=== PATIENT | female | born 1970 | race Two or more races ===

== ENCOUNTER 2019-07-12 16:10 | Emergency (ER) | payer MEDICAID ==
[~2019-07-12] VITALS: Ht 157.5 cm; Wt 58.5 kg
[~2019-07-12 16:10] MED LIST: ACET500T43 PO; ALOG25TA OR; AMOX250C3 PO; ATOR20TA50 PO; CAR3125T PO; CARV3.1240 PO; CLAR1TAB21 PO; FERR-20 PO; FUR20T PO; FURO20TA3 PO; GLIP5TAB12 PO; INSLANTI SC; METO-517 PO; METO5TAB67 PO; NUTR-1405 PO; PANT40T PO; SACU1TAB PO; SODI5PAK PO; SPIR25TA8 PO; SPIR25TA88 PO
[2019-07-12 17:17] LABS: Basophils # (auto) 0.1 10 ^3/uL (0-0.2); Basophils % (auto) 1.1 % (0.0-2.0); Eosinophils # (auto) 0.1 10 ^3/uL (0-0.8); Eosinophils % (auto) 1.8 % (0.0-7.0); Hematocrit 31.2 % (36.0-46.0); Hemoglobin 10.6 g/dL (12.2-16.2); Lymphocytes # (auto) 1.2 10 ^3/uL (0.4-5.4); Lymphocytes % (auto) 17.2 % (10.0-50.0); Mean Corpuscular Volume 88.4 fL (80.0-100.0); Monocytes # (auto) 0.3 10 ^3/uL (0-1.3); Monocytes % (auto) 4.8 % (0.0-12.0); Neutrophils # (auto) 5.4 10 ^3/uL (1.6-8.6); Neutrophils % (auto) 75.1 % (37.0-80.0); Platelet Count (auto) 182 10^3/uL (140-450); Red Blood Cells 3.53 10^6/uL (4.0-5.20); Red Cell Distribution Width 12.9 % (11.8-14.3); White Blood Cell 7.1 10^3/uL (4.4-10.8)
[2019-07-12 17:33] LABS: Alanine Aminotransferase 25 U/L (13-56); Albumin 2.3 g/dL (3.4-5.0); Anion Gap 4 (5-15); Blood Urea Nitrogen 30 mg/dL (7-18); Calcium 8.5 mg/dL (8.5-10.1); Carbon Dioxide 29 mmol/L (21-32); Chloride 99 mmol/L (98-107); Potassium 4.8 mmol/L (3.5-5.1); Sodium 132 mmol/L (136-145)
[2019-07-12 17:38] LABS: Alkaline Phosphatase 178 U/L (45-117); Aspartate Aminotransferase 18 U/L (15-37); BUN/Creatinine Ratio 23.8; Bilirubin, Total 0.3 mg/dL (0.2-1.0); GFR African American 58 mL/min; GFR Non-African American 48 mL/min; Total Protein 6.5 g/dL (6.4-8.2)
[2019-07-12 17:49] LABS: Glucose 458 mg/dL (74-106)
[2019-07-12 18:26] LABS: Urine Bacteria NONE SEEN /hpf (None Seen); Urine Blood 1+ /uL (Negative); Urine Hyaline Cast FEW /lpf (0 - 2); Urine Specific Gravity 1.017 (1.001-1.035); Urine WBC 3 /hpf (0 - 5)
[2019-07-12] MEDS ORDERED: SODIUM CHLORIDE 0.9% 2,000 ML IV ONE (21:15)
[2019-07-12] MEDS ORDERED: InsuLIN REG 1unit/0.01ml Soln (100units/ml) IV ONE ×2 (21:15→23:30)
[2019-07-12] MEDS ORDERED: ONDANSETRON HCL 4 MG/2 ML VIAL IV ONE (21:30)
[2019-07-12] MEDS ORDERED: InsuLIN REG 1unit/0.01ml Soln (100units/ml) SC ONE (22:45)
[2019-07-12] MEDS ORDERED: ONDANSETRON ODT 4 MG TAB PO ONE (22:45)
[2019-07-13 00:18] VITALS: BP 177/83
[2019-07-13] MEDS ORDERED: MECLIZINE HCL 25 MG TAB PO ONE (01:45)
[2019-07-13] MEDS ORDERED: ONDANSETRON ODT 4 MG TAB PO ONE (01:45)
== END 2019-07-13 02:59 | disposition home or self-care (01) ==
LOC: ER 16:10
DX: E11.65 Type 2 diabetes mellitus with hyperglycemia (principal); R11.2 Nausea with vomiting, unspecified; R42 Dizziness and giddiness; I11.0 Hypertensive heart disease with heart failure; I50.9 Heart failure, unspecified; J45.909 Unspecified asthma, uncomplicated; Z90.710 Acquired absence of both cervix and uterus
CPT/HCPCS: 36415; 80053; 81001; 82962; 84484; 85025; 93005; 96360; 96361; 99284; J1815; J7030; J8597; Q0162

== ENCOUNTER 2019-09-06 11:22 | Inpatient (IN) | payer MEDICAID ==
[~2019-09-06] VITALS: Ht 157.5 cm; Wt 63.5 kg
[2019-09-06] MEDS ORDERED: SODIUM CHLORIDE 0.9% 1,000 ML IV ONE (12:03)
[2019-09-06 12:59] LABS: Basophils # (auto) 0.1 10 ^3/uL (0-0.2); Basophils % (auto) 1.1 % (0.0-2.0); Eosinophils # (auto) 0.2 10 ^3/uL (0-0.8); Eosinophils % (auto) 3.1 % (0.0-7.0); Hematocrit 26.9 % (36.0-46.0); Lymphocytes # (auto) 1.5 10 ^3/uL (0.4-5.4); Lymphocytes % (auto) 23.8 % (10.0-50.0); Mean Corpuscular Hemoglobin 29.9 pg (28.0-32.0); Mean Corpuscular Hgb Conc. 33.2 g/dL (32.0-36.0); Mean Corpuscular Volume 89.9 fL (80.0-100.0); Monocytes # (auto) 0.3 10 ^3/uL (0-1.3); Monocytes % (auto) 5.4 % (0.0-12.0); Neutrophils # (auto) 4.3 10 ^3/uL (1.6-8.6); Neutrophils % (auto) 66.6 % (37.0-80.0); Platelet Count (auto) 176 10^3/uL (140-450); Red Cell Distribution Width 13.3 % (11.8-14.3); White Blood Cell 6.4 10^3/uL (4.4-10.8)
[2019-09-06 13:14] LABS: Albumin 2.6 g/dL (3.4-5.0); Anion Gap 4 (5-15); Blood Urea Nitrogen 49 mg/dL (7-18); Calcium 8.7 mg/dL (8.5-10.1); Carbon Dioxide 23 mmol/L (21-32); Chloride 112 mmol/L (98-107); Glucose 227 mg/dL (74-106); Potassium 5.4 mmol/L (3.5-5.1); Sodium 139 mmol/L (136-145)
[2019-09-06 13:19] LABS: Alanine Aminotransferase 31 U/L (13-56); Alkaline Phosphatase 137 U/L (45-117); Aspartate Aminotransferase 17 U/L (15-37); Bilirubin, Total 0.2 mg/dL (0.2-1.0); GFR African American 51 mL/min; GFR Non-African American 42 mL/min; Total Protein 6.6 g/dL (6.4-8.2)
[2019-09-06 16:06] LABS: Urine Bacteria MANY /hpf (None Seen); Urine Blood 1+ /uL (Negative); Urine Hyaline Cast MOD /lpf (0 - 2); Urine Mucus FEW (None Seen); Urine WBC 346 /hpf (0 - 5); Urine WBC Clumps PRESENT /hpf (None Seen)
[2019-09-06] MEDS ORDERED: ALBUTEROL SULF 2.5 MG/0.5ML(0.5%) NEB SOLN NEB ONE (16:45)
[2019-09-06] MEDS ORDERED: CALCIUM GLUC 4.65meq/50ml D5AE 50 ML IV ONE (16:45)
[2019-09-06] MEDS ORDERED: InsuLIN REG 1unit/0.01ml Soln (100units/ml) IV ONE (16:45)
[2019-09-06] MEDS ORDERED: SODIUM ZIRCONIUM CYCL 10 GM PAK PO ONE (16:45)
[2019-09-06] MEDS ORDERED: DEXTROSE (50%) 50ML SYRG IV ONE (16:45)
[2019-09-06] MEDS ORDERED: SODIUM BICARBONATE 8.4% INJ 50ML SYRINGE IV ONE (16:45)
[2019-09-06] MEDS ORDERED: ACETAMINOPHEN 325 MG TAB PO PRN (17:15)
[2019-09-06] MEDS ORDERED: ONDANSETRON HCL 4 MG/2 ML VIAL IV ONE (17:15)
[2019-09-06] MEDS ORDERED: HYDROcodone-ACET 5/325MG TAB PO PRN (17:15)
[2019-09-06] MEDS ORDERED: IPRATROPIUM BROM 0.5 MG/2.5ML INH SOL NEB PRN (17:15)
[2019-09-06] MEDS ORDERED: DEXTROSE (50%) 50ML SYRG IV PRN (17:15)
[2019-09-06] MEDS ORDERED: LORazepam 0.5 MG TAB PO PRN (17:15)
[2019-09-06] MEDS ORDERED: DOCUSATE SOD 100 MG CAP PO PRN (17:15)
[2019-09-06] MEDS ORDERED: ALBUTEROL SULF 2.5 MG/0.5ML(0.5%) NEB SOLN NEB PRN (17:15)
[2019-09-06] MEDS ORDERED: MORPHINE SULF INJ 2 MG/ML SYRINGE 1ML IV PRN (17:15)
[2019-09-06] MEDS ORDERED: ONDANSETRON HCL 4 MG/2 ML VIAL IV PRN (17:15)
[2019-09-06] MEDS: SODIUM CHLORIDE 0.9% 1,000 ML IV SCH (17:49)
[2019-09-06] MEDS ORDERED: PROMETHAZINE HCL 25 MG/ML 1ML ONE (17:54)
[2019-09-06] MEDS: ATORVASTATIN 20 MG TAB PO SCH (18:00)
[2019-09-06] MEDS: ACCU-CHEK COMFORT CURVE STRIP VI SCH (19:52)
[2019-09-06] MEDS: InsuLIN REG 1unit/0.01ml Soln (100units/ml) SC SCH (19:52)
[2019-09-06] MEDS ORDERED: LOPE2CAP PO (22:41)
[2019-09-06] MEDS ORDERED: HYDR50TA15 PO (22:41)
[2019-09-06] MEDS ORDERED: TOBR0.3S4 EACHEYE (22:41)
[2019-09-06] MEDS ORDERED: DORZ2SOL18 OP (22:41)
[2019-09-06] MEDS ORDERED: DULO20CA PO (22:41)
[2019-09-06] MEDS: CARVEDILOL 3.125 MG TAB PO SCH (23:07)
--- NOTE | 2019-09-06 23:30 | NUR ---
ms admit from ed pt arrive via wheelchair awake alert oriented x4 and on room air. no distress noted or expressed. pt oriented to this nurse and updated on plan of care. pt reports having n/v, dizziness, and headache "on and off" for four days. pt reports dc from [facility] and receiving script for carvedilol and also having same medication in different dose and taking both doses of the med. pt denies any feelings of nausea at this time. pt denies any pain. pt oriented to room, bed control, use of call light. pt encouraged to call as needed. bed locked, low and 2x Rails up.
[2019-09-07] MEDS: InsuLIN REG 1unit/0.01ml Soln (100units/ml) SC SCH ×5 (00:30→17:53)
[2019-09-07 01:47] VITALS: BP 104/87
[2019-09-07] MEDS: ACCU-CHEK COMFORT CURVE STRIP VI SCH ×5 (04:36→17:52)
[2019-09-07 05:00] VITALS: BP 162/81
[2019-09-07 05:23] LABS: Basophils # (auto) 0.1 10 ^3/uL (0-0.2); Eosinophils # (auto) 0.2 10 ^3/uL (0-0.8); Eosinophils % (auto) 3.1 % (0.0-7.0); Hemoglobin 8.7 g/dL (12.2-16.2); Lymphocytes # (auto) 1.3 10 ^3/uL (0.4-5.4); Lymphocytes % (auto) 19.7 % (10.0-50.0); Mean Corpuscular Hemoglobin 29.7 pg (28.0-32.0); Mean Corpuscular Hgb Conc. 33.5 g/dL (32.0-36.0); Mean Corpuscular Volume 88.7 fL (80.0-100.0); Monocytes # (auto) 0.4 10 ^3/uL (0-1.3); Monocytes % (auto) 6.2 % (0.0-12.0); Neutrophils # (auto) 4.6 10 ^3/uL (1.6-8.6); Platelet Count (auto) 157 10^3/uL (140-450); Red Blood Cells 2.93 10^6/uL (4.0-5.20); Red Cell Distribution Width 13.4 % (11.8-14.3); White Blood Cell 6.6 10^3/uL (4.4-10.8)
[2019-09-07 05:41] LABS: Calcium 8.8 mg/dL (8.5-10.1); Potassium 4.7 mmol/L (3.5-5.1)
[2019-09-07 05:47] LABS: BUN/Creatinine Ratio 35.2
[2019-09-07 09:00] VITALS: BP 177/98
--- NOTE | 2019-09-07 09:01 | NUR ---
Respiratory note: ASSESSED PT FOR PRN TX. HR 79, RR 16, POX 100% ON RA, BREATH SOUNDS ARE CLEAR. NO SOB OR DISTRESS NOTED. PT WAS NOTIFY TO HAVE RT PAGE FOR NEEDED TX.
[2019-09-07] MEDS: CARVEDILOL 3.125 MG TAB PO SCH (09:22)
[2019-09-07] MEDS: SODIUM CHLORIDE 0.9% 1,000 ML IV SCH (09:23)
[2019-09-07] MEDS ORDERED: PANTOPRAZOLE 40 MG TAB PO SCH (10:00)
[2019-09-07] MEDS ORDERED: FUROSEMIDE 20 MG TAB PO SCH (10:00)
[2019-09-07] MEDS ORDERED: SPIRONOLACTONE 25 MG TAB PO SCH (10:00)
[2019-09-07] MEDS ORDERED: cefTRIAXone 1GM/50ML D5W 50 ML IV SCH (10:00)
[2019-09-07] MEDS ORDERED: SACUBITRIL-VALSARTAN 24mg/26mg TAB PO SCH (10:00)
[2019-09-07 13:00] VITALS: BP 163/74
[2019-09-07 16:46] VITALS: BP 155/85
[2019-09-07 17:00] VITALS: BP 153/85
[2019-09-07] MEDS: ATORVASTATIN 20 MG TAB PO SCH (17:52)
--- NOTE | 2019-09-07 18:58 | NUR ---
Discharge instructions given as ordered. Encourage to follow up with PMD (FOLLOW UP WITH DR. QURESHI IN SEP 12 AT 1.20 PM #[phone] EXT : [phone]ESS : [id number], [place], [address] . PLEASE CHECK URINE CULTURE WITH PCP as instructed. All questions and concerns addressed. Patient verbalized understanding. Medication reconciliation form completed and copy given to patient. Home medications held in Pharmacy returned to patient. IV removed with catheter intact, pressure dressing applied. Patient taken to vehicle via wheelchair with all personal belongings, accompanied by staff and family member. No distress noted at time of departure.
== END 2019-09-07 19:00 | disposition home or self-care (01) | DRG 812 ==
LOC: ER 11:22 → OVERFLOW 11:23 → WEST WING 21:55
PROVIDERS: ADMIT Hospitalist; ATTEND Hospitalist
DX: T44.7X1A Poisoning by beta-adrenoreceptor antagonists, accidental (unintentional), initial encounter (principal); E87.5 Hyperkalemia; E44.0 Moderate protein-calorie malnutrition; N39.0 Urinary tract infection, site not specified; E11.65 Type 2 diabetes mellitus with hyperglycemia; E78.5 Hyperlipidemia, unspecified; H54.8 Legal blindness, as defined in USA; I11.0 Hypertensive heart disease with heart failure; I25.10 Atherosclerotic heart disease of native coronary artery without angina pectoris; I50.9 Heart failure, unspecified; J45.909 Unspecified asthma, uncomplicated; Z83.3 Family history of diabetes mellitus; Z90.710 Acquired absence of both cervix and uterus; Y92.89 Other specified places as the place of occurrence of the external cause; Z68.25 Body mass index [BMI] 25.0-25.9, adult; Z88.2 Allergy status to sulfonamides; Z88.8 Allergy status to other drugs, medicaments and biological substances
CPT/HCPCS: 36415; 70450; 71045; 80048; 80053; 80061; 81001; 82962; 83036; 84132; 84484; 85025; 93005; 94640; 99291; G0378; J0610; J0696; J1815; J2405

== ENCOUNTER → 2020-01-23 | Outpatient (CLI) | payer MEDICAID ==
[~2020-01-23] MED LIST changes: -ACET500T43 PO; -AMOX250C3 PO; -CAR3125T PO; -CLAR1TAB21 PO; +CYANOCOBALAMIN (B-12) 1000 MCG/1 ML VIAL IM ONE; +CYANOCOBALAMIN (B-12) 1000 MCG/1 ML VIAL ONE; +DORZ2SOL18 OP; +DULO20CA PO; -FURO20TA3 PO; -GLIP5TAB12 PO; +HYDR50TA15 PO; -INSLANTI SC; +LOPE2CAP PO; -METO-517 PO; -NUTR-1405 PO; -SODI5PAK PO; -SPIR25TA88 PO; +TOBR0.3S4 EACHEYE
--- NOTE | 2020-01-23 13:20 | NUR ---
CLINIC PT ARRIVED TO THE CHF CLINIC FOR INITIAL SCHEDULED CHF EVAL PER MD ORDERS. A/OX4, AMBULATORY WITH WALKER, BREATHING IS EVEN AND UNLABORED
--- NOTE | 2020-01-23 13:49 | NUR ---
LABS DRAWN AND SENT
--- NOTE | 2020-01-23 13:50 | NUR ---
PT TO RADIOLOGY WITH [facility] FOR CXR, PT WALKING WITH WALKER WITH STEADY GAIT.
--- NOTE | 2020-01-23 13:55 | NUR ---
PT RETURN FROM RADIOLOGY AND TOLERATED PROCEDURE WELL.
--- NOTE | 2020-01-23 14:01 | NUR ---
6MWT DONE BY GARRETT SWEET INITIAL 6MWT TEST COMPLETED, PT WALKED 247M IN 6 MIN WITH 4 PAUSES BUT COMPLETED THE TEST USING WALKER AND WEARING A MASK, DUE TO COVID. PT TOLERATED WELL.
--- NOTE | 2020-01-23 14:48 | NUR ---
SOHEILA RN EDUCATED PT ON DISEASE PROCESS AND CURRENT TX PLAN. ALL QUESTIONS ANSWERED, PT VERBALIZED UNDERSTANDING.
[2020-01-23 15:17] VITALS: BP 167/79
--- NOTE | 2020-01-23 15:17 | NUR ---
Discharge Instructions See e-MAR for any mediations given with this visit. Patient education given on disease process. Patient verbalized understanding. Previous labs reviewed. Patient discharged in stable condition with after care instructions and follow up appointment ON [place] ON 02/06/20 @1PM Addendum: 01/23/20 at 1521 by SHORTY MALONEY RN RN VIT B12 IM ADMIN BY SHORTY BRUNSON L DELTOID LOT#[id number] EXP 05/30 6MWT DONE BY GARRETT SWEET
[2020-01-23 15:50] LABS: Basophils # (auto) 0.1 10 ^3/uL (0-0.2); Basophils % (auto) 0.9 % (0.0-2.0); Eosinophils # (auto) 0.1 10 ^3/uL (0-0.8); Eosinophils % (auto) 1.4 % (0.0-7.0); Hematocrit 26.1 % (36.0-46.0); Mean Corpuscular Hemoglobin 31.5 pg (28.0-32.0); Mean Corpuscular Hgb Conc. 34.4 g/dL (32.0-36.0); Mean Corpuscular Volume 91.5 fL (80.0-100.0); Monocytes # (auto) 0.4 10 ^3/uL (0-1.3); Monocytes % (auto) 5.2 % (0.0-12.0); Neutrophils # (auto) 5.8 10 ^3/uL (1.6-8.6); Neutrophils % (auto) 78.5 % (37.0-80.0); Platelet Count (auto) 247 10^3/uL (140-450); Red Blood Cells 2.86 10^6/uL (4.0-5.20); Red Cell Distribution Width 13.6 % (11.8-14.3); White Blood Cell 7.4 10^3/uL (4.4-10.8)
[2020-01-23 16:11] LABS: Albumin 1.9 g/dL (3.4-5.0); Magnesium 1.9 mg/dL (1.6-2.6); Potassium 5.2 mmol/L (3.5-5.1)
[2020-01-23 16:16] LABS: BUN/Creatinine Ratio 33.6; Bilirubin, Total 0.1 mg/dL (0.2-1.0); Total Protein 5.7 g/dL (6.4-8.2)
== END | disposition home or self-care (01) ==
LOC: CHF HDHVI 13:26
PROVIDERS: ATTEND Internal Medicine Cardiovascular Disease
DX: I11.0 Hypertensive heart disease with heart failure (principal); I50.23 Acute on chronic systolic (congestive) heart failure; I25.10 Atherosclerotic heart disease of native coronary artery without angina pectoris; R06.02 Shortness of breath; E78.5 Hyperlipidemia, unspecified; E11.9 Type 2 diabetes mellitus without complications; J45.909 Unspecified asthma, uncomplicated; Z90.710 Acquired absence of both cervix and uterus; Z79.899 Other long term (current) drug therapy
CPT/HCPCS: 36415; 71046; 80053; 82306; 82607; 83036; 83735; 83880; 85025; 94618; 96372; G0463; J3420

== ENCOUNTER → 2020-02-06 | Outpatient (CLI) | payer MEDICAID ==
[2020-02-06 13:26] VITALS: BP 127/60
[2020-02-06 15:24] LABS: Basophils # (auto) 0.1 10 ^3/uL (0-0.2); Eosinophils # (auto) 0.2 10 ^3/uL (0-0.8); Eosinophils % (auto) 3.2 % (0.0-7.0); Hemoglobin 8.9 g/dL (12.2-16.2); Lymphocytes # (auto) 1.2 10 ^3/uL (0.4-5.4); Lymphocytes % (auto) 20.6 % (10.0-50.0); Mean Corpuscular Hemoglobin 31.6 pg (28.0-32.0); Mean Corpuscular Hgb Conc. 34.3 g/dL (32.0-36.0); Monocytes # (auto) 0.4 10 ^3/uL (0-1.3); Monocytes % (auto) 7.5 % (0.0-12.0); Neutrophils # (auto) 3.9 10 ^3/uL (1.6-8.6); Neutrophils % (auto) 67.7 % (37.0-80.0); Platelet Count (auto) 185 10^3/uL (140-450); Red Blood Cells 2.82 10^6/uL (4.0-5.20); Red Cell Distribution Width 13.6 % (11.8-14.3); White Blood Cell 5.7 10^3/uL (4.4-10.8)
[2020-02-06 15:27] LABS: Calcium 8.4 mg/dL (8.5-10.1); Potassium 4.9 mmol/L (3.5-5.1)
[2020-02-06 15:38] VITALS: BP 159/65
[2020-02-06 15:41] LABS: BUN/Creatinine Ratio 30.9; Bilirubin, Total 0.1 mg/dL (0.2-1.0); Total Protein 5.7 g/dL (6.4-8.2)
== END | disposition home or self-care (01) ==
LOC: CHF HDHVI 13:28
PROVIDERS: ATTEND Internal Medicine Cardiovascular Disease
DX: I11.0 Hypertensive heart disease with heart failure (principal); I50.23 Acute on chronic systolic (congestive) heart failure; D64.9 Anemia, unspecified; R53.83 Other fatigue; I25.10 Atherosclerotic heart disease of native coronary artery without angina pectoris; E78.5 Hyperlipidemia, unspecified; E11.9 Type 2 diabetes mellitus without complications; J45.909 Unspecified asthma, uncomplicated; Z90.49 Acquired absence of other specified parts of digestive tract
CPT/HCPCS: 36415; 80053; 83735; 83880; 85025; 96372; G0463; J3420

== ENCOUNTER → 2020-02-13 | Outpatient (CLI) | payer MEDICAID ==
[~2020-02-13] MED LIST changes: +POVIDONE IODINE 10 % TOPICAL OINT 30GM TOP ONE
[2020-02-13 15:15] VITALS: BP 158/79
[2020-02-13 15:53] LABS: Basophils # (auto) 0.1 10 ^3/uL (0-0.2); Eosinophils # (auto) 0.2 10 ^3/uL (0-0.8); Eosinophils % (auto) 3.5 % (0.0-7.0); Hematocrit 23.6 % (36.0-46.0); Hemoglobin 8.2 g/dL (12.2-16.2); Lymphocytes % (auto) 18.9 % (10.0-50.0); Mean Corpuscular Hemoglobin 31.8 pg (28.0-32.0); Mean Corpuscular Hgb Conc. 34.5 g/dL (32.0-36.0); Mean Corpuscular Volume 91.9 fL (80.0-100.0); Monocytes # (auto) 0.4 10 ^3/uL (0-1.3); Monocytes % (auto) 6.7 % (0.0-12.0); Neutrophils # (auto) 3.8 10 ^3/uL (1.6-8.6); Neutrophils % (auto) 69.9 % (37.0-80.0); Platelet Count (auto) 177 10^3/uL (140-450); Red Blood Cells 2.57 10^6/uL (4.0-5.20); Red Cell Distribution Width 13.5 % (11.8-14.3); White Blood Cell 5.5 10^3/uL (4.4-10.8)
[2020-02-13 16:00] LABS: Albumin 1.8 g/dL (3.4-5.0); Calcium 8.1 mg/dL (8.5-10.1); Magnesium 1.9 mg/dL (1.6-2.6); Potassium 4.9 mmol/L (3.5-5.1)
[2020-02-13 16:03] LABS: BUN/Creatinine Ratio 25.9; Bilirubin, Total 0.1 mg/dL (0.2-1.0); Total Protein 5.5 g/dL (6.4-8.2)
== END | disposition home or self-care (01) ==
LOC: CHF HDHVI 14:15
PROVIDERS: ATTEND Internal Medicine Cardiovascular Disease
DX: I50.23 Acute on chronic systolic (congestive) heart failure (principal); D64.9 Anemia, unspecified; I25.10 Atherosclerotic heart disease of native coronary artery without angina pectoris; E78.5 Hyperlipidemia, unspecified; Q24.9 Congenital malformation of heart, unspecified; E11.9 Type 2 diabetes mellitus without complications; J45.909 Unspecified asthma, uncomplicated; Z90.710 Acquired absence of both cervix and uterus; Z79.899 Other long term (current) drug therapy; Z90.49 Acquired absence of other specified parts of digestive tract
CPT/HCPCS: 36415; 80053; 83735; 83880; 85025; 96372; G0463; J3420

== ENCOUNTER → 2020-02-27 | Outpatient (CLI) | payer MEDICAID ==
[~2020-02-27] MED LIST changes: +ALBUMIN 5% 250 ML IV ONE; -CYANOCOBALAMIN (B-12) 1000 MCG/1 ML VIAL IM ONE; -CYANOCOBALAMIN (B-12) 1000 MCG/1 ML VIAL ONE; +FUROSEMIDE 40 MG/4 ML VIAL IV ONE; +FUROSEMIDE 40 MG/4 ML VIAL ONE; +ONDANSETRON HCL 4 MG/2 ML VIAL IV ONE; +ONDANSETRON HCL 4 MG/2 ML VIAL ONE; +POTASSIUM CHL 10 Meq TABLET PO ONE; -POVIDONE IODINE 10 % TOPICAL OINT 30GM TOP ONE
[2020-02-27 13:25] VITALS: BP 196/90
[2020-02-27 15:23] LABS: Basophils # (auto) 0.1 10 ^3/uL (0-0.2); Basophils % (auto) 1.7 % (0.0-2.0); Eosinophils # (auto) 0.2 10 ^3/uL (0-0.8); Eosinophils % (auto) 3.2 % (0.0-7.0); Hematocrit 29.3 % (36.0-46.0); Hemoglobin 10.1 g/dL (12.2-16.2); Lymphocytes % (auto) 17.3 % (10.0-50.0); Mean Corpuscular Hemoglobin 31.3 pg (28.0-32.0); Mean Corpuscular Hgb Conc. 34.3 g/dL (32.0-36.0); Mean Corpuscular Volume 91.2 fL (80.0-100.0); Monocytes # (auto) 0.3 10 ^3/uL (0-1.3); Monocytes % (auto) 5.6 % (0.0-12.0); Neutrophils % (auto) 72.2 % (37.0-80.0); Platelet Count (auto) 206 10^3/uL (140-450); Red Blood Cells 3.21 10^6/uL (4.0-5.20); Red Cell Distribution Width 13.4 % (11.8-14.3); White Blood Cell 5.5 10^3/uL (4.4-10.8)
[2020-02-27 15:33] LABS: Albumin 2.1 g/dL (3.4-5.0); Calcium 8.2 mg/dL (8.5-10.1); Potassium 4.6 mmol/L (3.5-5.1)
[2020-02-27 15:37] LABS: BUN/Creatinine Ratio 32.4; Bilirubin, Total 0.2 mg/dL (0.2-1.0); Total Protein 6.2 g/dL (6.4-8.2)
[2020-02-27 16:08] VITALS: BP 193/87
== END | disposition home or self-care (01) ==
LOC: CHF HDHVI 13:21
PROVIDERS: ATTEND Internal Medicine Cardiovascular Disease
DX: I11.0 Hypertensive heart disease with heart failure (principal); I50.23 Acute on chronic systolic (congestive) heart failure; R53.83 Other fatigue; R11.2 Nausea with vomiting, unspecified; I25.10 Atherosclerotic heart disease of native coronary artery without angina pectoris; E78.5 Hyperlipidemia, unspecified; J45.909 Unspecified asthma, uncomplicated; E11.9 Type 2 diabetes mellitus without complications; Z90.710 Acquired absence of both cervix and uterus; Z79.899 Other long term (current) drug therapy; Z90.49 Acquired absence of other specified parts of digestive tract
CPT/HCPCS: 36415; 80053; 83735; 83880; 85025; 96365; 96375; G0463; J1940; J2405; P9045

== ENCOUNTER → 2020-03-05 | Outpatient (CLI) | payer MEDICAID ==
[~2020-03-05] MED LIST changes: +CARV6.2551 PO; +CEFT1INJ17 IV; +DOXY-332 PO; +LOP2C PO; -ONDANSETRON HCL 4 MG/2 ML VIAL IV ONE; -ONDANSETRON HCL 4 MG/2 ML VIAL ONE; +POM OP; +SACU1TAB4 PO; +VANC1INJ IV
[2020-03-05 14:26] VITALS: BP 194/89
[2020-03-05 15:23] VITALS: BP 149/73
[2020-03-05 15:24] LABS: Basophils # (auto) 0.1 10 ^3/uL (0-0.2); Basophils % (auto) 1.4 % (0.0-2.0); Eosinophils # (auto) 0.2 10 ^3/uL (0-0.8); Eosinophils % (auto) 3.1 % (0.0-7.0); Hematocrit 30.9 % (36.0-46.0); Hemoglobin 10.5 g/dL (12.2-16.2); Lymphocytes # (auto) 1.2 10 ^3/uL (0.4-5.4); Lymphocytes % (auto) 23.7 % (10.0-50.0); Mean Corpuscular Hemoglobin 31.1 pg (28.0-32.0); Mean Corpuscular Hgb Conc. 33.8 g/dL (32.0-36.0); Mean Corpuscular Volume 92.1 fL (80.0-100.0); Monocytes # (auto) 0.3 10 ^3/uL (0-1.3); Monocytes % (auto) 5.5 % (0.0-12.0); Neutrophils # (auto) 3.5 10 ^3/uL (1.6-8.6); Neutrophils % (auto) 66.3 % (37.0-80.0); Red Blood Cells 3.36 10^6/uL (4.0-5.20); Red Cell Distribution Width 13.6 % (11.8-14.3); White Blood Cell 5.2 10^3/uL (4.4-10.8)
[2020-03-05 15:30] LABS: Albumin 2.2 g/dL (3.4-5.0); Calcium 8.5 mg/dL (8.5-10.1); Potassium 4.6 mmol/L (3.5-5.1)
[2020-03-05 15:33] LABS: BUN/Creatinine Ratio 30.5
[2020-03-05 15:34] LABS: Bilirubin, Total 0.2 mg/dL (0.2-1.0); Total Protein 6.3 g/dL (6.4-8.2)
== END | disposition home or self-care (01) ==
LOC: CHF HDHVI 13:28
PROVIDERS: ATTEND Internal Medicine Cardiovascular Disease
DX: I11.0 Hypertensive heart disease with heart failure (principal); I50.23 Acute on chronic systolic (congestive) heart failure; R77.0 Abnormality of albumin; D64.9 Anemia, unspecified; E11.9 Type 2 diabetes mellitus without complications; I25.10 Atherosclerotic heart disease of native coronary artery without angina pectoris; J45.909 Unspecified asthma, uncomplicated; E78.5 Hyperlipidemia, unspecified; R53.83 Other fatigue; Z90.49 Acquired absence of other specified parts of digestive tract; Z90.710 Acquired absence of both cervix and uterus; Z79.899 Other long term (current) drug therapy
CPT/HCPCS: 36415; 80053; 83735; 83880; 85025; 96365; 96375; G0463; J1940; P9045

== ENCOUNTER → 2020-03-26 | Outpatient (CLI) | payer MEDICAID ==
[~2020-03-26] MED LIST changes: -ALBUMIN 5% 250 ML IV ONE; -CARV6.2551 PO; -CEFT1INJ17 IV; +CYANOCOBALAMIN (B-12) 1000 MCG/1 ML VIAL IM ONE; +CYANOCOBALAMIN (B-12) 1000 MCG/1 ML VIAL ONE; -DOXY-332 PO; -FUROSEMIDE 40 MG/4 ML VIAL IV ONE; -FUROSEMIDE 40 MG/4 ML VIAL ONE; -LOP2C PO; +MAGNESIUM SULFATE 1GM/100ML 100 ML IV ONE; +MAGNESIUM SULFATE 1GM/100ML 200 ML IV ONE; -POM OP; -POTASSIUM CHL 10 Meq TABLET PO ONE; -SACU1TAB4 PO; -VANC1INJ IV
[2020-03-26 15:24] LABS: Basophils # (auto) 0.1 10 ^3/uL (0-0.2); Eosinophils # (auto) 0.2 10 ^3/uL (0-0.8); Hematocrit 23.9 % (36.0-46.0); Lymphocytes # (auto) 1.8 10 ^3/uL (0.4-5.4); Monocytes # (auto) 0.4 10 ^3/uL (0-1.3); Red Blood Cells 2.65 10^6/uL (4.0-5.20)
[2020-03-26 15:27] LABS: Eosinophils % (auto) 3.6 % (0.0-7.0); Hemoglobin 8.2 g/dL (12.2-16.2); Lymphocytes % (auto) 28.2 % (10.0-50.0); Mean Corpuscular Hemoglobin 31.1 pg (28.0-32.0); Mean Corpuscular Hgb Conc. 34.5 g/dL (32.0-36.0); Mean Corpuscular Volume 90.1 fL (80.0-100.0); Monocytes % (auto) 6.2 % (0.0-12.0); Neutrophils # (auto) 3.8 10 ^3/uL (1.6-8.6); Platelet Count (auto) 202 10^3/uL (140-450); Red Cell Distribution Width 13.2 % (11.8-14.3); White Blood Cell 6.3 10^3/uL (4.4-10.8)
[2020-03-26 15:31] LABS: Magnesium 1.7 mg/dL (1.6-2.6); Potassium 4.2 mmol/L (3.5-5.1)
[2020-03-26 16:20] VITALS: BP 172/87
== END | disposition home or self-care (01) ==
LOC: CHF HDHVI 13:30
PROVIDERS: ATTEND Internal Medicine Cardiovascular Disease
DX: I11.0 Hypertensive heart disease with heart failure (principal); I50.23 Acute on chronic systolic (congestive) heart failure; E87.6 Hypokalemia; I25.10 Atherosclerotic heart disease of native coronary artery without angina pectoris; E78.5 Hyperlipidemia, unspecified; E11.9 Type 2 diabetes mellitus without complications; Z79.899 Other long term (current) drug therapy; Z90.710 Acquired absence of both cervix and uterus; Z90.49 Acquired absence of other specified parts of digestive tract
CPT/HCPCS: 36415; 83735; 83880; 84132; 85025; 96365; 96366; 96372; J3420; J3475

== ENCOUNTER → 2020-04-09 | Outpatient (CLI) | payer MEDICAID ==
[~2020-04-09] MED LIST changes: -CYANOCOBALAMIN (B-12) 1000 MCG/1 ML VIAL IM ONE; -CYANOCOBALAMIN (B-12) 1000 MCG/1 ML VIAL ONE; -MAGNESIUM SULFATE 1GM/100ML 200 ML IV ONE
[2020-04-09 15:15] VITALS: BP 160/71
[2020-04-09 15:26] LABS: Basophils # (auto) 0.1 10 ^3/uL (0-0.2); Basophils % (auto) 1.1 % (0.0-2.0); Eosinophils # (auto) 0.2 10 ^3/uL (0-0.8); Eosinophils % (auto) 2.8 % (0.0-7.0); Hematocrit 26.9 % (36.0-46.0); Hemoglobin 9.2 g/dL (12.2-16.2); Lymphocytes # (auto) 1.3 10 ^3/uL (0.4-5.4); Lymphocytes % (auto) 22.1 % (10.0-50.0); Mean Corpuscular Hemoglobin 31.3 pg (28.0-32.0); Mean Corpuscular Hgb Conc. 34.3 g/dL (32.0-36.0); Mean Corpuscular Volume 91.3 fL (80.0-100.0); Monocytes # (auto) 0.4 10 ^3/uL (0-1.3); Monocytes % (auto) 6.2 % (0.0-12.0); Neutrophils # (auto) 3.9 10 ^3/uL (1.6-8.6); Neutrophils % (auto) 67.8 % (37.0-80.0); Nucleated Red Blood Cells % 0.1 %; Platelet Count (auto) 166 10^3/uL (140-450); Red Blood Cells 2.95 10^6/uL (4.0-5.20); Red Cell Distribution Width 12.9 % (11.8-14.3); White Blood Cell 5.8 10^3/uL (4.4-10.8)
[2020-04-09 15:32] LABS: Magnesium 1.9 mg/dL (1.6-2.6); Potassium 4.7 mmol/L (3.5-5.1)
== END | disposition home or self-care (01) ==
LOC: CHF HDHVI 13:37
PROVIDERS: ATTEND Internal Medicine Cardiovascular Disease
DX: E83.42 Hypomagnesemia (principal); I11.0 Hypertensive heart disease with heart failure; I50.23 Acute on chronic systolic (congestive) heart failure; R53.83 Other fatigue; I25.10 Atherosclerotic heart disease of native coronary artery without angina pectoris; J45.909 Unspecified asthma, uncomplicated; E11.9 Type 2 diabetes mellitus without complications; E78.5 Hyperlipidemia, unspecified; Z90.49 Acquired absence of other specified parts of digestive tract; Z90.710 Acquired absence of both cervix and uterus; Z79.899 Other long term (current) drug therapy
CPT/HCPCS: 36415; 83735; 83880; 84132; 85025; 96365; G0463; J3475

== ENCOUNTER → 2020-04-30 | Outpatient (CLI) | payer MEDICAID ==
[~2020-04-30] MED LIST changes: +FUROSEMIDE 20 MG/2 ML VIAL IV ONE; +FUROSEMIDE 20 MG/2 ML VIAL ONE; +FUROSEMIDE 40 MG/4 ML VIAL ONE; -MAGNESIUM SULFATE 1GM/100ML 100 ML IV ONE; +POTASSIUM CHL 10 Meq TABLET PO ONE; +POTASSIUM CHL 20 Meq TABLET PO ONE
[2020-04-30 13:50] VITALS: BP 164/71
[2020-04-30 15:45] LABS: Basophils # (auto) 0.1 10 ^3/uL (0-0.2); Basophils % (auto) 1.3 % (0.0-2.0); Eosinophils # (auto) 0.2 10 ^3/uL (0-0.8); Eosinophils % (auto) 3.5 % (0.0-7.0); Hematocrit 28.1 % (36.0-46.0); Hemoglobin 9.6 g/dL (12.2-16.2); Lymphocytes # (auto) 1.7 10 ^3/uL (0.4-5.4); Lymphocytes % (auto) 26.3 % (10.0-50.0); Mean Corpuscular Hemoglobin 31.2 pg (28.0-32.0); Mean Corpuscular Hgb Conc. 34.1 g/dL (32.0-36.0); Mean Corpuscular Volume 91.5 fL (80.0-100.0); Monocytes # (auto) 0.4 10 ^3/uL (0-1.3); Monocytes % (auto) 6.4 % (0.0-12.0); Neutrophils # (auto) 4.1 10 ^3/uL (1.6-8.6); Neutrophils % (auto) 62.5 % (37.0-80.0); Nucleated Red Blood Cells % 0.2 %; Platelet Count (auto) 175 10^3/uL (140-450); Red Blood Cells 3.07 10^6/uL (4.0-5.20); White Blood Cell 6.6 10^3/uL (4.4-10.8)
[2020-04-30 15:59] LABS: Calcium 8.1 mg/dL (8.5-10.1); Magnesium 1.9 mg/dL (1.6-2.6); Potassium 5.2 mmol/L (3.5-5.1)
[2020-04-30 16:01] LABS: BUN/Creatinine Ratio 42.4
== END | disposition home or self-care (01) ==
LOC: CHF HDHVI 13:12
PROVIDERS: ATTEND Internal Medicine Cardiovascular Disease
DX: I11.0 Hypertensive heart disease with heart failure (principal); I50.23 Acute on chronic systolic (congestive) heart failure; E78.5 Hyperlipidemia, unspecified; E11.9 Type 2 diabetes mellitus without complications; J45.909 Unspecified asthma, uncomplicated; I25.10 Atherosclerotic heart disease of native coronary artery without angina pectoris; Z90.710 Acquired absence of both cervix and uterus; Z90.49 Acquired absence of other specified parts of digestive tract; Z79.899 Other long term (current) drug therapy
CPT/HCPCS: 36415; 80048; 83735; 83880; 85025; 96374; G0463; J1940

== ENCOUNTER 2020-05-11 22:59 | Inpatient (IN) | payer MEDICAID ==
[~2020-05-11] VITALS: Ht 157.5 cm; Wt 64.9 kg
[~2020-05-11 22:59] MED LIST changes: -FUROSEMIDE 20 MG/2 ML VIAL IV ONE; -FUROSEMIDE 20 MG/2 ML VIAL ONE; -FUROSEMIDE 40 MG/4 ML VIAL ONE; -POTASSIUM CHL 10 Meq TABLET PO ONE; -POTASSIUM CHL 20 Meq TABLET PO ONE
[2020-05-12] MEDS ORDERED: cloNIDine HCL 0.1 MG TAB PO ONE (00:15)
[2020-05-12 00:43] LABS: Basophils # (auto) 0.1 10 ^3/uL (0-0.2); Basophils % (auto) 1.1 % (0.0-2.0); Eosinophils # (auto) 0.2 10 ^3/uL (0-0.8); Eosinophils % (auto) 3.1 % (0.0-7.0); Hematocrit 28.9 % (36.0-46.0); Hemoglobin 9.8 g/dL (12.2-16.2); Lymphocytes # (auto) 1.2 10 ^3/uL (0.4-5.4); Lymphocytes % (auto) 17.5 % (10.0-50.0); Mean Corpuscular Hemoglobin 30.5 pg (28.0-32.0); Mean Corpuscular Volume 89.7 fL (80.0-100.0); Monocytes # (auto) 0.6 10 ^3/uL (0-1.3); Monocytes % (auto) 8.7 % (0.0-12.0); Neutrophils # (auto) 4.7 10 ^3/uL (1.6-8.6); Neutrophils % (auto) 69.6 % (37.0-80.0); Nucleated Red Blood Cells % 0.1 %; Platelet Count (auto) 245 10^3/uL (140-450); Red Blood Cells 3.22 10^6/uL (4.0-5.20); Red Cell Distribution Width 12.9 % (11.8-14.3); White Blood Cell 6.7 10^3/uL (4.4-10.8)
[2020-05-12] MEDS ORDERED: VANCOMYCIN 1GM/250ML 250 ML IV ONE (01:00)
[2020-05-12 01:01] LABS: Albumin 2.2 g/dL (3.4-5.0); Calcium 8.3 mg/dL (8.5-10.1); Potassium 4.5 mmol/L (3.5-5.1)
[2020-05-12 01:04] LABS: Bilirubin, Total 0.2 mg/dL (0.2-1.0); Total Protein 6.7 g/dL (6.4-8.2)
[2020-05-12] MEDS ORDERED: DEXTROSE (50%) 50ML SYRG IV PRN (05:30)
[2020-05-12] MEDS ORDERED: NITROGLYCERIN 0.4 MG SL TAB SL PRN (05:30)
[2020-05-12] MEDS ORDERED: MORPHINE SULFATE 4 MG/ML SYR/VIAL IV PRN (05:30)
[2020-05-12] MEDS ORDERED: HYDROcodone-ACET 5/325MG TAB PO PRN (05:30)
[2020-05-12] MEDS ORDERED: VANCOMYCIN PER PHARMACY 0 MG IV SCH (05:30)
[2020-05-12] MEDS ORDERED: ALBUMIN 25% 50 ML IV ONE (05:30)
[2020-05-12] MEDS ORDERED: ACETAMINOPHEN 325 MG TAB PO PRN (05:30)
[2020-05-12] MEDS ORDERED: DOCUSATE SOD 100 MG CAP PO PRN (05:30)
[2020-05-12] MEDS ORDERED: ONDANSETRON HCL 4 MG/2 ML VIAL IV PRN (05:30)
[2020-05-12] MEDS ORDERED: TEMAZEPAM 15 MG CAP PO PRN (05:30)
[2020-05-12] MEDS ORDERED: MORPHINE SULF INJ 2 MG/ML SYRINGE 1ML IV PRN (05:30)
[2020-05-12] MEDS ORDERED: hydrALAZINE HCL 20 MG/ML VL IV PRN (05:45)
[2020-05-12] MEDS: SODIUM CHLOR 0.9% PF (SALINE LOCK) 10ML VIAL/SYR IV SCH ×3 (06:30→21:55)
[2020-05-12] MEDS: ACCU-CHEK COMFORT CURVE STRIP VI SCH ×4 (08:37→20:15)
[2020-05-12] MEDS: InsuLIN REG 1unit/0.01ml Soln (100units/ml) SC SCH ×4 (08:50→20:17)
[2020-05-12] MEDS ORDERED: CARVEDILOL 3.125 MG TAB PO SCH (10:00)
[2020-05-12] MEDS ORDERED: ASCORBIC ACID 500 MG TAB PO SCH (10:00)
[2020-05-12] MEDS ORDERED: FAMOTIDINE (10MG/ML) 2ML VL IV SCH (10:00)
[2020-05-12] MEDS ORDERED: ZINC SULFATE 220mg CAP or TAB PO SCH (10:00)
[2020-05-12] MEDS ORDERED: FUROSEMIDE 20 MG/2 ML VIAL IV SCH (10:00)
[2020-05-12] MEDS: MULTIPLE VITAMIN TAB PO SCH (10:04)
[2020-05-12] MEDS: HEPARIN SODIUM (PORCINE) 5000 UNITS/ML 1ML VIAL SC SCH ×2 (10:11→22:01)
[2020-05-12 12:50] LABS: Basophils % (auto) 0.9 % (0.0-2.0); Eosinophils # (auto) 0.1 10 ^3/uL (0-0.8); Mean Corpuscular Volume 90.5 fL (80.0-100.0); Monocytes # (auto) 0.4 10 ^3/uL (0-1.3); Red Cell Distribution Width 12.9 % (11.8-14.3); White Blood Cell 5.5 10^3/uL (4.4-10.8)
[2020-05-12 12:51] LABS: Basophils # (auto) 0.1 10 ^3/uL (0-0.2); Eosinophils % (auto) 2.5 % (0.0-7.0); Hematocrit 22.9 % (36.0-46.0); Hemoglobin 7.8 g/dL (12.2-16.2); Lymphocytes # (auto) 1.1 10 ^3/uL (0.4-5.4); Lymphocytes % (auto) 20.3 % (10.0-50.0); Mean Corpuscular Hemoglobin 30.8 pg (28.0-32.0); Mean Corpuscular Hgb Conc. 34.1 g/dL (32.0-36.0); Monocytes % (auto) 7.8 % (0.0-12.0); Neutrophils # (auto) 3.8 10 ^3/uL (1.6-8.6); Neutrophils % (auto) 68.5 % (37.0-80.0); Platelet Count (auto) 186 10^3/uL (140-450); Red Blood Cells 2.53 10^6/uL (4.0-5.20)
[2020-05-12] MEDS ORDERED: CEFTRIAXONE SODIUM 2 GM in D5W 5% 50 ML IV ONE (13:45)
[2020-05-12 15:01] VITALS: BP 144/66
[2020-05-12 17:00] VITALS: BP 140/73
[2020-05-12] MEDS ORDERED: LOP2C PO (17:58)
[2020-05-12] MEDS: TOBRAMYCIN SULF 0.3% OPTH(EYE) SOLN 5ML EACHEYE SCH ×2 (18:00→22:39)
[2020-05-12] MEDS: SACUBITRIL-VALSARTAN 24mg/26mg TAB PO SCH (18:32)
[2020-05-12] MEDS: LOPERAMIDE HCL 2 MG CAP PO SCH (18:32)
[2020-05-12] MEDS: FUROSEMIDE 20 MG/2 ML VIAL IV SCH (18:33)
[2020-05-12] MEDS: hydrALAZINE HCL 25 MG TAB PO SCH (21:55)
[2020-05-12] MEDS: CARVEDILOL 3.125 MG TAB PO SCH (21:56)
[2020-05-12] MEDS: ATORVASTATIN 20 MG TAB PO SCH (21:57)
[2020-05-12] MEDS: POTASSIUM CHL 10 Meq TABLET PO SCH (21:57)
[2020-05-12 22:00] VITALS: BP 152/79
[2020-05-12] MEDS: DORZOLAMIDE HCL OP SCH (22:39)
[2020-05-12] MEDS: TIMOLOL OP SCH (22:39)
[2020-05-13] VITALS (7 sets, daily range): BP systolic 137–171; BP diastolic 68–91
[2020-05-13] MEDS: ACCU-CHEK COMFORT CURVE STRIP VI SCH ×6 (00:11→20:04)
[2020-05-13] MEDS: InsuLIN REG 1unit/0.01ml Soln (100units/ml) SC SCH ×6 (00:13→20:12)
[2020-05-13] MEDS: VANCOMYCIN 1GM/250ML 250 ML IV SCH (02:12)
[2020-05-13] MEDS: TOBRAMYCIN SULF 0.3% OPTH(EYE) SOLN 5ML EACHEYE SCH ×2 (06:04→12:00)
[2020-05-13] MEDS: SODIUM CHLOR 0.9% PF (SALINE LOCK) 10ML VIAL/SYR IV SCH ×3 (06:05→21:42)
[2020-05-13] MEDS: hydrALAZINE HCL 25 MG TAB PO SCH ×3 (06:05→23:07)
[2020-05-13] MEDS: FUROSEMIDE 20 MG/2 ML VIAL IV SCH ×2 (06:05→17:24)
[2020-05-13 07:07] LABS: Basophils # (auto) 0.1 10 ^3/uL (0-0.2); Eosinophils # (auto) 0.2 10 ^3/uL (0-0.8); Eosinophils % (auto) 2.7 % (0.0-7.0); Hematocrit 25.7 % (36.0-46.0); Hemoglobin 8.8 g/dL (12.2-16.2); Lymphocytes # (auto) 1.5 10 ^3/uL (0.4-5.4); Lymphocytes % (auto) 27.2 % (10.0-50.0); Mean Corpuscular Hgb Conc. 34.1 g/dL (32.0-36.0); Mean Corpuscular Volume 90.8 fL (80.0-100.0); Monocytes # (auto) 0.4 10 ^3/uL (0-1.3); Monocytes % (auto) 7.6 % (0.0-12.0); Neutrophils # (auto) 3.5 10 ^3/uL (1.6-8.6); Neutrophils % (auto) 61.5 % (37.0-80.0); Nucleated Red Blood Cells % 0.1 %; Platelet Count (auto) 202 10^3/uL (140-450); Red Blood Cells 2.83 10^6/uL (4.0-5.20); Red Cell Distribution Width 12.7 % (11.8-14.3); White Blood Cell 5.7 10^3/uL (4.4-10.8)
[2020-05-13 07:25] LABS: Calcium 8.1 mg/dL (8.5-10.1); Potassium 4.4 mmol/L (3.5-5.1)
[2020-05-13 07:27] LABS: BUN/Creatinine Ratio 27.2
[2020-05-13 07:29] LABS: Bilirubin, Total 0.2 mg/dL (0.2-1.0); Total Protein 5.7 g/dL (6.4-8.2)
[2020-05-13] MEDS: CEFTRIAXONE SODIUM 2 GM in D5W 5% 50 ML IV SCH (09:29)
[2020-05-13] MEDS: DORZOLAMIDE HCL OP SCH (09:30)
[2020-05-13] MEDS: TIMOLOL OP SCH (09:30)
[2020-05-13] MEDS: PANTOPRAZOLE 40 MG TAB PO SCH (09:31)
[2020-05-13] MEDS: FAMOTIDINE 20 MG TAB PO SCH (09:31)
[2020-05-13] MEDS: DULoxetine HCL 30 MG CAP PO SCH (09:32)
[2020-05-13] MEDS: POTASSIUM CHL 10 Meq TABLET PO SCH ×2 (09:32→23:07)
[2020-05-13] MEDS: SACUBITRIL-VALSARTAN 24mg/26mg TAB PO SCH ×2 (09:32→23:07)
[2020-05-13] MEDS: LOPERAMIDE HCL 2 MG CAP PO SCH ×2 (09:33→23:07)
[2020-05-13] MEDS: MULTIPLE VITAMIN TAB PO SCH (09:33)
[2020-05-13] MEDS: CARVEDILOL 3.125 MG TAB PO SCH ×2 (09:34→23:06)
[2020-05-13] MEDS: HEPARIN SODIUM (PORCINE) 5000 UNITS/ML 1ML VIAL SC SCH ×2 (09:37→21:44)
[2020-05-13] MEDS ORDERED: FUROSEMIDE 20 MG TAB PO SCH (10:00)
[2020-05-13] MEDS ORDERED: IOHEXOL 350 MG/ML 100ML IJ ONE (12:13)
[2020-05-13] MEDS ORDERED: POM OP ×2 (16:29→16:34)
[2020-05-13] MEDS: PREDNISOLONE 1% LEFTEYE SCH ×2 (17:25→21:42)
[2020-05-13] MEDS: OPTHALMIC LEFTEYE SCH ×2 (17:25→21:42)
[2020-05-13] MEDS: OFLOXACIN 0.3% LEFTEYE SCH ×2 (17:25→21:42)
[2020-05-13] MEDS: ATORVASTATIN 20 MG TAB PO SCH (23:08)
[2020-05-14] MEDS: ACCU-CHEK COMFORT CURVE STRIP VI SCH ×4 (00:24→11:33)
[2020-05-14] MEDS: InsuLIN REG 1unit/0.01ml Soln (100units/ml) SC SCH ×4 (00:25→11:33)
[2020-05-14] MEDS: VANCOMYCIN 1GM/250ML 250 ML IV SCH (01:50)
[2020-05-14 05:00] VITALS: BP 158/69
[2020-05-14] MEDS: SODIUM CHLOR 0.9% PF (SALINE LOCK) 10ML VIAL/SYR IV SCH ×2 (06:00→14:52)
[2020-05-14] MEDS: OFLOXACIN 0.3% LEFTEYE SCH ×2 (06:00→11:32)
[2020-05-14] MEDS: FUROSEMIDE 20 MG/2 ML VIAL IV SCH (06:00)
[2020-05-14] MEDS: OPTHALMIC LEFTEYE SCH ×2 (06:01→11:33)
[2020-05-14] MEDS: hydrALAZINE HCL 25 MG TAB PO SCH ×2 (06:01→14:21)
[2020-05-14] MEDS: PREDNISOLONE 1% LEFTEYE SCH ×2 (06:01→11:33)
[2020-05-14 06:29] LABS: Basophils # (auto) 0.1 10 ^3/uL (0-0.2); Basophils % (auto) 0.9 % (0.0-2.0); Eosinophils # (auto) 0 10 ^3/uL (0-0.8); Eosinophils % (auto) 0.5 % (0.0-7.0); Hematocrit 24.9 % (36.0-46.0); Hemoglobin 8.6 g/dL (12.2-16.2); Lymphocytes # (auto) 0.7 10 ^3/uL (0.4-5.4); Lymphocytes % (auto) 11.8 % (10.0-50.0); Mean Corpuscular Hemoglobin 30.9 pg (28.0-32.0); Mean Corpuscular Hgb Conc. 34.6 g/dL (32.0-36.0); Mean Corpuscular Volume 89.3 fL (80.0-100.0); Monocytes # (auto) 0.4 10 ^3/uL (0-1.3); Neutrophils # (auto) 4.9 10 ^3/uL (1.6-8.6); Neutrophils % (auto) 80.8 % (37.0-80.0); Nucleated Red Blood Cells % 0.1 %; Platelet Count (auto) 216 10^3/uL (140-450); Red Blood Cells 2.79 10^6/uL (4.0-5.20); Red Cell Distribution Width 12.8 % (11.8-14.3); White Blood Cell 6.1 10^3/uL (4.4-10.8)
[2020-05-14 06:42] LABS: BUN/Creatinine Ratio 25.8; Calcium 8.5 mg/dL (8.5-10.1); Potassium 4.7 mmol/L (3.5-5.1)
[2020-05-14 08:00] VITALS: BP 134/64
[2020-05-14] MEDS: CEFTRIAXONE SODIUM 2 GM in D5W 5% 50 ML IV SCH (09:58)
[2020-05-14] MEDS: MULTIPLE VITAMIN TAB PO SCH (09:59)
[2020-05-14] MEDS: SACUBITRIL-VALSARTAN 24mg/26mg TAB PO SCH (09:59)
[2020-05-14] MEDS: DULoxetine HCL 30 MG CAP PO SCH (09:59)
[2020-05-14] MEDS: CARVEDILOL 3.125 MG TAB PO SCH (09:59)
[2020-05-14] MEDS: POTASSIUM CHL 10 Meq TABLET PO SCH (09:59)
[2020-05-14] MEDS: FAMOTIDINE 20 MG TAB PO SCH (10:00)
[2020-05-14] MEDS: PANTOPRAZOLE 40 MG TAB PO SCH (10:00)
[2020-05-14] MEDS: HEPARIN SODIUM (PORCINE) 5000 UNITS/ML 1ML VIAL SC SCH (10:01)
[2020-05-14] MEDS: LOPERAMIDE HCL 2 MG CAP PO SCH (10:18)
[2020-05-14] MEDS ORDERED: DOXY-332 PO (14:02)
[2020-05-14 14:58] VITALS: BP 161/82
== END 2020-05-14 16:00 | disposition home or self-care (01) | DRG 383 ==
LOC: ER 22:59 → TELE 23:00 → TELE-EAST 05-12 13:42
PROVIDERS: ADMIT Nurse Practitioner Family; ATTEND Hospitalist
DX: L03.115 Cellulitis of right lower limb (principal); E87.8 Other disorders of electrolyte and fluid balance, not elsewhere classified; E11.65 Type 2 diabetes mellitus with hyperglycemia; I11.0 Hypertensive heart disease with heart failure; I50.9 Heart failure, unspecified; E88.09 Other disorders of plasma-protein metabolism, not elsewhere classified; L02.415 Cutaneous abscess of right lower limb; G56.03 Carpal tunnel syndrome, bilateral upper limbs; Z20.822 Contact with and (suspected) exposure to COVID-19; E78.5 Hyperlipidemia, unspecified; I25.10 Atherosclerotic heart disease of native coronary artery without angina pectoris; J45.909 Unspecified asthma, uncomplicated; Z82.49 Family history of ischemic heart disease and other diseases of the circulatory system; Z83.3 Family history of diabetes mellitus; Z90.710 Acquired absence of both cervix and uterus; Z88.2 Allergy status to sulfonamides; Z88.8 Allergy status to other drugs, medicaments and biological substances
CPT/HCPCS: 36415; 71275; 80048; 80053; 82962; 83036; 83880; 84484; 85025; 85379; 87040; 87426; 93005; 93306; 93925; 93971; 96365; 96366; 96367; 96375; G0378; J0696; J1815; J2405; J3490; J7060

== ENCOUNTER → 2020-05-22 | Outpatient (CLI) | payer MEDICAID ==
[~2020-05-22] VITALS: Ht 30.5 cm; Wt 63.2 kg
[~2020-05-22] MED LIST changes: +CARV6.2551 PO; +CEFT1INJ17 IV; +DOXY-332 PO; +FUROSEMIDE 100 MG/10ML VIAL IV ONE; +FUROSEMIDE 40 MG/4 ML VIAL ONE; +LOP2C PO; +MAGNESIUM SULFATE 1GM/100ML 100 ML IV ONE; +MAGNESIUM SULFATE 1GM/100ML 200 ML IV ONE; +POM OP; +POTASSIUM CHL 10 Meq TABLET PO ONE; +POTASSIUM CHL 20 Meq TABLET PO ONE; +SACU1TAB4 PO; +VANC1INJ IV
[2020-05-22 11:15] VITALS: BP 171/77
[2020-05-22 11:38] LABS: Basophils # (auto) 0.1 10 ^3/uL (0-0.2); Eosinophils # (auto) 0.2 10 ^3/uL (0-0.8); Eosinophils % (auto) 2.2 % (0.0-7.0); Hematocrit 28.6 % (36.0-46.0); Hemoglobin 9.5 g/dL (12.2-16.2); Lymphocytes # (auto) 1.3 10 ^3/uL (0.4-5.4); Lymphocytes % (auto) 15.5 % (10.0-50.0); Mean Corpuscular Hemoglobin 30.3 pg (28.0-32.0); Mean Corpuscular Hgb Conc. 33.2 g/dL (32.0-36.0); Mean Corpuscular Volume 91.4 fL (80.0-100.0); Monocytes # (auto) 0.5 10 ^3/uL (0-1.3); Monocytes % (auto) 5.7 % (0.0-12.0); Neutrophils # (auto) 6.5 10 ^3/uL (1.6-8.6); Neutrophils % (auto) 75.6 % (37.0-80.0); Nucleated Red Blood Cells % 0.1 %; Platelet Count (auto) 293 10^3/uL (140-450); Red Blood Cells 3.13 10^6/uL (4.0-5.20); Red Cell Distribution Width 13.2 % (11.8-14.3); White Blood Cell 8.6 10^3/uL (4.4-10.8)
[2020-05-22 11:44] LABS: Potassium 4.5 mmol/L (3.5-5.1)
[2020-05-22 11:48] LABS: BUN/Creatinine Ratio 26.1; Magnesium 2.1 mg/dL (1.6-2.6)
[2020-05-22 13:07] VITALS: BP 138/66
== END | disposition home or self-care (01) ==
LOC: CHF HDHVI 10:35
PROVIDERS: ATTEND Internal Medicine Cardiovascular Disease
DX: I11.0 Hypertensive heart disease with heart failure (principal); I50.23 Acute on chronic systolic (congestive) heart failure; I25.10 Atherosclerotic heart disease of native coronary artery without angina pectoris; E78.5 Hyperlipidemia, unspecified; E11.9 Type 2 diabetes mellitus without complications; J45.909 Unspecified asthma, uncomplicated; Z90.49 Acquired absence of other specified parts of digestive tract; Z79.899 Other long term (current) drug therapy; Z90.710 Acquired absence of both cervix and uterus
CPT/HCPCS: 36415; 80048; 83036; 83735; 83880; 85025; 96365; 96366; 96375; G0463; J1940; J3475

== ENCOUNTER 2020-05-25 10:26 | Inpatient (IN) | payer MEDICAID ==
[~2020-05-25] VITALS: Ht 157.5 cm; Wt 63.0 kg
[2020-05-25 06:30] VITALS: BP 170/83
[~2020-05-25 10:26] MED LIST changes: -CARV6.2551 PO; -CEFT1INJ17 IV; -FUROSEMIDE 100 MG/10ML VIAL IV ONE; -FUROSEMIDE 40 MG/4 ML VIAL ONE; -MAGNESIUM SULFATE 1GM/100ML 100 ML IV ONE; -MAGNESIUM SULFATE 1GM/100ML 200 ML IV ONE; -POTASSIUM CHL 10 Meq TABLET PO ONE; -POTASSIUM CHL 20 Meq TABLET PO ONE; -SACU1TAB4 PO; -VANC1INJ IV
[2020-05-25 11:29] LABS: Basophils # (auto) 0.1 10 ^3/uL (0-0.2); Basophils % (auto) 1.1 % (0.0-2.0); Eosinophils # (auto) 0.2 10 ^3/uL (0-0.8); Eosinophils % (auto) 2.1 % (0.0-7.0); Hematocrit 28.8 % (36.0-46.0); Hemoglobin 9.7 g/dL (12.2-16.2); Lymphocytes # (auto) 1.1 10 ^3/uL (0.4-5.4); Lymphocytes % (auto) 15.4 % (10.0-50.0); Mean Corpuscular Hemoglobin 30.4 pg (28.0-32.0); Mean Corpuscular Hgb Conc. 33.6 g/dL (32.0-36.0); Mean Corpuscular Volume 90.7 fL (80.0-100.0); Monocytes # (auto) 0.5 10 ^3/uL (0-1.3); Monocytes % (auto) 7.5 % (0.0-12.0); Neutrophils # (auto) 5.2 10 ^3/uL (1.6-8.6); Neutrophils % (auto) 73.9 % (37.0-80.0); Nucleated Red Blood Cells % 0.1 %; Platelet Count (auto) 264 10^3/uL (140-450); Red Blood Cells 3.17 10^6/uL (4.0-5.20); Red Cell Distribution Width 12.8 % (11.8-14.3); White Blood Cell 7.1 10^3/uL (4.4-10.8)
[2020-05-25] MEDS ORDERED: cefTRIAXone 1GM/50ML D5W 50 ML IV ONE (11:30)
[2020-05-25] MEDS ORDERED: SODIUM CHLORIDE 0.9% 1,000 ML IV ONE (11:30)
[2020-05-25] MEDS ORDERED: SODIUM CHLORIDE 0.9% 500 ML IV ONE (11:30)
[2020-05-25 11:50] LABS: Albumin 2.2 g/dL (3.4-5.0); Calcium 8.5 mg/dL (8.5-10.1); Potassium 4.3 mmol/L (3.5-5.1)
[2020-05-25 11:55] LABS: BUN/Creatinine Ratio 25.2; Bilirubin, Total 0.3 mg/dL (0.2-1.0); Total Protein 6.3 g/dL (6.4-8.2)
[2020-05-25 12:43] LABS: Urine Bacteria NONE SEEN /hpf (None Seen); Urine Blood 1+ /uL (Negative); Urine Hyaline Cast MOD /lpf (0 - 2); Urine Mucus FEW (None Seen); Urine Specific Gravity 1.014 (1.001-1.035); Urine WBC 3 /hpf (0 - 5)
[2020-05-25] MEDS ORDERED: ACETAMINOPHEN 500 MG TAB PO ONE (12:45)
[2020-05-25] MEDS ORDERED: VANCOMYCIN PER PHARMACY 0 MG IV SCH (17:00)
[2020-05-25] MEDS ORDERED: MORPHINE SULF INJ 2 MG/ML SYRINGE 1ML IV PRN (17:00)
[2020-05-25] MEDS ORDERED: NITROGLYCERIN 0.4 MG SL TAB SL PRN (17:00)
[2020-05-25] MEDS ORDERED: ONDANSETRON HCL 4 MG/2 ML VIAL IV PRN (17:00)
[2020-05-25] MEDS ORDERED: CARV6.2551 PO (19:31)
[2020-05-25] MEDS ORDERED: SACU1TAB4 PO (19:31)
[2020-05-25] MEDS ORDERED: VANCOMYCIN 1GM/250ML 250 ML IV ONE (20:00)
[2020-05-25] MEDS: HYDROcodone-ACET 5/325MG TAB PO PRN (20:06)
[2020-05-25] MEDS: LOPERAMIDE HCL 2 MG CAP PO PRN (21:37)
[2020-05-25] MEDS: hydrALAZINE HCL 20 MG/ML VL IV PRN (21:37)
[2020-05-25] MEDS: ACETAMINOPHEN 325 MG TAB PO PRN (21:37)
[2020-05-25 21:54] VITALS: BP 163/80
[2020-05-25 23:13] VITALS: BP 140/58
[2020-05-26] MEDS ORDERED: DEXTROSE (50%) 50ML SYRG IV PRN (00:15)
[2020-05-26] MEDS: CARVEDILOL 3.125 MG TAB PO SCH ×3 (01:15→21:44)
[2020-05-26 05:00] VITALS: BP 146/60
[2020-05-26] MEDS: ACCU-CHEK COMFORT CURVE STRIP VI SCH ×4 (06:07→21:54)
[2020-05-26] MEDS: InsuLIN REG 1unit/0.01ml Soln (100units/ml) SC SCH ×4 (06:08→21:41)
[2020-05-26 09:00] VITALS: BP 164/77
[2020-05-26] MEDS: FERROUS SULFATE 325mg EC TAB PO SCH ×2 (09:21→17:34)
[2020-05-26] MEDS: FUROSEMIDE 20 MG TAB PO SCH (09:22)
[2020-05-26] MEDS: cefTRIAXone 1GM/50ML D5W 50 ML IV SCH (09:22)
[2020-05-26] MEDS: SACUBITRIL-VALSARTAN 24mg/26mg TAB PO SCH ×2 (09:22→21:44)
[2020-05-26] MEDS: PANTOPRAZOLE 40 MG TAB PO SCH (09:23)
[2020-05-26] MEDS: ATORVASTATIN 20 MG TAB PO SCH (09:23)
[2020-05-26] MEDS: DORZOLAMIDE HCL 2% OPTH(EYE) SOL 10ML LEFTEYE SCH ×3 (09:40→21:54)
[2020-05-26] MEDS ORDERED: VANC1INJ IV (11:18)
[2020-05-26] MEDS ORDERED: CEFT1INJ17 IV (11:18)
[2020-05-26] MEDS: VANCOMYCIN 750mg/250ml 250 ML IV SCH ×3 (11:28→23:50)
[2020-05-26 13:00] VITALS: BP 134/71
[2020-05-26 17:00] VITALS: BP 186/83
[2020-05-26] MEDS: hydrALAZINE HCL 20 MG/ML VL IV PRN (17:41)
[2020-05-26 21:42] VITALS: BP 157/82
[2020-05-26] MEDS: ACETAMINOPHEN 325 MG TAB PO PRN (23:54)
[2020-05-27 05:53] VITALS: BP 154/73
[2020-05-27] MEDS: DORZOLAMIDE HCL 2% OPTH(EYE) SOL 10ML LEFTEYE SCH ×2 (06:07→13:55)
[2020-05-27] MEDS: ACCU-CHEK COMFORT CURVE STRIP VI SCH ×3 (06:07→17:13)
[2020-05-27] MEDS: InsuLIN REG 1unit/0.01ml Soln (100units/ml) SC SCH ×3 (06:08→17:00)
[2020-05-27] MEDS: ATORVASTATIN 20 MG TAB PO SCH (08:56)
[2020-05-27] MEDS: FERROUS SULFATE 325mg EC TAB PO SCH ×2 (08:56→18:00)
[2020-05-27] MEDS: PANTOPRAZOLE 40 MG TAB PO SCH (08:56)
[2020-05-27] MEDS: cefTRIAXone 1GM/50ML D5W 50 ML IV SCH (08:56)
[2020-05-27] MEDS: SACUBITRIL-VALSARTAN 24mg/26mg TAB PO SCH (08:57)
[2020-05-27] MEDS: CARVEDILOL 3.125 MG TAB PO SCH (08:57)
[2020-05-27] MEDS: FUROSEMIDE 20 MG TAB PO SCH (08:57)
[2020-05-27 09:00] VITALS: BP 139/77
[2020-05-27] MEDS: LOPERAMIDE HCL 2 MG CAP PO PRN (09:04)
[2020-05-27] MEDS: VANCOMYCIN 750mg/250ml 250 ML IV SCH (12:00)
[2020-05-27 13:00] VITALS: BP 142/70
[2020-05-27] MEDS: HYDROcodone-ACET 5/325MG TAB PO PRN (14:00)
[2020-05-27 16:53] VITALS: BP 112/59
[2020-05-27 17:00] VITALS: BP 112/59
== END 2020-05-27 18:15 | disposition home health service (06) | DRG 383 ==
LOC: ER 10:26 → OVERFLOW 16:54 → WEST WING 18:31
PROVIDERS: ADMIT Internal Medicine; ATTEND Internal Medicine
DX: L03.115 Cellulitis of right lower limb (principal); I11.0 Hypertensive heart disease with heart failure; I50.9 Heart failure, unspecified; E11.9 Type 2 diabetes mellitus without complications; D50.9 Iron deficiency anemia, unspecified; D63.8 Anemia in other chronic diseases classified elsewhere; E78.5 Hyperlipidemia, unspecified; Z20.822 Contact with and (suspected) exposure to COVID-19; L02.415 Cutaneous abscess of right lower limb; J45.909 Unspecified asthma, uncomplicated; K21.9 Gastro-esophageal reflux disease without esophagitis; I25.10 Atherosclerotic heart disease of native coronary artery without angina pectoris; Z68.23 Body mass index [BMI] 23.0-23.9, adult; Z83.3 Family history of diabetes mellitus; Z90.710 Acquired absence of both cervix and uterus; Z88.2 Allergy status to sulfonamides; Z88.5 Allergy status to narcotic agent
CPT/HCPCS: 36415; 71046; 80053; 80202; 81001; 82962; 83735; 85025; 87081; 87426; 93005; 93971; 96365; G0378; J0696; J1815

== ENCOUNTER → 2020-06-05 | Outpatient (CLI) | payer MEDICAID ==
[~2020-06-05] MED LIST changes: -CARV3.1240 PO; +CARV6.2551 PO; +CEFT1INJ17 IV; +CYANOCOBALAMIN (B-12) 1000 MCG/1 ML VIAL IM ONE; +CYANOCOBALAMIN (B-12) 1000 MCG/1 ML VIAL ONE; -DOXY-332 PO; -DULO20CA PO; -HYDR50TA15 PO; -LOP2C PO; -LOPE2CAP PO; -SACU1TAB PO; +SACU1TAB4 PO; -SPIR25TA8 PO; -TOBR0.3S4 EACHEYE; +VANC1INJ IV
[2020-06-05 13:35] VITALS: BP 117/65
[2020-06-05 14:05] VITALS: BP 138/75
[2020-06-05 15:54] LABS: % Iron Saturation 40.3 % (15-50)
== END | disposition home or self-care (01) ==
LOC: CHF HDHVI 13:28
PROVIDERS: ATTEND Internal Medicine Cardiovascular Disease
DX: D64.9 Anemia, unspecified (principal); R53.83 Other fatigue; I11.0 Hypertensive heart disease with heart failure; I50.22 Chronic systolic (congestive) heart failure; E11.9 Type 2 diabetes mellitus without complications; I25.10 Atherosclerotic heart disease of native coronary artery without angina pectoris; K21.9 Gastro-esophageal reflux disease without esophagitis; E78.5 Hyperlipidemia, unspecified; J45.909 Unspecified asthma, uncomplicated; Z90.49 Acquired absence of other specified parts of digestive tract; Z90.710 Acquired absence of both cervix and uterus
CPT/HCPCS: 82728; 83540; 83550; 83880; 96372; G0463; J3420

== ENCOUNTER → 2020-07-11 | Outpatient (CLI) | payer MEDICAID ==
[~2020-07-11] VITALS: Ht 30.5 cm; Wt 0.5 kg
[2020-07-11 14:02] VITALS: BP 176/90
[2020-07-11 15:53] LABS: Basophils # (auto) 0.1 10 ^3/uL (0-0.2); Basophils % (auto) 0.7 % (0.0-2.0); Eosinophils # (auto) 0.2 10 ^3/uL (0-0.8); Eosinophils % (auto) 2.2 % (0.0-7.0); Hematocrit 26.9 % (36.0-46.0); Hemoglobin 9.3 g/dL (12.2-16.2); Lymphocytes # (auto) 1.9 10 ^3/uL (0.4-5.4); Lymphocytes % (auto) 25.2 % (10.0-50.0); Mean Corpuscular Hgb Conc. 34.6 g/dL (32.0-36.0); Mean Corpuscular Volume 89.6 fL (80.0-100.0); Monocytes # (auto) 0.5 10 ^3/uL (0-1.3); Neutrophils % (auto) 65.9 % (37.0-80.0); Platelet Count (auto) 204 10^3/uL (140-450); Red Cell Distribution Width 12.9 % (11.8-14.3); White Blood Cell 7.5 10^3/uL (4.4-10.8)
[2020-07-11 15:59] LABS: Albumin 2.1 g/dL (3.4-5.0); Calcium 8.3 mg/dL (8.5-10.1); Magnesium 1.9 mg/dL (1.6-2.6); Potassium 4.4 mmol/L (3.5-5.1)
[2020-07-11 16:13] LABS: Bilirubin, Total 0.2 mg/dL (0.2-1.0)
== END | disposition home or self-care (01) ==
LOC: CHF HDHVI 13:25
PROVIDERS: ATTEND Internal Medicine Cardiovascular Disease
DX: I11.0 Hypertensive heart disease with heart failure (principal); I50.23 Acute on chronic systolic (congestive) heart failure; R53.83 Other fatigue; R11.0 Nausea; I25.10 Atherosclerotic heart disease of native coronary artery without angina pectoris; J45.909 Unspecified asthma, uncomplicated; E11.9 Type 2 diabetes mellitus without complications; K21.9 Gastro-esophageal reflux disease without esophagitis; E78.5 Hyperlipidemia, unspecified; Z79.899 Other long term (current) drug therapy; Z90.49 Acquired absence of other specified parts of digestive tract; Z90.710 Acquired absence of both cervix and uterus
CPT/HCPCS: 36415; 80053; 83735; 83880; 85025; 96372; G0463; J3420

== ENCOUNTER 2020-07-30 01:38 | Emergency (ER) | payer MEDICAID ==
[~2020-07-30] VITALS: Ht 154.9 cm; Wt 59.0 kg
[~2020-07-30 01:38] MED LIST changes: -CYANOCOBALAMIN (B-12) 1000 MCG/1 ML VIAL IM ONE; -CYANOCOBALAMIN (B-12) 1000 MCG/1 ML VIAL ONE; +ONDANSETRON HCL 4 MG/2 ML VIAL IV ONE; +fentaNYL CITRATE 100 MCG/2 ML VL IV ONE
[2020-07-30 02:06] LABS: Basophils # (auto) 0.1 10 ^3/uL (0-0.2); Basophils % (auto) 0.9 % (0.0-2.0); Eosinophils # (auto) 0 10 ^3/uL (0-0.8); Eosinophils % (auto) 0.1 % (0.0-7.0); Hematocrit 38.1 % (36.0-46.0); Hemoglobin 13.1 g/dL (12.2-16.2); Lymphocytes # (auto) 0.9 10 ^3/uL (0.4-5.4); Lymphocytes % (auto) 6.7 % (10.0-50.0); Mean Corpuscular Hemoglobin 30.3 pg (28.0-32.0); Mean Corpuscular Hgb Conc. 34.4 g/dL (32.0-36.0); Mean Corpuscular Volume 88.2 fL (80.0-100.0); Monocytes # (auto) 0.4 10 ^3/uL (0-1.3); Monocytes % (auto) 2.6 % (0.0-12.0); Neutrophils # (auto) 12.1 10 ^3/uL (1.6-8.6); Neutrophils % (auto) 89.7 % (37.0-80.0); Platelet Count (auto) 276 10^3/uL (140-450); Red Blood Cells 4.31 10^6/uL (4.0-5.20); Red Cell Distribution Width 12.7 % (11.8-14.3); White Blood Cell 13.5 10^3/uL (4.4-10.8)
[2020-07-30 02:12] LABS: INR 0.95 (0.9-1.15); Partial Thromboplastin Time 23.6 sec (23.0-31.2)
[2020-07-30 02:13] LABS: Calcium 9.1 mg/dL (8.5-10.1); Chloride 105 mmol/L (98-107); Potassium 3.4 mmol/L (3.5-5.1); Sodium 138 mmol/L (136-145)
[2020-07-30 02:16] LABS: Albumin 2.7 g/dL (3.4-5.0); Amylase 73 U/L (25-115); Anion Gap 11 (5-15); Blood Urea Nitrogen 26 mg/dL (7-18); Carbon Dioxide 22 mmol/L (21-32); GFR African American 56 mL/min; GFR Non-African American 46 mL/min; Glucose 274 mg/dL (74-106); Lipase 53 U/L (73-393)
[2020-07-30 02:19] LABS: Bilirubin, Direct 0.1 mg/dL (0-0.2)
[2020-07-30 02:28] LABS: Alanine Aminotransferase 27 U/L (13-56); Alkaline Phosphatase 183 U/L (45-117); Aspartate Aminotransferase 15 U/L (15-37); Bilirubin, Total 0.4 mg/dL (0.2-1.0); Total Protein 7.8 g/dL (6.4-8.2)
[2020-07-30] MEDS ORDERED: METOCLOPRAMIDE HCL 5MG/ml INJ 2ml VIAL IV ONE (03:45)
[2020-07-30 05:50] VITALS: BP 170/97
== END 2020-07-30 06:46 | disposition home or self-care (01) ==
LOC: ER 01:39
DX: K29.70 Gastritis, unspecified, without bleeding (principal); I11.0 Hypertensive heart disease with heart failure; I50.9 Heart failure, unspecified; E11.9 Type 2 diabetes mellitus without complications; K21.9 Gastro-esophageal reflux disease without esophagitis; E78.5 Hyperlipidemia, unspecified; I25.10 Atherosclerotic heart disease of native coronary artery without angina pectoris; J45.909 Unspecified asthma, uncomplicated; Z90.710 Acquired absence of both cervix and uterus; Z79.899 Other long term (current) drug therapy; Z79.2 Long term (current) use of antibiotics; Z88.2 Allergy status to sulfonamides
CPT/HCPCS: 36415; 71045; 74176; 80053; 82150; 82248; 83690; 83880; 84484; 85025; 85610; 85730; 96374; 96375; 99285; J2405; J2765; J3010

== ENCOUNTER 2020-07-31 15:07 | Emergency (ER) | payer MEDICAID ==
[~2020-07-31] VITALS: Ht 154.9 cm; Wt 59.0 kg
[~2020-07-31 15:07] MED LIST changes: -ONDANSETRON HCL 4 MG/2 ML VIAL IV ONE; -fentaNYL CITRATE 100 MCG/2 ML VL IV ONE
[2020-07-31 17:38] VITALS: BP 138/81
[2020-07-31] MEDS ORDERED: ONDANSETRON ODT 4 MG TAB PO ONE (18:00)
[2020-07-31] MEDS ORDERED: KETOROLAC TROMETH 60MG/2ML VIAL IM ONE (18:00)
== END 2020-07-31 18:37 | disposition home or self-care (01) ==
LOC: ER 15:07
DX: R51.9 Headache, unspecified (principal); B02.9 Zoster without complications; R11.2 Nausea with vomiting, unspecified; J45.909 Unspecified asthma, uncomplicated; I25.10 Atherosclerotic heart disease of native coronary artery without angina pectoris; I11.0 Hypertensive heart disease with heart failure; I50.9 Heart failure, unspecified; E11.9 Type 2 diabetes mellitus without complications; K21.9 Gastro-esophageal reflux disease without esophagitis; E78.5 Hyperlipidemia, unspecified; Z90.710 Acquired absence of both cervix and uterus
CPT/HCPCS: 70450; 96372; 99284; J1885; Q0162

== ENCOUNTER → 2020-09-02 | Outpatient (CLI) | payer MEDICAID ==
[~2020-09-02] MED LIST changes: +CYANOCOBALAMIN (B-12) 1000 MCG/1 ML VIAL IM ONE; +CYANOCOBALAMIN (B-12) 1000 MCG/1 ML VIAL ONE
[2020-09-02 13:40] VITALS: BP 195/90
[2020-09-02 15:28] LABS: Eosinophils # (auto) 0.1 10 ^3/uL (0-0.8); Monocytes # (auto) 0.4 10 ^3/uL (0-1.3); Red Cell Distribution Width 14.6 % (11.8-14.3)
[2020-09-02 15:31] LABS: Basophils # (auto) 0.1 10 ^3/uL (0-0.2); Hemoglobin 8.3 g/dL (12.2-16.2); Lymphocytes # (auto) 1.5 10 ^3/uL (0.4-5.4); Lymphocytes % (auto) 23.4 % (10.0-50.0); Mean Corpuscular Hemoglobin 31.5 pg (28.0-32.0); Mean Corpuscular Hgb Conc. 34.4 g/dL (32.0-36.0); Mean Corpuscular Volume 91.5 fL (80.0-100.0); Monocytes % (auto) 6.2 % (0.0-12.0); Neutrophils # (auto) 4.4 10 ^3/uL (1.6-8.6); Neutrophils % (auto) 67.4 % (37.0-80.0); Red Blood Cells 2.63 10^6/uL (4.0-5.20); White Blood Cell 6.5 10^3/uL (4.4-10.8)
[2020-09-02 15:34] LABS: BUN/Creatinine Ratio 15.2; Magnesium 1.9 mg/dL (1.6-2.6)
[2020-09-02 15:37] LABS: Bilirubin, Total 0.2 mg/dL (0.2-1.0); Total Protein 5.4 g/dL (6.4-8.2)
== END | disposition home or self-care (01) ==
LOC: CHF HDHVI 13:16
PROVIDERS: ATTEND Internal Medicine Cardiovascular Disease
DX: I11.0 Hypertensive heart disease with heart failure (principal); I50.23 Acute on chronic systolic (congestive) heart failure; R53.83 Other fatigue; I25.10 Atherosclerotic heart disease of native coronary artery without angina pectoris; J45.909 Unspecified asthma, uncomplicated; E11.9 Type 2 diabetes mellitus without complications; K21.9 Gastro-esophageal reflux disease without esophagitis; E78.5 Hyperlipidemia, unspecified; Z79.2 Long term (current) use of antibiotics; Z79.899 Other long term (current) drug therapy; Z90.49 Acquired absence of other specified parts of digestive tract; Z90.710 Acquired absence of both cervix and uterus
CPT/HCPCS: 36415; 80053; 83735; 83880; 85025; 96372; G0463; J3420

== ENCOUNTER → 2020-09-03 | Outpatient (CLI) | payer MEDICAID ==
[~2020-09-03] VITALS: Ht 154.9 cm; Wt 59.0 kg
[~2020-09-03] MED LIST changes: +ADENOSINE 50 MG in GIVE UN-DILUTED 0 ML IV ONE; +ADENOSINE 90 MG/30 ML INJ IV ONE; -CYANOCOBALAMIN (B-12) 1000 MCG/1 ML VIAL IM ONE; -CYANOCOBALAMIN (B-12) 1000 MCG/1 ML VIAL ONE
== END | disposition home or self-care (01) ==
LOC: Rad HDHVI 13:13
PROVIDERS: ATTEND Internal Medicine Cardiovascular Disease
DX: Z01.810 Encounter for preprocedural cardiovascular examination (principal); I11.0 Hypertensive heart disease with heart failure; I50.43 Acute on chronic combined systolic (congestive) and diastolic (congestive) heart failure; R06.02 Shortness of breath; D64.9 Anemia, unspecified; E11.42 Type 2 diabetes mellitus with diabetic polyneuropathy; E78.5 Hyperlipidemia, unspecified; I42.0 Dilated cardiomyopathy
CPT/HCPCS: 78452; 93005; 96374; 96375; A9500; J0153

== ENCOUNTER → 2020-09-04 | Outpatient (CLI) | payer MEDICAID ==
[~2020-09-04] MED LIST changes: -ADENOSINE 50 MG in GIVE UN-DILUTED 0 ML IV ONE; -ADENOSINE 90 MG/30 ML INJ IV ONE
[2020-09-04 10:18] LABS: BUN/Creatinine Ratio 15.7; Calcium 8.2 mg/dL (8.5-10.1); Potassium 3.6 mmol/L (3.5-5.1)
== END | disposition home or self-care (01) ==
LOC: LAB 09:33
PROVIDERS: ATTEND Internal Medicine
DX: E11.42 Type 2 diabetes mellitus with diabetic polyneuropathy (principal)
CPT/HCPCS: 36415; 80048

== ENCOUNTER → 2020-10-30 | Outpatient (CLI) | payer MEDICAID ==
[~2020-10-30] MED LIST changes: +READI-CAT 2 (BARIUM SULF)(VANILLA SMOOTHIE) 450ML ONE; +SODIUM CHLORIDE 0.9% 500 ML IV ONE
[2020-10-30 12:50] VITALS: BP 148/76
[2020-10-30 14:05] LABS: Potassium 5.1 mmol/L (3.5-5.1)
[2020-10-30 17:05] VITALS: BP 147/71
== END | disposition home or self-care (01) ==
LOC: CHF HDHVI 12:47
PROVIDERS: ATTEND Internal Medicine Cardiovascular Disease
DX: E86.0 Dehydration (principal); K57.30 Diverticulosis of large intestine without perforation or abscess without bleeding; I13.0 Hypertensive heart and chronic kidney disease with heart failure and stage 1 through stage 4 chronic kidney disease, or unspecified chronic kidney disease; E11.22 Type 2 diabetes mellitus with diabetic chronic kidney disease; I50.42 Chronic combined systolic (congestive) and diastolic (congestive) heart failure; N18.30 Chronic kidney disease, stage 3 unspecified; I25.10 Atherosclerotic heart disease of native coronary artery without angina pectoris; I42.8 Other cardiomyopathies; I48.91 Unspecified atrial fibrillation; J45.909 Unspecified asthma, uncomplicated; E11.42 Type 2 diabetes mellitus with diabetic polyneuropathy; K21.9 Gastro-esophageal reflux disease without esophagitis; E78.5 Hyperlipidemia, unspecified; Z79.2 Long term (current) use of antibiotics; Z79.899 Other long term (current) drug therapy; Z90.49 Acquired absence of other specified parts of digestive tract; Z90.710 Acquired absence of both cervix and uterus
CPT/HCPCS: 36415; 74176; 82565; 84132; 84520; 96360; 96361; G0463; J7040; 96366

== ENCOUNTER → 2020-10-31 | Outpatient (CLI) | payer MEDICAID ==
[~2020-10-31] MED LIST changes: +MILRINONE 20MG/100ML 0 ML IV ONE; -READI-CAT 2 (BARIUM SULF)(VANILLA SMOOTHIE) 450ML ONE; +TESTOSTERONE CYPIONATE 200 MG/ML 1ML VIAL IM ONE
[2020-10-31 11:25] VITALS: BP 169/77
[2020-10-31 12:31] LABS: Potassium 5.2 mmol/L (3.5-5.1)
[2020-10-31 13:45] VITALS: BP 143/70
== END | disposition home or self-care (01) ==
LOC: CHF HDHVI 11:25
PROVIDERS: ATTEND Internal Medicine Cardiovascular Disease
DX: E86.0 Dehydration (principal); I13.0 Hypertensive heart and chronic kidney disease with heart failure and stage 1 through stage 4 chronic kidney disease, or unspecified chronic kidney disease; E11.22 Type 2 diabetes mellitus with diabetic chronic kidney disease; I50.42 Chronic combined systolic (congestive) and diastolic (congestive) heart failure; N18.30 Chronic kidney disease, stage 3 unspecified; I25.10 Atherosclerotic heart disease of native coronary artery without angina pectoris; I42.8 Other cardiomyopathies; I48.91 Unspecified atrial fibrillation; J45.909 Unspecified asthma, uncomplicated; E11.42 Type 2 diabetes mellitus with diabetic polyneuropathy; K21.9 Gastro-esophageal reflux disease without esophagitis; E78.5 Hyperlipidemia, unspecified; Z79.2 Long term (current) use of antibiotics; Z79.899 Other long term (current) drug therapy; Z90.49 Acquired absence of other specified parts of digestive tract; Z90.710 Acquired absence of both cervix and uterus
CPT/HCPCS: 36415; 82565; 83880; 84132; 84520; 96360; 96361; G0463; J7040; J1071

== ENCOUNTER → 2020-11-04 | Outpatient (CLI) | payer MEDICAID ==
[~2020-11-04] MED LIST changes: -MILRINONE 20MG/100ML 0 ML IV ONE; +ONDANSETRON HCL 4 MG/2 ML VIAL IV ONE; +ONDANSETRON HCL 4 MG/2 ML VIAL ONE; -TESTOSTERONE CYPIONATE 200 MG/ML 1ML VIAL IM ONE
[2020-11-04 13:21] VITALS: BP 189/91
[2020-11-04 14:29] LABS: Potassium 4.9 mmol/L (3.5-5.1)
[2020-11-04 17:07] VITALS: BP 188/92
== END | disposition home or self-care (01) ==
LOC: CHF HDHVI 13:21
PROVIDERS: ATTEND Internal Medicine Cardiovascular Disease
DX: E86.0 Dehydration (principal); R11.0 Nausea; I27.21 Secondary pulmonary arterial hypertension; I13.0 Hypertensive heart and chronic kidney disease with heart failure and stage 1 through stage 4 chronic kidney disease, or unspecified chronic kidney disease; E11.22 Type 2 diabetes mellitus with diabetic chronic kidney disease; I50.42 Chronic combined systolic (congestive) and diastolic (congestive) heart failure; N18.30 Chronic kidney disease, stage 3 unspecified; I25.10 Atherosclerotic heart disease of native coronary artery without angina pectoris; I48.91 Unspecified atrial fibrillation; I42.8 Other cardiomyopathies; E11.42 Type 2 diabetes mellitus with diabetic polyneuropathy; K21.9 Gastro-esophageal reflux disease without esophagitis; E78.5 Hyperlipidemia, unspecified; Z79.2 Long term (current) use of antibiotics; Z79.899 Other long term (current) drug therapy; Z90.49 Acquired absence of other specified parts of digestive tract; Z90.710 Acquired absence of both cervix and uterus
CPT/HCPCS: 36415; 82565; 83735; 83880; 84132; 84520; 96361; 96374; G0463; J2405; J7040

== ENCOUNTER → 2020-11-26 | Outpatient (CLI) | payer MEDICAID ==
[~2020-11-26] MED LIST changes: +CYANOCOBALAMIN (B-12) 1000 MCG/1 ML VIAL IM ONE; +CYANOCOBALAMIN (B-12) 1000 MCG/1 ML VIAL ONE; +FUROSEMIDE 40 MG/4 ML VIAL IV ONE; +FUROSEMIDE 40 MG/4 ML VIAL ONE; -ONDANSETRON HCL 4 MG/2 ML VIAL IV ONE; -ONDANSETRON HCL 4 MG/2 ML VIAL ONE; +POTASSIUM CHL 10 Meq TABLET PO ONE; -SODIUM CHLORIDE 0.9% 500 ML IV ONE
[2020-11-26 14:03] VITALS: BP 135/76
[2020-11-26 15:17] LABS: Basophils # (auto) 0.1 10 ^3/uL (0-0.2); Basophils % (auto) 1.1 % (0.0-2.0); Eosinophils # (auto) 0.1 10 ^3/uL (0-0.8); Eosinophils % (auto) 2.2 % (0.0-7.0); Hematocrit 26.2 % (36.0-46.0); Hemoglobin 8.7 g/dL (12.2-16.2); Lymphocytes # (auto) 1.7 10 ^3/uL (0.4-5.4); Lymphocytes % (auto) 25.1 % (10.0-50.0); Mean Corpuscular Hemoglobin 30.2 pg (28.0-32.0); Mean Corpuscular Hgb Conc. 33.2 g/dL (32.0-36.0); Mean Corpuscular Volume 90.9 fL (80.0-100.0); Monocytes # (auto) 0.4 10 ^3/uL (0-1.3); Monocytes % (auto) 6.5 % (0.0-12.0); Neutrophils # (auto) 4.5 10 ^3/uL (1.6-8.6); Neutrophils % (auto) 65.1 % (37.0-80.0); Red Blood Cells 2.88 10^6/uL (4.0-5.20); Red Cell Distribution Width 12.8 % (11.8-14.3); White Blood Cell 6.9 10^3/uL (4.4-10.8)
[2020-11-26 15:29] LABS: Albumin 2.1 g/dL (3.4-5.0); Calcium 8.3 mg/dL (8.5-10.1); Potassium 4.8 mmol/L (3.5-5.1)
[2020-11-26 15:34] LABS: BUN/Creatinine Ratio 20.9; Bilirubin, Total 0.2 mg/dL (0.2-1.0)
== END | disposition home or self-care (01) ==
LOC: CHF HDHVI 13:12
PROVIDERS: ATTEND Internal Medicine Cardiovascular Disease
DX: E11.22 Type 2 diabetes mellitus with diabetic chronic kidney disease (principal); I13.0 Hypertensive heart and chronic kidney disease with heart failure and stage 1 through stage 4 chronic kidney disease, or unspecified chronic kidney disease; N18.30 Chronic kidney disease, stage 3 unspecified; I50.42 Chronic combined systolic (congestive) and diastolic (congestive) heart failure; R53.83 Other fatigue; R60.9 Edema, unspecified; D63.1 Anemia in chronic kidney disease; I25.10 Atherosclerotic heart disease of native coronary artery without angina pectoris; K21.9 Gastro-esophageal reflux disease without esophagitis; E78.5 Hyperlipidemia, unspecified; E11.42 Type 2 diabetes mellitus with diabetic polyneuropathy; I48.91 Unspecified atrial fibrillation; E86.0 Dehydration; Z90.710 Acquired absence of both cervix and uterus; Z79.2 Long term (current) use of antibiotics; Z79.899 Other long term (current) drug therapy
CPT/HCPCS: 36415; 80053; 83735; 83880; 85025; 96372; 96374; G0463; J1940; J3420

== ENCOUNTER → 2020-12-27 | Outpatient (CLI) | payer MEDICAID ==
[~2020-12-27] MED LIST changes: -CYANOCOBALAMIN (B-12) 1000 MCG/1 ML VIAL IM ONE; -CYANOCOBALAMIN (B-12) 1000 MCG/1 ML VIAL ONE; -FUROSEMIDE 40 MG/4 ML VIAL IV ONE; -FUROSEMIDE 40 MG/4 ML VIAL ONE; -POTASSIUM CHL 10 Meq TABLET PO ONE
== END | disposition home or self-care (01) ==
LOC: Rad HDHVI 12:58
PROVIDERS: ATTEND Internal Medicine Cardiovascular Disease
DX: I11.0 Hypertensive heart disease with heart failure (principal); I50.33 Acute on chronic diastolic (congestive) heart failure
CPT/HCPCS: 93306

== ENCOUNTER → 2020-12-30 | Outpatient (CLI) | payer MEDICAID ==
[2020-12-30 13:34] VITALS: BP 204/100
[2020-12-30 14:15] VITALS: BP 194/95
[2020-12-30 15:14] LABS: Potassium 4.8 mmol/L (3.5-5.1)
== END | disposition home or self-care (01) ==
LOC: CHF HDHVI 13:33
PROVIDERS: ATTEND Internal Medicine Cardiovascular Disease
DX: I27.21 Secondary pulmonary arterial hypertension (principal)
CPT/HCPCS: 36415; 82565; 83880; 84132; 84520; G0463

== ENCOUNTER → 2021-01-07 | Outpatient (CLI) | payer MEDICAID ==
[2021-01-07 14:41] LABS: Cholesterol 276 mg/dL (< 200)
[2021-01-07 14:44] LABS: HDL Cholesterol 69 mg/dL (40-59); Triglycerides 490 mg/dL (< 150)
== END | disposition home or self-care (01) ==
LOC: LAB 13:51
PROVIDERS: ATTEND Internal Medicine
DX: E11.9 Type 2 diabetes mellitus without complications (principal); I10 Essential (primary) hypertension
CPT/HCPCS: 36415; 80061; 82306

== ENCOUNTER → 2021-01-10 | Outpatient (CLI) | payer MEDICAID ==
[~2021-01-10] MED LIST changes: +CYANOCOBALAMIN (B-12) 1000 MCG/1 ML VIAL IM ONE; +CYANOCOBALAMIN (B-12) 1000 MCG/1 ML VIAL ONE
[2021-01-10 13:20] VITALS: BP 181/80
[2021-01-10 15:22] LABS: BUN/Creatinine Ratio 21.1; Calcium 8.2 mg/dL (8.5-10.1); Potassium 4.3 mmol/L (3.5-5.1)
[2021-01-10 15:34] LABS: Basophils # (auto) 0.1 10 ^3/uL (0-0.2); Eosinophils # (auto) 0.1 10 ^3/uL (0-0.8); Hemoglobin 7.7 g/dL (12.2-16.2); Lymphocytes # (auto) 2.5 10 ^3/uL (0.4-5.4); Monocytes # (auto) 0.5 10 ^3/uL (0-1.3); Neutrophils # (auto) 5.9 10 ^3/uL (1.6-8.6); Neutrophils % (auto) 65.1 % (37.0-80.0)
[2021-01-10 15:36] LABS: Basophils % (auto) 0.7 % (0.0-2.0); Eosinophils % (auto) 1.6 % (0.0-7.0); Hematocrit 22.7 % (36.0-46.0); Lymphocytes % (auto) 27.2 % (10.0-50.0); Mean Corpuscular Hemoglobin 30.8 pg (28.0-32.0); Mean Corpuscular Volume 90.7 fL (80.0-100.0); Monocytes % (auto) 5.4 % (0.0-12.0); Nucleated Red Blood Cells % 0.1 %; Red Cell Distribution Width 13.9 % (11.8-14.3)
== END | disposition home or self-care (01) ==
LOC: CHF HDHVI 13:04
PROVIDERS: ATTEND Internal Medicine Cardiovascular Disease
DX: E11.22 Type 2 diabetes mellitus with diabetic chronic kidney disease (principal); I13.0 Hypertensive heart and chronic kidney disease with heart failure and stage 1 through stage 4 chronic kidney disease, or unspecified chronic kidney disease; N18.30 Chronic kidney disease, stage 3 unspecified; I50.42 Chronic combined systolic (congestive) and diastolic (congestive) heart failure; R53.83 Other fatigue; I27.21 Secondary pulmonary arterial hypertension; I25.10 Atherosclerotic heart disease of native coronary artery without angina pectoris; K21.9 Gastro-esophageal reflux disease without esophagitis; E78.5 Hyperlipidemia, unspecified; E11.42 Type 2 diabetes mellitus with diabetic polyneuropathy; J45.909 Unspecified asthma, uncomplicated; D63.1 Anemia in chronic kidney disease; I48.91 Unspecified atrial fibrillation; E86.0 Dehydration; Z90.710 Acquired absence of both cervix and uterus; Z79.2 Long term (current) use of antibiotics; Z79.899 Other long term (current) drug therapy
CPT/HCPCS: 36415; 80048; 83880; 85025; 96372; G0463; J3420

== ENCOUNTER → 2021-01-13 | Outpatient (CLI) | payer MEDICAID ==
[2021-01-13 14:01] LABS: Basophils # (auto) 0.1 10 ^3/uL (0-0.2); Basophils % (auto) 0.9 % (0.0-2.0); Eosinophils # (auto) 0.1 10 ^3/uL (0-0.8); Eosinophils % (auto) 1.6 % (0.0-7.0); Hematocrit 30.3 % (36.0-46.0); Lymphocytes # (auto) 1.7 10 ^3/uL (0.4-5.4); Lymphocytes % (auto) 21.9 % (10.0-50.0); Mean Corpuscular Hemoglobin 30.2 pg (28.0-32.0); Mean Corpuscular Hgb Conc. 32.9 g/dL (32.0-36.0); Mean Corpuscular Volume 91.6 fL (80.0-100.0); Monocytes # (auto) 0.5 10 ^3/uL (0-1.3); Monocytes % (auto) 7.1 % (0.0-12.0); Neutrophils # (auto) 5.3 10 ^3/uL (1.6-8.6); Neutrophils % (auto) 68.5 % (37.0-80.0); Red Blood Cells 3.31 10^6/uL (4.0-5.20); Red Cell Distribution Width 14.1 % (11.8-14.3); White Blood Cell 7.7 10^3/uL (4.4-10.8)
[2021-01-13 14:14] VITALS: BP 184/82
[2021-01-13 14:39] LABS: Calcium 8.3 mg/dL (8.5-10.1); Magnesium 1.7 mg/dL (1.6-2.6); Potassium 3.7 mmol/L (3.5-5.1)
== END | disposition home or self-care (01) ==
LOC: CHF HDHVI 13:25
PROVIDERS: ATTEND Internal Medicine Cardiovascular Disease
DX: E11.22 Type 2 diabetes mellitus with diabetic chronic kidney disease (principal); I13.0 Hypertensive heart and chronic kidney disease with heart failure and stage 1 through stage 4 chronic kidney disease, or unspecified chronic kidney disease; N18.30 Chronic kidney disease, stage 3 unspecified; I50.42 Chronic combined systolic (congestive) and diastolic (congestive) heart failure; R53.83 Other fatigue; I27.21 Secondary pulmonary arterial hypertension; I25.10 Atherosclerotic heart disease of native coronary artery without angina pectoris; K21.9 Gastro-esophageal reflux disease without esophagitis; E78.5 Hyperlipidemia, unspecified; E11.42 Type 2 diabetes mellitus with diabetic polyneuropathy; J45.909 Unspecified asthma, uncomplicated; D63.1 Anemia in chronic kidney disease; I48.91 Unspecified atrial fibrillation; E86.0 Dehydration; Z90.710 Acquired absence of both cervix and uterus; Z79.2 Long term (current) use of antibiotics; Z79.899 Other long term (current) drug therapy
CPT/HCPCS: 36415; 80048; 83735; 83880; 85025; 96372; G0463; J3420

== ENCOUNTER → 2021-01-24 | Outpatient (CLI) | payer MEDICAID ==
[~2021-01-24] MED LIST changes: +BUMETANIDE 2.5mg/10ml (0.25 mg/ml) INJ IV ONE; +BUMETANIDE INJECTION 20 ML ONE; +POTASSIUM CHL 20 Meq TABLET PO ONE
[2021-01-24 13:53] VITALS: BP 138/69
[2021-01-24 15:21] LABS: Basophils # (auto) 0.1 10 ^3/uL (0-0.2); Basophils % (auto) 0.9 % (0.0-2.0); Eosinophils # (auto) 0.1 10 ^3/uL (0-0.8); Eosinophils % (auto) 1.7 % (0.0-7.0); Hematocrit 25.7 % (36.0-46.0); Hemoglobin 8.5 g/dL (12.2-16.2); Lymphocytes # (auto) 1.5 10 ^3/uL (0.4-5.4); Lymphocytes % (auto) 26.1 % (10.0-50.0); Mean Corpuscular Hemoglobin 30.2 pg (28.0-32.0); Mean Corpuscular Hgb Conc. 33.1 g/dL (32.0-36.0); Mean Corpuscular Volume 91.1 fL (80.0-100.0); Monocytes # (auto) 0.4 10 ^3/uL (0-1.3); Monocytes % (auto) 6.3 % (0.0-12.0); Neutrophils # (auto) 3.7 10 ^3/uL (1.6-8.6); Nucleated Red Blood Cells % 0.1 %; Red Blood Cells 2.83 10^6/uL (4.0-5.20); Red Cell Distribution Width 13.6 % (11.8-14.3); White Blood Cell 5.7 10^3/uL (4.4-10.8)
[2021-01-24 15:28] LABS: Albumin 2.2 g/dL (3.4-5.0); Calcium 8.2 mg/dL (8.5-10.1); Magnesium 2.1 mg/dL (1.6-2.6)
[2021-01-24 15:31] LABS: BUN/Creatinine Ratio 19.7
[2021-01-24 15:33] LABS: Bilirubin, Total 0.2 mg/dL (0.2-1.0); Total Protein 5.7 g/dL (6.4-8.2)
== END | disposition home or self-care (01) ==
LOC: CHF HDHVI 13:10
PROVIDERS: ATTEND Internal Medicine Cardiovascular Disease
DX: I13.0 Hypertensive heart and chronic kidney disease with heart failure and stage 1 through stage 4 chronic kidney disease, or unspecified chronic kidney disease (principal); E11.22 Type 2 diabetes mellitus with diabetic chronic kidney disease; N18.30 Chronic kidney disease, stage 3 unspecified; I50.42 Chronic combined systolic (congestive) and diastolic (congestive) heart failure; I25.10 Atherosclerotic heart disease of native coronary artery without angina pectoris; K21.9 Gastro-esophageal reflux disease without esophagitis; E78.5 Hyperlipidemia, unspecified; E11.42 Type 2 diabetes mellitus with diabetic polyneuropathy; J45.909 Unspecified asthma, uncomplicated; I48.91 Unspecified atrial fibrillation; Z79.2 Long term (current) use of antibiotics; Z79.899 Other long term (current) drug therapy; Z90.49 Acquired absence of other specified parts of digestive tract; Z90.710 Acquired absence of both cervix and uterus
CPT/HCPCS: 36415; 80053; 83036; 83735; 83880; 85025; 96372; 96374; G0463; J3420

== ENCOUNTER → 2021-02-19 | Outpatient (CLI) | payer MEDICARE, MEDICAID ==
[~2021-02-19] MED LIST changes: -BUMETANIDE 2.5mg/10ml (0.25 mg/ml) INJ IV ONE; -BUMETANIDE INJECTION 20 ML ONE; -POTASSIUM CHL 20 Meq TABLET PO ONE
[2021-02-19 13:15] VITALS: BP 183/85
[2021-02-19 13:43] VITALS: BP 160/83
[2021-02-19 15:11] LABS: Basophils # (auto) 0.1 10 ^3/uL (0-0.2); Basophils % (auto) 0.6 % (0.0-2.0); Eosinophils # (auto) 0.1 10 ^3/uL (0-0.8); Eosinophils % (auto) 0.7 % (0.0-7.0); Hematocrit 26.9 % (36.0-46.0); Hemoglobin 9.2 g/dL (12.2-16.2); Lymphocytes # (auto) 1.2 10 ^3/uL (0.4-5.4); Lymphocytes % (auto) 13.6 % (10.0-50.0); Mean Corpuscular Hgb Conc. 34.3 g/dL (32.0-36.0); Mean Corpuscular Volume 90.2 fL (80.0-100.0); Monocytes # (auto) 0.5 10 ^3/uL (0-1.3); Monocytes % (auto) 6.2 % (0.0-12.0); Neutrophils # (auto) 6.7 10 ^3/uL (1.6-8.6); Neutrophils % (auto) 78.9 % (37.0-80.0); Red Blood Cells 2.98 10^6/uL (4.0-5.20); Red Cell Distribution Width 12.7 % (11.8-14.3); White Blood Cell 8.6 10^3/uL (4.4-10.8)
[2021-02-19 15:22] LABS: Albumin 2.3 g/dL (3.4-5.0); BUN/Creatinine Ratio 22.1; Calcium 8.9 mg/dL (8.5-10.1); Magnesium 1.8 mg/dL (1.6-2.6); Potassium 4.5 mmol/L (3.5-5.1)
[2021-02-19 15:25] LABS: Bilirubin, Total 0.2 mg/dL (0.2-1.0); Total Protein 6.4 g/dL (6.4-8.2)
== END | disposition home or self-care (01) ==
LOC: CHF HDHVI 13:12
PROVIDERS: ATTEND Internal Medicine Cardiovascular Disease
DX: I13.0 Hypertensive heart and chronic kidney disease with heart failure and stage 1 through stage 4 chronic kidney disease, or unspecified chronic kidney disease (principal); E11.22 Type 2 diabetes mellitus with diabetic chronic kidney disease; I50.42 Chronic combined systolic (congestive) and diastolic (congestive) heart failure; N18.30 Chronic kidney disease, stage 3 unspecified; R53.83 Other fatigue; R11.2 Nausea with vomiting, unspecified; I25.10 Atherosclerotic heart disease of native coronary artery without angina pectoris; I48.91 Unspecified atrial fibrillation; J45.909 Unspecified asthma, uncomplicated; K21.9 Gastro-esophageal reflux disease without esophagitis; E11.42 Type 2 diabetes mellitus with diabetic polyneuropathy; E78.5 Hyperlipidemia, unspecified; Z79.2 Long term (current) use of antibiotics; Z90.49 Acquired absence of other specified parts of digestive tract; Z90.710 Acquired absence of both cervix and uterus
CPT/HCPCS: 36415; 80053; 80162; 82306; 82607; 83735; 83880; 85025; 96372; G0463; J3420

== ENCOUNTER → 2021-03-05 | Outpatient (CLI) | payer MEDICARE, MEDICAID ==
[~2021-03-05] VITALS: Ht 30.5 cm; Wt 0.5 kg
[~2021-03-05] MED LIST changes: +FUROSEMIDE 100 MG/10ML VIAL IV ONE; +FUROSEMIDE 40 MG/4 ML VIAL ONE; +MAGNESIUM OXIDE 400 MG TAB ONE; +MAGNESIUM OXIDE 400 MG TAB PO ONE; +POTASSIUM CHL 10 Meq TABLET PO ONE; +POTASSIUM CHL 20 Meq TABLET PO ONE
[2021-03-05 14:07] VITALS: BP 183/83
[2021-03-05 15:14] LABS: Basophils # (auto) 0.1 10 ^3/uL (0-0.2); Basophils % (auto) 0.8 % (0.0-2.0); Eosinophils # (auto) 0.1 10 ^3/uL (0-0.8); Eosinophils % (auto) 1.3 % (0.0-7.0); Hematocrit 27.8 % (36.0-46.0); Hemoglobin 9.5 g/dL (12.2-16.2); Lymphocytes # (auto) 1.5 10 ^3/uL (0.4-5.4); Lymphocytes % (auto) 17.7 % (10.0-50.0); Mean Corpuscular Hemoglobin 30.6 pg (28.0-32.0); Mean Corpuscular Hgb Conc. 34.1 g/dL (32.0-36.0); Mean Corpuscular Volume 89.8 fL (80.0-100.0); Monocytes # (auto) 0.3 10 ^3/uL (0-1.3); Monocytes % (auto) 4.2 % (0.0-12.0); Neutrophils # (auto) 6.3 10 ^3/uL (1.6-8.6); Red Blood Cells 3.09 10^6/uL (4.0-5.20); Red Cell Distribution Width 12.9 % (11.8-14.3); White Blood Cell 8.2 10^3/uL (4.4-10.8)
[2021-03-05 15:25] LABS: Magnesium 2.1 mg/dL (1.6-2.6); Potassium 5.2 mmol/L (3.5-5.1)
== END | disposition home or self-care (01) ==
LOC: CHF HDHVI 13:05
PROVIDERS: ATTEND Internal Medicine Cardiovascular Disease
DX: I13.0 Hypertensive heart and chronic kidney disease with heart failure and stage 1 through stage 4 chronic kidney disease, or unspecified chronic kidney disease (principal); E11.22 Type 2 diabetes mellitus with diabetic chronic kidney disease; I50.42 Chronic combined systolic (congestive) and diastolic (congestive) heart failure; N18.30 Chronic kidney disease, stage 3 unspecified; E83.42 Hypomagnesemia; R11.0 Nausea; I25.10 Atherosclerotic heart disease of native coronary artery without angina pectoris; I48.91 Unspecified atrial fibrillation; J45.909 Unspecified asthma, uncomplicated; E11.42 Type 2 diabetes mellitus with diabetic polyneuropathy; K21.9 Gastro-esophageal reflux disease without esophagitis; E78.5 Hyperlipidemia, unspecified; Z79.2 Long term (current) use of antibiotics; Z79.899 Other long term (current) drug therapy; Z90.49 Acquired absence of other specified parts of digestive tract; Z90.710 Acquired absence of both cervix and uterus
CPT/HCPCS: 36415; 71046; 82565; 83735; 83880; 84132; 84520; 85025; 96372; 96374; G0463; J1940; J3420

== ENCOUNTER → 2021-04-11 | Outpatient (CLI) | payer MEDICARE, MEDICAID ==
[~2021-04-11] MED LIST changes: -FUROSEMIDE 100 MG/10ML VIAL IV ONE; -FUROSEMIDE 40 MG/4 ML VIAL ONE; -MAGNESIUM OXIDE 400 MG TAB ONE; -MAGNESIUM OXIDE 400 MG TAB PO ONE; -POTASSIUM CHL 10 Meq TABLET PO ONE; -POTASSIUM CHL 20 Meq TABLET PO ONE
[2021-04-11 14:45] VITALS: BP 134/82
[2021-04-11 15:19] LABS: Basophils # (auto) 0.1 10 ^3/uL (0-0.2); Basophils % (auto) 0.6 % (0.0-2.0); Eosinophils # (auto) 0.2 10 ^3/uL (0-0.8); Eosinophils % (auto) 1.8 % (0.0-7.0); Hematocrit 27.2 % (36.0-46.0); Hemoglobin 9.3 g/dL (12.2-16.2); Lymphocytes # (auto) 1.7 10 ^3/uL (0.4-5.4); Lymphocytes % (auto) 16.1 % (10.0-50.0); Mean Corpuscular Hemoglobin 30.6 pg (28.0-32.0); Mean Corpuscular Hgb Conc. 34.1 g/dL (32.0-36.0); Mean Corpuscular Volume 89.6 fL (80.0-100.0); Monocytes # (auto) 0.6 10 ^3/uL (0-1.3); Monocytes % (auto) 5.6 % (0.0-12.0); Neutrophils # (auto) 8.1 10 ^3/uL (1.6-8.6); Neutrophils % (auto) 75.9 % (37.0-80.0); Nucleated Red Blood Cells % 0.1 %; Red Blood Cells 3.03 10^6/uL (4.0-5.20); White Blood Cell 10.6 10^3/uL (4.4-10.8)
[2021-04-11 15:39] LABS: Potassium 5.5 mmol/L (3.5-5.1)
[2021-04-11 15:47] LABS: Calcium 8.9 mg/dL (8.5-10.1); Magnesium 1.9 mg/dL (1.6-2.6)
== END | disposition home or self-care (01) ==
LOC: CHF HDHVI 12:19
PROVIDERS: ATTEND Internal Medicine Cardiovascular Disease
DX: I13.0 Hypertensive heart and chronic kidney disease with heart failure and stage 1 through stage 4 chronic kidney disease, or unspecified chronic kidney disease (principal); E11.22 Type 2 diabetes mellitus with diabetic chronic kidney disease; I50.42 Chronic combined systolic (congestive) and diastolic (congestive) heart failure; N18.30 Chronic kidney disease, stage 3 unspecified; I25.10 Atherosclerotic heart disease of native coronary artery without angina pectoris; K21.9 Gastro-esophageal reflux disease without esophagitis; E11.42 Type 2 diabetes mellitus with diabetic polyneuropathy; I48.91 Unspecified atrial fibrillation; J45.909 Unspecified asthma, uncomplicated; E78.5 Hyperlipidemia, unspecified; E83.42 Hypomagnesemia; Z79.2 Long term (current) use of antibiotics; Z79.899 Other long term (current) drug therapy
CPT/HCPCS: 36415; 80048; 83735; 83880; 85025; 96372; G0463; J3420

== ENCOUNTER → 2021-04-17 | Outpatient (CLI) | payer MEDICARE, MEDICAID ==
[~2021-04-17] MED LIST changes: -CYANOCOBALAMIN (B-12) 1000 MCG/1 ML VIAL IM ONE; -CYANOCOBALAMIN (B-12) 1000 MCG/1 ML VIAL ONE
[2021-04-17 14:00] VITALS: BP 146/71
== END | disposition home or self-care (01) ==
LOC: CHF HDHVI 13:40
PROVIDERS: ATTEND Internal Medicine Cardiovascular Disease
DX: E87.6 Hypokalemia (principal)
CPT/HCPCS: 36415; 84132; G0463

== ENCOUNTER → 2021-05-01 | Outpatient (CLI) | payer MEDICARE, MEDICAID ==
[~2021-05-01] VITALS: Ht 30.5 cm; Wt 58.2 kg
[~2021-05-01] MED LIST changes: +CYANOCOBALAMIN (B-12) 1000 MCG/1 ML VIAL IM ONE; +CYANOCOBALAMIN (B-12) 1000 MCG/1 ML VIAL ONE
[2021-05-01 14:24] VITALS: BP 177/80
[2021-05-01 16:36] LABS: Basophils # (auto) 0.1 10 ^3/uL (0-0.2); Eosinophils # (auto) 0.3 10 ^3/uL (0-0.8); Hemoglobin 8.3 g/dL (12.2-16.2); Lymphocytes # (auto) 1.3 10 ^3/uL (0.4-5.4); Monocytes # (auto) 0.4 10 ^3/uL (0-1.3); Monocytes % (auto) 6.1 % (0.0-12.0)
[2021-05-01 16:39] LABS: Eosinophils % (auto) 5.1 % (0.0-7.0); Hematocrit 23.8 % (36.0-46.0); Lymphocytes % (auto) 19.6 % (10.0-50.0); Mean Corpuscular Hemoglobin 31.3 pg (28.0-32.0); Mean Corpuscular Volume 89.6 fL (80.0-100.0); Neutrophils # (auto) 4.5 10 ^3/uL (1.6-8.6); Neutrophils % (auto) 68.2 % (37.0-80.0); Red Blood Cells 2.66 10^6/uL (4.0-5.20); Red Cell Distribution Width 13.4 % (11.8-14.3); White Blood Cell 6.6 10^3/uL (4.4-10.8)
[2021-05-01 16:51] LABS: BUN/Creatinine Ratio 30.4; Calcium 8.5 mg/dL (8.5-10.1); Magnesium 2.2 mg/dL (1.6-2.6)
== END | disposition home or self-care (01) ==
LOC: CHF HDHVI 13:50
PROVIDERS: ATTEND Internal Medicine Cardiovascular Disease
DX: I13.0 Hypertensive heart and chronic kidney disease with heart failure and stage 1 through stage 4 chronic kidney disease, or unspecified chronic kidney disease (principal); E11.22 Type 2 diabetes mellitus with diabetic chronic kidney disease; N18.30 Chronic kidney disease, stage 3 unspecified; I50.42 Chronic combined systolic (congestive) and diastolic (congestive) heart failure; I25.10 Atherosclerotic heart disease of native coronary artery without angina pectoris; K21.9 Gastro-esophageal reflux disease without esophagitis; E11.42 Type 2 diabetes mellitus with diabetic polyneuropathy; I48.91 Unspecified atrial fibrillation; J45.909 Unspecified asthma, uncomplicated; E78.5 Hyperlipidemia, unspecified; E87.6 Hypokalemia; E83.42 Hypomagnesemia; Z79.2 Long term (current) use of antibiotics; Z79.899 Other long term (current) drug therapy
CPT/HCPCS: 36415; 80048; 83735; 83880; 85025; 96372; G0463; J3420

== ENCOUNTER → 2021-05-29 | Outpatient (CLI) | payer MEDICARE, MEDICAID ==
[~2021-05-29] MED LIST changes: -ALOG25TA OR; +ALOG25TA PO; +AMOX1CAP87 PO; +ASCO100076 PO; +ASPITAB37 PO; +BRIM0.2S17 LEFTEYE; +CHOL20007 PO; -CYANOCOBALAMIN (B-12) 1000 MCG/1 ML VIAL IM ONE; -CYANOCOBALAMIN (B-12) 1000 MCG/1 ML VIAL ONE; +DIGO0.12 PO; +DORZ2SOL18 EACHEYE; -DORZ2SOL18 OP; +LATA0.0019 LEFTEYE; +LOPE2CAP PO; +PRED1SUS4 LEFTEYE; +PRED1SUS4 RIGHTEYE; +SACU1TAB7 PO; +TORS20TA20 PO; +VITA80009 PO
[2021-05-29 13:35] VITALS: BP 153/60
== END | disposition home or self-care (01) ==
LOC: CHF HDHVI 13:18
PROVIDERS: ATTEND Internal Medicine Cardiovascular Disease
DX: I27.21 Secondary pulmonary arterial hypertension (principal)
CPT/HCPCS: G0463

== ENCOUNTER 2021-06-13 07:44 | Day surgery (SDC) | payer MEDICARE, MEDICAID ==
[~2021-06-13] VITALS: Ht 154.9 cm; Wt 56.2 kg
[2021-06-13] VITALS (11 sets, daily range): BP systolic 143–179; BP diastolic 71–89
[~2021-06-13 07:44] MED LIST changes: -CEFT1INJ17 IV; -FUR20T PO; -METO5TAB67 PO; -POM OP; -SACU1TAB4 PO; -VANC1INJ IV
== END 2021-06-13 13:00 | disposition home or self-care (01) ==
LOC: CATH 07:44
PROVIDERS: ATTEND Internal Medicine Cardiovascular Disease
DX: D64.9 Anemia, unspecified (principal); I50.9 Heart failure, unspecified; Z87.891 Personal history of nicotine dependence; Z83.3 Family history of diabetes mellitus; Z20.822 Contact with and (suspected) exposure to COVID-19
CPT/HCPCS: 36430; 86850; 86900; 86901; 86920; J7030; P9016; U0003

== ENCOUNTER → 2021-06-16 | Outpatient (CLI) | payer MEDICARE, MEDICAID ==
[2021-06-16 14:15] VITALS: BP 147/76
[2021-06-16 14:59] LABS: Basophils # (auto) 0.1 10 ^3/uL (0-0.2); Basophils % (auto) 1.3 % (0.0-2.0); Eosinophils # (auto) 0.1 10 ^3/uL (0-0.8); Eosinophils % (auto) 1.9 % (0.0-7.0); Hematocrit 30.3 % (36.0-46.0); Hemoglobin 10.2 g/dL (12.2-16.2); Lymphocytes # (auto) 1.2 10 ^3/uL (0.4-5.4); Lymphocytes % (auto) 15.6 % (10.0-50.0); Mean Corpuscular Hemoglobin 30.9 pg (28.0-32.0); Mean Corpuscular Hgb Conc. 33.7 g/dL (32.0-36.0); Mean Corpuscular Volume 91.5 fL (80.0-100.0); Monocytes # (auto) 0.4 10 ^3/uL (0-1.3); Monocytes % (auto) 5.6 % (0.0-12.0); Neutrophils # (auto) 5.8 10 ^3/uL (1.6-8.6); Neutrophils % (auto) 75.6 % (37.0-80.0); Red Blood Cells 3.32 10^6/uL (4.0-5.20); White Blood Cell 7.6 10^3/uL (4.4-10.8)
[2021-06-16 15:02] LABS: Potassium 4.6 mmol/L (3.5-5.1)
== END | disposition home or self-care (01) ==
LOC: CHF HDHVI 13:46
PROVIDERS: ATTEND Internal Medicine Cardiovascular Disease
DX: I50.23 Acute on chronic systolic (congestive) heart failure (principal)
CPT/HCPCS: 36415; 80162; 82565; 84132; 84520; 85025; G0463

== ENCOUNTER → 2021-06-23 | Outpatient (CLI) | payer MEDICARE, MEDICAID ==
[~2021-06-23] MED LIST changes: +CYANOCOBALAMIN (B-12) 1000 MCG/1 ML VIAL IM ONE; +CYANOCOBALAMIN (B-12) 1000 MCG/1 ML VIAL ONE
[2021-06-23 14:22] VITALS: BP 135/67
[2021-06-23 15:30] LABS: Basophils # (auto) 0.1 10 ^3/uL (0-0.2); Basophils % (auto) 1.1 % (0.0-2.0); Eosinophils # (auto) 0.3 10 ^3/uL (0-0.8); Eosinophils % (auto) 3.5 % (0.0-7.0); Hematocrit 29.2 % (36.0-46.0); Hemoglobin 10.1 g/dL (12.2-16.2); Lymphocytes # (auto) 1.7 10 ^3/uL (0.4-5.4); Lymphocytes % (auto) 20.1 % (10.0-50.0); Mean Corpuscular Hemoglobin 31.8 pg (28.0-32.0); Mean Corpuscular Hgb Conc. 34.6 g/dL (32.0-36.0); Mean Corpuscular Volume 91.7 fL (80.0-100.0); Monocytes # (auto) 0.4 10 ^3/uL (0-1.3); Monocytes % (auto) 4.9 % (0.0-12.0); Neutrophils % (auto) 70.4 % (37.0-80.0); Nucleated Red Blood Cells % 0.1 %; Red Blood Cells 3.19 10^6/uL (4.0-5.20); Red Cell Distribution Width 12.9 % (11.8-14.3); White Blood Cell 8.5 10^3/uL (4.4-10.8)
[2021-06-23 15:45] LABS: Potassium 5.2 mmol/L (3.5-5.1)
== END | disposition home or self-care (01) ==
LOC: CHF HDHVI 13:49
PROVIDERS: ATTEND Internal Medicine Cardiovascular Disease
DX: I50.23 Acute on chronic systolic (congestive) heart failure (principal)
CPT/HCPCS: 36415; 82565; 84132; 84520; 85025; 96372; G0463; J3420

== ENCOUNTER → 2021-06-30 | Outpatient (CLI) | payer MEDICARE, MEDICAID ==
[~2021-06-30] MED LIST changes: -CYANOCOBALAMIN (B-12) 1000 MCG/1 ML VIAL IM ONE; -CYANOCOBALAMIN (B-12) 1000 MCG/1 ML VIAL ONE
== END | disposition home or self-care (01) ==
LOC: LAB 13:51
PROVIDERS: ATTEND Internal Medicine Cardiovascular Disease
DX: E87.6 Hypokalemia (principal)
CPT/HCPCS: 36415; 84132

== ENCOUNTER → 2021-07-08 | Outpatient (CLI) | payer MEDICARE, MEDICAID ==
[2021-07-08 13:36] VITALS: BP 144/71
[2021-07-08 16:15] LABS: Magnesium 1.9 mg/dL (1.6-2.6); Potassium 4.3 mmol/L (3.5-5.1)
== END | disposition home or self-care (01) ==
LOC: CHF HDHVI 13:30
PROVIDERS: ATTEND Internal Medicine Cardiovascular Disease
DX: I50.23 Acute on chronic systolic (congestive) heart failure (principal)
CPT/HCPCS: 36415; 82565; 83735; 84132; 84520; G0463

== ENCOUNTER 2021-07-22 15:37 | Inpatient (IN) | payer MEDICARE, MEDICAID ==
[~2021-07-22] VITALS: Ht 154.9 cm; Wt 56.0 kg
[~2021-07-22 15:37] MED LIST changes: -CYANOCOBALAMIN (B-12) 1000 MCG/1 ML VIAL IM ONE; -CYANOCOBALAMIN (B-12) 1000 MCG/1 ML VIAL ONE; -FINE10TA PO; -HYDR50TA15 PO; -LINA5TAB PO; -METO10TA3 PO; -PATI1POW PO; -SACU1TAB PO; -SODI650T PO
[2021-07-22 17:48] LABS: Urine Bacteria FEW /hpf (None Seen); Urine Blood TRACE /uL (Negative); Urine Hyaline Cast MOD /lpf (0 - 2); Urine Mucus FEW (None Seen); Urine Specific Gravity 1.015 (1.001-1.035); Urine WBC 74 /hpf (0 - 5)
[2021-07-22] MEDS ORDERED: FUROSEMIDE 40 MG/4 ML VIAL IV ONE (18:00)
[2021-07-22] MEDS ORDERED: LABETALOL HCL 5 MG/ML 4ML SYRINGE IV ONE (18:00)
[2021-07-22 18:15] LABS: Albumin 3.5 g/dL (3.4-5.0); BUN/Creatinine Ratio 18.9; Calcium 9.1 mg/dL (8.5-10.1); Potassium 4.6 mmol/L (3.5-5.1)
[2021-07-22 18:18] LABS: INR 0.95 (0.9-1.15); Partial Thromboplastin Time 24.3 sec (23.6-33.0)
[2021-07-22 18:30] LABS: Bilirubin, Total 0.3 mg/dL (0.2-1.0); Total Protein 7.6 g/dL (6.4-8.2)
[2021-07-22 18:58] LABS: Basophils # (auto) 0.1 10 ^3/uL (0-0.2); Eosinophils # (auto) 0.2 10 ^3/uL (0-0.8); Eosinophils % (auto) 2.2 % (0.0-7.0); Hematocrit 29.4 % (36.0-46.0); Hemoglobin 10.8 g/dL (12.2-16.2); Lymphocytes # (auto) 2.1 10 ^3/uL (0.4-5.4); Lymphocytes % (auto) 27.1 % (10.0-50.0); Mean Corpuscular Hemoglobin 32.3 pg (28.0-32.0); Mean Corpuscular Volume 87.8 fL (80.0-100.0); Monocytes # (auto) 0.4 10 ^3/uL (0-1.3); Neutrophils % (auto) 64.7 % (37.0-80.0); Nucleated Red Blood Cells % 0.1 %; Red Blood Cells 3.34 10^6/uL (4.0-5.20); Red Cell Distribution Width 12.3 % (11.8-14.3); White Blood Cell 7.7 10^3/uL (4.4-10.8)
[2021-07-22 18:59] LABS: Mean Corpuscular Hgb Conc. 36.8 g/dL (32.0-36.0)
[2021-07-22] MEDS ORDERED: LABETALOL INJECTION 250 MG in SODIUM CHL 0.9% 200 ML IV ONE (19:30)
[2021-07-22] MEDS ORDERED: MORPHINE SULFATE INJ 2 MG/ml SYRG IV PRN (21:30)
[2021-07-22] MEDS ORDERED: NITROGLYCERIN 0.4 MG SL TAB SL PRN (21:30)
[2021-07-22] MEDS ORDERED: DEXTROSE (50%) 50ML SYRG IV PRN (21:30)
[2021-07-22] MEDS ORDERED: ONDANSETRON HCL 4 MG/2 ML VIAL IV PRN (21:30)
[2021-07-22] MEDS ORDERED: TEMAZEPAM 15 MG CAP PO PRN (21:30)
[2021-07-22] MEDS: ACETAMINOPHEN 325 MG TAB PO PRN (21:56)
[2021-07-22] MEDS: ACCU-CHEK COMFORT CURVE STRIP VI SCH (22:00)
[2021-07-22] MEDS: SACUBITRIL-VALSARTAN 24mg/26mg TAB PO SCH (23:46)
[2021-07-22] MEDS: ATORVASTATIN 20 MG TAB PO SCH (23:46)
[2021-07-22] MEDS: CARVEDILOL 3.125 MG TAB PO SCH (23:46)
[2021-07-22] MEDS: InsuLIN REG 1unit/0.01ml Soln (100units/ml) SC SCH (23:48)
[2021-07-23] MEDS: FUROSEMIDE 20 MG TAB PO SCH ×2 (06:02→18:26)
[2021-07-23 06:47] LABS: Albumin 2.8 g/dL (3.4-5.0); BUN/Creatinine Ratio 19.7; Calcium 8.3 mg/dL (8.5-10.1); Potassium 4.1 mmol/L (3.5-5.1)
[2021-07-23 06:49] LABS: Bilirubin, Total 0.3 mg/dL (0.2-1.0); Total Protein 6.2 g/dL (6.4-8.2)
[2021-07-23] MEDS: ACCU-CHEK COMFORT CURVE STRIP VI SCH ×4 (07:00→22:41)
[2021-07-23] MEDS: InsuLIN REG 1unit/0.01ml Soln (100units/ml) SC SCH ×4 (07:32→22:42)
[2021-07-23 07:57] LABS: Basophils # (auto) 0.1 10 ^3/uL (0-0.2); Eosinophils # (auto) 0.2 10 ^3/uL (0-0.8); Eosinophils % (auto) 3.1 % (0.0-7.0); Hematocrit 24.7 % (36.0-46.0); Hemoglobin 8.8 g/dL (12.2-16.2); Lymphocytes % (auto) 31.1 % (10.0-50.0); Mean Corpuscular Hemoglobin 31.6 pg (28.0-32.0); Mean Corpuscular Hgb Conc. 35.5 g/dL (32.0-36.0); Mean Corpuscular Volume 89.1 fL (80.0-100.0); Monocytes # (auto) 0.4 10 ^3/uL (0-1.3); Monocytes % (auto) 6.1 % (0.0-12.0); Neutrophils # (auto) 3.8 10 ^3/uL (1.6-8.6); Neutrophils % (auto) 58.7 % (37.0-80.0); Nucleated Red Blood Cells % 0.2 %; Red Blood Cells 2.77 10^6/uL (4.0-5.20); Red Cell Distribution Width 12.6 % (11.8-14.3); White Blood Cell 6.4 10^3/uL (4.4-10.8)
[2021-07-23 09:23] VITALS: BP 108/64
[2021-07-23] MEDS: PANTOPRAZOLE 40 MG TAB PO SCH (10:17)
[2021-07-23] MEDS: cefTRIAXone 1GM/50ML D5W 50 ML IV SCH (10:17)
[2021-07-23] MEDS: SACUBITRIL-VALSARTAN 24mg/26mg TAB PO SCH ×2 (10:18→22:40)
[2021-07-23] MEDS: CARVEDILOL 3.125 MG TAB PO SCH ×2 (10:19→22:40)
[2021-07-23] MEDS: ACETAMINOPHEN 325 MG TAB PO PRN ×2 (10:22→18:53)
[2021-07-23 13:00] VITALS: BP 169/79
[2021-07-23] MEDS ORDERED: hydrALAZINE HCL 20 MG/ML VL IV ONE (13:00)
[2021-07-23] MEDS ORDERED: hydrALAZINE HCL 20 MG/ML VL IV PRN (13:00)
[2021-07-23] MEDS: hydrALAZINE HCL 25 MG TAB PO SCH ×2 (14:00→22:40)
[2021-07-23 14:23] VITALS: BP 102/52
[2021-07-23] MEDS ORDERED: METO10TA3 PO ×2 (16:05)
[2021-07-23] MEDS ORDERED: SODI650T PO ×2 (16:05)
[2021-07-23] MEDS ORDERED: FINE10TA PO ×2 (16:05)
[2021-07-23] MEDS ORDERED: PATI1POW PO ×2 (16:05)
[2021-07-23 16:43] VITALS: BP 135/70
[2021-07-23] MEDS ORDERED: LINA5TAB PO ×2 (16:49)
[2021-07-23 22:00] VITALS: BP 147/63
[2021-07-23] MEDS: ATORVASTATIN 20 MG TAB PO SCH (22:40)
[2021-07-24 04:57] VITALS: BP 134/61
[2021-07-24 05:30] LABS: Basophils # (auto) 0.1 10 ^3/uL (0-0.2); Basophils % (auto) 1.6 % (0.0-2.0); Eosinophils # (auto) 0.3 10 ^3/uL (0-0.8); Eosinophils % (auto) 4.2 % (0.0-7.0); Hematocrit 24.4 % (36.0-46.0); Hemoglobin 8.8 g/dL (12.2-16.2); Lymphocytes # (auto) 2.2 10 ^3/uL (0.4-5.4); Lymphocytes % (auto) 33.5 % (10.0-50.0); Mean Corpuscular Hemoglobin 31.8 pg (28.0-32.0); Mean Corpuscular Volume 88.3 fL (80.0-100.0); Monocytes # (auto) 0.4 10 ^3/uL (0-1.3); Monocytes % (auto) 6.6 % (0.0-12.0); Neutrophils # (auto) 3.6 10 ^3/uL (1.6-8.6); Neutrophils % (auto) 54.1 % (37.0-80.0); Nucleated Red Blood Cells % 0.1 %; Red Blood Cells 2.76 10^6/uL (4.0-5.20); Red Cell Distribution Width 12.4 % (11.8-14.3); White Blood Cell 6.6 10^3/uL (4.4-10.8)
[2021-07-24 05:54] LABS: Chloride 109 mmol/L (98-107); Potassium 4.6 mmol/L (3.5-5.1); Sodium 138 mmol/L (136-145)
[2021-07-24 06:05] LABS: Alanine Aminotransferase 33 U/L (13-56); Albumin 2.8 g/dL (3.4-5.0); Alkaline Phosphatase 130 U/L (45-117); Anion Gap 8 (5-15); Aspartate Aminotransferase 20 U/L (15-37); BUN/Creatinine Ratio 23.8; Bilirubin, Total 0.2 mg/dL (0.2-1.0); Blood Urea Nitrogen 54 mg/dL (7-18); Calcium 8.6 mg/dL (8.5-10.1); Carbon Dioxide 21 mmol/L (21-32); Cholesterol 220 mg/dL (< 200); GFR African American 29 mL/min; GFR Non-African American 24 mL/min; Glucose 190 mg/dL (74-106); HDL Cholesterol 37 mg/dL (40-59); Magnesium 1.8 mg/dL (1.6-2.6); Total Protein 6.2 g/dL (6.4-8.2); Triglycerides 569 mg/dL (< 150)
[2021-07-24] MEDS: FUROSEMIDE 20 MG TAB PO SCH ×2 (06:19→17:08)
[2021-07-24] MEDS: hydrALAZINE HCL 25 MG TAB PO SCH ×3 (06:20→21:49)
[2021-07-24] MEDS: ACCU-CHEK COMFORT CURVE STRIP VI SCH ×4 (06:20→21:17)
[2021-07-24] MEDS: InsuLIN REG 1unit/0.01ml Soln (100units/ml) SC SCH ×4 (06:29→22:14)
[2021-07-24 08:57] VITALS: BP 149/65
[2021-07-24] MEDS: SACUBITRIL-VALSARTAN 24mg/26mg TAB PO SCH ×2 (09:31→22:06)
[2021-07-24] MEDS: PANTOPRAZOLE 40 MG TAB PO SCH (09:31)
[2021-07-24] MEDS: ENOXAPARIN SOD 30 MG/0.3 ML SYRINGE SC SCH (09:32)
[2021-07-24] MEDS: CARVEDILOL 3.125 MG TAB PO SCH ×2 (09:33→21:49)
[2021-07-24] MEDS: cefTRIAXone 1GM/50ML D5W 50 ML IV SCH (09:33)
[2021-07-24] MEDS: ACETAMINOPHEN 325 MG TAB PO PRN (12:56)
[2021-07-24 13:26] VITALS: BP 155/70
[2021-07-24] MEDS ORDERED: MAGNESIUM SULFATE 1GM/100ML 100 ML IV ONE (14:45)
[2021-07-24] MEDS ORDERED: CHOLECALCIFEROL (VITD3) 2,000 UNIT CAP/TAB PO ONE (14:45)
[2021-07-24 16:26] VITALS: BP 142/65
[2021-07-24 22:00] VITALS: BP 112/61
[2021-07-24] MEDS ORDERED: ATORVASTATIN 20 MG TAB PO SCH (22:00)
[2021-07-25 05:00] VITALS: BP 137/55
[2021-07-25] MEDS: hydrALAZINE HCL 25 MG TAB PO SCH ×2 (05:17→15:53)
[2021-07-25] MEDS: FUROSEMIDE 20 MG TAB PO SCH (05:17)
[2021-07-25 06:13] LABS: Basophils # (auto) 0.1 10 ^3/uL (0-0.2); Basophils % (auto) 1.2 % (0.0-2.0); Eosinophils # (auto) 0.4 10 ^3/uL (0-0.8); Eosinophils % (auto) 5.5 % (0.0-7.0); Hematocrit 24.9 % (36.0-46.0); Hemoglobin 8.9 g/dL (12.2-16.2); Lymphocytes % (auto) 28.4 % (10.0-50.0); Mean Corpuscular Hemoglobin 31.6 pg (28.0-32.0); Mean Corpuscular Hgb Conc. 35.8 g/dL (32.0-36.0); Mean Corpuscular Volume 88.2 fL (80.0-100.0); Monocytes # (auto) 0.4 10 ^3/uL (0-1.3); Monocytes % (auto) 6.4 % (0.0-12.0); Neutrophils # (auto) 4.1 10 ^3/uL (1.6-8.6); Neutrophils % (auto) 58.5 % (37.0-80.0); Red Blood Cells 2.82 10^6/uL (4.0-5.20); Red Cell Distribution Width 12.4 % (11.8-14.3)
[2021-07-25] MEDS: ACCU-CHEK COMFORT CURVE STRIP VI SCH ×2 (06:15→12:36)
[2021-07-25] MEDS: InsuLIN REG 1unit/0.01ml Soln (100units/ml) SC SCH ×2 (06:16→12:36)
[2021-07-25 06:30] LABS: Potassium 4.6 mmol/L (3.5-5.1)
[2021-07-25 06:37] LABS: BUN/Creatinine Ratio 28.1; Calcium 8.8 mg/dL (8.5-10.1); Magnesium 2.2 mg/dL (1.6-2.6)
[2021-07-25 09:00] VITALS: BP 107/60
[2021-07-25] MEDS: ACETAMINOPHEN 325 MG TAB PO PRN (09:31)
[2021-07-25] MEDS: PANTOPRAZOLE 40 MG TAB PO SCH (09:31)
[2021-07-25] MEDS: cefTRIAXone 1GM/50ML D5W 50 ML IV SCH (09:31)
[2021-07-25] MEDS: ENOXAPARIN SOD 30 MG/0.3 ML SYRINGE SC SCH (09:31)
[2021-07-25] MEDS: CARVEDILOL 3.125 MG TAB PO SCH (09:32)
[2021-07-25] MEDS ORDERED: CHOLECALCIFEROL (VITD3) 2,000 UNIT CAP/TAB PO SCH (10:00)
[2021-07-25] MEDS: SACUBITRIL-VALSARTAN 24mg/26mg TAB PO SCH (11:00)
[2021-07-25 13:00] VITALS: BP 117/56
[2021-07-25] MEDS ORDERED: SACU1TAB PO ×2 (13:55)
[2021-07-25] MEDS ORDERED: HYDR50TA15 PO ×2 (13:55)
[2021-07-25 14:57] VITALS: BP 137/55
== END 2021-07-25 16:15 | disposition home or self-care (01) | DRG 291 ==
LOC: ER 15:37 → TELE 21:21 → TELE-WESTW 07-23 09:08
PROVIDERS: ADMIT Nurse Practitioner; ATTEND Internal Medicine
DX: I13.0 Hypertensive heart and chronic kidney disease with heart failure and stage 1 through stage 4 chronic kidney disease, or unspecified chronic kidney disease (principal); I50.33 Acute on chronic diastolic (congestive) heart failure; N17.0 Acute kidney failure with tubular necrosis; I16.1 Hypertensive emergency; N39.0 Urinary tract infection, site not specified; N18.4 Chronic kidney disease, stage 4 (severe); H40.9 Unspecified glaucoma; H54.62 Unqualified visual loss, left eye, normal vision right eye; E11.22 Type 2 diabetes mellitus with diabetic chronic kidney disease; E11.319 Type 2 diabetes mellitus with unspecified diabetic retinopathy without macular edema; E55.9 Vitamin D deficiency, unspecified; K21.9 Gastro-esophageal reflux disease without esophagitis; R80.9 Proteinuria, unspecified; D63.1 Anemia in chronic kidney disease; E88.09 Other disorders of plasma-protein metabolism, not elsewhere classified; E78.5 Hyperlipidemia, unspecified; I25.10 Atherosclerotic heart disease of native coronary artery without angina pectoris; J45.909 Unspecified asthma, uncomplicated; Z79.84 Long term (current) use of oral hypoglycemic drugs; Z82.49 Family history of ischemic heart disease and other diseases of the circulatory system; Z83.3 Family history of diabetes mellitus; Z90.710 Acquired absence of both cervix and uterus
CPT/HCPCS: 36415; 70450; 71045; 80048; 80053; 80061; 80162; 81001; 82306; 82570; 82962; 83036; 83540; 83550; 83735; 83880; 84156; 84443; 84484; 85025; 85379; 85610; 85730; 87086; 93005; 93306; 96372; 96374; 96375; 97110; 97116; 97163; 97530; 99291; G0378; G0463; J0696; J1815; J3490

== ENCOUNTER → 2021-07-22 | Outpatient (CLI) | payer MEDICARE, MEDICAID ==
[~2021-07-22] MED LIST changes: +CYANOCOBALAMIN (B-12) 1000 MCG/1 ML VIAL IM ONE; +CYANOCOBALAMIN (B-12) 1000 MCG/1 ML VIAL ONE; -DORZ2SOL18 EACHEYE; +DORZ2SOL18 LEFTEYE; +FINE10TA PO; +HYDR50TA15 PO; +LINA5TAB PO; +METO10TA3 PO; +PATI1POW PO; +SACU1TAB PO; +SODI650T PO
[2021-07-22 14:26] VITALS: BP 119/71
[2021-07-22 16:01] LABS: Basophils # (auto) 0.1 10 ^3/uL (0-0.2); Basophils % (auto) 1.1 % (0.0-2.0); Eosinophils # (auto) 0.2 10 ^3/uL (0-0.8); Eosinophils % (auto) 2.8 % (0.0-7.0); Hematocrit 25.5 % (36.0-46.0); Lymphocytes # (auto) 1.7 10 ^3/uL (0.4-5.4); Lymphocytes % (auto) 25.6 % (10.0-50.0); Mean Corpuscular Hemoglobin 31.5 pg (28.0-32.0); Mean Corpuscular Hgb Conc. 35.3 g/dL (32.0-36.0); Monocytes # (auto) 0.4 10 ^3/uL (0-1.3); Monocytes % (auto) 5.6 % (0.0-12.0); Neutrophils # (auto) 4.4 10 ^3/uL (1.6-8.6); Neutrophils % (auto) 64.9 % (37.0-80.0); Red Blood Cells 2.87 10^6/uL (4.0-5.20); Red Cell Distribution Width 12.3 % (11.8-14.3); White Blood Cell 6.8 10^3/uL (4.4-10.8)
[2021-07-22 16:11] LABS: Albumin 3.1 g/dL (3.4-5.0); BUN/Creatinine Ratio 21.3; Calcium 8.8 mg/dL (8.5-10.1); Magnesium 1.9 mg/dL (1.6-2.6); Potassium 4.6 mmol/L (3.5-5.1)
[2021-07-22 16:14] LABS: Bilirubin, Total 0.2 mg/dL (0.2-1.0); Total Protein 6.6 g/dL (6.4-8.2)
== END | disposition home or self-care (01) ==
LOC: CHF HDHVI 13:44
PROVIDERS: ATTEND Internal Medicine Cardiovascular Disease
DX: I13.0 Hypertensive heart and chronic kidney disease with heart failure and stage 1 through stage 4 chronic kidney disease, or unspecified chronic kidney disease (principal); E11.22 Type 2 diabetes mellitus with diabetic chronic kidney disease; N18.4 Chronic kidney disease, stage 4 (severe); I50.43 Acute on chronic combined systolic (congestive) and diastolic (congestive) heart failure; I25.10 Atherosclerotic heart disease of native coronary artery without angina pectoris; K21.9 Gastro-esophageal reflux disease without esophagitis; E78.5 Hyperlipidemia, unspecified; J45.909 Unspecified asthma, uncomplicated; Z79.84 Long term (current) use of oral hypoglycemic drugs; Z90.710 Acquired absence of both cervix and uterus; Z86.16 Personal history of COVID-19; Z87.891 Personal history of nicotine dependence
CPT/HCPCS: 36415; 80053; 83735; 83880; 85025; 96372; G0463; J3420

== ENCOUNTER → 2021-07-29 | Outpatient (CLI) | payer MEDICARE, MEDICAID ==
[~2021-07-29] MED LIST changes: -ALOG25TA PO; -AMOX1CAP87 PO; -ASCO100076 PO; -ASPITAB37 PO; -FERR-20 PO; +FINE10TA PO; +HYDR50TA15 PO; +LINA5TAB PO; -LOPE2CAP PO; +METO10TA3 PO; +PATI1POW PO; -PRED1SUS4 LEFTEYE; +SACU1TAB PO; -SACU1TAB7 PO; +SODI650T PO; -VITA80009 PO
[2021-07-29 15:48] LABS: Calcium 9.5 mg/dL (8.5-10.1); Potassium 5.1 mmol/L (3.5-5.1)
[2021-07-29 15:50] LABS: BUN/Creatinine Ratio 29.1
== END | disposition home or self-care (01) ==
LOC: Rad HDHVI 13:47
PROVIDERS: ATTEND Internal Medicine Cardiovascular Disease
DX: I50.23 Acute on chronic systolic (congestive) heart failure (principal)
CPT/HCPCS: 36415; 80048

== ENCOUNTER → 2021-08-05 | Outpatient (CLI) | payer MEDICARE, MEDICAID ==
[2021-08-05 14:15] VITALS: BP 143/74
[2021-08-05 15:52] LABS: Basophils # (auto) 0.1 10 ^3/uL (0-0.2); Eosinophils # (auto) 0.2 10 ^3/uL (0-0.8); Eosinophils % (auto) 2.7 % (0.0-7.0); Hematocrit 27.6 % (36.0-46.0); Hemoglobin 8.9 g/dL (12.2-16.2); Lymphocytes # (auto) 1.6 10 ^3/uL (0.4-5.4); Lymphocytes % (auto) 21.6 % (10.0-50.0); Mean Corpuscular Hemoglobin 29.4 pg (28.0-32.0); Mean Corpuscular Hgb Conc. 32.3 g/dL (32.0-36.0); Monocytes # (auto) 0.4 10 ^3/uL (0-1.3); Monocytes % (auto) 5.2 % (0.0-12.0); Neutrophils # (auto) 5.1 10 ^3/uL (1.6-8.6); Neutrophils % (auto) 69.5 % (37.0-80.0); Nucleated Red Blood Cells % 0.1 %; Red Blood Cells 3.03 10^6/uL (4.0-5.20); Red Cell Distribution Width 12.7 % (11.8-14.3); White Blood Cell 7.3 10^3/uL (4.4-10.8)
[2021-08-05 16:01] LABS: BUN/Creatinine Ratio 24.9; Calcium 8.8 mg/dL (8.5-10.1); Potassium 5.3 mmol/L (3.5-5.1)
[2021-08-05 16:05] LABS: % Iron Saturation 26.4 % (15-50)
== END | disposition home or self-care (01) ==
LOC: CHF HDHVI 13:43
PROVIDERS: ATTEND Internal Medicine Cardiovascular Disease
DX: I27.21 Secondary pulmonary arterial hypertension (principal); I50.9 Heart failure, unspecified
CPT/HCPCS: 36415; 80048; 83540; 83550; 85025; 85045; G0463

== ENCOUNTER → 2021-08-18 | Outpatient (CLI) | payer MEDICARE, MEDICAID ==
[2021-08-18 16:32] LABS: Basophils # (auto) 0.1 10 ^3/uL (0-0.2); Basophils % (auto) 1.2 % (0.0-2.0); Eosinophils # (auto) 0.2 10 ^3/uL (0-0.8); Eosinophils % (auto) 2.5 % (0.0-7.0); Hematocrit 27.6 % (36.0-46.0); Hemoglobin 9.2 g/dL (12.2-16.2); Lymphocytes # (auto) 1.7 10 ^3/uL (0.4-5.4); Lymphocytes % (auto) 20.6 % (10.0-50.0); Mean Corpuscular Hemoglobin 29.8 pg (28.0-32.0); Mean Corpuscular Hgb Conc. 33.3 g/dL (32.0-36.0); Mean Corpuscular Volume 89.6 fL (80.0-100.0); Monocytes # (auto) 0.4 10 ^3/uL (0-1.3); Monocytes % (auto) 4.7 % (0.0-12.0); Neutrophils # (auto) 5.7 10 ^3/uL (1.6-8.6); Red Blood Cells 3.08 10^6/uL (4.0-5.20); Red Cell Distribution Width 12.7 % (11.8-14.3)
[2021-08-18 16:40] LABS: Urine Bacteria NONE SEEN /hpf (None Seen); Urine Blood TRACE /uL (Negative); Urine Specific Gravity 1.011 (1.001-1.035); Urine WBC 11 /hpf (0 - 5)
[2021-08-18 16:54] LABS: Albumin 3.3 g/dL (3.4-5.0); Calcium 8.9 mg/dL (8.5-10.1); Magnesium 1.9 mg/dL (1.6-2.6); Potassium 4.8 mmol/L (3.5-5.1)
[2021-08-18 16:58] LABS: BUN/Creatinine Ratio 26.3; Bilirubin, Total 0.3 mg/dL (0.2-1.0); CRP High Sensitivity 0.02 mg/dL (< 0.3); Phosphorus 3.8 mg/dL (2.5-4.90); Total Protein 7.4 g/dL (6.4-8.2)
[2021-08-18 17:00] LABS: % Iron Saturation 27.5 % (15-50)
[2021-08-18 17:16] LABS: Protein, Urine 269.9 mg/dL (0.0-11.9)
[2021-08-19 12:48] LABS: Hepatitis B Core IgM Negative
== END | disposition home or self-care (01) ==
LOC: LAB 16:06
PROVIDERS: ATTEND Internal Medicine Nephrology
DX: N18.4 Chronic kidney disease, stage 4 (severe) (principal)
CPT/HCPCS: 36415; 80053; 81001; 82043; 82570; 82728; 82784; 83540; 83550; 83735; 83883; 83970; 84100; 84155; 84156; 84165; 85025; 85652; 86038; 86141; 86160; 86225; 86256; 86334; 86431; 86703; 86704; 86705; 86803; 87340

== ENCOUNTER → 2021-08-20 | Outpatient (CLI) | payer MEDICARE, MEDICAID ==
[~2021-08-20] MED LIST changes: +CYANOCOBALAMIN (B-12) 1000 MCG/1 ML VIAL IM ONE; +CYANOCOBALAMIN (B-12) 1000 MCG/1 ML VIAL ONE
[2021-08-20 14:14] VITALS: BP 165/83
[2021-08-20 16:42] LABS: Albumin 3.1 g/dL (3.4-5.0); Calcium 8.9 mg/dL (8.5-10.1); Magnesium 1.9 mg/dL (1.6-2.6); Potassium 4.8 mmol/L (3.5-5.1)
[2021-08-20 16:45] LABS: BUN/Creatinine Ratio 26.8; Bilirubin, Total 0.3 mg/dL (0.2-1.0); Total Protein 6.8 g/dL (6.4-8.2)
== END | disposition home or self-care (01) ==
LOC: CHF HDHVI 13:55
PROVIDERS: ATTEND Internal Medicine Cardiovascular Disease
DX: I27.21 Secondary pulmonary arterial hypertension (principal); I13.0 Hypertensive heart and chronic kidney disease with heart failure and stage 1 through stage 4 chronic kidney disease, or unspecified chronic kidney disease; E11.22 Type 2 diabetes mellitus with diabetic chronic kidney disease; I50.42 Chronic combined systolic (congestive) and diastolic (congestive) heart failure; N18.4 Chronic kidney disease, stage 4 (severe); I25.10 Atherosclerotic heart disease of native coronary artery without angina pectoris; J45.909 Unspecified asthma, uncomplicated; K21.9 Gastro-esophageal reflux disease without esophagitis; E11.319 Type 2 diabetes mellitus with unspecified diabetic retinopathy without macular edema; E78.5 Hyperlipidemia, unspecified; Z79.84 Long term (current) use of oral hypoglycemic drugs; Z87.891 Personal history of nicotine dependence; Z90.710 Acquired absence of both cervix and uterus
CPT/HCPCS: 36415; 80053; 83735; 96372; G0463; J3420

== ENCOUNTER → 2021-08-25 | Outpatient (CLI) | payer MEDICARE, MEDICAID ==
[~2021-08-25] MED LIST changes: -CYANOCOBALAMIN (B-12) 1000 MCG/1 ML VIAL IM ONE; -CYANOCOBALAMIN (B-12) 1000 MCG/1 ML VIAL ONE
[2021-08-25 15:17] LABS: Basophils # (auto) 0.1 10 ^3/uL (0-0.2); Basophils % (auto) 1.2 % (0.0-2.0); Eosinophils # (auto) 0.2 10 ^3/uL (0-0.8); Eosinophils % (auto) 2.8 % (0.0-7.0); Hematocrit 25.8 % (36.0-46.0); Hemoglobin 8.6 g/dL (12.2-16.2); Lymphocytes # (auto) 1.6 10 ^3/uL (0.4-5.4); Mean Corpuscular Hemoglobin 29.7 pg (28.0-32.0); Mean Corpuscular Hgb Conc. 33.5 g/dL (32.0-36.0); Mean Corpuscular Volume 88.7 fL (80.0-100.0); Monocytes # (auto) 0.3 10 ^3/uL (0-1.3); Monocytes % (auto) 4.9 % (0.0-12.0); Neutrophils # (auto) 3.5 10 ^3/uL (1.6-8.6); Neutrophils % (auto) 62.1 % (37.0-80.0); Red Cell Distribution Width 12.6 % (11.8-14.3); White Blood Cell 5.6 10^3/uL (4.4-10.8)
[2021-08-25 15:44] LABS: BUN/Creatinine Ratio 23.3; Potassium 4.6 mmol/L (3.5-5.1)
[2021-08-25 15:45] LABS: INR 0.95 (0.9-1.15); Partial Thromboplastin Time 25.6 sec (24.6-33.4)
== END | disposition home or self-care (01) ==
LOC: LAB 15:04
PROVIDERS: ATTEND Internal Medicine Nephrology
DX: E11.9 Type 2 diabetes mellitus without complications (principal); I50.9 Heart failure, unspecified
CPT/HCPCS: 36415; 80048; 85025; 85610; 85730

== ENCOUNTER → 2021-09-05 | Outpatient (CLI) | payer MEDICARE, MEDICAID ==
[~2021-09-05] MED LIST changes: +CYANOCOBALAMIN (B-12) 1000 MCG/1 ML VIAL IM ONE; +CYANOCOBALAMIN (B-12) 1000 MCG/1 ML VIAL ONE; -HYDR50TA15 PO
[2021-09-05 13:50] VITALS: BP 114/59
[2021-09-05 14:30] VITALS: BP 110/63
[2021-09-05 16:24] LABS: Albumin 3.1 g/dL (3.4-5.0); Calcium 8.9 mg/dL (8.5-10.1); Magnesium 2.1 mg/dL (1.6-2.6); Potassium 5.2 mmol/L (3.5-5.1)
[2021-09-05 16:27] LABS: BUN/Creatinine Ratio 21.6; Bilirubin, Total 0.3 mg/dL (0.2-1.0); Total Protein 6.9 g/dL (6.4-8.2)
[2021-09-05 16:28] LABS: Basophils # (auto) 0 10 ^3/uL (0-0.2); Eosinophils # (auto) 0.2 10 ^3/uL (0-0.8); Lymphocytes # (auto) 2.3 10 ^3/uL (0.4-5.4)
[2021-09-05 16:30] LABS: Basophils % (auto) 0.6 % (0.0-2.0); Hematocrit 23.5 % (36.0-46.0); Hemoglobin 7.6 g/dL (12.2-16.2); Lymphocytes % (auto) 38.2 % (10.0-50.0); Mean Corpuscular Hemoglobin 29.5 pg (28.0-32.0); Mean Corpuscular Hgb Conc. 32.2 g/dL (32.0-36.0); Mean Corpuscular Volume 91.5 fL (80.0-100.0); Monocytes # (auto) 0.4 10 ^3/uL (0-1.3); Neutrophils # (auto) 3.2 10 ^3/uL (1.6-8.6); Neutrophils % (auto) 52.2 % (37.0-80.0); Red Blood Cells 2.56 10^6/uL (4.0-5.20); Red Cell Distribution Width 12.7 % (11.8-14.3); White Blood Cell 6.1 10^3/uL (4.4-10.8)
== END | disposition home or self-care (01) ==
LOC: CHF HDHVI 13:49
PROVIDERS: ATTEND Internal Medicine Cardiovascular Disease
DX: I13.0 Hypertensive heart and chronic kidney disease with heart failure and stage 1 through stage 4 chronic kidney disease, or unspecified chronic kidney disease (principal); E11.22 Type 2 diabetes mellitus with diabetic chronic kidney disease; N18.4 Chronic kidney disease, stage 4 (severe); I50.42 Chronic combined systolic (congestive) and diastolic (congestive) heart failure; I25.10 Atherosclerotic heart disease of native coronary artery without angina pectoris; K21.9 Gastro-esophageal reflux disease without esophagitis; E78.5 Hyperlipidemia, unspecified; E55.9 Vitamin D deficiency, unspecified; Z87.891 Personal history of nicotine dependence; Z79.84 Long term (current) use of oral hypoglycemic drugs; J45.909 Unspecified asthma, uncomplicated; Z86.16 Personal history of COVID-19; Z90.710 Acquired absence of both cervix and uterus
CPT/HCPCS: 36415; 80053; 83036; 83735; 85025; 96372; G0463; J3420

== ENCOUNTER → 2021-09-26 | Outpatient (CLI) | payer MEDICARE, MEDICAID ==
[2021-09-26 14:12] VITALS: BP 156/82
[2021-09-26 16:27] LABS: Basophils # (auto) 0.1 10 ^3/uL (0-0.2); Basophils % (auto) 1.1 % (0.0-2.0); Eosinophils # (auto) 0.2 10 ^3/uL (0-0.8); Eosinophils % (auto) 3.2 % (0.0-7.0); Hemoglobin 8.9 g/dL (12.2-16.2); Lymphocytes # (auto) 1.9 10 ^3/uL (0.4-5.4); Lymphocytes % (auto) 27.2 % (10.0-50.0); Mean Corpuscular Hemoglobin 30.1 pg (28.0-32.0); Mean Corpuscular Hgb Conc. 33.1 g/dL (32.0-36.0); Monocytes # (auto) 0.3 10 ^3/uL (0-1.3); Monocytes % (auto) 4.4 % (0.0-12.0); Neutrophils # (auto) 4.3 10 ^3/uL (1.6-8.6); Neutrophils % (auto) 64.1 % (37.0-80.0); Red Blood Cells 2.97 10^6/uL (4.0-5.20); Red Cell Distribution Width 12.9 % (11.8-14.3); White Blood Cell 6.8 10^3/uL (4.4-10.8)
[2021-09-26 16:58] LABS: Potassium 4.9 mmol/L (3.5-5.1)
== END | disposition home or self-care (01) ==
LOC: CHF HDHVI 14:01
PROVIDERS: ATTEND Internal Medicine Cardiovascular Disease
DX: I13.0 Hypertensive heart and chronic kidney disease with heart failure and stage 1 through stage 4 chronic kidney disease, or unspecified chronic kidney disease (principal); E11.22 Type 2 diabetes mellitus with diabetic chronic kidney disease; N18.4 Chronic kidney disease, stage 4 (severe); I50.42 Chronic combined systolic (congestive) and diastolic (congestive) heart failure; I25.10 Atherosclerotic heart disease of native coronary artery without angina pectoris; K21.9 Gastro-esophageal reflux disease without esophagitis; E78.5 Hyperlipidemia, unspecified; J45.909 Unspecified asthma, uncomplicated; Z79.84 Long term (current) use of oral hypoglycemic drugs; Z86.16 Personal history of COVID-19; Z87.891 Personal history of nicotine dependence; Z90.710 Acquired absence of both cervix and uterus
CPT/HCPCS: 36415; 82565; 84132; 84520; 85025; 96372; G0463; J3420

== ENCOUNTER → 2021-11-24 | Outpatient (CLI) | payer MEDICARE, MEDICAID ==
[2021-11-24 14:05] VITALS: BP 125/64
== END | disposition home or self-care (01) ==
LOC: CHF HDHVI 13:32
PROVIDERS: ATTEND Internal Medicine Cardiovascular Disease
DX: I13.0 Hypertensive heart and chronic kidney disease with heart failure and stage 1 through stage 4 chronic kidney disease, or unspecified chronic kidney disease (principal); E11.22 Type 2 diabetes mellitus with diabetic chronic kidney disease; N18.4 Chronic kidney disease, stage 4 (severe); I50.42 Chronic combined systolic (congestive) and diastolic (congestive) heart failure; I25.10 Atherosclerotic heart disease of native coronary artery without angina pectoris; K21.9 Gastro-esophageal reflux disease without esophagitis; E78.5 Hyperlipidemia, unspecified; J45.909 Unspecified asthma, uncomplicated; Z87.891 Personal history of nicotine dependence; Z90.710 Acquired absence of both cervix and uterus; Z86.16 Personal history of COVID-19
CPT/HCPCS: 96372; G0463; J3420

== ENCOUNTER → 2021-12-22 | Outpatient (CLI) | payer MEDICARE, MEDICAID ==
[~2021-12-22] MED LIST changes: -CYANOCOBALAMIN (B-12) 1000 MCG/1 ML VIAL IM ONE; -CYANOCOBALAMIN (B-12) 1000 MCG/1 ML VIAL ONE
[2021-12-22 14:52] LABS: Basophils # (auto) 0.1 10 ^3/uL (0-0.2); Basophils % (auto) 1.1 % (0.0-2.0); Eosinophils # (auto) 0.2 10 ^3/uL (0-0.8); Eosinophils % (auto) 3.9 % (0.0-7.0); Hematocrit 32.7 % (36.0-46.0); Hemoglobin 10.8 g/dL (12.2-16.2); Lymphocytes # (auto) 1.8 10 ^3/uL (0.4-5.4); Lymphocytes % (auto) 32.7 % (10.0-50.0); Mean Corpuscular Hemoglobin 29.7 pg (28.0-32.0); Mean Corpuscular Hgb Conc. 33.1 g/dL (32.0-36.0); Mean Corpuscular Volume 89.8 fL (80.0-100.0); Monocytes # (auto) 0.3 10 ^3/uL (0-1.3); Monocytes % (auto) 5.1 % (0.0-12.0); Neutrophils # (auto) 3.2 10 ^3/uL (1.6-8.6); Neutrophils % (auto) 57.2 % (37.0-80.0); Nucleated Red Blood Cells % 0.1 %; Red Blood Cells 3.64 10^6/uL (4.0-5.20); Red Cell Distribution Width 13.8 % (11.8-14.3); White Blood Cell 5.6 10^3/uL (4.4-10.8)
[2021-12-22 15:34] LABS: Albumin 2.8 g/dL (3.4-5.0); Calcium 8.9 mg/dL (8.5-10.1); Magnesium 2.1 mg/dL (1.6-2.6)
[2021-12-22 15:36] LABS: BUN/Creatinine Ratio 31.2
[2021-12-22 15:38] LABS: Bilirubin, Total 0.3 mg/dL (0.2-1.0); Total Protein 6.6 g/dL (6.4-8.2)
[2021-12-22 15:56] LABS: Potassium 5.8 mmol/L (3.5-5.1)
== END | disposition home or self-care (01) ==
LOC: LAB 14:39
PROVIDERS: ATTEND Physician Assistant
DX: D64.9 Anemia, unspecified (principal); Z88.1 Allergy status to other antibiotic agents; Z88.8 Allergy status to other drugs, medicaments and biological substances; E11.9 Type 2 diabetes mellitus without complications; I10 Essential (primary) hypertension; Z79.899 Other long term (current) drug therapy
CPT/HCPCS: 36415; 80053; 82306; 83615; 83735; 85025

== ENCOUNTER → 2022-03-05 | Outpatient (CLI) | payer MEDICARE, MEDICAID ==
[2022-03-05 16:13] LABS: Calcium 8.2 mg/dL (8.5-10.1)
== END | disposition home or self-care (01) ==
LOC: LAB 15:25
PROVIDERS: ATTEND Internal Medicine
DX: E11.9 Type 2 diabetes mellitus without complications (principal)
CPT/HCPCS: 36415; 80048

== ENCOUNTER → 2022-03-16 | Outpatient (CLI) | payer MEDICARE, MEDICAID ==
[2022-03-16 16:44] LABS: Basophils # (auto) 0 10 ^3/uL (0-0.2); Basophils % (auto) 0.6 % (0.0-2.0); Eosinophils # (auto) 0.1 10 ^3/uL (0-0.8); Hematocrit 26.2 % (36.0-46.0); Hemoglobin 8.9 g/dL (12.2-16.2); Lymphocytes % (auto) 21.7 % (10.0-50.0); Mean Corpuscular Hemoglobin 30.9 pg (28.0-32.0); Mean Corpuscular Hgb Conc. 34.1 g/dL (32.0-36.0); Mean Corpuscular Volume 90.6 fL (80.0-100.0); Monocytes # (auto) 0.4 10 ^3/uL (0-1.3); Monocytes % (auto) 8.3 % (0.0-12.0); Neutrophils # (auto) 3.2 10 ^3/uL (1.6-8.6); Neutrophils % (auto) 67.4 % (37.0-80.0); Nucleated Red Blood Cells % 0.1 %; Red Blood Cells 2.89 10^6/uL (4.0-5.20); Red Cell Distribution Width 15.2 % (11.8-14.3); White Blood Cell 4.7 10^3/uL (4.4-10.8)
[2022-03-16 16:45] LABS: Potassium 4.9 mmol/L (3.5-5.1)
[2022-03-16 16:50] LABS: Albumin 2.7 g/dL (3.4-5.0); BUN/Creatinine Ratio 19.9; Phosphorus 3.4 mg/dL (2.5-4.90); Uric Acid 4.6 mg/dL (2.6-6.0)
[2022-03-16 16:57] LABS: Protein, Urine 207.4 mg/dL (0.0-11.9)
[2022-03-16 17:00] LABS: Urine Bacteria NONE SEEN /hpf (None Seen); Urine Blood TRACE /uL (Negative); Urine Hyaline Cast FEW /lpf (0 - 2); Urine Specific Gravity 1.008 (1.001-1.035); Urine WBC 4 /hpf (0 - 5)
== END | disposition home or self-care (01) ==
LOC: LAB 16:11
PROVIDERS: ATTEND Internal Medicine
DX: N18.32 Chronic kidney disease, stage 3b (principal); E21.3 Hyperparathyroidism, unspecified; R80.9 Proteinuria, unspecified; M10.9 Gout, unspecified; D63.1 Anemia in chronic kidney disease
CPT/HCPCS: 36415; 80048; 80069; 81001; 82570; 83970; 84156; 84550; 85025

== ENCOUNTER → 2022-04-24 | Outpatient (CLI) | payer MEDICARE, MEDICAID | END | disposition home or self-care (01) | LOC: Rad HDHVI 15:18 | PROVIDERS: ATTEND Internal Medicine Cardiovascular Disease | DX: I34.0 Nonrheumatic mitral (valve) insufficiency (principal); I50.33 Acute on chronic diastolic (congestive) heart failure; E78.5 Hyperlipidemia, unspecified | CPT/HCPCS: 93306 ==

== ENCOUNTER 2022-06-23 01:46 | Emergency (ER) | payer MEDICARE, MEDICAID ==
[~2022-06-23] VITALS: Ht 154.9 cm; Wt 63.6 kg
[2022-06-23] MEDS ORDERED: MORPHINE SULFATE 4 MG/ML SYR/VIAL IV ONE ×2 (02:30→04:45)
[2022-06-23] MEDS ORDERED: ONDANSETRON HCL 4 MG/2 ML VIAL IV ONE (02:30)
[2022-06-23 03:24] LABS: Basophils # (auto) 0.1 10 ^3/uL (0-0.2); Basophils % (auto) 0.8 % (0.0-2.0); Eosinophils # (auto) 0 10 ^3/uL (0-0.8); Eosinophils % (auto) 0.3 % (0.0-7.0); Hematocrit 33.4 % (36.0-46.0); Lymphocytes # (auto) 1.8 10 ^3/uL (0.4-5.4); Lymphocytes % (auto) 22.8 % (10.0-50.0); Mean Corpuscular Hemoglobin 30.1 pg (28.0-32.0); Mean Corpuscular Hgb Conc. 33.1 g/dL (32.0-36.0); Mean Corpuscular Volume 91.1 fL (80.0-100.0); Monocytes # (auto) 0.4 10 ^3/uL (0-1.3); Monocytes % (auto) 5.6 % (0.0-12.0); Neutrophils # (auto) 5.5 10 ^3/uL (1.6-8.6); Neutrophils % (auto) 70.5 % (37.0-80.0); Nucleated Red Blood Cells % 0.1 %; Red Blood Cells 3.66 10^6/uL (4.0-5.20); Red Cell Distribution Width 14.4 % (11.8-14.3); White Blood Cell 7.8 10^3/uL (4.4-10.8)
[2022-06-23 03:28] LABS: Albumin 2.6 g/dL (3.4-5.0); Calcium 8.6 mg/dL (8.5-10.1)
[2022-06-23] MEDS ORDERED: ACETAMINOPHEN 325 MG TAB PO ONE (03:30)
[2022-06-23] MEDS ORDERED: PROCHLORPERAZINE EDISYLATE 5 MG/ML 2ML VIAL IM ONE (03:30)
[2022-06-23 03:32] LABS: BUN/Creatinine Ratio 11.2 (10.0-20.0); Bilirubin, Total 0.3 mg/dL (0.2-1.0)
[2022-06-23 03:40] LABS: INR 1.01 (0.9-1.15); Partial Thromboplastin Time 26.4 sec (24.6-33.4)
[2022-06-23] MEDS: PROCHLORPERAZINE EDISYLATE 5 MG/ML 2ML VIAL IV ONE ×2 (04:43→04:45)
[2022-06-23 06:00] VITALS: BP 164/83
[2022-06-23] MEDS ORDERED: METO-281 PO (06:53)
== END 2022-06-23 06:54 | disposition home or self-care (01) ==
LOC: ER 01:46
DX: G89.29 Other chronic pain (principal); R51.9 Headache, unspecified; I11.0 Hypertensive heart disease with heart failure; I50.9 Heart failure, unspecified; I25.10 Atherosclerotic heart disease of native coronary artery without angina pectoris; E78.5 Hyperlipidemia, unspecified; K21.9 Gastro-esophageal reflux disease without esophagitis; Z86.2 Personal history of diseases of the blood and blood-forming organs and certain disorders involving the immune mechanism; Z90.710 Acquired absence of both cervix and uterus
CPT/HCPCS: 36415; 70450; 70480; 71045; 80053; 83735; 83880; 84484; 85025; 85610; 85730; 93005; 96372; 96374; 96375; 99285; J0780; J2270; J2405

== ENCOUNTER → 2022-07-29 | Outpatient (CLI) | payer MEDICARE, MEDICAID ==
[~2022-07-29] MED LIST changes: -LATA0.0019 LEFTEYE; +LATA0.008 LEFTEYE; +METO-281 PO
== END | disposition home or self-care (01) ==
LOC: Rad HDHVI 12:38
PROVIDERS: ATTEND Internal Medicine Cardiovascular Disease
DX: G93.89 Other specified disorders of brain (principal)
CPT/HCPCS: 70450

== ENCOUNTER → 2022-08-12 | Outpatient (CLI) | payer MEDICARE, MEDICAID | END | disposition home or self-care (01) | LOC: Rad HDHVI 13:26 | PROVIDERS: ATTEND Internal Medicine Cardiovascular Disease | DX: I08.8 Other rheumatic multiple valve diseases (principal); I11.9 Hypertensive heart disease without heart failure | CPT/HCPCS: 93306 ==

== ENCOUNTER 2022-11-17 18:03 | Emergency (ER) | payer MEDICARE, MEDICAID ==
[~2022-11-17] VITALS: Ht 154.9 cm; Wt 66.7 kg
[2022-11-17 18:51] LABS: Basophils # (auto) 0.1 10 ^3/uL (0-0.2); Eosinophils # (auto) 0.3 10 ^3/uL (0-0.8); Eosinophils % (auto) 3.6 % (0.0-7.0); Hematocrit 29.6 % (36.0-46.0); Hemoglobin 9.9 g/dL (12.2-16.2); Lymphocytes # (auto) 1.9 10 ^3/uL (0.4-5.4); Lymphocytes % (auto) 21.8 % (10.0-50.0); Mean Corpuscular Hemoglobin 29.8 pg (28.0-32.0); Mean Corpuscular Hgb Conc. 33.4 g/dL (32.0-36.0); Mean Corpuscular Volume 89.1 fL (80.0-100.0); Monocytes # (auto) 0.4 10 ^3/uL (0-1.3); Monocytes % (auto) 4.7 % (0.0-12.0); Neutrophils # (auto) 5.9 10 ^3/uL (1.6-8.6); Neutrophils % (auto) 68.9 % (37.0-80.0); Nucleated Red Blood Cells % 0.1 %; Red Blood Cells 3.33 10^6/uL (4.0-5.20); Red Cell Distribution Width 13.8 % (11.8-14.3); White Blood Cell 8.6 10^3/uL (4.4-10.8)
[2022-11-17 19:07] LABS: Alanine Aminotransferase 28 U/L (7-40); Alkaline Phosphatase 186 U/L (46-116)
[2022-11-17 19:08] LABS: Albumin 3.8 g/dL (3.2-4.8); Anion Gap 8 (5-15); Aspartate Aminotransferase 15 U/L (13-40); BUN/Creatinine Ratio 13.3 (10.0-20.0); Bilirubin, Total 0.4 mg/dL (0.2-1.0); Blood Urea Nitrogen 33 mg/dL (9-23); Calcium 8.7 mg/dL (8.5-10.1); Carbon Dioxide 19 mmol/L (20-30); Chloride 112 mmol/L (98-107); Glucose 183 mg/dL (74-106); Potassium 5.1 mmol/L (3.5-5.1); Sodium 139 mmol/L (136-145); Total Protein 6.7 g/dL (5.7-8.2)
[2022-11-17 19:36] LABS: Urine Bacteria NONE SEEN /hpf (None Seen); Urine Blood TRACE /uL (Negative); Urine Budding Yeast OCCASIONAL /hpf (None Seen); Urine Clarity Clear (Clear); Urine Color Colorless (Yellow); Urine Hyaline Cast FEW /lpf (0 - 2); Urine Protein, UAD 3+ (Negative); Urine Specific Gravity 1.008 (1.001-1.035); Urine Urobilinogen Normal (Negative); Urine WBC 18 /hpf (0 - 5); Urine pH 6.5 (5.0-8.0)
[2022-11-17] MEDS ORDERED: IOHEXOL 350 MG/ML 100ML IJ ONE (20:16)
[2022-11-17 21:49] VITALS: BP 163/79; PULSE 66; RESP 18; TEMP 98.7; O2SAT 97
== END 2022-11-17 21:51 | disposition home or self-care (01) ==
LOC: ER 18:03
DX: N28.9 Disorder of kidney and ureter, unspecified (principal); R79.89 Other specified abnormal findings of blood chemistry; I13.0 Hypertensive heart and chronic kidney disease with heart failure and stage 1 through stage 4 chronic kidney disease, or unspecified chronic kidney disease; E11.22 Type 2 diabetes mellitus with diabetic chronic kidney disease; I50.9 Heart failure, unspecified; J45.909 Unspecified asthma, uncomplicated; I25.10 Atherosclerotic heart disease of native coronary artery without angina pectoris; K21.9 Gastro-esophageal reflux disease without esophagitis; E78.5 Hyperlipidemia, unspecified; Z86.2 Personal history of diseases of the blood and blood-forming organs and certain disorders involving the immune mechanism; Z98.890 Other specified postprocedural states; Z88.8 Allergy status to other drugs, medicaments and biological substances; Z79.899 Other long term (current) drug therapy
CPT/HCPCS: 36415; 80053; 81001; 85025; 99283; Q9967

== ENCOUNTER → 2022-11-17 | Outpatient (CLI) | payer MEDICARE, MEDICAID ==
[2022-11-17 16:23] LABS: Chloride 112 mmol/L (98-107); Sodium 137 mmol/L (136-145)
[2022-11-17 16:24] LABS: Anion Gap 6 (5-15); Calcium 8.8 mg/dL (8.5-10.1); Carbon Dioxide 19 mmol/L (20-30)
[2022-11-17 16:29] LABS: Blood Urea Nitrogen 33 mg/dL (9-23); Glucose 227 mg/dL (74-106)
[2022-11-17 16:37] LABS: Folate (Folic Acid) 20.36 ng/mL (>5.38)
[2022-11-17 16:39] LABS: Potassium 5.9 mmol/L (3.5-5.1)
== END | disposition home or self-care (01) ==
LOC: LAB 15:36
PROVIDERS: ATTEND Internal Medicine
DX: I12.9 Hypertensive chronic kidney disease with stage 1 through stage 4 chronic kidney disease, or unspecified chronic kidney disease (principal); N18.4 Chronic kidney disease, stage 4 (severe); D64.9 Anemia, unspecified; Z79.899 Other long term (current) drug therapy
CPT/HCPCS: 36415; 80048; 82607; 82746; 83036; 84443

== ENCOUNTER 2022-12-09 12:16 | Inpatient (IN) | payer MEDICARE, MEDICAID ==
[~2022-12-09] VITALS: Ht 152.4 cm; Wt 63.0 kg
[2022-12-09] MEDS ORDERED: SODIUM BICARBONATE 8.4 % INJ 50ML VIAL IV ONE (13:00)
[2022-12-09] MEDS ORDERED: SODIUM CHLORIDE 0.9% 1,000 ML IV ONE ×2 (13:15)
[2022-12-09] MEDS ORDERED: InsuLIN REG 1unit/0.01ml Soln (100units/ml) IV ONE ×2 (13:15→16:00)
[2022-12-09 13:45] LABS: Basophils # (auto) 0.1 10 ^3/uL (0-0.2); Basophils % (auto) 0.8 % (0.0-2.0); Eosinophils # (auto) 0 10 ^3/uL (0-0.8); Eosinophils % (auto) 0.2 % (0.0-7.0); Hematocrit 33.1 % (36.0-46.0); Lymphocytes # (auto) 0.9 10 ^3/uL (0.4-5.4); Lymphocytes % (auto) 7.7 % (10.0-50.0); Mean Corpuscular Hemoglobin 29.3 pg (28.0-32.0); Mean Corpuscular Hgb Conc. 33.2 g/dL (32.0-36.0); Mean Corpuscular Volume 88.2 fL (80.0-100.0); Monocytes # (auto) 0.3 10 ^3/uL (0-1.3); Monocytes % (auto) 2.8 % (0.0-12.0); Neutrophils # (auto) 10.8 10 ^3/uL (1.6-8.6); Neutrophils % (auto) 88.5 % (37.0-80.0); Red Blood Cells 3.75 10^6/uL (4.0-5.20); Red Cell Distribution Width 13.6 % (11.8-14.3); White Blood Cell 12.2 10^3/uL (4.4-10.8)
[2022-12-09 14:09] LABS: Alanine Aminotransferase 19 U/L (7-40); Alkaline Phosphatase 196 U/L (46-116); Anion Gap 9 (5-15); Aspartate Aminotransferase 16 U/L (13-40); BUN/Creatinine Ratio 12.5 (10.0-20.0); Blood Urea Nitrogen 29 mg/dL (9-23); Calcium 9.3 mg/dL (8.7-10.4); Carbon Dioxide 24 mmol/L (20-30); Chloride 111 mmol/L (98-107); Glucose 268 mg/dL (74-106); Sodium 144 mmol/L (136-145)
[2022-12-09 14:10] LABS: Bilirubin, Total 0.5 mg/dL (0.2-1.0); Total Protein 7.1 g/dL (5.7-8.2)
[2022-12-09] MEDS ORDERED: metroNIDAZOLE 500MG/100ML 100 ML IV ONE (15:15)
[2022-12-09 15:50] VITALS: PULSE 75; RESP 15; O2SAT 97
[2022-12-09] MEDS ORDERED: ACETAMINOPHEN IV 1000 MG/100ML (10MG/ML) IV ONE (16:15)
[2022-12-09] MEDS ORDERED: LABETALOL HCL 5 MG/ML 4ML SYRINGE IV ONE (16:30)
[2022-12-09] MEDS ORDERED: ACETAMINOPHEN 325 MG TAB PO PRN (17:15)
[2022-12-09] MEDS ORDERED: SODIUM CHLORIDE 0.9% 1,000 ML IV SCH (17:15)
[2022-12-09] MEDS ORDERED: DOCUSATE SOD 100 MG CAP PO PRN (17:15)
[2022-12-09] MEDS ORDERED: ONDANSETRON HCL 4 MG/2 ML VIAL IV PRN (17:15)
[2022-12-09] MEDS ORDERED: DEXTROSE (50%) 50ML SYRG IV PRN ×2 (17:15→20:00)
[2022-12-09] MEDS: METOCLOPRAMIDE HCL 5MG/ml INJ 2ml VIAL IV PRN (18:34)
[2022-12-09] MEDS ORDERED: PANTOPRAZOLE 40 MG/10 ML VIAL INJ IV ONE (18:45)
[2022-12-09 19:30] VITALS: PULSE 76; RESP 20; O2SAT 98
[2022-12-09 19:40] LABS: Hematocrit 31.1 % (36.0-46.0); Hemoglobin 10.1 g/dL (12.2-16.2)
[2022-12-09] MEDS ORDERED: hydrALAZINE HCL 20 MG/ML VL IV PRN (20:00)
[2022-12-09] MEDS ORDERED: FUR20T PO (20:21)
[2022-12-09] MEDS ORDERED: CARV12.544 PO (20:21)
[2022-12-09] MEDS ORDERED: HYDR25TA87 PO (20:21)
[2022-12-09] MEDS: SODIUM CHLORIDE 0.9% 1,000 ML IV SCH (20:33)
[2022-12-09] MEDS: ONDANSETRON HCL 4 MG/2 ML VIAL IV PRN (21:25)
[2022-12-09 22:00] VITALS: BP 170/63; PULSE 89; RESP 14; TEMP 98.4; O2SAT 96
[2022-12-09] MEDS ORDERED: ACCU-CHEK COMFORT CURVE STRIP VI SCH (22:00)
[2022-12-09] MEDS ORDERED: InsuLIN REG 1unit/0.01ml Soln (100units/ml) SC SCH ×2 (22:00)
[2022-12-09 22:03] LABS: COVID19 ANTIGEN SOFIA FIA NEGATIVE (NEGATIVE)
[2022-12-09 22:04] LABS: Rapid Influenza A Negative (Negative); Rapid Influenza B Negative (Negative)
[2022-12-09 22:56] VITALS: RESP 16
[2022-12-09] MEDS: SODIUM BICARBONATE 650 MG TAB PO SCH (23:52)
[2022-12-09] MEDS: hydrALAZINE HCL 25 MG TAB PO SCH (23:53)
[2022-12-09] MEDS: CARVEDILOL 12.5 MG TAB PO SCH (23:53)
[2022-12-09] MEDS: ACCU-CHEK COMFORT CURVE STRIP VI SCH (23:57)
[2022-12-09] MEDS: metroNIDAZOLE 500MG/100ML 100 ML IV SCH (23:57)
[2022-12-10] VITALS (8 sets, daily range): BP systolic 159–198; BP diastolic 60–80; PULSE 69–100; RESP 16–20; TEMP 98.3–99; O2SAT 94–96
[2022-12-10] MEDS: LABETALOL HCL 5 MG/ML 4ML SYRINGE IV PRN ×2 (01:41→12:54)
[2022-12-10] MEDS: METOCLOPRAMIDE HCL 5MG/ml INJ 2ml VIAL IV PRN ×3 (01:49→23:47)
[2022-12-10] MEDS: hydrALAZINE HCL 25 MG TAB PO SCH ×2 (05:46→15:05)
[2022-12-10] MEDS: metroNIDAZOLE 500MG/100ML 100 ML IV SCH ×3 (05:46→23:56)
[2022-12-10] MEDS: ACCU-CHEK COMFORT CURVE STRIP VI SCH ×3 (05:47→17:45)
[2022-12-10] MEDS: InsuLIN REG 1unit/0.01ml Soln (100units/ml) SC SCH ×4 (05:56→22:00)
[2022-12-10 06:12] LABS: Basophils # (auto) 0.1 10 ^3/uL (0-0.2); Basophils % (auto) 0.7 % (0.0-2.0); Eosinophils # (auto) 0 10 ^3/uL (0-0.8); Hematocrit 29.9 % (36.0-46.0); Hemoglobin 9.8 g/dL (12.2-16.2); Lymphocytes % (auto) 8.3 % (10.0-50.0); Mean Corpuscular Hemoglobin 29.2 pg (28.0-32.0); Mean Corpuscular Hgb Conc. 32.8 g/dL (32.0-36.0); Mean Corpuscular Volume 89.1 fL (80.0-100.0); Monocytes # (auto) 0.6 10 ^3/uL (0-1.3); Monocytes % (auto) 4.6 % (0.0-12.0); Neutrophils # (auto) 10.4 10 ^3/uL (1.6-8.6); Neutrophils % (auto) 86.4 % (37.0-80.0); Red Blood Cells 3.36 10^6/uL (4.0-5.20); Red Cell Distribution Width 13.9 % (11.8-14.3); White Blood Cell 12.1 10^3/uL (4.4-10.8)
[2022-12-10] MEDS: ONDANSETRON HCL 4 MG/2 ML VIAL IV PRN ×2 (06:22→14:39)
[2022-12-10 06:32] LABS: Alanine Aminotransferase 14 U/L (7-40); Alkaline Phosphatase 161 U/L (46-116); Anion Gap 12 (5-15); Aspartate Aminotransferase 17 U/L (13-40); BUN/Creatinine Ratio 13.5 (10.0-20.0); Blood Urea Nitrogen 35 mg/dL (9-23); Calcium 8.9 mg/dL (8.5-10.1); Carbon Dioxide 25 mmol/L (20-30); Chloride 115 mmol/L (98-107); Glucose 198 mg/dL (74-106); Potassium 3.6 mmol/L (3.5-5.1)
[2022-12-10 06:33] LABS: Albumin 3.8 g/dL (3.2-4.8); Bilirubin, Total 0.4 mg/dL (0.2-1.0); Total Protein 6.4 g/dL (5.7-8.2)
[2022-12-10 06:35] LABS: Sodium 152 mmol/L (136-145)
[2022-12-10 06:40] LABS: INR 1.01 (0.9-1.15); Partial Thromboplastin Time 26.5 SEC (24.5-34.5); Prothrombin Time 10.6 sec (9.3-11.8)
[2022-12-10 09:34] LABS: Amylase 101 U/L (30-118)
[2022-12-10] MEDS: cefTRIAXone 1GM/50ML D5W 50 ML IV SCH (09:37)
[2022-12-10] MEDS: SODIUM CHLORIDE 0.9% 1,000 ML IV SCH (09:39)
[2022-12-10] MEDS: CARVEDILOL 12.5 MG TAB PO SCH (09:39)
[2022-12-10] MEDS: SODIUM BICARBONATE 650 MG TAB PO SCH (09:39)
[2022-12-10] MEDS: PANTOPRAZOLE 40 MG/10 ML VIAL INJ IV SCH ×2 (09:39→23:48)
[2022-12-10] MEDS ORDERED: FUROSEMIDE 20 MG/2 ML VIAL IV SCH (10:00)
[2022-12-10] MEDS ORDERED: PANTOPRAZOLE 40 MG/10 ML VIAL INJ IV SCH (10:00)
[2022-12-10 10:42] LABS: Alanine Aminotransferase 16 U/L (7-40); Albumin 3.9 g/dL (3.2-4.8); Alkaline Phosphatase 159 U/L (46-116); Anion Gap 11 (5-15); Aspartate Aminotransferase 15 U/L (13-40); BUN/Creatinine Ratio 13.4 (10.0-20.0); Bilirubin, Total 0.4 mg/dL (0.2-1.0); Blood Urea Nitrogen 35 mg/dL (9-23); Calcium 8.9 mg/dL (8.5-10.1); Carbon Dioxide 25 mmol/L (20-30); Chloride 114 mmol/L (98-107); Glucose 246 mg/dL (74-106); Potassium 3.6 mmol/L (3.5-5.1); Sodium 150 mmol/L (136-145); Total Protein 6.5 g/dL (5.7-8.2)
[2022-12-10 11:24] LABS: Lipase 39 U/L (12-53)
[2022-12-10 11:25] LABS: Magnesium 2.1 mg/dL (1.6-2.6)
[2022-12-10] MEDS ORDERED: INSULIN LANTUS (GLARGINE) 1 /0.01ml (100units/ml) SC ONE (12:00)
[2022-12-10] MEDS ORDERED: DEXTROSE (50%) 50ML SYRG IV PRN (12:00)
[2022-12-10] MEDS ORDERED: SOD CHL 0.45% 1,000 ML IV SCH (12:00)
[2022-12-10 13:48] LABS: Base Excess -0.1 mmol/L (-2.0-2.0)
[2022-12-10] MEDS ORDERED: GASTROGRAFIN 120 ML SOL ONE (13:54)
[2022-12-10 16:05] LABS: Chloride 117 mmol/L (98-107); Potassium 3.3 mmol/L (3.5-5.1); Sodium 152 mmol/L (136-145)
[2022-12-10 16:06] LABS: Anion Gap 12 (5-15); Carbon Dioxide 23 mmol/L (20-30)
[2022-12-10 16:07] LABS: Calcium 9.2 mg/dL (8.5-10.1)
[2022-12-10 16:12] LABS: BUN/Creatinine Ratio 10.1 (10.0-20.0); Blood Urea Nitrogen 28 mg/dL (9-23); Glucose 124 mg/dL (74-106)
[2022-12-10] MEDS ORDERED: hydrALAZINE HCL 20 MG/ML VL IV PRN (17:15)
[2022-12-10] MEDS ORDERED: POTASSIUM CHL 20MEQ/100ML 100 ML IV ONE (20:45)
[2022-12-10] MEDS: SOD CHL 0.45% 1,000 ML IV SCH (20:45)
[2022-12-10] MEDS: INSULIN LANTUS (GLARGINE) 1 /0.01ml (100units/ml) SC SCH (22:00)
[2022-12-10 22:32] LABS: Chloride 119 mmol/L (98-107); Sodium 153 mmol/L (136-145)
[2022-12-10 22:33] LABS: Anion Gap 10 (5-15); Calcium 8.8 mg/dL (8.7-10.4); Carbon Dioxide 24 mmol/L (20-30)
[2022-12-10 22:38] LABS: Blood Urea Nitrogen 36 mg/dL (9-23); Glucose 124 mg/dL (74-106)
[2022-12-10 22:39] LABS: Magnesium 2.2 mg/dL (1.6-2.6)
[2022-12-11] VITALS (8 sets, daily range): BP systolic 121–166; BP diastolic 61–86; PULSE 61–86; RESP 16–20; TEMP 97.8–98.7; O2SAT 95–99
[2022-12-11] MEDS: hydrALAZINE HCL 25 MG TAB PO SCH ×4 (01:13→22:55)
[2022-12-11] MEDS: CARVEDILOL 12.5 MG TAB PO SCH ×3 (01:14→22:54)
[2022-12-11 01:19] LABS: Urine Bacteria FEW /hpf (None Seen); Urine Blood TRACE /uL (Negative); Urine Clarity HAZY (Clear); Urine Color Yellow (Yellow); Urine Hyaline Cast MOD /lpf (0 - 2); Urine Mucus FEW (None Seen); Urine Protein, UAD 4+ (Negative); Urine Specific Gravity 1.026 (1.001-1.035); Urine Urobilinogen Normal (Negative); Urine WBC 22 /hpf (0 - 5)
[2022-12-11 01:52] LABS: Amphetamine Screen, Urine Neg (NEGATIVE); Barbiturate Scree,Urine Neg (NEGATIVE); Benzodiazephine Screen, Urine Neg (NEGATIVE); Cocaine Screen, Urine Neg (NEGATIVE); Opiate Scree,Urine Neg (NEGATIVE)
[2022-12-11 01:53] LABS: Cannabinoid Screen, Urine Neg (NEGATIVE); Creatinine, Urine 112.31 mg/dL (30.0-125.0); Phencyclidine Screen, Urine Neg (NEGATIVE)
[2022-12-11 01:56] LABS: Protein, Urine 1626.5 mg/dL (0.0-11.9)
[2022-12-11] MEDS: PROMETHAZINE HCL 25 MG/ML 1ML IV PRN ×2 (03:54→18:40)
[2022-12-11] MEDS: hydrALAZINE HCL 20 MG/ML VL IV PRN ×3 (04:00→18:31)
[2022-12-11] MEDS: SOD CHL 0.45% 1,000 ML IV SCH ×2 (04:02→10:05)
[2022-12-11 06:44] LABS: Basophils # (auto) 0 10 ^3/uL (0-0.2); Basophils % (auto) 0.2 % (0.0-2.0); Eosinophils # (auto) 0 10 ^3/uL (0-0.8); Hemoglobin 8.8 g/dL (12.2-16.2); Lymphocytes # (auto) 1.6 10 ^3/uL (0.4-5.4); Lymphocytes % (auto) 12.5 % (10.0-50.0); Mean Corpuscular Hemoglobin 29.2 pg (28.0-32.0); Mean Corpuscular Hgb Conc. 32.6 g/dL (32.0-36.0); Mean Corpuscular Volume 89.7 fL (80.0-100.0); Monocytes # (auto) 0.6 10 ^3/uL (0-1.3); Monocytes % (auto) 4.5 % (0.0-12.0); Neutrophils # (auto) 10.5 10 ^3/uL (1.6-8.6); Neutrophils % (auto) 82.8 % (37.0-80.0); Red Blood Cells 3.02 10^6/uL (4.0-5.20); Red Cell Distribution Width 14.1 % (11.8-14.3); White Blood Cell 12.7 10^3/uL (4.4-10.8)
[2022-12-11 06:51] LABS: Chloride 117 mmol/L (98-107); Potassium 3.2 mmol/L (3.5-5.1); Sodium 151 mmol/L (136-145)
[2022-12-11 06:52] LABS: Anion Gap 10 (5-15); Carbon Dioxide 24 mmol/L (20-30)
[2022-12-11 06:53] LABS: Calcium 8.5 mg/dL (8.7-10.4)
[2022-12-11 06:57] LABS: Glucose 134 mg/dL (74-106)
[2022-12-11] MEDS: metroNIDAZOLE 500MG/100ML 100 ML IV SCH ×2 (06:57→14:37)
[2022-12-11 06:58] LABS: BUN/Creatinine Ratio 13.4 (10.0-20.0); Blood Urea Nitrogen 37 mg/dL (9-23); Magnesium 2.1 mg/dL (1.6-2.6)
[2022-12-11] MEDS: METOCLOPRAMIDE HCL 5MG/ml INJ 2ml VIAL IV PRN ×2 (06:58→22:54)
[2022-12-11] MEDS: ACCU-CHEK COMFORT CURVE STRIP VI SCH ×5 (06:59→23:12)
[2022-12-11] MEDS: InsuLIN REG 1unit/0.01ml Soln (100units/ml) SC SCH ×4 (07:00→23:22)
[2022-12-11] MEDS ORDERED: POTASSIUM CHL 20MEQ/100ML 100 ML IV ONE (08:30)
[2022-12-11] MEDS ORDERED: SODIUM CHLORIDE LOCK 10 ML ONE (09:14)
[2022-12-11] MEDS ORDERED: NALOXONE HCL 0.4 MG/ML VIAL ONE (09:14)
[2022-12-11] MEDS ORDERED: FLUMAZENIL 0.1 MG/ML INJ 10ML MDV IV ONE (09:14)
[2022-12-11] MEDS: PANTOPRAZOLE 40 MG/10 ML VIAL INJ IV SCH ×2 (09:27→22:53)
[2022-12-11] MEDS: cefTRIAXone 1GM/50ML D5W 50 ML IV SCH (09:27)
[2022-12-11 11:20] LABS: Chloride 116 mmol/L (98-107); Potassium 3.2 mmol/L (3.5-5.1); Sodium 148 mmol/L (136-145)
[2022-12-11 11:21] LABS: Anion Gap 8 (5-15); Calcium 8.4 mg/dL (8.7-10.4); Carbon Dioxide 24 mmol/L (20-30)
[2022-12-11 11:26] LABS: BUN/Creatinine Ratio 13.5 (10.0-20.0); Blood Urea Nitrogen 37 mg/dL (9-23); Glucose 154 mg/dL (74-106)
[2022-12-11] MEDS ORDERED: D5W 5% 1,000 ML IV ONE (12:15)
[2022-12-11] MEDS: MIDAZOLAM HCL 5 MG/ML-1ML VIAL ONE ×3 (13:07→14:39)
[2022-12-11] MEDS: fentaNYL CITRATE 100 MCG/2 ML VL ONE ×3 (13:07→16:04)
[2022-12-11] MEDS: diphenhdrAMINE HCL 50 MG/1 ML VL ONE ×4 (13:07→14:35)
[2022-12-11] MEDS: LIDOCAINE VISCOUS 2% 15ML UD ONE ×2 (13:07→14:30)
[2022-12-11] MEDS ORDERED: METOCLOPRAMIDE HCL 5MG/ml INJ 2ml VIAL IV ONE (13:30)
[2022-12-11] MEDS: ONDANSETRON HCL 4 MG/2 ML VIAL IV PRN (15:05)
[2022-12-11] MEDS: SUCRALFATE 1 GM/10 ML ORAL SUSP PO SCH ×2 (16:45→22:54)
[2022-12-11 17:37] LABS: Anion Gap 11 (5-15); Carbon Dioxide 22 mmol/L (20-30); Chloride 115 mmol/L (98-107); Potassium 3.6 mmol/L (3.5-5.1); Sodium 148 mmol/L (136-145)
[2022-12-11 17:38] LABS: Calcium 8.5 mg/dL (8.5-10.1)
[2022-12-11 17:43] LABS: BUN/Creatinine Ratio 13.5 (10.0-20.0); Blood Urea Nitrogen 37 mg/dL (9-23); Glucose 175 mg/dL (74-106)
[2022-12-11] MEDS: INSULIN LANTUS (GLARGINE) 1 /0.01ml (100units/ml) SC SCH (23:22)
[2022-12-12 05:00] VITALS: BP 178/82; PULSE 67; RESP 22; TEMP 98.1; O2SAT 97
[2022-12-12] MEDS: PROMETHAZINE HCL 25 MG/ML 1ML IV PRN (05:11)
[2022-12-12] MEDS: hydrALAZINE HCL 20 MG/ML VL IV PRN (05:11)
[2022-12-12 06:24] VITALS: BP 123/56; PULSE 73
[2022-12-12] MEDS: SUCRALFATE 1 GM/10 ML ORAL SUSP PO SCH ×3 (06:33→17:02)
[2022-12-12] MEDS: hydrALAZINE HCL 25 MG TAB PO SCH ×2 (06:34→13:56)
[2022-12-12] MEDS: InsuLIN REG 1unit/0.01ml Soln (100units/ml) SC SCH ×3 (06:51→17:10)
[2022-12-12] MEDS: ACCU-CHEK COMFORT CURVE STRIP VI SCH ×3 (06:51→17:02)
[2022-12-12] MEDS: METOCLOPRAMIDE HCL 5MG/ml INJ 2ml VIAL IV PRN (06:55)
[2022-12-12 07:16] LABS: Basophils # (auto) 0.1 10 ^3/uL (0-0.2); Basophils % (auto) 0.7 % (0.0-2.0); Eosinophils # (auto) 0.1 10 ^3/uL (0-0.8); Eosinophils % (auto) 0.5 % (0.0-7.0); Hematocrit 28.6 % (36.0-46.0); Hemoglobin 9.3 g/dL (12.2-16.2); Lymphocytes # (auto) 1.9 10 ^3/uL (0.4-5.4); Lymphocytes % (auto) 16.1 % (10.0-50.0); Mean Corpuscular Hemoglobin 29.1 pg (28.0-32.0); Mean Corpuscular Hgb Conc. 32.4 g/dL (32.0-36.0); Mean Corpuscular Volume 90.1 fL (80.0-100.0); Monocytes # (auto) 0.8 10 ^3/uL (0-1.3); Monocytes % (auto) 6.4 % (0.0-12.0); Neutrophils # (auto) 9.2 10 ^3/uL (1.6-8.6); Neutrophils % (auto) 76.3 % (37.0-80.0); Red Blood Cells 3.18 10^6/uL (4.0-5.20); Red Cell Distribution Width 13.5 % (11.8-14.3); White Blood Cell 12.1 10^3/uL (4.4-10.8)
[2022-12-12 07:56] LABS: Chloride 111 mmol/L (98-107); Potassium 3.5 mmol/L (3.5-5.1)
[2022-12-12 07:57] LABS: Calcium 8.6 mg/dL (8.5-10.1)
[2022-12-12 08:02] LABS: BUN/Creatinine Ratio 12.6 (10.0-20.0); Blood Urea Nitrogen 36 mg/dL (9-23); Glucose 110 mg/dL (74-106)
[2022-12-12 08:14] LABS: Sodium 143 mmol/L (136-145)
[2022-12-12 08:43] VITALS: BP 134/47; PULSE 76; RESP 18; TEMP 97.6; O2SAT 97
[2022-12-12] MEDS: PANTOPRAZOLE 40 MG/10 ML VIAL INJ IV SCH (09:42)
[2022-12-12] MEDS: CARVEDILOL 12.5 MG TAB PO SCH (09:43)
[2022-12-12 09:51] LABS: Anion Gap 12 (5-15); Carbon Dioxide 20 mmol/L (20-30)
[2022-12-12] MEDS ORDERED: PANT40T PO ×3 (12:53→12:55)
[2022-12-12 13:57] VITALS: BP 164/60; PULSE 64; RESP 20; TEMP 98.6; O2SAT 95
[2022-12-12] MEDS ORDERED: SUCR1TAB22 PO (14:13)
[2022-12-12 17:00] VITALS: BP 142/72; PULSE 75; RESP 18; TEMP 98.6; O2SAT 97
== END 2022-12-12 19:00 | disposition home or self-care (01) | DRG 381 ==
LOC: ER 12:16 → OVERFLOW 17:16 → WEST WING 22:34
PROVIDERS: ADMIT Internal Medicine; ATTEND Student in an Organized Health Care Education/Training Program
PROC: 0DB68ZX Excision of Stomach, Via Natural or Artificial Opening Endoscopic, Diagnostic (ICD-10-PCS; 2022-12-11)
PROC: 0DB58ZX Excision of Esophagus, Via Natural or Artificial Opening Endoscopic, Diagnostic (ICD-10-PCS; 2022-12-11)
PROC: 0DB98ZX Excision of Duodenum, Via Natural or Artificial Opening Endoscopic, Diagnostic (ICD-10-PCS; principal; 2022-12-11 12:53)
DX: K22.11 Ulcer of esophagus with bleeding (principal); I13.0 Hypertensive heart and chronic kidney disease with heart failure and stage 1 through stage 4 chronic kidney disease, or unspecified chronic kidney disease; N18.4 Chronic kidney disease, stage 4 (severe); N17.9 Acute kidney failure, unspecified; E11.65 Type 2 diabetes mellitus with hyperglycemia; K29.91 Gastroduodenitis, unspecified, with bleeding; E86.0 Dehydration; E11.22 Type 2 diabetes mellitus with diabetic chronic kidney disease; K52.9 Noninfective gastroenteritis and colitis, unspecified; Z20.822 Contact with and (suspected) exposure to COVID-19; D64.9 Anemia, unspecified; I16.0 Hypertensive urgency; I25.10 Atherosclerotic heart disease of native coronary artery without angina pectoris; I50.9 Heart failure, unspecified; J45.909 Unspecified asthma, uncomplicated; K42.9 Umbilical hernia without obstruction or gangrene; K21.00 Gastro-esophageal reflux disease with esophagitis, without bleeding; K44.9 Diaphragmatic hernia without obstruction or gangrene; E87.6 Hypokalemia; Z88.2 Allergy status to sulfonamides; Z88.8 Allergy status to other drugs, medicaments and biological substances; Z88.3 Allergy status to other anti-infective agents; Z90.710 Acquired absence of both cervix and uterus
CPT/HCPCS: 36415; 36600; 43239; 71045; 74176; 74250; 80048; 80053; 80307; 81001; 82010; 82150; 82570; 82805; 82962; 83605; 83690; 83735; 83880; 83930; 83935; 84133; 84156; 84300; 84443; 85014; 85018; 85025; 85610; 85730; 87040; 87070; 87086; 87205; 87426; 87804; 93005; 96361; 96365; 96375; C9113; G0378; J0131; J0696; J1815; J2250; J2405; J3480; J3490

== ENCOUNTER 2022-12-17 22:17 | Inpatient (IN) | payer MEDICARE, MEDICAID ==
[~2022-12-17] VITALS: Ht 152.4 cm; Wt 65.8 kg
[~2022-12-17 22:17] MED LIST changes: +CARV12.544 PO; +FUR20T PO; +HYDR25TA87 PO; +SUCR1TAB22 PO
[2022-12-18] MEDS ORDERED: PANTOPRAZOLE 80 MG in SODIUM CHL 0.9% 100 ML IV ONE (00:15)
[2022-12-18] MEDS ORDERED: PANTOPRAZOLE 40mg/50ML NS AE 50 ML IV ONE (00:15)
[2022-12-18 00:41] LABS: Basophils # (auto) 0.1 10 ^3/uL (0-0.2); Basophils % (auto) 0.6 % (0.0-2.0); Eosinophils # (auto) 0 10 ^3/uL (0-0.8); Eosinophils % (auto) 0.4 % (0.0-7.0); Hematocrit 30.8 % (36.0-46.0); Hemoglobin 10.2 g/dL (12.2-16.2); Lymphocytes # (auto) 1.7 10 ^3/uL (0.4-5.4); Lymphocytes % (auto) 13.9 % (10.0-50.0); Mean Corpuscular Hemoglobin 29.3 pg (28.0-32.0); Mean Corpuscular Hgb Conc. 33.3 g/dL (32.0-36.0); Mean Corpuscular Volume 88.1 fL (80.0-100.0); Monocytes # (auto) 0.4 10 ^3/uL (0-1.3); Monocytes % (auto) 3.7 % (0.0-12.0); Neutrophils # (auto) 9.7 10 ^3/uL (1.6-8.6); Neutrophils % (auto) 81.4 % (37.0-80.0); Red Blood Cells 3.49 10^6/uL (4.0-5.20); Red Cell Distribution Width 13.4 % (11.8-14.3); White Blood Cell 11.9 10^3/uL (4.4-10.8)
[2022-12-18 00:56] LABS: Alanine Aminotransferase 16 U/L (7-40); Alkaline Phosphatase 166 U/L (46-116); Anion Gap 9 (5-15); Aspartate Aminotransferase 15 U/L (13-40); BUN/Creatinine Ratio 9.1 (10.0-20.0); Blood Urea Nitrogen 21 mg/dL (9-23); Calcium 8.8 mg/dL (8.7-10.4); Carbon Dioxide 24 mmol/L (20-30); Chloride 107 mmol/L (98-107); Glucose 301 mg/dL (74-106); INR 0.97 (0.9-1.15); Lipase 49 U/L (12-53); Magnesium 1.8 mg/dL (1.6-2.6); Potassium 3.5 mmol/L (3.5-5.1); Prothrombin Time 10.2 sec (9.3-11.8); Sodium 140 mmol/L (136-145)
[2022-12-18 00:57] LABS: Albumin 3.9 g/dL (3.2-4.8); Bilirubin, Total 0.4 mg/dL (0.2-1.0); Total Protein 6.7 g/dL (5.7-8.2)
[2022-12-18 01:40] LABS: Urine Bacteria NONE SEEN /hpf (None Seen); Urine Blood Negative /uL (Negative); Urine Clarity Clear (Clear); Urine Color Yellow (Yellow); Urine Protein, UAD 3+ (Negative); Urine Specific Gravity 1.026 (1.001-1.035); Urine Urobilinogen Normal (Negative); Urine WBC 4 /hpf (0 - 5)
[2022-12-18] MEDS ORDERED: PANTOPRAZOLE 40 MG/10 ML VIAL INJ IV ONE (01:48)
[2022-12-18 02:05] VITALS: PULSE 76; RESP 19; O2SAT 96
[2022-12-18] MEDS ORDERED: ONDANSETRON HCL 4 MG/2 ML VIAL IV ONE (02:15)
[2022-12-18] MEDS ORDERED: MORPHINE SULFATE 4 MG/ML SYR/VIAL IV ONE (02:15)
[2022-12-18] MEDS ORDERED: ACETAMINOPHEN 325 MG TAB PO PRN (06:45)
[2022-12-18] MEDS ORDERED: DEXTROSE (50%) 50ML SYRG IV PRN (06:45)
[2022-12-18] MEDS ORDERED: HYDROcodone-ACET 5/325MG TAB PO PRN (06:45)
[2022-12-18] MEDS ORDERED: MORPHINE SULFATE INJ 2 MG/ml SYRG IV PRN (06:45)
[2022-12-18] MEDS ORDERED: NITROGLYCERIN 0.4 MG SL TAB SL PRN (06:45)
[2022-12-18] MEDS ORDERED: DOCUSATE SOD 100 MG CAP PO PRN (06:45)
[2022-12-18] MEDS: SODIUM CHLORIDE 0.9% 1,000 ML IV SCH (07:06)
[2022-12-18] MEDS: ONDANSETRON HCL 4 MG/2 ML VIAL IV PRN ×4 (07:06→21:36)
[2022-12-18] MEDS: PANTOPRAZOLE 40mg/50ML NS AE 50 ML IV SCH ×4 (07:13→23:11)
[2022-12-18 07:24] LABS: Basophils # (auto) 0.1 10 ^3/uL (0-0.2); Basophils % (auto) 0.6 % (0.0-2.0); Eosinophils # (auto) 0 10 ^3/uL (0-0.8); Eosinophils % (auto) 0.2 % (0.0-7.0); Hematocrit 24.9 % (36.0-46.0); Hemoglobin 8.5 g/dL (12.2-16.2); Lymphocytes # (auto) 2.2 10 ^3/uL (0.4-5.4); Mean Corpuscular Hemoglobin 29.7 pg (28.0-32.0); Mean Corpuscular Volume 87.4 fL (80.0-100.0); Monocytes # (auto) 0.7 10 ^3/uL (0-1.3); Monocytes % (auto) 5.4 % (0.0-12.0); Neutrophils # (auto) 9.3 10 ^3/uL (1.6-8.6); Neutrophils % (auto) 75.8 % (37.0-80.0); Nucleated Red Blood Cells % 0.1 %; Red Blood Cells 2.85 10^6/uL (4.0-5.20); Red Cell Distribution Width 13.4 % (11.8-14.3); White Blood Cell 12.3 10^3/uL (4.4-10.8)
[2022-12-18 07:58] LABS: Alanine Aminotransferase 12 U/L (7-40); Albumin 3.3 g/dL (3.2-4.8); Alkaline Phosphatase 128 U/L (46-116); Anion Gap 7 (5-15); Aspartate Aminotransferase 13 U/L (13-40); BUN/Creatinine Ratio 9.8 (10.0-20.0); Blood Urea Nitrogen 24 mg/dL (9-23); Calcium 8.4 mg/dL (8.5-10.1); Carbon Dioxide 27 mmol/L (20-30); Chloride 111 mmol/L (98-107); Glucose 249 mg/dL (74-106); Potassium 3.4 mmol/L (3.5-5.1)
[2022-12-18 07:59] LABS: Bilirubin, Total 0.3 mg/dL (0.2-1.0); Total Protein 5.5 g/dL (5.7-8.2)
[2022-12-18 08:19] LABS: Sodium 145 mmol/L (136-145)
[2022-12-18] MEDS: FUROSEMIDE 20 MG/2 ML VIAL IV SCH ×2 (10:00→11:29)
[2022-12-18] MEDS: cefTRIAXone 1GM/50ML D5W 50 ML IV SCH (10:21)
[2022-12-18] MEDS: metroNIDAZOLE 500MG/100ML 100 ML IV SCH ×2 (10:22→17:43)
[2022-12-18] MEDS: CARVEDILOL 3.125 MG TAB PO SCH ×2 (10:23→23:13)
[2022-12-18 10:41] VITALS: PULSE 76; RESP 17; O2SAT 96
[2022-12-18] MEDS: ACCU-CHEK COMFORT CURVE STRIP VI SCH ×3 (11:56→23:27)
[2022-12-18] MEDS: InsuLIN REG 1unit/0.01ml Soln (100units/ml) SC SCH ×3 (11:57→23:28)
[2022-12-18 19:50] VITALS: PULSE 64; RESP 16; O2SAT 96
[2022-12-18] MEDS: MORPHINE SULFATE INJ 2 MG/ml SYRG IV PRN (21:37)
[2022-12-18] MEDS: hydrALAZINE HCL 20 MG/ML VL IV PRN (23:25)
[2022-12-19] VITALS (8 sets, daily range): BP systolic 154–198; BP diastolic 59–82; PULSE 74–84; RESP 16–20; TEMP 98–98.9; O2SAT 95–98
[2022-12-19] MEDS: metroNIDAZOLE 500MG/100ML 100 ML IV SCH ×3 (01:06→17:09)
[2022-12-19] MEDS: SODIUM CHLORIDE 0.9% 1,000 ML IV SCH ×2 (02:46→20:10)
[2022-12-19] MEDS: PANTOPRAZOLE 40mg/50ML NS AE 50 ML IV SCH ×5 (04:13→23:15)
[2022-12-19] MEDS: ONDANSETRON HCL 4 MG/2 ML VIAL IV PRN ×2 (04:21→14:03)
[2022-12-19] MEDS: hydrALAZINE HCL 20 MG/ML VL IV PRN ×3 (04:25→21:50)
[2022-12-19 05:52] LABS: Basophils # (auto) 0.1 10 ^3/uL (0-0.2); Basophils % (auto) 0.6 % (0.0-2.0); Eosinophils # (auto) 0.1 10 ^3/uL (0-0.8); Eosinophils % (auto) 1.5 % (0.0-7.0); Hematocrit 25.3 % (36.0-46.0); Hemoglobin 8.5 g/dL (12.2-16.2); Lymphocytes # (auto) 1.8 10 ^3/uL (0.4-5.4); Lymphocytes % (auto) 19.9 % (10.0-50.0); Mean Corpuscular Hemoglobin 30.8 pg (28.0-32.0); Mean Corpuscular Hgb Conc. 33.5 g/dL (32.0-36.0); Mean Corpuscular Volume 91.9 fL (80.0-100.0); Monocytes # (auto) 0.5 10 ^3/uL (0-1.3); Monocytes % (auto) 5.5 % (0.0-12.0); Neutrophils # (auto) 6.6 10 ^3/uL (1.6-8.6); Neutrophils % (auto) 72.5 % (37.0-80.0); Red Blood Cells 2.76 10^6/uL (4.0-5.20); Red Cell Distribution Width 13.9 % (11.8-14.3); White Blood Cell 9.1 10^3/uL (4.4-10.8)
[2022-12-19 06:11] LABS: Albumin 3.1 g/dL (3.2-4.8); Alkaline Phosphatase 129 U/L (46-116); Anion Gap 8 (5-15); Aspartate Aminotransferase 12 U/L (13-40); BUN/Creatinine Ratio 8.5 (10.0-20.0); Bilirubin, Total 0.3 mg/dL (0.2-1.0); Blood Urea Nitrogen 21 mg/dL (9-23); Calcium 8.2 mg/dL (8.7-10.4); Carbon Dioxide 24 mmol/L (20-30); Chloride 114 mmol/L (98-107); Glucose 157 mg/dL (74-106); Potassium 3.1 mmol/L (3.5-5.1); Sodium 146 mmol/L (136-145); Total Protein 5.3 g/dL (5.7-8.2)
[2022-12-19] MEDS: ACCU-CHEK COMFORT CURVE STRIP VI SCH ×4 (06:20→23:44)
[2022-12-19 06:21] LABS: Alanine Aminotransferase < 9 U/L (7-40)
[2022-12-19] MEDS: InsuLIN REG 1unit/0.01ml Soln (100units/ml) SC SCH ×4 (06:23→23:45)
[2022-12-19] MEDS: cefTRIAXone 1GM/50ML D5W 50 ML IV SCH (09:05)
[2022-12-19] MEDS: FUROSEMIDE 20 MG/2 ML VIAL IV SCH (09:06)
[2022-12-19] MEDS: PROMETHAZINE HCL 25 MG/ML 1ML IV PRN ×2 (09:06→17:14)
[2022-12-19] MEDS: CARVEDILOL 3.125 MG TAB PO SCH ×2 (09:12→21:50)
[2022-12-19] MEDS: SUCRALFATE 1 GM/10 ML ORAL SUSP PO SCH ×3 (11:32→21:34)
[2022-12-19] MEDS ORDERED: POTASSIUM CHL 20 Meq TABLET PO ONE (15:15)
[2022-12-19] MEDS: MORPHINE SULFATE INJ 2 MG/ml SYRG IV PRN (21:51)
[2022-12-19] MEDS: METOCLOPRAMIDE HCL 5MG/ml INJ 2ml VIAL IV PRN (22:00)
[2022-12-20] VITALS (7 sets, daily range): BP systolic 142–202; BP diastolic 69–117; PULSE 72–141; RESP 16–21; TEMP 98.1–98.6; O2SAT 96–100
[2022-12-20] MEDS: PANTOPRAZOLE 40mg/50ML NS AE 50 ML IV SCH ×4 (03:59→20:13)
[2022-12-20] MEDS: hydrALAZINE HCL 20 MG/ML VL IV PRN ×3 (04:35→21:37)
[2022-12-20] MEDS: SUCRALFATE 1 GM/10 ML ORAL SUSP PO SCH ×4 (05:07→21:37)
[2022-12-20] MEDS: InsuLIN REG 1unit/0.01ml Soln (100units/ml) SC SCH ×3 (05:44→17:56)
[2022-12-20] MEDS: ACCU-CHEK COMFORT CURVE STRIP VI SCH ×3 (05:44→17:21)
[2022-12-20] MEDS: cefTRIAXone 1GM/50ML D5W 50 ML IV SCH (08:40)
[2022-12-20] MEDS: metroNIDAZOLE 500MG/100ML 100 ML IV SCH ×3 (09:10→17:20)
[2022-12-20] MEDS: FUROSEMIDE 20 MG/2 ML VIAL IV SCH (10:32)
[2022-12-20] MEDS: CARVEDILOL 3.125 MG TAB PO SCH ×2 (10:33→21:37)
[2022-12-20] MEDS: PROMETHAZINE HCL 25 MG/ML 1ML IV PRN (10:43)
[2022-12-20] MEDS: SODIUM CHLORIDE 0.9% 1,000 ML IV SCH (14:03)
[2022-12-20] MEDS: METOCLOPRAMIDE HCL 5MG/ml INJ 2ml VIAL IV PRN (14:03)
[2022-12-20] MEDS ORDERED: cloNIDine HCL 0.1 MG TAB PO ONE (17:15)
[2022-12-21] MEDS: ACCU-CHEK COMFORT CURVE STRIP VI SCH ×3 (00:46→11:34)
[2022-12-21] MEDS: metroNIDAZOLE 500MG/100ML 100 ML IV SCH ×2 (00:46→08:31)
[2022-12-21] MEDS: PANTOPRAZOLE 40mg/50ML NS AE 50 ML IV SCH ×4 (00:46→15:04)
[2022-12-21] MEDS: InsuLIN REG 1unit/0.01ml Soln (100units/ml) SC SCH ×3 (00:46→11:46)
[2022-12-21 05:00] VITALS: BP 170/68; PULSE 70; RESP 16; TEMP 97.8; O2SAT 97
[2022-12-21] MEDS: SODIUM CHLORIDE 0.9% 1,000 ML IV SCH (05:19)
[2022-12-21 06:22] LABS: Basophils # (auto) 0 10 ^3/uL (0-0.2); Basophils % (auto) 0.4 % (0.0-2.0); Eosinophils # (auto) 0.1 10 ^3/uL (0-0.8); Eosinophils % (auto) 0.6 % (0.0-7.0); Hematocrit 24.7 % (36.0-46.0); Hemoglobin 8.3 g/dL (12.2-16.2); Lymphocytes # (auto) 1.6 10 ^3/uL (0.4-5.4); Lymphocytes % (auto) 15.4 % (10.0-50.0); Mean Corpuscular Hemoglobin 30.2 pg (28.0-32.0); Mean Corpuscular Hgb Conc. 33.7 g/dL (32.0-36.0); Mean Corpuscular Volume 89.7 fL (80.0-100.0); Monocytes # (auto) 0.7 10 ^3/uL (0-1.3); Monocytes % (auto) 6.9 % (0.0-12.0); Neutrophils % (auto) 76.7 % (37.0-80.0); Red Blood Cells 2.75 10^6/uL (4.0-5.20); Red Cell Distribution Width 13.7 % (11.8-14.3); White Blood Cell 10.4 10^3/uL (4.4-10.8)
[2022-12-21] MEDS: SUCRALFATE 1 GM/10 ML ORAL SUSP PO SCH ×2 (06:31→11:33)
[2022-12-21] MEDS: hydrALAZINE HCL 20 MG/ML VL IV PRN (06:32)
[2022-12-21 08:00] VITALS: PULSE 69
[2022-12-21] MEDS: FUROSEMIDE 20 MG/2 ML VIAL IV SCH (08:31)
[2022-12-21] MEDS: cefTRIAXone 1GM/50ML D5W 50 ML IV SCH (08:31)
[2022-12-21] MEDS: CARVEDILOL 3.125 MG TAB PO SCH (08:32)
[2022-12-21] MEDS: PROMETHAZINE HCL 25 MG/ML 1ML IV PRN (08:47)
[2022-12-21 09:00] VITALS: BP 151/48; PULSE 73; RESP 17; TEMP 98.9; O2SAT 97
[2022-12-21] MEDS ORDERED: LEVO500T91 PO (11:10)
[2022-12-21] MEDS ORDERED: PANT40T PO (11:10)
[2022-12-21] MEDS ORDERED: SUCR1TAB22 PO (11:10)
[2022-12-21] MEDS ORDERED: MET500T PO (11:10)
[2022-12-21 11:42] VITALS: BP 151/48; PULSE 65
[2022-12-21 13:00] VITALS: BP 135/74; PULSE 69; RESP 17; TEMP 98.6; O2SAT 97
== END 2022-12-21 16:05 | disposition home or self-care (01) | DRG 377 ==
LOC: ER 22:17 → TELE 12-18 06:54 → TELE-WESTW 12-18 23:00
PROVIDERS: ADMIT Nurse Practitioner Family; ATTEND Family Medicine
DX: K92.2 Gastrointestinal hemorrhage, unspecified (principal); I50.31 Acute diastolic (congestive) heart failure; D62 Acute posthemorrhagic anemia; N17.9 Acute kidney failure, unspecified; I13.0 Hypertensive heart and chronic kidney disease with heart failure and stage 1 through stage 4 chronic kidney disease, or unspecified chronic kidney disease; D72.829 Elevated white blood cell count, unspecified; E11.22 Type 2 diabetes mellitus with diabetic chronic kidney disease; E11.65 Type 2 diabetes mellitus with hyperglycemia; H54.7 Unspecified visual loss; K21.9 Gastro-esophageal reflux disease without esophagitis; I25.10 Atherosclerotic heart disease of native coronary artery without angina pectoris; E78.00 Pure hypercholesterolemia, unspecified; E11.43 Type 2 diabetes mellitus with diabetic autonomic (poly)neuropathy; K31.84 Gastroparesis; E11.319 Type 2 diabetes mellitus with unspecified diabetic retinopathy without macular edema; Z90.710 Acquired absence of both cervix and uterus; N18.9 Chronic kidney disease, unspecified; E11.40 Type 2 diabetes mellitus with diabetic neuropathy, unspecified; J45.909 Unspecified asthma, uncomplicated; Z82.49 Family history of ischemic heart disease and other diseases of the circulatory system; Z83.3 Family history of diabetes mellitus; Z87.19 Personal history of other diseases of the digestive system; Z88.3 Allergy status to other anti-infective agents
CPT/HCPCS: 36415; 71045; 74176; 80053; 81001; 82962; 83036; 83690; 83735; 83880; 84484; 85025; 85610; 85730; 86850; 86900; 86901; 87081; C9113; G0378; J0696; J1815; J2405; J3490

== ENCOUNTER → 2023-01-14 | Outpatient (CLI) | payer MEDICARE, MEDICAID ==
[~2023-01-14] MED LIST changes: -BRIM0.2S17 LEFTEYE; -DIGO0.12 PO; -DORZ2SOL18 LEFTEYE; -FINE10TA PO; -FUR20T PO; -LATA0.008 LEFTEYE; +LEVO500T91 PO; -LINA5TAB PO; +MET500T PO; -METO10TA3 PO; -PATI1POW PO; -PRED1SUS4 RIGHTEYE
[2023-01-14 12:02] LABS: Basophils # (auto) 0.1 10 ^3/uL (0-0.2); Basophils % (auto) 0.9 % (0.0-2.0); Eosinophils # (auto) 0.1 10 ^3/uL (0-0.8); Eosinophils % (auto) 1.6 % (0.0-7.0); Hematocrit 26.9 % (36.0-46.0); Hemoglobin 8.8 g/dL (12.2-16.2); Lymphocytes # (auto) 1.7 10 ^3/uL (0.4-5.4); Mean Corpuscular Hemoglobin 29.5 pg (28.0-32.0); Mean Corpuscular Hgb Conc. 32.6 g/dL (32.0-36.0); Mean Corpuscular Volume 90.3 fL (80.0-100.0); Monocytes # (auto) 0.3 10 ^3/uL (0-1.3); Monocytes % (auto) 5.6 % (0.0-12.0); Neutrophils # (auto) 3.5 10 ^3/uL (1.6-8.6); Neutrophils % (auto) 61.9 % (37.0-80.0); Red Blood Cells 2.98 10^6/uL (4.0-5.20); Red Cell Distribution Width 14.5 % (11.8-14.3); White Blood Cell 5.7 10^3/uL (4.4-10.8)
[2023-01-14 12:46] LABS: % Iron Saturation 28.7 % (15-50); Alanine Aminotransferase 13 U/L (7-40); Albumin 3.5 g/dL (3.2-4.8); Alkaline Phosphatase 142 U/L (46-116); Anion Gap 7 (5-15); Aspartate Aminotransferase 12 U/L (13-40); BUN/Creatinine Ratio 16.1 (10.0-20.0); Blood Urea Nitrogen 35 mg/dL (9-23); Calcium 8.3 mg/dL (8.7-10.4); Carbon Dioxide 19 mmol/L (20-30); Chloride 112 mmol/L (98-107); Glucose 195 mg/dL (74-106); Lipase 104 U/L (12-53); Potassium 4.9 mmol/L (3.5-5.1); Sodium 138 mmol/L (136-145)
[2023-01-14 12:47] LABS: Bilirubin, Total 0.3 mg/dL (0.2-1.0); Total Protein 5.8 g/dL (5.7-8.2)
== END | disposition home or self-care (01) ==
LOC: LAB 11:40
PROVIDERS: ATTEND Internal Medicine
DX: E11.22 Type 2 diabetes mellitus with diabetic chronic kidney disease (principal); N18.4 Chronic kidney disease, stage 4 (severe); D64.9 Anemia, unspecified; I50.9 Heart failure, unspecified; Z88.8 Allergy status to other drugs, medicaments and biological substances
CPT/HCPCS: 36415; 80053; 82728; 83036; 83540; 83550; 83690; 83880; 85025

== ENCOUNTER → 2023-04-07 | Outpatient (CLI) | payer OTHER ==
[2023-04-07 14:39] LABS: Urine Bacteria MANY /hpf (None Seen); Urine Blood 1+ /uL (Negative); Urine Clarity CLOUDY (Clear); Urine Color Colorless (Yellow); Urine Protein, UAD 3+ (Negative); Urine Specific Gravity 1.017 (1.001-1.035); Urine Urobilinogen Normal (Negative); Urine WBC 1565 /hpf (0 - 5); Urine WBC Clumps PRESENT /hpf (None Seen)
[2023-04-07 14:57] LABS: Basophils # (auto) 0.1 10 ^3/uL (0-0.2); Eosinophils # (auto) 0.3 10 ^3/uL (0-0.8); Eosinophils % (auto) 4.1 % (0.0-7.0); Hematocrit 33.6 % (36.0-46.0); Hemoglobin 10.8 g/dL (12.2-16.2); Lymphocytes # (auto) 1.5 10 ^3/uL (0.4-5.4); Lymphocytes % (auto) 24.3 % (10.0-50.0); Mean Corpuscular Hemoglobin 28.8 pg (28.0-32.0); Mean Corpuscular Hgb Conc. 32.2 g/dL (32.0-36.0); Mean Corpuscular Volume 89.6 fL (80.0-100.0); Monocytes # (auto) 0.3 10 ^3/uL (0-1.3); Monocytes % (auto) 5.2 % (0.0-12.0); Neutrophils % (auto) 65.4 % (37.0-80.0); Nucleated Red Blood Cells % 0.1 %; Red Blood Cells 3.75 10^6/uL (4.0-5.20); White Blood Cell 6.1 10^3/uL (4.4-10.8)
[2023-04-07 15:04] LABS: Alanine Aminotransferase 16 U/L (7-40); Albumin 3.7 g/dL (3.2-4.8); Alkaline Phosphatase 154 U/L (46-116); Anion Gap 6 (5-15); Aspartate Aminotransferase 15 U/L (13-40); BUN/Creatinine Ratio 15.6 (10.0-20.0); Bilirubin, Direct < 0.1 mg/dL (<0.3); Bilirubin, Total 0.3 mg/dL (0.2-1.0); Blood Urea Nitrogen 37 mg/dL (9-23); Calcium 8.9 mg/dL (8.5-10.1); Carbon Dioxide 18 mmol/L (20-30); Chloride 117 mmol/L (98-107); Glucose 163 mg/dL (74-106); Potassium 5.2 mmol/L (3.5-5.1); Sodium 141 mmol/L (136-145)
[2023-04-07 15:05] LABS: Total Protein 6.3 g/dL (5.7-8.2)
[2023-04-07 15:30] LABS: Uric Acid 4.7 mg/dL (3.1-7.8)
[2023-04-07 15:34] LABS: Creatinine, Urine 54.97 mg/dL (30.0-125.0)
[2023-04-07 15:37] LABS: Protein, Urine 702.4 mg/dL (0.0-11.9); Urine Protein/Creatinine Ratio 12.78
== END | disposition home or self-care (01) ==
LOC: LAB 13:59
PROVIDERS: ATTEND Internal Medicine
DX: D56.9 Thalassemia, unspecified (principal); D64.9 Anemia, unspecified; M10.9 Gout, unspecified; R80.9 Proteinuria, unspecified
CPT/HCPCS: 36415; 80053; 80076; 81001; 82306; 82570; 83615; 83970; 84156; 84550; 85025

== ENCOUNTER → 2023-07-21 | Outpatient (CLI) | payer MEDICARE ==
[~2023-07-21] MED LIST changes: -CARV6.2551 PO; +CEPH250C PO; +ERGO1CAP23 PO; +FER325T PO; +FLUT1SPR5 EACHNOSTRI; +FURO20TA3 PO; +ISOS1TAB28 PO; -LEVO500T91 PO; -MET500T PO; -METO-281 PO; +NIFE1TAB31 PO; +RIME75TA PO; -SACU1TAB PO; -SUCR1TAB22 PO; +SUCR1TAB31 PO; -TORS20TA20 PO
[2023-07-21 16:24] LABS: Basophils # (auto) 0 10 ^3/uL (0-0.2); Basophils % (auto) 0.7 % (0.0-2.0); Eosinophils # (auto) 0.3 10 ^3/uL (0-0.8); Eosinophils % (auto) 4.1 % (0.0-7.0); Hematocrit 28.3 % (36.0-46.0); Hemoglobin 9.2 g/dL (12.2-16.2); Lymphocytes # (auto) 1.4 10 ^3/uL (0.4-5.4); Lymphocytes % (auto) 19.7 % (10.0-50.0); Mean Corpuscular Hemoglobin 29.8 pg (28.0-32.0); Mean Corpuscular Hgb Conc. 32.6 g/dL (32.0-36.0); Mean Corpuscular Volume 91.3 fL (80.0-100.0); Monocytes # (auto) 0.3 10 ^3/uL (0-1.3); Monocytes % (auto) 3.6 % (0.0-12.0); Neutrophils % (auto) 71.9 % (37.0-80.0); Red Cell Distribution Width 13.5 % (11.8-14.3)
[2023-07-21 16:43] LABS: Urine Bacteria FEW /hpf (None Seen); Urine Blood 1+ /uL (Negative); Urine Clarity Turbid (Clear); Urine Color Colorless (Yellow); Urine Protein, UAD 3+ (Negative); Urine Specific Gravity 1.011 (1.001-1.035); Urine Urobilinogen Normal (Negative); Urine WBC 195 /hpf (0 - 5); Urine WBC Clumps PRESENT /hpf (None Seen); Urine pH 6.5 (5.0-9.0)
[2023-07-21 16:59] LABS: Creatinine, Urine 36.95 mg/dL (30.0-125.0)
[2023-07-21 17:02] LABS: Protein, Urine 539.2 mg/dL (0.0-11.9)
[2023-07-21 18:12] LABS: Alanine Aminotransferase 39 U/L (7-40); Albumin 3.7 g/dL (3.2-4.8); Alkaline Phosphatase 194 U/L (46-116); Anion Gap 12 (5-15); Aspartate Aminotransferase 18 U/L (13-40); BUN/Creatinine Ratio 13.3 (10.0-20.0); Blood Urea Nitrogen 36 mg/dL (9-23); Carbon Dioxide 15 mmol/L (20-30); Chloride 116 mmol/L (98-107); GFR African American 24 mL/min; GFR Non-African American 20 mL/min; Glucose 248 mg/dL (74-106); Potassium 5.2 mmol/L (3.5-5.1); Sodium 143 mmol/L (136-145)
[2023-07-21 18:13] LABS: Bilirubin, Total 0.2 mg/dL (0.2-1.0); Total Protein 6.2 g/dL (5.7-8.2)
== END | disposition home or self-care (01) ==
LOC: LAB 15:57
PROVIDERS: ATTEND Internal Medicine
DX: E11.22 Type 2 diabetes mellitus with diabetic chronic kidney disease (principal); N18.30 Chronic kidney disease, stage 3 unspecified; D63.1 Anemia in chronic kidney disease; R80.9 Proteinuria, unspecified; M10.9 Gout, unspecified; E21.3 Hyperparathyroidism, unspecified; E55.9 Vitamin D deficiency, unspecified; N39.0 Urinary tract infection, site not specified; E11.21 Type 2 diabetes mellitus with diabetic nephropathy
CPT/HCPCS: 36415; 80053; 80069; 81001; 82570; 83036; 83970; 84156; 84550; 85025

== ENCOUNTER → 2023-08-04 | Outpatient (CLI) | payer MEDICARE ==
[2023-08-04 16:07] LABS: Basophils # (auto) 0.1 10 ^3/uL (0-0.2); Basophils % (auto) 1.1 % (0.0-2.0); Eosinophils # (auto) 0.2 10 ^3/uL (0-0.8); Eosinophils % (auto) 3.9 % (0.0-7.0); Hematocrit 24.1 % (36.0-46.0); Hemoglobin 8.1 g/dL (12.2-16.2); Lymphocytes # (auto) 1.2 10 ^3/uL (0.4-5.4); Lymphocytes % (auto) 21.5 % (10.0-50.0); Mean Corpuscular Hemoglobin 30.5 pg (28.0-32.0); Mean Corpuscular Hgb Conc. 33.7 g/dL (32.0-36.0); Mean Corpuscular Volume 90.4 fL (80.0-100.0); Monocytes # (auto) 0.3 10 ^3/uL (0-1.3); Monocytes % (auto) 5.9 % (0.0-12.0); Neutrophils # (auto) 3.6 10 ^3/uL (1.6-8.6); Neutrophils % (auto) 67.6 % (37.0-80.0); Nucleated Red Blood Cells % 0.1 %; Red Blood Cells 2.67 10^6/uL (4.0-5.20); Red Cell Distribution Width 13.7 % (11.8-14.3); White Blood Cell 5.4 10^3/uL (4.4-10.8)
[2023-08-04 16:34] LABS: INR 0.96 (0.9-1.15); Partial Thromboplastin Time 26.7 SEC (24.5-34.5); Prothrombin Time 10.2 sec (9.3-11.8)
[2023-08-04 16:52] LABS: % Iron Saturation 24.4 % (15-50)
== END | disposition home or self-care (01) ==
LOC: LAB 15:48
PROVIDERS: ATTEND Internal Medicine
DX: D64.9 Anemia, unspecified (principal); N18.9 Chronic kidney disease, unspecified; D63.1 Anemia in chronic kidney disease
CPT/HCPCS: 36415; 82728; 83540; 83550; 85025; 85610; 85730

== ENCOUNTER → 2023-11-02 | Outpatient (CLI) | payer MEDICARE, MEDICAID | END | disposition home or self-care (01) | LOC: Rad HDHVI 15:10 | PROVIDERS: ATTEND Internal Medicine Cardiovascular Disease | DX: I10 Essential (primary) hypertension (principal); E78.5 Hyperlipidemia, unspecified | CPT/HCPCS: 93306 ==

== ENCOUNTER → 2023-11-05 | Outpatient (CLI) | payer MEDICARE, MEDICAID ==
[~2023-11-05] VITALS: Ht 154.9 cm; Wt 65.8 kg
[~2023-11-05] MED LIST changes: +ADENOSINE 55 MG in GIVE UN-DILUTED 0 ML IV ONE; +ADENOSINE 90 MG/30 ML INJ IV ONE; +ONDANSETRON HCL 4 MG/2 ML VIAL ONE
[2023-11-05] MEDS: ONDANSETRON HCL 4 MG/2 ML VIAL IV ONE (11:30)
== END | disposition home or self-care (01) ==
LOC: Rad HDHVI 10:07
PROVIDERS: ATTEND Internal Medicine Cardiovascular Disease
DX: I12.0 Hypertensive chronic kidney disease with stage 5 chronic kidney disease or end stage renal disease (principal); E11.22 Type 2 diabetes mellitus with diabetic chronic kidney disease; N18.6 End stage renal disease; E11.42 Type 2 diabetes mellitus with diabetic polyneuropathy; R07.89 Other chest pain; R06.02 Shortness of breath; R42 Dizziness and giddiness; R00.2 Palpitations; I42.8 Other cardiomyopathies; E78.5 Hyperlipidemia, unspecified
CPT/HCPCS: 78452; 93005; 96374; 96375; A9500; J0153; J2405

== ENCOUNTER → 2023-12-02 | Outpatient (CLI) | payer MEDICARE, MEDICAID ==
[~2023-12-02] MED LIST changes: -ADENOSINE 55 MG in GIVE UN-DILUTED 0 ML IV ONE; -ADENOSINE 90 MG/30 ML INJ IV ONE; +CIPR500T4 PO; +INSLANTI SC; +METO-6 PO; -ONDANSETRON HCL 4 MG/2 ML VIAL ONE; +SACU1TAB PO; +SEVE800T7 PO; +VERI2.5T PO
--- NOTE | 2023-12-02 11:01 | DVH ---
XY CHEST TWO VIEWS ROUTINE CLINICAL HISTORY: PRE OP/pain COMPARISON: None TECHNIQUE: Frontal and lateral view of the chest was obtained FINDINGS: Lines and Tubes: None Lungs: No focal consolidation. Pleura: No effusion. No pneumothorax. Cardiomediastinal contours: Unremarkable Bones: No acute osseous abnormality. IMPRESSION: No acute cardiopulmonary disease.
== END | disposition home or self-care (01) ==
LOC: Rad HDHVI 09:48
PROVIDERS: ATTEND Internal Medicine Cardiovascular Disease
DX: Z01.818 Encounter for other preprocedural examination (principal); N18.9 Chronic kidney disease, unspecified; I50.23 Acute on chronic systolic (congestive) heart failure
CPT/HCPCS: 71046

== ENCOUNTER 2023-12-14 18:45 | Inpatient (IN) | payer MEDICARE, MEDICAID ==
[~2023-12-14] VITALS: Ht 154.9 cm; Wt 79.5 kg
[~2023-12-14 18:45] MED LIST changes: -CIPR500T4 PO; -INSLANTI SC; -METO-6 PO; -SACU1TAB PO; -SEVE800T7 PO; -VERI2.5T PO
--- NOTE | 2023-12-14 19:05 | ED.PDOC ---
GI ASSESSMENT HPI Comments A 53 year old female presents to the ED with a chief complaint of abdominal pain onset 3 days. Patient states she has also been experiencing nausea, vomiting for the past 3 days and today had about 5 episode, and headache. Upon triage, BP was 207/116, patient states she has an appointment on Wednesday to have a fistula plac ed to start dialysis. She has a past medical history of HLD, HTN, DM, CHF, CAD, CKF, GERD, asthma, anemia. Denies fever, diarrhea, chest pain, SOB, dizziness, sick contact. No other symptoms or modifying factors present at this time. Chief Complaint: Nausea/Vomiting Time Seen by MD: 18:56 Primary Care Provider: KIERA Reviewed Notes: Medications, Allergies Allergies: Coded Allergies: Sulfa Antibiotics (Verified Allergy, Intermediate, RASH, 06/11/21) Sulfamethoxazole w/Trimethoprim (Verified Allergy, Intermediate, RASH, 06/11/21) Home Meds Active Scripts Cephalexin (KEFLEX CAPSULE) 250 Mg Cp, 250 MG PO TID for 5 Days, #15 CAP Prov:CHARBEL QURESHI MD 05/22/23 Ferrous Sulfate (FERROUS SULFATE) 325 Mg Tb, 1 TAB PO DAILY, #30 TAB 3 Refills Prov:CHARBEL QURESHI MD 05/22/23 Pantoprazole Sodium Sesquihydr (Pantoprazole Sodium) 40 Mg Tab, 40 MG PO BID, #60 TAB Prov:YOSI EVANGELISTA MD 12/21/22 Sucralfate (CARAFATE) 1 Gm Tab, 1 GM PO QID, #120 TAB Prov:YOSI EVANGELISTA MD 12/21/22 Reported Medications Rimegepant Sulfate (Nurtec) 75 Mg Tab, 75 MG PO UD for 7 Days, #14 TAB 05/21/23 Nifedipine (Nifedipine Er) 30 Mg Tab, 30 MG PO BID, TAB 05/21/23 Fluticasone Propionate (Nasal) (Flonase Allergy Relief) 50 Mcg/Act Spr, 50 MCG EACHNOSTRI DAILY, SPRAY 05/21/23 Ergocalciferol (VITAMIN D 55805 UNIT) 50,000 [place], 228[address] UNIT PO QWEEKLY, CAP 05/21/23 Isosorbide Mononitrate (Isosorbide Mononitrate Er) 30 Mg Tab, 30 MG PO DAILY 05/21/23 Furosemide (Furosemide) 20 Mg Tab, 20 MG PO DAILY, TAB 05/21/23 Carvedilol (Carvedilol) 12.5 Mg Tab, 1 TAB PO BID 12/09/22 Hydralazine HCl (Hydralazine HCl) 25 Mg Tab, 1 TAB PO TIDWM 12/09/22 Sodium Bicarbonate (Sodium Bicarbonate) 650 Mg Tab, 650 MG PO BID, TAB 07/23/21 Cholecalciferol (VITAMIN D3) 2,000 Unit Tab, 1 TAB PO BID for SUPPLEMENT 06/11/21 Atorvastatin Calcium (ATORVASTATIN CALCIUM) 20 Mg Tab, 1 TAB PO DAILY for HIGH CHOLESTEROL 03/14/19 Information Source: Patient Mode of Arrival: Ambulatory Timing: Days Duration: Since onset Prehospital treatment: None Severity: Moderate Pain Location: Diffuse Associated sign and symptoms: Nausea, Vomiting, Abdominal Pain Past Medical History PAST MEDICAL HISTORY: Anemia, Asthma, CAD, CHF, CKF, DM, GERD, High Lipids, HTN Surgical History: , Hysterectomy MANAGER READING History: No Pertinent MANAGER READING History Family History Family History: Reviewed,noncontributory to illness, Family hx of DM, Family hx of heart otto Social History Smoker: Non-Smoker Alcohol: Denies ETOH Use Drugs: Denies Drug Use Lives In: Home Constitutional: denies: chills, diaphoresis, fatigue, fever, malaise, sweats, weakness, others EENTM: denies: blurred vision, double vision, ear bleeding, ear discharge, ear drainage, ear pain, ear ringing, eye pain, eye redness, hearing loss, mouth pain, mouth swelling, nasal discharge, nose bleeding, nose congestion, nose pain, photophobia, tearing, throat pain, throat swelling, voice changes, others Respiratory: denies: cough, hemoptysis, orthopnea, SOB at rest, shortness of breath, SOB with excertion, stridor, wheezing, others Cardiovascular: denies: chest pain, dizzy spells, diaphoresis, Dyspnea on exertion, edema, irregular heart beat, left arm pain, lightheadedness, p alpitations, PND, syncope, others Gastrointestinal: reports: abdominal pain, nausea, vomiting; denies: abdomen distended, blood streaked bowels, constipated, diarrhea, dysphagia, difficulty swallowing, hematemesis, melena, poor appetite, poor fluid intake, rectal bleeding, rectal pain, others Genitourinary: denies: abnormal vagina bleeding, burning, dyspareunia, dysuria, flank pain, frequency, hematuria, incontinence, pain, , vagina discharge, urgency, others Neurological: reports: headache; denies: dizziness, fainting, left sided numbness, left sided weakness, numbness, paresthesia, pre-existing deficit, right sided numbness, right sided weakness, seizure, speech problems, tingling, tremors, weakness, others Musculoskeletal: denies: back pain, gout, joint pain, joint swelling, muscle pain, muscle stiffness, neck pain, others Integumetry: denies: bruises, change in color, change in hair/nails, dryness, laceration, lesions, lumps, rash, wounds, others Allergic/Immunocompromised: denies: Difficulty Healing, Frequent Infections, Hives, Itching, others Hematologic/Lymphatic: denies: anemia, blood clots, easy bleeding, easy bruising, swollen glands, others Endocrine: denies: excessive hunger, excessive sweating, excessive thirst, excessive urination, flushing, intolerance to cold, intolerance to heat, unexplained weight gain, unexplained weight loss, others Psychiatric: denies: anxiety, bipolar disorder, depression, hopeless, panic disorder, schizophrenia, sleepless, suicidal, others All Other Systems: Reviewed and Negative Physical Exam General Appearance: No Apparent Distress, Normal HEENT: Normal ENT Inspection, Pharynx Normal, TMs Normal Neck: Full Range of Motion, Non-Tender, Normal, Normal Inspection Respiratory: Chest Non-Tender, Lungs Clear, No Accessory Muscle Use, No Respiratory Distress, Normal Breath Sounds Cardiovascular: No Edema, No JVD, No Murmur, No Gallop, Normal Peripheral Pulses, Regular Rate/Rhythm Breast Exam: Deferred Gastrointestinal: No Organomegaly, Non Tender, No Pulsatile Mass, Normal Bowel Sounds, Soft Genitalia: Deferred Pelvic: Deferred Rectal: Deferred Extremities: No calf tenderness, Normal capillary refill, Normal inspection, Normal range of motion, Non-tender, No pedal edema Musculoskeletal : Apperance: Normal Neurologic: Alert, filling station equipment mechanic II-XII nml as Tested, No Motor Deficits, Normal Affect, Normal Mood, No Sensory Deficits Cerebellar Function: Normal Reflexes: Normal Skin: Dry, Normal Color, Warm Lymphatic: No Adenopathy Was a procedure done? Was a procedure done?: No GI differential Dx Differential Diagnosis: Gastritis/PUD, Gastroenteritis, Pancreatitis, Urolithiasis, Dehydration, Electrolyte Imbalance, Malnutrition X-Ray, Labs, Meds, VS Vital Signs Date Time Temp Pulse Resp B/P (MAP) Pulse Ox O2 Delivery O2 Flow Rate FiO2 12/14/23 20:30 Room Air* 0 21 12/14/23 19:02 97.6 87 18 207/116 (146) 98 Lab Test 12/14/23 20:09 12/14/23 19:57 12/14/23 19:11 Range/Units Urine Color Light-brown Yellow Urine Clarity Ex.turbid Clear Urine pH 6.5 5.0-9.0 Urine Specific [place] 1.024 1.001-1.035 Urine Protein 3+ H Negative Urine Ketones 1+ H Negative Urine Blood 2+ H Negative /uL Urine Nitrite Negative Negative Urine Bilirubin Negative Negative Urine Urobilinogen Normal Negative mg/dL Urine Leukocyte Esterase 3+ Negative /uL Urine RBC 12 0 - 4 /hpf Urine WBC 1223 0 - 5 /hpf Urine WBC Clumps Present None Seen /hpf Urine Squamous Epithelial Cells Few <5 /hpf Urine Bacteria Few H None Seen /hpf Urine Mucus Few None Seen Urine Glucose 4+ H Normal mg/dL Troponin I High Sensitivity 20 20 </=34 ng/L White Blood Count 8.9 4.4-10.8 10^3/uL Red Blood Count 3.96 L 4.0-5.20 10^6/uL Hemoglobin 11.9 L 12.2-16.2 g/dL Hematocrit 35.4 L 36.0-46.0 % Mean Corpuscular Volume 89.2 80.0-100.0 fL Mean Corpuscular Hemoglobin 30.0 28.0-32.0 pg Mean Corpuscular Hemoglobin Concent 33.6 32.0-36.0 g/dL Red Cell Distribution Width 14.7 H 11.8-14.3 % Platelet Count 195 140-450 10^3/uL Mean Platelet Volume 9.1 6.9-10.8 fL Neutrophils (%) (Auto) 87.5 H 37.0-80.0 % Lymphocytes (%) (Auto) 8.6 L 10.0-50.0 % Monocytes (%) (Auto) 2.8 0.0-12.0 % Eosinophils (%) (Auto) 0.2 0.0-7.0 % Basophils (%) (Auto) 0.9 0.0-2.0 % Neutrophils # (Auto) 7.8 1.6-8.6 10 ^3/uL Lymphocytes # (Auto) 0.8 0.4-5.4 10 ^3/uL Monocytes # (Auto) 0.2 0-1.3 10 ^3/uL Eosinophils # (Auto) 0 0-0.8 10 ^3/uL Basophils # (Auto) 0.1 0-0.2 10 ^3/uL Nucleated Red Blood Cells 0.0 % Sodium Level 145 136-145 mmol/L Potassium Level 4.4 3.5-5.1 mmol/L Chloride Level 112 H 98-107 mmol/L Carbon Dioxide Level 24 20-31 mmol/L Anion Gap 9 5-15 Blood Urea Nitrogen 43 H 9-23 mg/dL Creatinine 3.94 H 0.550-1.02 mg/dL Glomerular Filtration Rate Calc 13 >90 mL/min BUN/Creatinine Ratio 10.9 10.0-20.0 Serum Glucose 295 H 74-106 mg/dL Calcium Level 9.8 8.7-10.4 mg/dL Total Bilirubin 0.6 0.2-1.0 mg/dL Aspartate Amino Transferase (AST) 13 13-40 U/L Alanine Aminotransferase (ALT) 20 7-40 U/L Alkaline Phosphatase 176 H 46-116 U/L B-Type Natriuretic Peptide 1312.58 0-100 pg/mL Total Protein 7.1 5.7-8.2 g/dL Albumin 4.4 3.2-4.8 g/dL Lipase 32 12-53 U/L Current Medications Medications (Trade) Dose Ordered Sig/Tawnya Route Start Time Stop Time Status Last Admin Ondansetron HCl (Zofran) 4 mg ONCE ONCE IV 12/14/23 19:00 12/14/23 19:01 DC 12/14/23 20:22 Famotidine (Pepcid Injection) 20 mg ONCE ONCE IV 12/14/23 19:00 12/14/23 19:01 DC 12/14/23 20:[address] [address] Ph: [phone] DIAGNOSTIC IMAGING Diagnostic Imaging Report : [id number] Signed PATIENT: ELLIOTT RODRIGUEZ ACCT: [id number] UNIT: [id number] : 1970 LOC: ER ROOM / BED: / AGE / SEX: 53 / F ADM STATUS: REG ER SERVICE 58 ORDERING PHYSICIAN: LYNN SHRESTHA MD PROCEDURE(s): CXR2 - CHEST TWO VIEWS ROUTINE REASON: n/v/d ORDER NUMBER(s): [id number], ACCESSION NUMBER(s): [id number] XY CHEST TWO VIEWS ROUTINE CLINICAL HISTORY: n/v/d COMPARISON: XY CHEST TWO VIEWS ROUTINE on DOS: 12/02/23 TECHNIQUE: Frontal and lateral view of the chest was obtained FINDINGS: Lines and Tubes: None Lungs: No focal consolidation. Pleura: No effusion. No pneumothorax. Cardiomediastinal contours: Unremarkable Bones: No acute osseous abnormality. IMPRESSION: No acute cardiopulmonary disease. ATED BY: ANNETTE AGEE DO DICTATED DATE/TIME: 12/14/231937 SIGNED BY: ANNETTE AGEE DO SIGNED DATE/TIME: 12/14/231937 CC: Time of 1ST Reevaluation: 19:26 Reevaluation 1ST: Unchanged Patient Education/Counseling: Diagnosis, Treatment, Prognosis Family Education/Counseling: No Family Present Departure 1 Departure Time of Disposition: 21:24 (Patient with worsening urinary tract infection, volume overload, inability to tolerate p.o.. Admit patient for further workup) Impression: Primary Impression: Nausea and vomiting Qualified Codes: R11.12 - Projectile vomiting Additional Impressions: Acute abdominal pain Acute cystitis with hematuria Disposition: ADMITTED INPATIENT Admit to: Med Surg Condition: Serious Critical Care Note Critical Care Time?: Yes Critical care comment: Intractable abdominal pain Authorized and Performed by: Lynn Shrestha MD Total critical care time: Approximately 43 minutes Due to a high probability of clinically significant, life threatening deterioration, the patient required my highest level of preparedness to intervene emergently and I personally spent this critical care time directly and personally managing the patient. This critical care time included obtaining a history; examining the patient; pulse oximetry; ordering and review of studies; arranging urgent treatment with development of a management plan; evaluation of patient's response to treatment; frequent reassessment; and, discussions with other providers. This critical care time was performed to assess and manage the high probability of imminent, life-threatening deterioration that could result in multi-organ failure. It was exclusive of separately billable procedures and treating other patients and teaching time. Please see my other sections and the rest of the note for further information on patient assessment and treatment. Stability Stability form required: No I personally scribed for LYNN SHRESTHA MD ([email or web address]) on 12/14/23 at 19:05. Electronically submitted by Catarina Reyes ([email or web address]). I personally scribed for LYNN SHRESTHA MD ([email or web address]) on 12/14/23 at 19:54. Electronically submitted by Catarina Reyes ([email or web address]). LYNN SHRESTHA MD Dec 14, 2023 19:05
[2023-12-14 19:29] LABS: Basophils # (auto) 0.1 10 ^3/uL (0-0.2); Basophils % (auto) 0.9 % (0.0-2.0); Eosinophils # (auto) 0 10 ^3/uL (0-0.8); Eosinophils % (auto) 0.2 % (0.0-7.0); Hematocrit 35.4 % (36.0-46.0); Hemoglobin 11.9 g/dL (12.2-16.2); Lymphocytes # (auto) 0.8 10 ^3/uL (0.4-5.4); Lymphocytes % (auto) 8.6 % (10.0-50.0); Mean Corpuscular Hgb Conc. 33.6 g/dL (32.0-36.0); Mean Corpuscular Volume 89.2 fL (80.0-100.0); Monocytes # (auto) 0.2 10 ^3/uL (0-1.3); Monocytes % (auto) 2.8 % (0.0-12.0); Neutrophils # (auto) 7.8 10 ^3/uL (1.6-8.6); Neutrophils % (auto) 87.5 % (37.0-80.0); Platelet Count (auto) 195 10^3/uL (140-450); Red Blood Cells 3.96 10^6/uL (4.0-5.20); Red Cell Distribution Width 14.7 % (11.8-14.3); White Blood Cell 8.9 10^3/uL (4.4-10.8)
--- NOTE | 2023-12-14 19:41 | DVH ---
XY CHEST TWO VIEWS ROUTINE CLINICAL HISTORY: n/v/d COMPARISON: XY CHEST TWO VIEWS ROUTINE on DOS: 12/02/23 TECHNIQUE: Frontal and lateral view of the chest was obtained FINDINGS: Lines and Tubes: None Lungs: No focal consolidation. Pleura: No effusion. No pneumothorax. Cardiomediastinal contours: Unremarkable Bones: No acute osseous abnormality. IMPRESSION: No acute cardiopulmonary disease.
[2023-12-14 19:51] LABS: Alanine Aminotransferase 20 U/L (7-40); Albumin 4.4 g/dL (3.2-4.8); Alkaline Phosphatase 176 U/L (46-116); Anion Gap 9 (5-15); Aspartate Aminotransferase 13 U/L (13-40); BUN/Creatinine Ratio 10.9 (10.0-20.0); Bilirubin, Total 0.6 mg/dL (0.2-1.0); Blood Urea Nitrogen 43 mg/dL (9-23); Calcium 9.8 mg/dL (8.7-10.4); Carbon Dioxide 24 mmol/L (20-31); Chloride 112 mmol/L (98-107); Glucose 295 mg/dL (74-106); Lipase 32 U/L (12-53); Potassium 4.4 mmol/L (3.5-5.1); Sodium 145 mmol/L (136-145); Total Protein 7.1 g/dL (5.7-8.2)
[2023-12-14] MEDS: FAMOTIDINE (10MG/ML) 2ML VL IV ONE (20:22)
[2023-12-14] MEDS: ONDANSETRON HCL 4 MG/2 ML VIAL IV ONE ×2 (20:22→22:58)
[2023-12-14 20:24] LABS: Urine Bacteria FEW /hpf (None Seen); Urine Blood 2+ /uL (Negative); Urine Clarity Ex.Turbid (Clear); Urine Color Light-Brown (Yellow); Urine Mucus FEW (None Seen); Urine Protein, UAD 3+ (Negative); Urine Specific Gravity 1.024 (1.001-1.035); Urine Urobilinogen Normal (Negative); Urine WBC 1223 /hpf (0 - 5); Urine WBC Clumps PRESENT /hpf (None Seen); Urine pH 6.5 (5.0-9.0)
[2023-12-14] MEDS ORDERED: DEXTROSE (50%) 50ML SYRG IV PRN (22:00)
[2023-12-14] MEDS ORDERED: MORPHINE SULFATE INJ 2 MG/ml SYRG IV PRN (22:00)
[2023-12-14] MEDS: METOPROLOL TARTRATE 50 MG TAB PO SCH (22:49)
[2023-12-14] MEDS: ATORVASTATIN 20 MG TAB PO SCH (22:49)
[2023-12-14] MEDS: cloNIDine HCL 0.1 MG TAB PO SCH (22:50)
[2023-12-14] MEDS: hydrALAZINE HCL 25 MG TAB PO SCH (22:55)
[2023-12-14] MEDS: cefTRIAXone 1GM/50ML D5W 50 ML IV ONE (22:55)
[2023-12-14] MEDS: FUROSEMIDE 40 MG/4 ML VIAL IV ONE (22:55)
[2023-12-14] MEDS: MORPHINE SULFATE 4 MG/ML SYR/VIAL IV ONE (22:57)
[2023-12-14] MEDS: InsuLIN REG 1unit/0.01ml Soln (100units/ml) SC SCH (23:09)
[2023-12-14] MEDS: ACCU-CHEK COMFORT CURVE STRIP VI SCH (23:10)
[2023-12-14 23:40] VITALS: BP 188/83; PULSE 77; RESP 16; TEMP 97.2; O2SAT 97
[2023-12-15] VITALS (7 sets, daily range): BP systolic 98–138; BP diastolic 44–67; PULSE 62–80; RESP 17–21; TEMP 98.2–99.7; O2SAT 91–98
--- NOTE | 2023-12-15 | DVH ---
Exam: CT CT AB PEL WO CON-NO ORAL OR IV History: NAUSEA VOMITING Comparison Study: None available at time of dictation. Technique: Multidetector spiral CT of the abdomen was performed from lung bases to pubic symphysis. Imaging was performed without IV contrast. Axial, coronal and sagittal multiplanar reformats were ob tained from the axial data set by the technologist. Radiation Dose : 1. Abdomen/Pelvis: CTDIvol 8 mGy, DLP 398 mGy*cm. Findings: Evaluation of solid organs is limited due to lack of intravenous contrast use. Lung Bases: No acute or significant lung base finding. Normal heart size. Small anterior pericardi al effusion measuring 1.2 cm. Liver: The liver is normal in size. No focal lesions. Gallbladder and Biliary Tree: Unremarkable Spleen: Unremarkable Pancreas: The pancreas is grossly normal in appearance. Adrenal Glands: Unremarkable Kidneys: Kidneys are grossly normal without calculi or hydronephrosis. Bladder: Mild diffuse wall thickening with foci of free air. Bowel: The stomach is grossly normal in appearance. Small bowel and colon are normal in caliber and d istribution. Normal appendix is visualized in the right lower quadrant without findings of appendici tis. Ascites: Absent Lymphadenopathy: No mesenteric, retroperitoneal or periportal lymphadenopathy. Abdominal Wall and Mesentery: Unremarkable. Vasculature: The visualized abdominal aorta is normal in size and caliber. Evaluation of abdominal a nd pelvic vessels is limited due to lack of intravenous contrast. Pelvic Organs: Hysterectomy. Musculoskeletal: No aggressive focal bony lesions, acute fractures or dislocation. IMPRESSION: Diffuse wall thickening of the urinary bladder with internal foci of air. Findings are concerning fo r acute cystitis correlation with urinalysis recommended. Small anterior pericardial effusion.
[2023-12-15] MEDS ORDERED: VERI2.5T PO (01:08)
[2023-12-15] MEDS: hydrALAZINE HCL 20 MG/ML VL IV PRN (01:19)
[2023-12-15] MEDS: METOCLOPRAMIDE HCL 5MG/ml INJ 2ml VIAL IV ONE (02:02)
--- NOTE | 2023-12-15 03:35 | DVHHP2 ---
History of Present Illness Reason for Visit: Nausea and vomiting History of Present Illness 53-year-old female presents for evaluation of nausea and vomiting. She reports a three day history of onset of symptoms. She also reports lower abdominal pain. She reports having a history of end-stage renal disease and is scheduled for an AV fistula for dialysis. Patient's blood pressure was also noted to be high in the 200s. She denies headache or dizziness. Denies chest pain or shortness for breath. Past Medical History End-stage renal disease, congestive heart failure, asthma, anemia, diabetes mellitus, care, dyslipidemia and hypertension Past Surgical History Hysterectomy and Family History Diabetes mellitus Smoke: No ALCOHOL: none Drugs: None Lives: with Family Review of Systems Review of Systems Review of systems are currently negative otherwise addressed HPI. Allergies: Coded Allergies: Sulfa Antibiotics (Verified Allergy, Intermediate, RASH, 06/11/21) Sulfamethoxazole w/Trimethoprim (Verified Allergy, Intermediate, RASH, 06/11/21) Medications Current Medications Medications Dose Ordered Sig/Tawnya Route Start Time Stop Time Status Last Admin Dose Admin Clonidine HCl 0.1 mg BID PO 12/14/23 22:00 12/14/23 22:50 0.1 MG Nifedipine 90 mg DAILY PO 12/15/23 10:00 Metoprolol Tartrate 50 mg BID PO 12/14/23 22:00 12/14/23 22:49 50 MG Hydralazine HCl 50 mg Q8HR PO 12/14/23 22:00 12/14/23 22:55 50 MG Atorvastatin Calcium 20 mg HS PO 12/14/23 22:00 12/14/23 22:49 20 MG Ceftriaxone Sodium 50 ml @ 100 mls/hr DAILY@09 IV 12/15/23 09:00 Diagnostic Test (Pha) 1 strip ACHS 12/14/23 22:00 12/14/23 23:10 1 STRIP Insulin Human Regular ACHS SC 12/14/23 22:00 12/14/23 23:09 6 UNITS Dextrose 50 ml UD PRN IV 12/14/23 22:00 Acetaminophen/ Hydrocodone Bitart 1 tab Q4HP PRN PO 12/14/23 22:00 Ondansetron HCl 4 mg Q4HP PRN IV 12/14/23 22:00 Acetaminophen 650 mg Q6HP PRN PO 12/14/23 22:00 Morphine Sulfate 2 mg Q8HPRN PRN IV 12/14/23 22:00 Hydralazine HCl 10 mg Q6HPRN PRN IV 12/14/23 22:45 12/15/23 01:19 10 MG Exam Vital Signs Vital Signs Date Time Temp Pulse Resp B/P (MAP) Pulse Ox O2 Delivery O2 Flow Rate FiO2 12/15/23 02:08 138/67 (90) 12/15/23 02:08 68 18 97 12/14/23 23:40 97.2 97.2 12/14/23 23:40 Room Air* 0 21 Exam Gen: 53-year-old female in mild distress Skin: Warm, dry, normal color and texture, no rash. HEENT: Normocephalic atraumatic, mucous membranes moist and pink. Neck: Cervical and supraclavicular nodes normal without enlargement, trachea is midline, thyroid gland is normal without masses. Pulmonary: Clear to auscultation and percussion bilaterally. Cardiac: Regular rate and rhythm. No murmur Abdomen: Soft, nontender, nondistended, bowel sounds present all 4 quadrants, no guarding, no rigidity, no organomegaly. Extremities: No cyanosis, clubbing, no edema Neuro: Cranial nerves II through XII grossly intact, normal affect and speech, no focal motor deficits. Labs/Xrays ORDERING PHYSICIAN: LING RYAN PROCEDURE(s): ABPL - CT AB PEL WO CON-NO ORAL OR IV REASON: NAUSEA & VOMITING ORDER NUMBER(s): [id number], ACCESSION NUMBER(s): [id number] Exam: CT CT AB PEL WO CON-NO ORAL OR IV History: NAUSEA VOMITING Comparison Study: None available at time of dictation. Technique: Multidetector spiral CT of the abdomen was performed from lung bases to pubic symphysis. Imaging was performed without IV contrast. Axial, coronal and sagittal multiplanar reformats were obtained from the axial data set by the technologist. Radiation Dose : 1. Abdomen/Pelvis: CTDIvol 8 mGy, DLP 398 mGy*cm. Findings: Evaluation of solid organs is limited due to lack of intravenous contrast use. Lung Bases: No acute or significant lung base finding. Normal heart size. Small anterior pericardial effusion measuring 1.2 cm. Liver: The liver is normal in size. No focal lesions. Gallbladder and Biliary Tree: Unremarkable Spleen: Unremarkable Pancreas: The pancreas is grossly normal in appearance. Adrenal Glands: Unremarkable Kidneys: Kidneys are grossly normal without calculi or hydronephrosis. Bladder: Mild diffuse wall thickening with foci of free air. Bowel: The stomach is grossly normal in appearance. Small bowel and colon are normal in caliber and distribution. Normal appendix is visualized in the right lower quadrant without findings of appendicitis. Ascites: Absent Lymphadenopathy: No mesenteric, retroperitoneal or periportal lymphadenopathy. Abdominal Wall and Mesentery: Unremarkable. Vasculature: The visualized abdominal aorta is normal in size and caliber. Evaluation of abdominal and pelvic vessels is limited due to lack of intravenous contrast. Pelvic Organs: Hysterectomy. Musculoskeletal: No aggressive focal bony lesions, acute fractures or dislocation. IMPRESSION: Diffuse wall thickening of the urinary bladder with internal foci of air. Findings are concerning for acute cystitis correlation with urinalysis recommended. Small anterior pericardial effusion. ATED BY: ERIKA GARCIA DO DICTATED DATE/TIME: 12/14/23 5623 ORDERING PHYSICIAN: LYNN SHRESTHA MD PROCEDURE(s): CXR2 - CHEST TWO VIEWS ROUTINE REASON: n/v/d ORDER NUMBER(s): [id number], ACCESSION NUMBER(s): [id number] CHEST TWO VIEWS ROUTINE CLINICAL HISTORY: n/v/d COMPARISON: XY CHEST TWO VIEWS ROUTINE on DOS: 12/02/23 TECHNIQUE: Frontal and lateral view of the chest was obtained FINDINGS: Lines and Tubes: None Lungs: No focal consolidation. Pleura: No effusion. No pneumothorax. Cardiomediastinal contours: Unremarkable Bones: No acute osseous abnormality. IMPRESSION: No acute cardiopulmonary disease. Labs Test 12/14/23 23:06 12/14/23 22:14 12/14/23 20:09 12/14/23 19:11 Range/Units POC Glucose 279 H 70-106 mg/dl Troponin I High Sensitivity 19 </=34 ng/L Urine Color Light-brown Yellow Urine Clarity Ex.turbid Clear Urine pH 6.5 5.0-9.0 Urine Specific [place] 1.024 1.001-1.035 Urine Protein 3+ H Negative Urine Ketones 1+ H Negative Urine Blood 2+ H Negative /uL Urine Nitrite Negative Negative Urine Bilirubin Negative Negative Urine Urobilinogen Normal Negative mg/dL Urine Leukocyte Esterase 3+ Negative /uL Urine RBC 12 0 - 4 /hpf Urine WBC 1223 0 - 5 /hpf Urine WBC Clumps Present None Seen /hpf Urine Squamous Epithelial Cells Few <5 /hpf Urine Bacteria Few H None Seen /hpf Urine Mucus Few None Seen Urine Glucose 4+ H Normal mg/dL White Blood Count 8.9 4.4-10.8 10^3/uL Red Blood Count 3.96 L 4.0-5.20 10^6/uL Hemoglobin 11.9 L 12.2-16.2 g/dL Hematocrit 35.4 L 36.0-46.0 % Mean Corpuscular Volume 89.2 80.0-100.0 fL Mean Corpuscular Hemoglobin 30.0 28.0-32.0 pg Mean Corpuscular Hemoglobin Concent 33.6 32.0-36.0 g/dL Red Cell Distribution Width 14.7 H 11.8-14.3 % Platelet Count 195 140-450 10^3/uL Mean Platelet Volume 9.1 6.9-10.8 fL Neutrophils (%) (Auto) 87.5 H 37.0-80.0 % Lymphocytes (%) (Auto) 8.6 L 10.0-50.0 % Monocytes (%) (Auto) 2.8 0.0-12.0 % Eosinophils (%) (Auto) 0.2 0.0-7.0 % Basophils (%) (Auto) 0.9 0.0-2.0 % Neutrophils # (Auto) 7.8 1.6-8.6 10 ^3/uL Lymphocytes # (Auto) 0.8 0.4-5.4 10 ^3/uL Monocytes # (Auto) 0.2 0-1.3 10 ^3/uL Eosinophils # (Auto) 0 0-0.8 10 ^3/uL Basophils # (Auto) 0.1 0-0.2 10 ^3/uL Nucleated Red Blood Cells 0.0 % Sodium Level 145 136-145 mmol/L Potassium Level 4.4 3.5-5.1 mmol/L Chloride Level 112 H 98-107 mmol/L Carbon Dioxide Level 24 20-31 mmol/L Anion Gap 9 5-15 Blood Urea Nitrogen 43 H 9-23 mg/dL Creatinine 3.94 H 0.550-1.02 mg/dL Glomerular Filtration Rate Calc 13 >90 mL/min BUN/Creatinine Ratio 10.9 10.0-20.0 Serum Glucose 295 H 74-106 mg/dL Calcium Level 9.8 8.7-10.4 mg/dL Total Bilirubin 0.6 0.2-1.0 mg/dL Aspartate Amino Transferase (AST) 13 13-40 U/L Alanine Aminotransferase (ALT) 20 7-40 U/L Alkaline Phosphatase 176 H 46-116 U/L B-Type Natriuretic Peptide 1312.58 0-100 pg/mL Total Protein 7.1 5.7-8.2 g/dL Albumin 4.4 3.2-4.8 g/dL Lipase 32 12-53 U/L Assessment/Plan Assessment/Plan Assessment Acute cystitis End-stage renal disease Hypertensive urgency Diabetes mellitus Anemia of chronic disease Plan Admit the patient to Med surge to the hospitalist Nephrology consultation Resume home medications As needed antihypertensives Rocephin Continue treatment per orders. Plan discussed with: Patient My Orders Orders - LING RYAN [facility] Procedure Category Date Status Time *Dr. [facility] CONS 12/14/23 Transmitted -[place] 21:56 Clonidine Hcl Tablet PHA 12/14/23 In Process (Catapres Tablet) 22:00 Nifedipine Er PHA 12/15/23 In Process (Procardia Xl 10:00 Metoprolol Tartrate PHA 12/14/23 In Process Tablet (Lopressor Ta 22:00 Hydralazine Hcl PHA 12/14/23 In Process Tablet (Apresoline 22:00 Atorvastatin (Lipitor) PHA 12/14/23 In Process 22:00 Urine Bacterial FARHAD 12/14/23 In Process Culture 21:56 Ceftriaxone 1gm/50ml PHA 12/15/23 In Process D5w (Rocephin) 09:00 Basic Metabolic Panel LAB 12/15/23 Logged 04:00 Glucose Blood PHA 12/14/23 In Process (Accu-Chek Comfort 22:00 Insulin R (Human) PHA 12/14/23 In Process (Insulin R) 22:00 Dextrose 50% Syringe PHA 12/14/23 In Process 22:00 Admit ADMIT 12/14/23 Transmitted 21:56 Renal DIET 12/15/23 Transmitted Standard(2gna,3gk,Lopho) Breakfast Hydrocodone-Acet PHA 12/14/23 In Process 5/325mg Tab ([place] 22:00 Ondansetron Hcl PHA 12/14/23 In Process (Zofran) 22:00 Complete Blood Count LAB 12/15/23 Logged 04:00 Condition: Stable EVY 12/14/23 In Process 21:56 Acetaminophen Tablet PHA 12/14/23 In Process (Tylenol Tablet) 22:00 Bedrest With Bathroom EVY 12/14/23 In Process Privileg 21:56 Morphine Sulfate PHA 12/14/23 In Process Injection 22:00 Hydralazine Injection PHA 12/14/23 In Process (Apresoline Inject 22:45 Ct Ab Pel Wo Con-No CT 12/14/23 Resulted Oral Or Iv 22:37 Administer EVY 12/15/23 In Process Vaccination - Flu V 00:53 Date of Service: Dec 14, 2023 Billing Provider: LING RYAN Common Visit Codes: [id number] INP/OBS CARE (HIGH) LING RYAN Dec 15, 2023 03:35
[2023-12-15] MEDS: ONDANSETRON HCL 4 MG/2 ML VIAL IV PRN (06:16)
[2023-12-15 06:42] LABS: Basophils # (auto) 0.1 10 ^3/uL (0-0.2); Basophils % (auto) 0.6 % (0.0-2.0); Eosinophils # (auto) 0 10 ^3/uL (0-0.8); Eosinophils % (auto) 0.1 % (0.0-7.0); Hematocrit 30.4 % (36.0-46.0); Hemoglobin 10.4 g/dL (12.2-16.2); Lymphocytes # (auto) 1.4 10 ^3/uL (0.4-5.4); Lymphocytes % (auto) 17.2 % (10.0-50.0); Mean Corpuscular Hemoglobin 30.4 pg (28.0-32.0); Mean Corpuscular Hgb Conc. 34.2 g/dL (32.0-36.0); Mean Corpuscular Volume 88.8 fL (80.0-100.0); Monocytes # (auto) 0.5 10 ^3/uL (0-1.3); Monocytes % (auto) 6.3 % (0.0-12.0); Neutrophils # (auto) 6.1 10 ^3/uL (1.6-8.6); Neutrophils % (auto) 75.8 % (37.0-80.0); Platelet Count (auto) 172 10^3/uL (140-450); Red Blood Cells 3.42 10^6/uL (4.0-5.20); Red Cell Distribution Width 14.8 % (11.8-14.3); White Blood Cell 8.1 10^3/uL (4.4-10.8)
[2023-12-15 06:44] LABS: Chloride 116 mmol/L (98-107); Potassium 4.2 mmol/L (3.5-5.1); Sodium 149 mmol/L (136-145)
[2023-12-15 06:45] LABS: Anion Gap 8 (5-15); Carbon Dioxide 25 mmol/L (20-31)
[2023-12-15 06:46] LABS: Calcium 9.4 mg/dL (8.7-10.4)
[2023-12-15 06:51] LABS: BUN/Creatinine Ratio 11.7 (10.0-20.0); Blood Urea Nitrogen 49 mg/dL (9-23); Glucose 169 mg/dL (74-106)
[2023-12-15] MEDS: NIFEdipine ER 30 MG TAB PO SCH (09:21)
[2023-12-15] MEDS: cefTRIAXone 1GM/50ML D5W 50 ML IV SCH (09:24)
--- NOTE | 2023-12-15 16:31 | DVHPN2 ---
Subjective Patient continues to report having nausea and vomiting. Reviewed: Care Plan, Labs, Medications Changes from previous H/P or p: No Changes General: Per HPI Objective Vitals Vital Signs Date Time Temp Pulse Resp B/P (MAP) Pulse Ox O2 Delivery O2 Flow Rate FiO2 12/15/23 13:00 99.6 72 21 102/66 (78) 97 99.6 12/15/23 07:30 Room Air* 0 21 Intake/Output Intake and Output 12/15/23 07:00 Intake Total 50 ml Balance 50 ml Intake Oral 0 ml IV Total 50 ml General Appearance: Alert, Oriented X3, Cooperative, mild distress HEENT: Atraumatic, Other (Legally blind) Lungs: Clear to auscultation, Normal air movement Cardiovascular: Normal S1, Normal S2 Musculoskeletal: Normal sensory function, Normal motor function Neuro: Normal gait, Normal speech Psych/Mental Status: Mental status NL, Mood NL Medications Current Medications Medications Dose Ordered Sig/Tawnya Route Start Time Stop Time Status Last Admin Dose Admin Clonidine HCl 0.1 mg BID PO 12/14/23 22:00 12/15/23 09:22 0.1 MG Nifedipine 90 mg DAILY PO 12/15/23 10:00 12/15/23 09:21 90 MG Metoprolol Tartrate 50 mg BID PO 12/14/23 22:00 12/15/23 09:22 50 MG Hydralazine HCl 50 mg Q8HR PO 12/14/23 22:00 12/15/23 05:58 50 MG Atorvastatin Calcium 20 mg HS PO 12/14/23 22:00 12/14/23 22:49 20 MG Ceftriaxone Sodium 50 ml @ 100 mls/hr DAILY@09 IV 12/15/23 09:00 12/15/23 09:24 100 MLS/HR Diagnostic Test (Pha) 1 strip ACHS 12/14/23 22:00 12/15/23 11:25 1 STRIP Insulin Human Regular ACHS SC 12/14/23 22:00 12/15/23 11:25 4 UNITS Dextrose 50 ml UD PRN IV 12/14/23 22:00 Acetaminophen/ Hydrocodone Bitart 1 tab Q4HP PRN PO 12/14/23 22:00 Ondansetron HCl 4 mg Q4HP PRN IV 12/14/23 22:00 12/15/23 06:16 4 MG Acetaminophen 650 mg Q6HP PRN PO 12/14/23 22:00 Morphine Sulfate 2 mg Q8HPRN PRN IV 12/14/23 22:00 Hydralazine HCl 10 mg Q6HPRN PRN IV 12/14/23 22:45 12/15/23 01:19 10 MG Laboratory Results Laboratory Tests 12/15/23 05:20 Chemistry Test 12/14/23 19:11 12/15/23 05:20 Albumin 4.4 g/dL (3.2-4.8) Calcium Level 9.8 mg/dL (8.7-10.4) 9.4 mg/dL (8.7-10.4) Total Protein 7.1 g/dL (5.7-8.2) Lipid panel Test 12/14/23 19:11 Lipase 32 U/L (12-53) Cardiac Markers Test 12/14/23 19:11 B-Type Natriuretic Peptide 1312.58 pg/mL (0-100) LFT Test 12/14/23 19:11 Alanine Aminotransferase (ALT) 20 U/L (7-40) Alkaline Phosphatase 176 U/L (46-116) H Aspartate Amino Transferase (AST) 13 U/L (13-40) Total Bilirubin 0.6 mg/dL (0.2-1.0) Urinalysis Test 12/14/23 20:09 Urine Color Light-brown (Yellow) Urine Clarity Ex.turbid (Clear) Urine pH 6.5 (5.0-9.0) Urine Specific [place] 1.024 (1.001-1.035) Urine Protein 3+ (Negative) H Urine Ketones 1+ (Negative) H Urine Blood 2+ /uL (Negative) H Urine Nitrite Negative (Negative) Urine Bilirubin Negative (Negative) Urine Urobilinogen Normal mg/dL (Negative) Urine Leukocyte Esterase 3+ /uL (Negative) Urine RBC 12 /hpf (0 - 4) Urine WBC 1223 /hpf (0 - 5) Urine WBC Clumps Present /hpf (None Seen) Urine Squamous Epithelial Cells Few /hpf (<5) Urine Bacteria Few /hpf (None Seen) H Urine Mucus Few (None Seen) Urine Glucose 4+ mg/dL (Normal) H Microbiology Microbiology Date/Time Source Procedure Growth Status 12/14/23 20:09 Voided Urine Urine Culture - Preliminary Resulted Labs and/or images reviewed: Labs reviewed by me, Image(s) reviewed by me Assessment/Plan Assessment/Plan Impression: -complicated cystitis -CKD stage 4/five -diabetes mellitus -primary hypertension Plan: -nephrology consultation -IV antibiotic therapy: Rocephin -urine culture: Preliminary with greater than [id number] gram-negative rods -continue antihypertensives -regular insulin sliding scale -repeat labs in a.m. Total time spent with patient discussing and formulating plan of care: 35 minutes. This medical document was created using an electronic medical record system with [employer] dictation system. Although this document has been carefully reviewed, there may still be some phonetic and typographical errors. These areas are purely typographical due to imperfections of the software programs, and do not reflect any compromise in the patient's medical care. Plan discussed with: Patient, Other (RN) Date of Service: Dec 15, 2023 Billing Provider: DIONNE MCHUGH NP Common Visit Codes: [id number] INP/OBS CARE(HIGH) DIONNE MCHUGH NP Dec 15, 2023 16:31
--- NOTE | 2023-12-15 18:30 | DVHINCON2 ---
Date of service: Dec 15, 2023 Referring Physician ollie Reason for Consultation DOMINIC History of Present Illness 53 years old female with past medical history of CKD5, diabetic nephropathy advanced, diabetic retinopathy, blindness, hypertension, multiple hospitalizations for hypertensive emergency, congestive heart failure with reduced ejection fraction presented with chief complaints of nausea vomiting for three days associated with poor p.o. intake Past Medical History As per HPI Past Surgical History Eye surgery Allergies: Coded Allergies: Sulfa Antibiotics (Verified Allergy, Intermediate, RASH, 06/11/21) Sulfamethoxazole w/Trimethoprim (Verified Allergy, Intermediate, RASH, 06/11/21) Home Meds Active Scripts Cephalexin (KEFLEX CAPSULE) 250 Mg Cp, 250 MG PO TID for 5 Days, #15 CAP Prov:CHARBEL QURESHI MD 05/22/23 Ferrous Sulfate (FERROUS SULFATE) 325 Mg Tb, 1 TAB PO DAILY, #30 TAB 3 Refills Prov:CHARBEL QURESHI MD 05/22/23 Pantoprazole Sodium Sesquihydr (Pantoprazole Sodium) 40 Mg Tab, 40 MG PO BID, #60 TAB Prov:YOSI EVANGELISTA MD 12/21/22 Sucralfate (CARAFATE) 1 Gm Tab, 1 GM PO QID, #120 TAB Prov:YOSI EVANGELISTA MD 12/21/22 Reported Medications Vericiguat (Verquvo) 2.5 Mg Tab, 2.5 MG PO, TAB 12/15/23 Rimegepant Sulfate (Nurtec) 75 Mg Tab, 75 MG PO UD for 7 Days, #14 TAB 05/21/23 Nifedipine (Nifedipine Er) 30 Mg Tab, 30 MG PO BID, TAB 05/21/23 Fluticasone Propionate (Nasal) (Flonase Allergy Relief) 50 Mcg/Act Spr, 50 MCG EACHNOSTRI DAILY, SPRAY 05/21/23 Ergocalciferol (VITAMIN D 68643 UNIT) 50,000 [place], [address] UNIT PO QWEEKLY, CAP 05/21/23 Isosorbide Mononitrate (Isosorbide Mononitrate Er) 30 Mg Tab, 30 MG PO DAILY 05/21/23 Furosemide (Furosemide) 20 Mg Tab, 20 MG PO DAILY, TAB 05/21/23 Carvedilol (Carvedilol) 12.5 Mg Tab, 1 TAB PO BID 12/09/22 Hydralazine HCl (Hydralazine HCl) 25 Mg Tab, 1 TAB PO TIDWM 12/09/22 Sodium Bicarbonate (Sodium Bicarbonate) 650 Mg Tab, 650 MG PO BID, TAB 07/23/21 Cholecalciferol (VITAMIN D3) 2,000 Unit Tab, 1 TAB PO BID for SUPPLEMENT 06/11/21 Atorvastatin Calcium (ATORVASTATIN CALCIUM) 20 Mg Tab, 1 TAB PO DAILY for HIGH CHOLESTEROL 03/14/19 Current Medications Current Medications Medications (Trade) Dose Ordered Sig/Tawnya Route PRN Reason Start Time Stop Time Status Last Admin Metoprolol Succinate (Toprol Xl) 25 mg DAILY PO 12/17/23 10:00 Sacubitril/ Valsartan (Entresto 24-26 Mg tab) 0.5 tab BID PO 12/16/23 22:00 Metoclopramide HCl (Reglan Tablet) 5 mg ACHS PO 12/16/23 17:00 Family History: Diabetes mellitus G8 MOTHER G8 FATHER G8 BROTHER G8 SISTER FH: heart attack G8 MOTHER G8 FATHER Hypertension G8 MOTHER Social History Denies actively any Review of Systems HEENT-denies headache, positive blindness no hearing issue, denies neck complaints, denies throat issues Respiratory system-denies cough, denies shortness of breath Cardiovascular system-denies chest pain, denies palpitations Abdomen-denies abdominal pain, positive nausea/ vomiting Musculoskeletal-denies swelling in the legs, denies pain in the extremities Genitourinary-reduced urine output Neuro-denies dizziness, denies seizures Psychiatric-denies psychiatric history H&P Exam Vital Signs/I&O Vital Sign Date Time Temp Pulse Resp B/P (MAP) Pulse Ox O2 Delivery O2 Flow Rate FiO2 12/16/23 09:16 74 113/54 (73) 12/16/23 08:53 99.1 16 94 99.1 12/16/23 08:00 Room Air* 0 21 Intake and Output 12/15/23 12/16/23 19:00 07:00 Intake Total 250 ml 250 ml Balance 250 ml 250 ml Intake Oral 200 ml 250 ml IV Total 50 ml # Voids 1 Physical Exam General-not in any distress, positive blindness HEENT-normocephalic, no icterus, no pallor, neck supple Respiratory-fair air entry bilateral, no rhonchi, no wheeze [id number] heard, no murmurs appreciated Abdominal-soft, nontender, nondistended Musculoskeletal-no pedal edema, no calf tenderness Genitourinary-deferred Neuro-awake alert oriented x3, Psychiatric-not agitated, cooperative, Labs/Diagnostic Data Labs/Diagnostic Data Laboratory Tests Test 12/16/23 12:05 12/16/23 11:07 12/16/23 05:57 12/16/23 05:26 Range/Units Prothrombin Time 10.5 9.3-11.8 sec Prothrombin Time INR 0.99 0.9-1.15 Activated Partial Thromboplast Time 24.8 24.5-34.5 SEC POC Glucose 226 H 143 H 70-106 mg/dl Sodium Level 142 # 136-145 mmol/L Potassium Level 4.1 3.5-5.1 mmol/L Chloride Level 110 H 98-107 mmol/L Carbon Dioxide Level 23 20-31 mmol/L Anion Gap 9 5-15 Blood Urea Nitrogen 52 H 9-23 mg/dL Creatinine 5.30 H 0.550-1.02 mg/dL Glomerular Filtration Rate Calc 9 >90 mL/min BUN/Creatinine Ratio 9.8 L 10.0-20.0 Serum Glucose 142 H 74-106 mg/dL Hemoglobin A1c 7.3 H <5.7 % A1C Calcium Level 9.0 8.7-10.4 mg/dL Test 12/15/23 21:05 12/15/23 17:26 12/15/23 11:15 12/15/23 06:02 Range/Units POC Glucose 191 H 171 H 236 H 154 H 70-106 mg/dl Test 12/15/23 05:20 12/14/23 23:06 12/14/23 22:14 12/14/23 20:09 Range/Units White Blood Count 8.1 4.4-10.8 10^3/uL Red Blood Count 3.42 L 4.0-5.20 10^6/uL Hemoglobin 10.4 L 12.2-16.2 g/dL Hematocrit 30.4 #L 36.0-46.0 % Mean Corpuscular Volume 88.8 80.0-100.0 fL Mean Corpuscular Hemoglobin 30.4 28.0-32.0 pg Mean Corpuscular Hemoglobin Concent 34.2 32.0-36.0 g/dL Red Cell Distribution Width 14.8 H 11.8-14.3 % Platelet Count 172 140-450 10^3/uL Mean Platelet Volume 9.2 6.9-10.8 fL Neutrophils (%) (Auto) 75.8 37.0-80.0 % Lymphocytes (%) (Auto) 17.2 10.0-50.0 % Monocytes (%) (Auto) 6.3 0.0-12.0 % Eosinophils (%) (Auto) 0.1 0.0-7.0 % Basophils (%) (Auto) 0.6 0.0-2.0 % Neutrophils # (Auto) 6.1 1.6-8.6 10 ^3/uL Lymphocytes # (Auto) 1.4 0.4-5.4 10 ^3/uL Monocytes # (Auto) 0.5 0-1.3 10 ^3/uL Eosinophils # (Auto) 0 0-0.8 10 ^3/uL Basophils # (Auto) 0.1 0-0.2 10 ^3/uL Nucleated Red Blood Cells 0.0 % Sodium Level 149 H 136-145 mmol/L Potassium Level 4.2 3.5-5.1 mmol/L Chloride Level 116 H 98-107 mmol/L Carbon Dioxide Level 25 20-31 mmol/L Anion Gap 8 5-15 Blood Urea Nitrogen 49 H 9-23 mg/dL Creatinine 4.20 H 0.550-1.02 mg/dL Glomerular Filtration Rate Calc 12 >90 mL/min BUN/Creatinine Ratio 11.7 10.0-20.0 Serum Glucose 169 H 74-106 mg/dL Calcium Level 9.4 8.7-10.4 mg/dL POC Glucose 279 H 70-106 mg/dl Troponin I High Sensitivity 19 </=34 ng/L Urine Color Light-brown Yellow Urine Clarity Ex.turbid Clear Urine pH 6.5 5.0-9.0 Urine Specific [place] 1.024 1.001-1.035 Urine Protein 3+ H Negative Urine Ketones 1+ H Negative Urine Blood 2+ H Negative /uL Urine Nitrite Negative Negative Urine Bilirubin Negative Negative Urine Urobilinogen Normal Negative mg/dL Urine Leukocyte Esterase 3+ Negative /uL Urine RBC 12 0 - 4 /hpf Urine WBC 1223 0 - 5 /hpf Urine WBC Clumps Present None Seen /hpf Urine Squamous Epithelial Cells Few <5 /hpf Urine Bacteria Few H None Seen /hpf Urine Mucus Few None Seen Urine Glucose 4+ H Normal mg/dL Test 12/14/23 19:57 12/14/23 19:11 Range/Units Troponin I High Sensitivity 20 20 </=34 ng/L White Blood Count 8.9 4.4-10.8 10^3/uL Red Blood Count 3.96 L 4.0-5.20 10^6/uL Hemoglobin 11.9 L 12.2-16.2 g/dL Hematocrit 35.4 L 36.0-46.0 % Mean Corpuscular Volume 89.2 80.0-100.0 fL Mean Corpuscular Hemoglobin 30.0 28.0-32.0 pg Mean Corpuscular Hemoglobin Concent 33.6 32.0-36.0 g/dL Red Cell Distribution Width 14.7 H 11.8-14.3 % Platelet Count 195 140-450 10^3/uL Mean Platelet Volume 9.1 6.9-10.8 fL Neutrophils (%) (Auto) 87.5 H 37.0-80.0 % Lymphocytes (%) (Auto) 8.6 L 10.0-50.0 % Monocytes (%) (Auto) 2.8 0.0-12.0 % Eosinophils (%) (Auto) 0.2 0.0-7.0 % Basophils (%) (Auto) 0.9 0.0-2.0 % Neutrophils # (Auto) 7.8 1.6-8.6 10 ^3/uL Lymphocytes # (Auto) 0.8 0.4-5.4 10 ^3/uL Monocytes # (Auto) 0.2 0-1.3 10 ^3/uL Eosinophils # (Auto) 0 0-0.8 10 ^3/uL Basophils # (Auto) 0.1 0-0.2 10 ^3/uL Nucleated Red Blood Cells 0.0 % Sodium Level 145 136-145 mmol/L Potassium Level 4.4 3.5-5.1 mmol/L Chloride Level 112 H 98-107 mmol/L Carbon Dioxide Level 24 20-31 mmol/L Anion Gap 9 5-15 Blood Urea Nitrogen 43 H 9-23 mg/dL Creatinine 3.94 H 0.550-1.02 mg/dL Glomerular Filtration Rate Calc 13 >90 mL/min BUN/Creatinine Ratio 10.9 10.0-20.0 Serum Glucose 295 H 74-106 mg/dL Calcium Level 9.8 8.7-10.4 mg/dL Total Bilirubin 0.6 0.2-1.0 mg/dL Aspartate Amino Transferase (AST) 13 13-40 U/L Alanine Aminotransferase (ALT) 20 7-40 U/L Alkaline Phosphatase 176 H 46-116 U/L B-Type Natriuretic Peptide 1312.58 0-100 pg/mL Total Protein 7.1 5.7-8.2 g/dL Albumin 4.4 3.2-4.8 g/dL Lipase 32 12-53 U/L Microbiology Date/Time Source Procedure Growth Status 12/14/23 20:09 Voided Urine Urine Culture - Final Escherichia coli Complete Assessment Acute kidney injury on Chronic kidney disease 5 in the setting of hypertensive emergency CKD5- clinic Hypertensive emergency Diabetic nephropathy Nephrotic range proteinuria Congestive heart failure reduced ejection fraction EF less than 25 Recommendations Blood pressure control Tunneled cath and HD initiation chair time with DCD hep panel pt verbalised understanding and agreed for HD d/w and Hospitalist Ollie Plan discussed with: Patient JOHANA GUTIERREZ MD Dec 15, 2023 18:30
[2023-12-16] VITALS (8 sets, daily range): BP systolic 113–161; BP diastolic 54–78; PULSE 71–77; RESP 16–17; TEMP 98.7–99.5; O2SAT 93–95
[2023-12-16 06:04] LABS: Anion Gap 9 (5-15); Carbon Dioxide 23 mmol/L (20-31); Chloride 110 mmol/L (98-107); Potassium 4.1 mmol/L (3.5-5.1); Sodium 142 mmol/L (136-145)
[2023-12-16 06:10] LABS: BUN/Creatinine Ratio 9.8 (10.0-20.0); Blood Urea Nitrogen 52 mg/dL (9-23); Glucose 142 mg/dL (74-106)
[2023-12-16] MEDS: HYDROcodone-ACET 5/325MG TAB PO PRN (12:38)
--- NOTE | 2023-12-16 12:52 | DVHPN2 ---
Subjective Patient continues to report having nausea and vomiting. Reviewed: Care Plan, H&P, Labs, Medications Changes from previous H/P or p: Changes General: Per HPI Objective Vitals Vital Signs Date Time Temp Pulse Resp B/P (MAP) Pulse Ox O2 Delivery O2 Flow Rate FiO2 12/16/23 09:16 74 113/54 (73) 12/16/23 08:53 99.1 16 94 99.1 12/16/23 08:00 Room Air* 0 21 Intake/Output Intake and Output 12/16/23 07:00 Intake Total 500 ml Balance 500 ml Intake Oral 450 ml IV Total 50 ml # Voids 1 General Appearance: Alert, Oriented X3, Cooperative, mild distress HEENT: Atraumatic, Other (Legally blind) Lungs: Clear to auscultation, Normal air movement Cardiovascular: Normal S1, Normal S2 Musculoskeletal: Normal sensory function, Normal motor function Neuro: Normal gait, Normal speech Psych/Mental Status: Mental status NL, Mood NL Medications Current Medications Medications Dose Ordered Sig/Tawnya Route Start Time Stop Time Status Last Admin Dose Admin Atorvastatin Calcium 20 mg HS PO 12/14/23 22:00 12/15/23 21:22 20 MG Ceftriaxone Sodium 50 ml @ 100 mls/hr DAILY@09 IV 12/15/23 09:00 12/16/23 08:41 100 MLS/HR Diagnostic Test (Pha) 1 strip ACHS 12/14/23 22:00 12/16/23 11:34 1 STRIP Insulin Human Regular ACHS SC 12/14/23 22:00 12/16/23 12:32 4 UNITS Dextrose 50 ml UD PRN IV 12/14/23 22:00 Acetaminophen/ Hydrocodone Bitart 1 tab Q4HP PRN PO 12/14/23 22:00 12/16/23 12:38 1 TAB Ondansetron HCl 4 mg Q4HP PRN IV 12/14/23 22:00 12/16/23 08:41 4 MG Acetaminophen 650 mg Q6HP PRN PO 12/14/23 22:00 Morphine Sulfate 2 mg Q8HPRN PRN IV 12/14/23 22:00 Hydralazine HCl 10 mg Q6HPRN PRN IV 12/14/23 22:45 12/15/23 01:19 10 MG Metoprolol Succinate 25 mg DAILY PO 12/17/23 10:00 Sacubitril/ Valsartan 0.5 tab BID PO 12/16/23 22:00 Laboratory Results Laboratory Tests 12/15/23 05:20 12/16/23 05:26 Chemistry Test 12/16/23 05:26 Calcium Level 9.0 mg/dL (8.7-10.4) Coagulation Test 12/16/23 12:05 Prothrombin Time Pending Prothrombin Time INR Pending Activated Partial Thromboplast Time Pending HgA1c, TSH Test 12/16/23 05:26 Hemoglobin A1c 7.3 % A1C (<5.7) H Urinalysis Test 12/14/23 20:09 Urine Color Light-brown (Yellow) Urine Clarity Ex.turbid (Clear) Urine pH 6.5 (5.0-9.0) Urine Specific [place] 1.024 (1.001-1.035) Urine Protein 3+ (Negative) H Urine Ketones 1+ (Negative) H Urine Blood 2+ /uL (Negative) H Urine Nitrite Negative (Negative) Urine Bilirubin Negative (Negative) Urine Urobilinogen Normal mg/dL (Negative) Urine Leukocyte Esterase 3+ /uL (Negative) Urine RBC 12 /hpf (0 - 4) Urine WBC 1223 /hpf (0 - 5) Urine WBC Clumps Present /hpf (None Seen) Urine Squamous Epithelial Cells Few /hpf (<5) Urine Bacteria Few /hpf (None Seen) H Urine Mucus Few (None Seen) Urine Glucose 4+ mg/dL (Normal) H Microbiology Microbiology Date/Time Source Procedure Growth Status 12/14/23 20:09 Voided Urine Urine Culture - Final Escherichia coli Complete Labs and/or images reviewed: Labs reviewed by me, Image(s) reviewed by me Assessment/Plan Assessment/Plan Impression: -complicated cystitis: E coli -CKD stage 4/five -diabetes mellitus -primary hypertension -acute on chronic systolic heart failure with ejection fraction 25% Plan: -nephrology consultation : Discussed case with Nephrology. Plans for tunneled HD catheter and HD while in the hospital. Fistula will be held at this time. -IR consultation for HD catheter placement -IV antibiotic therapy: Rocephin -urine culture: E coli -change antihypertensives. Start Coreg, Entresto -regular insulin sliding scale -repeat labs in a.m. Total time spent with patient discussing and formulating plan of care: 35 minutes. This medical document was created using an electronic medical record system with [employer] dictation system. Although this document has been carefully reviewed, there may still be some phonetic and typographical errors. These areas are purely typographical due to imperfections of the software programs, and do not reflect any compromise in the patient's medical care. Plan discussed with: Patient, Other (RN) My Orders Orders - DIONNE MCHUGH NP Procedure Category Date Status Time Communication Order ORDERS 12/15/23 Transmitted 17:35 PTPTT LAB 12/16/23 In Process 10:30 Metoprolol Xl PHA 12/17/23 In Process Succinate (Toprol Xl) 10:00 Sacubitril-Valsartan PHA 12/16/23 In Process (Entresto 24-26 Mg 22:00 Date of Service: Dec 16, 2023 Billing Provider: DIONNE MCHUGH NP Common Visit Codes: [id number] INP/OBS CARE(HIGH) DIONNE MCHUGH NP Dec 16, 2023 12:52
[2023-12-16 12:54] LABS: INR 0.99 (0.9-1.15); Partial Thromboplastin Time 24.8 SEC (24.5-34.5); Prothrombin Time 10.5 sec (9.3-11.8)
--- NOTE | 2023-12-16 14:33 | DVHPN2 ---
Progress Note - Dictate Date Seen: Dec 15, 2023 Medical Necessity Reason Pt with a Central, PICC or Fol: No Subjective PT WITH ESRD WOULD REQUIRE HD DIALYSIS ACCESS PENDING NOW WITH UTI/ E COLI The patient denies any chest pain. No history of cough. No history of fever. No history of dizziness or syncope. History of pedal edema. Review of rest of systems are otherwise currently negative. 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 vital signs Vital Sign Date Time Temp Pulse Resp B/P (MAP) Pulse Ox O2 Delivery O2 Flow Rate FiO2 12/16/23 09:16 74 113/54 (73) 12/16/23 08:53 99.1 16 94 99.1 12/16/23 08:00 Room Air* 0 21 Total Intake and Output 12/15/23 12/15/23 12/16/23 15:00 23:00 07:00 Intake Total 50 ml 200 ml 250 ml Balance 50 ml 200 ml 250 ml medications Current Medications Medications Dose Ordered Sig/Tawnya Route Start Time Stop Time Status Last Admin Dose Admin Atorvastatin Calcium 20 mg HS PO 12/14/23 22:00 12/15/23 21:22 20 MG Ceftriaxone Sodium 50 ml @ 100 mls/hr DAILY@09 IV 12/15/23 09:00 12/16/23 08:41 100 MLS/HR Diagnostic Test (Pha) 1 strip ACHS 12/14/23 22:00 12/16/23 11:34 1 STRIP Insulin Human Regular ACHS SC 12/14/23 22:00 12/16/23 12:32 4 UNITS Dextrose 50 ml UD PRN IV 12/14/23 22:00 Acetaminophen/ Hydrocodone Bitart 1 tab Q4HP PRN PO 12/14/23 22:00 12/16/23 12:38 1 TAB Ondansetron HCl 4 mg Q4HP PRN IV 12/14/23 22:00 12/16/23 08:41 4 MG Acetaminophen 650 mg Q6HP PRN PO 12/14/23 22:00 Morphine Sulfate 2 mg Q8HPRN PRN IV 12/14/23 22:00 Hydralazine HCl 10 mg Q6HPRN PRN IV 12/14/23 22:45 12/15/23 01:19 10 MG Metoprolol Succinate 25 mg DAILY PO 12/17/23 10:00 Sacubitril/ Valsartan 0.5 tab BID PO 12/16/23 22:00 Metoclopramide HCl 5 mg ACHS PO 12/16/23 17:00 objective GENERAL: The patient is awake, alert. VITAL SIGNS: Temperature of 98.1, pulse 74 per minute, blood pressure 165/75. SHEENT: Unremarkable except for decreased vision more so on the left eye. There is pedal edema 1+. LUNGS: Reveal bilateral scattered rales. CARDIOVASCULAR: S1, S2 is regular. There are no murmurs. ABDOMEN: Abdomen is soft. There is no organomegaly. NEUROLOGIC: Nonfocal. MUSCULOSKELETAL: Normal. laboratory and microbiology Laboratory Tests 12/16/23 05:26 12/15/23 05:20 Test 12/16/23 05:26 Range/Units Serum Glucose 142 H 74-106 mg/dL Problem List PT WITH HF rEF CHRONIC DCM NL CORONARIES SCHEDULED FOR AICD UTI ESRD ANEMIA Assessment/Plan ABX VASCULAR ACCESS DEFER AICD FOR A LATER DATE Plan discussed with: Patient WADE CHAVARRIA MD Dec 16, 2023 14:33
--- NOTE | 2023-12-16 15:38 | DVHPN2 ---
Progress Note Date Seen: Dec 16, 2023 Medical Necessity Reason Pt with a Central, PICC or Fol: No Subjective Patient reports: Feels better Review of Systems: HEENT:Abnormal, CVS:Normal, RESPIRATORY:Normal, GI:Abnormal, :Normal, MSK:Normal, NEURO:Normal Objective vital signs Vital Sign Date Time Temp Pulse Resp B/P (MAP) Pulse Ox O2 Delivery O2 Flow Rate FiO2 12/16/23 09:16 74 113/54 (73) 12/16/23 08:53 99.1 16 94 99.1 12/16/23 08:00 Room Air* 0 21 Total Intake and Output 12/15/23 12/15/23 12/16/23 15:00 23:00 07:00 Intake Total 50 ml 200 ml 250 ml Balance 50 ml 200 ml 250 ml medications Current Medications Medications Dose Ordered Sig/Tawnya Route Start Time Stop Time Status Last Admin Dose Admin Atorvastatin Calcium 20 mg HS PO 12/14/23 22:00 12/15/23 21:22 20 MG Ceftriaxone Sodium 50 ml @ 100 mls/hr DAILY@09 IV 12/15/23 09:00 12/16/23 08:41 100 MLS/HR Diagnostic Test (Pha) 1 strip ACHS 12/14/23 22:00 12/16/23 11:34 1 STRIP Insulin Human Regular ACHS SC 12/14/23 22:00 12/16/23 12:32 4 UNITS Dextrose 50 ml UD PRN IV 12/14/23 22:00 Acetaminophen/ Hydrocodone Bitart 1 tab Q4HP PRN PO 12/14/23 22:00 12/16/23 12:38 1 TAB Ondansetron HCl 4 mg Q4HP PRN IV 12/14/23 22:00 12/16/23 08:41 4 MG Acetaminophen 650 mg Q6HP PRN PO 12/14/23 22:00 Morphine Sulfate 2 mg Q8HPRN PRN IV 12/14/23 22:00 Hydralazine HCl 10 mg Q6HPRN PRN IV 12/14/23 22:45 12/15/23 01:19 10 MG Metoprolol Succinate 25 mg DAILY PO 12/17/23 10:00 Sacubitril/ Valsartan 0.5 tab BID PO 12/16/23 22:00 Metoclopramide HCl 5 mg ACHS PO 12/16/23 17:00 Examination: GENERAL:Normal, HEENT:Abnormal, NECK:Normal, LUNGS:Normal, CVS:Normal, ABDOMEN:Normal, MSK:Normal, SKIN:Normal, NEURO:Normal, :Normal laboratory and microbiology Laboratory Tests 12/16/23 05:26 12/15/23 05:20 Test 12/16/23 05:26 Range/Units Serum Glucose 142 H 74-106 mg/dL Microbiology Date/Time Source Procedure Growth Status 12/14/23 20:09 Voided Urine Urine Culture - Final Escherichia coli Complete Problem List/Assessment/Plan Problem List/Assessment/Plan Acute kidney injury on Chronic kidney disease 5 in the setting of hypertensive emergency CKD5- clinic Hypertensive emergency Diabetic nephropathy Nephrotic range proteinuria Congestive heart failure reduced ejection fraction EF less than 25 Recommendations Blood pressure control Tunneled cath and HD initiation chair time with DCD hep panel pt verbalised understanding and agreed for HD d/w and Hospitalist Shoaib Plan discussed with: Patient My Orders My Orders Orders - JOAHNA GUTIERREZ MD Procedure Category Date Status Time Blood Culture FARHAD 12/16/23 In Process 10:19 * Radiologist Consult CONS 12/16/23 Transmitted 10:46 JOHANA GUTIERREZ MD Dec 16, 2023 15:38
[2023-12-16] MEDS: CALCITRIOL 0.25 MCG CAP PO ONE (16:49)
[2023-12-16] MEDS: METOCLOPRAMIDE HCL 10 MG TAB PO SCH (16:49)
[2023-12-16] MEDS: SACUBITRIL-VALSARTAN 24mg/26mg TAB PO SCH (21:17)
[2023-12-17] VITALS (9 sets, daily range): BP systolic 135–186; BP diastolic 61–83; PULSE 66–85; RESP 12–24; TEMP 98.1–98.8; O2SAT 93–98
[2023-12-17 06:25] LABS: Magnesium 1.8 mg/dL (1.6-2.6)
[2023-12-17 06:27] LABS: Phosphorus 5.2 mg/dL (2.4-5.1)
[2023-12-17] MEDS: CALCITRIOL 0.25 MCG CAP PO SCH (10:00)
[2023-12-17] MEDS: METOPROLOL SUCCINATE XL 50 MG TAB PO SCH (10:00)
--- NOTE | 2023-12-17 11:04 | DVHPN2 ---
Progress Note Date Seen: Dec 17, 2023 Medical Necessity Reason Pt with a Central, PICC or Fol: No Subjective Patient reports: No new complaints Other Systems: Patient seen and examined by myself in follow-up today Patient examined hemodialysis, blood pressure stable Objective vital signs Vital Sign Date Time Temp Pulse Resp B/P (MAP) Pulse Ox O2 Delivery O2 Flow Rate FiO2 12/17/23 09:00 98.6 80 19 148/74 (98) 98 98.6 12/16/23 20:00 Room Air* 0 21 Total Intake and Output 12/16/23 12/16/23 12/17/23 15:00 23:00 07:00 Intake Total 670 ml 1020 ml 680 ml Output Total 450 ml 800 ml Balance 670 ml 570 ml -120 ml medications Current Medications Medications Dose Ordered Sig/Tawnya Route Start Time Stop Time Status Last Admin Dose Admin Atorvastatin Calcium 20 mg HS PO 12/14/23 22:00 12/16/23 21:17 20 MG Ceftriaxone Sodium 50 ml @ 100 mls/hr DAILY@09 IV 12/15/23 09:00 12/16/23 08:41 100 MLS/HR Diagnostic Test (Pha) 1 strip ACHS 12/14/23 22:00 12/17/23 06:02 1 STRIP Insulin Human Regular ACHS SC 12/14/23 22:00 12/16/23 17:29 2 UNITS Dextrose 50 ml UD PRN IV 12/14/23 22:00 Acetaminophen/ Hydrocodone Bitart 1 tab Q4HP PRN PO 12/14/23 22:00 12/16/23 12:38 1 TAB Ondansetron HCl 4 mg Q4HP PRN IV 12/14/23 22:00 12/17/23 08:48 4 MG Acetaminophen 650 mg Q6HP PRN PO 12/14/23 22:00 Morphine Sulfate 2 mg Q8HPRN PRN IV 12/14/23 22:00 Hydralazine HCl 10 mg Q6HPRN PRN IV 12/14/23 22:45 12/15/23 01:19 10 MG Metoprolol Succinate 25 mg DAILY PO 12/17/23 10:00 Sacubitril/ Valsartan 0.5 tab BID PO 12/16/23 22:00 12/16/23 21:17 0.5 TAB Metoclopramide HCl 5 mg ACHS PO 12/16/23 17:00 12/17/23 06:01 5 MG Calcitriol 0.5 mcg DAILY PO 12/17/23 10:00 Examination: LUNGS:Normal, CVS:Normal, MSK:Normal laboratory and microbiology Laboratory Tests 12/16/23 05:26 12/15/23 05:20 Test 12/16/23 05:26 Range/Units Serum Glucose 142 H 74-106 mg/dL Microbiology Date/Time Source Procedure Growth Status 12/14/23 20:09 Voided Urine Urine Culture - Final Escherichia coli Complete Problem List/Assessment/Plan Problem List/Assessment/Plan Chronic Kidney Disease stage 5 now ESRD requiring hemodialysis CKD5- clinic Hypertensive emergency Diabetic nephropathy Nephrotic range proteinuria Congestive heart failure reduced ejection fraction EF less than 25 Recommendations Continue with UF 2-3 L as tolerated Epogen with hemodialysis Fluid restriction Renal diet chair time with DCD hep panel We will continue supportive care Plan discussed with: Patient MADELAINE PAREKH MD Dec 17, 2023 11:04
[2023-12-17] MEDS: LIDOCAINE 2%HCL (LOCAL ANESTH.) INJ 20ML MDV ONE (12:07)
[2023-12-17] MEDS: MIDAZOLAM HCL 2MG/2ML 2ml VIAL (1mg/ml) ONE (12:07)
[2023-12-17] MEDS: HEPARIN SODIUM (PORCINE) 5000 UNITS/ML 1ML VIAL ONE (12:07)
[2023-12-17] MEDS: fentaNYL CITRATE 100 MCG/2 ML VL ONE (12:10)
--- NOTE | 2023-12-17 12:13 | DVHPN2 ---
Subjective Patient continues to report having nausea and vomiting. Reviewed: Care Plan, H&P, Labs, Medications Changes from previous H/P or p: No Changes General: Per HPI Objective Vitals Vital Signs Date Time Temp Pulse Resp B/P (MAP) Pulse Ox O2 Delivery O2 Flow Rate FiO2 12/17/23 09:00 98.6 80 19 148/74 (98) 98 98.6 12/16/23 20:00 Room Air* 0 21 Intake/Output Intake and Output 12/17/23 07:00 Intake Total 2370 ml Output Total 1250 ml Balance 1120 ml Intake Oral 2320 ml IV Total 50 ml Output Urine Total 1250 ml General Appearance: Alert, Oriented X3, Cooperative, mild distress HEENT: Atraumatic, Other (Legally blind) Lungs: Clear to auscultation, Normal air movement Cardiovascular: Normal S1, Normal S2 Musculoskeletal: Normal sensory function, Normal motor function Neuro: Normal gait, Normal speech Psych/Mental Status: Mental status NL, Mood NL Medications Current Medications Medications Dose Ordered Sig/Tawnya Route Start Time Stop Time Status Last Admin Dose Admin Atorvastatin Calcium 20 mg HS PO 12/14/23 22:00 12/16/23 21:17 20 MG Ceftriaxone Sodium 50 ml @ 100 mls/hr DAILY@09 IV 12/15/23 09:00 12/16/23 08:41 100 MLS/HR Diagnostic Test (Pha) 1 strip ACHS 12/14/23 22:00 12/17/23 06:02 1 STRIP Insulin Human Regular ACHS SC 12/14/23 22:00 12/16/23 17:29 2 UNITS Dextrose 50 ml UD PRN IV 12/14/23 22:00 Acetaminophen/ Hydrocodone Bitart 1 tab Q4HP PRN PO 12/14/23 22:00 12/16/23 12:38 1 TAB Ondansetron HCl 4 mg Q4HP PRN IV 12/14/23 22:00 12/17/23 08:48 4 MG Acetaminophen 650 mg Q6HP PRN PO 12/14/23 22:00 Morphine Sulfate 2 mg Q8HPRN PRN IV 12/14/23 22:00 Hydralazine HCl 10 mg Q6HPRN PRN IV 12/14/23 22:45 12/15/23 01:19 10 MG Metoprolol Succinate 25 mg DAILY PO 12/17/23 10:00 Sacubitril/ Valsartan 0.5 tab BID PO 12/16/23 22:00 12/16/23 21:17 0.5 TAB Metoclopramide HCl 5 mg ACHS PO 12/16/23 17:00 12/17/23 06:01 5 MG Calcitriol 0.5 mcg DAILY PO 12/17/23 10:00 Laboratory Results Laboratory Tests 12/15/23 05:20 12/16/23 05:26 Chemistry Test 12/17/23 05:39 Magnesium Level 1.8 mg/dL (1.6-2.6) Phosphorus Level 5.2 mg/dL (2.4-5.1) H Urinalysis Test 12/14/23 20:09 Urine Color Light-brown (Yellow) Urine Clarity Ex.turbid (Clear) Urine pH 6.5 (5.0-9.0) Urine Specific [place] 1.024 (1.001-1.035) Urine Protein 3+ (Negative) H Urine Ketones 1+ (Negative) H Urine Blood 2+ /uL (Negative) H Urine Nitrite Negative (Negative) Urine Bilirubin Negative (Negative) Urine Urobilinogen Normal mg/dL (Negative) Urine Leukocyte Esterase 3+ /uL (Negative) Urine RBC 12 /hpf (0 - 4) Urine WBC 1223 /hpf (0 - 5) Urine WBC Clumps Present /hpf (None Seen) Urine Squamous Epithelial Cells Few /hpf (<5) Urine Bacteria Few /hpf (None Seen) H Urine Mucus Few (None Seen) Urine Glucose 4+ mg/dL (Normal) H Microbiology Microbiology Date/Time Source Procedure Growth Status 12/14/23 20:09 Voided Urine Urine Culture - Final Escherichia coli Complete Labs and/or images reviewed: Labs reviewed by me, Image(s) reviewed by me Assessment/Plan Assessment/Plan Impression: -complicated cystitis: E coli -CKD stage 4/five -diabetes mellitus -primary hypertension -acute on chronic systolic heart failure with ejection fraction 25% -probable diabetic gastroparesis Plan: -events: Patient to construction laborer today for tunneled dialysis catheter placement. -nephrology consultation : Discussed case with Nephrology. asthma, hypertension, CHF, thyroid disease, COVID-19 infection. -continue p.o. Reglan a.c./HS for probable gastroparesis -IV antibiotic therapy: Rocephin -urine culture: E coli -change antihypertensives. Continue Coreg and Entresto -regular insulin sliding scale -repeat labs in a.m. Total time spent with patient discussing and formulating plan of care: 35 minutes. This medical document was created using an electronic medical record system with [employer] dictation system. Although this document has been carefully reviewed, there may still be some phonetic and typographical errors. These areas are purely typographical due to imperfections of the software programs, and do not reflect any compromise in the patient's medical care. Plan discussed with: Patient, Other (RN) My Orders Orders - DIONNE MCHUGH NP Procedure Category Date Status Time Metoclopramide Tablet PHA 12/16/23 In Process (Reglan Tablet) 17:00 Communication Order ORDERS 12/17/23 Transmitted 08:20 * Security Incident Handler CONS 12/17/23 Transmitted Consult Basic Metabolic Panel LAB 12/18/23 Verified 04:00 Complete Blood Count LAB 12/18/23 Verified 04:00 Date of Service: Dec 17, 2023 Billing Provider: DIONNE MCHUGH NP Common Visit Codes: [id number] INP/OBS CARE(HIGH) DIONNE MCHUGH NP Dec 17, 2023 12:13
[2023-12-17] MEDS: hydrALAZINE HCL 20 MG/ML VL ONE (13:09)
[2023-12-17] MEDS: ceFAZolin 1GM/50ML 50 ML IV ONE (13:09)
--- NOTE | 2023-12-17 14:02 | DVHPN2 ---
Progress Note - Dictate Date Seen: Dec 17, 2023 Medical Necessity Reason Pt with a Central, PICC or Fol: No Subjective PT WITH ESRD WOULD REQUIRE HD DIALYSIS ACCESS PENDING NOW WITH UTI/ E COLI The patient denies any chest pain. No history of cough. No history of fever. No history of dizziness or syncope. History of pedal edema. Review of rest of systems are otherwise currently negative. 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 vital signs Vital Sign Date Time Temp Pulse Resp B/P (MAP) Pulse Ox O2 Delivery O2 Flow Rate FiO2 12/17/23 13:44 71 24 137/67 (90) 93 12/17/23 09:00 98.6 98.6 12/16/23 20:00 Room Air* 0 21 Total Intake and Output 12/16/23 12/16/23 12/17/23 15:00 23:00 07:00 Intake Total 670 ml 1020 ml 680 ml Output Total 450 ml 800 ml Balance 670 ml 570 ml -120 ml medications Current Medications Medications Dose Ordered Sig/Tawnya Route Start Time Stop Time Status Last Admin Dose Admin Atorvastatin Calcium 20 mg HS PO 12/14/23 22:00 12/16/23 21:17 20 MG Ceftriaxone Sodium 50 ml @ 100 mls/hr DAILY@09 IV 12/15/23 09:00 12/16/23 08:41 100 MLS/HR Diagnostic Test (Pha) 1 strip ACHS 12/14/23 22:00 12/17/23 06:02 1 STRIP Insulin Human Regular ACHS SC 12/14/23 22:00 12/16/23 17:29 2 UNITS Dextrose 50 ml UD PRN IV 12/14/23 22:00 Acetaminophen/ Hydrocodone Bitart 1 tab Q4HP PRN PO 12/14/23 22:00 12/16/23 12:38 1 TAB Ondansetron HCl 4 mg Q4HP PRN IV 12/14/23 22:00 12/17/23 13:47 4 MG Acetaminophen 650 mg Q6HP PRN PO 12/14/23 22:00 Morphine Sulfate 2 mg Q8HPRN PRN IV 12/14/23 22:00 Hydralazine HCl 10 mg Q6HPRN PRN IV 12/14/23 22:45 12/15/23 01:19 10 MG Metoprolol Succinate 25 mg DAILY PO 12/17/23 10:00 Sacubitril/ Valsartan 0.5 tab BID PO 12/16/23 22:00 12/16/23 21:17 0.5 TAB Metoclopramide HCl 5 mg ACHS PO 12/16/23 17:00 12/17/23 06:01 5 MG Calcitriol 0.5 mcg DAILY PO 12/17/23 10:00 objective GENERAL: The patient is awake, alert. VITAL SIGNS: Temperature of 98.1, pulse 74 per minute, blood pressure 165/75. SHEENT: Unremarkable except for decreased vision more so on the left eye. There is pedal edema 1+. LUNGS: Reveal bilateral scattered rales. CARDIOVASCULAR: S1, S2 is regular. There are no murmurs. ABDOMEN: Abdomen is soft. There is no organomegaly. NEUROLOGIC: Nonfocal. MUSCULOSKELETAL: Normal. laboratory and microbiology Laboratory Tests 12/16/23 05:26 12/15/23 05:20 Test 12/16/23 05:26 Range/Units Serum Glucose 142 H 74-106 mg/dL Problem List PT WITH HF rEF CHRONIC DCM NL CORONARIES SCHEDULED FOR AICD UTI ESRD ANEMIA Assessment/Plan ABX VASCULAR ACCESS DEFER AICD FOR A LATER DATE Plan discussed with: Patient WADE CHAVARRIA MD Dec 17, 2023 14:02
[2023-12-17] MEDS: ACETAMINOPHEN 325 MG TAB PO PRN (14:56)
--- NOTE | 2023-12-17 16:14 | DVH ---
CHEST RADIOGRAPH Indication:confirm placement of tunneled cath Technique: Single frontal view of the chest was obtained Comparison: XY CHEST PORTABLE on DOS: 05/20/23, XY CHEST PORTABLE on DOS: 12/18/22, XY CHEST PORTABLE on DOS: 12/10/22 FINDINGS: Lines and Tubes: Tunneled catheter from the left internal jugular vein with the tip in the distal sup erior vena cava or cavoatrial junction. There is no pneumothorax on the left. Lungs: No focal consolidation. Pleura: No effusion. No pneumothorax. Cardiomediastinal contours: Unremarkable Bones: No acute osseous abnormality. IMPRESSION: 1. Tunnel catheter from the left in good position. No pneumothorax. HS:Y
[2023-12-17] MEDS: SODIUM CHL 0.9% 1000 ML BAG XX ONE (17:34)
--- NOTE | 2023-12-17 18:34 | DVH ---
XY Insertion of Venous Cath, HISTORY: HD CATH for Hemodialysis. PROCEDURE: Informed consent was obtained. The patient was placed supine on the interventional table. A limited localization ultrasound of the left neck base was obtained. The right neck base and upper c hest were prepped with chlorhexidine which was allowed to dry and draped in the usual sterile fashion . Time out was performed. IV sedation was administered. The skin and the soft tissues were infiltrate d with 2% Lidocaine . With real-time ultrasound guidance, the internal jugular vein was accessed with a micropuncture kit, and an image documenting patency was recorded to PACS. A subcutaneous tunneled tract was created from the right upper chest to the venotomy site. A 14.5 [place] Path, 23 cm lo ng hemodialysis catheter was advanced through the tunneled tract. Fluoroscopy was used to advance a guidewire through the internal jugular vein into the inferior vena cava. Following serial dilatation, a 15 [place] peel-away sheath was introduced, though which was adva nced the catheter into the right atrium. The catheter tip position was confirmed with fluoroscopy. Th ere was satisfactory flow in both lumens. The catheter lumens were flushed with saline and heparin wa s left indwelling in the catheter. A post-procedure image of the chest was obtained. The neck incisio n site was closed with Dermabond and dressed sterilely. The catheter was sutured at the skin surface and exit site also dressed sterilely. No immediate complication was identified. 10 mL hydralazine was given during the procedure for blood pressure management. DAP 49. FLUOROSCOPY TIME: 1.2 minutes. SEDATION: Dr. Paulino Cruz was personally responsible for the administration of moderate sedation during the procedure performed, including the use of an independent trained observer who had no other duties during the procedure. The drugs utilized were IV fentanyl and versed (see nursing log for details). The total time of supervision by the attending physician was approximately 40 minutes. FINDINGS: Widely patent left IJV. Post procedure image demonstrates smooth course of the hemodialysis catheter with the tip in the right atrium. IMPRESSION: Successful placement of 14.5 [place] Path, 23 cm long hemodialysis catheter through left interna l jugular vein. Plan: Please contact IR for removal when no longer needed.
[2023-12-18] VITALS (7 sets, daily range): BP systolic 123–192; BP diastolic 51–82; PULSE 72–79; RESP 16–20; TEMP 98.2–98.9; O2SAT 94–98
[2023-12-18] MEDS: PANTOPRAZOLE 40 MG/10 ML VIAL INJ IV ONE (00:16)
[2023-12-18 05:11] LABS: Basophils # (auto) 0.1 10 ^3/uL (0-0.2); Basophils % (auto) 0.8 % (0.0-2.0); Eosinophils # (auto) 0.1 10 ^3/uL (0-0.8); Eosinophils % (auto) 1.9 % (0.0-7.0); Hemoglobin 9.8 g/dL (12.2-16.2); Lymphocytes # (auto) 1.6 10 ^3/uL (0.4-5.4); Lymphocytes % (auto) 21.6 % (10.0-50.0); Mean Corpuscular Hgb Conc. 33.8 g/dL (32.0-36.0); Mean Corpuscular Volume 88.9 fL (80.0-100.0); Monocytes # (auto) 0.6 10 ^3/uL (0-1.3); Monocytes % (auto) 7.6 % (0.0-12.0); Neutrophils % (auto) 68.1 % (37.0-80.0); Nucleated Red Blood Cells % 0.1 %; Platelet Count (auto) 140 10^3/uL (140-450); Red Blood Cells 3.26 10^6/uL (4.0-5.20); White Blood Cell 7.3 10^3/uL (4.4-10.8)
[2023-12-18 05:16] LABS: Anion Gap 9 (5-15); Carbon Dioxide 25 mmol/L (20-31); Chloride 106 mmol/L (98-107); Potassium 3.7 mmol/L (3.5-5.1); Sodium 140 mmol/L (136-145)
[2023-12-18 05:17] LABS: Calcium 8.7 mg/dL (8.7-10.4)
[2023-12-18 05:22] LABS: BUN/Creatinine Ratio 9.2 (10.0-20.0); Glucose 187 mg/dL (74-106)
[2023-12-18 05:29] LABS: Blood Urea Nitrogen 36 mg/dL (9-23)
--- NOTE | 2023-12-18 10:03 | DVHPN2 ---
Progress Note Date Seen: Dec 18, 2023 Medical Necessity Reason Pt with a Central, PICC or Fol: No Subjective Patient reports: No new complaints Other Systems: Patient seen and examined by myself today in follow-up Objective vital signs Vital Sign Date Time Temp Pulse Resp B/P (MAP) Pulse Ox O2 Delivery O2 Flow Rate FiO2 12/18/23 06:34 192/82 12/18/23 05:00 98.2 77 16 96 98.2 12/17/23 20:00 Room Air* 0 21 Total Intake and Output 12/17/23 12/17/23 12/18/23 15:00 23:00 07:00 Intake Total 750 ml 510 ml Balance 750 ml 510 ml medications Current Medications Medications Dose Ordered Sig/Tawnya Route Start Time Stop Time Status Last Admin Dose Admin Atorvastatin Calcium 20 mg HS PO 12/14/23 22:00 12/17/23 21:33 20 MG Ceftriaxone Sodium 50 ml @ 100 mls/hr DAILY@09 IV 12/15/23 09:00 12/16/23 08:41 100 MLS/HR Diagnostic Test (Pha) 1 strip ACHS 12/14/23 22:00 12/18/23 06:01 1 STRIP Insulin Human Regular ACHS SC 12/14/23 22:00 12/18/23 06:05 3 UNITS Dextrose 50 ml UD PRN IV 12/14/23 22:00 Acetaminophen/ Hydrocodone Bitart 1 tab Q4HP PRN PO 12/14/23 22:00 12/16/23 12:38 1 TAB Ondansetron HCl 4 mg Q4HP PRN IV 12/14/23 22:00 12/17/23 18:08 4 MG Acetaminophen 650 mg Q6HP PRN PO 12/14/23 22:00 12/17/23 23:09 650 MG Morphine Sulfate 2 mg Q8HPRN PRN IV 12/14/23 22:00 Hydralazine HCl 10 mg Q6HPRN PRN IV 12/14/23 22:45 12/18/23 06:34 10 MG Metoprolol Succinate 25 mg DAILY PO 12/17/23 10:00 Sacubitril/ Valsartan 0.5 tab BID PO 12/16/23 22:00 12/17/23 21:32 0.5 TAB Metoclopramide HCl 5 mg ACHS PO 12/16/23 17:00 12/18/23 06:00 5 MG Calcitriol 0.5 mcg DAILY PO 12/17/23 10:00 Pantoprazole Sodium 20 mg BID IV 12/18/23 10:00 Examination: LUNGS:Normal, CVS:Normal, MSK:Normal laboratory and microbiology Laboratory Tests 12/18/23 04:22 Test 12/18/23 04:22 Range/Units Serum Glucose 187 H 74-106 mg/dL Microbiology Date/Time Source Procedure Growth Status 12/16/23 12:05 Blood Blood Culture - Preliminary NO GROWTH AFTER 24 HOURS OF INCUBATION. Resulted 12/14/23 20:09 Voided Urine Urine Culture - Final Escherichia coli Complete Problem List/Assessment/Plan Problem List/Assessment/Plan Chronic Kidney Disease stage 5 now ESRD requiring hemodialysis CKD5- clinic Hypertensive emergency Diabetic nephropathy Nephrotic range proteinuria Congestive heart failure reduced ejection fraction EF less than 25 Recommendations Next hemodialysis 12/19 Epogen with hemodialysis Fluid restriction Renal diet chair time with DCD hep panel We will continue supportive care Plan discussed with: Patient My Orders My Orders Orders - MADELAINE PAREKH MD Procedure Category Date Status Time Hemodialysis Orders ORDERS 12/17/23 Transmitted 11:02 MADELAINE PAREKH MD Dec 18, 2023 10:03
[2023-12-18] MEDS: PANTOPRAZOLE 40 MG/10 ML VIAL INJ IV SCH (10:27)
--- NOTE | 2023-12-18 12:33 | DVHPN2 ---
Reviewed: Care Plan, H&P, Labs, Medications Changes from previous H/P or p: No Changes General: Per HPI Objective Vitals Vital Signs Date Time Temp Pulse Resp B/P (MAP) Pulse Ox O2 Delivery O2 Flow Rate FiO2 12/18/23 10:28 77 192/82 12/18/23 09:00 98.9 17 94 98.9 12/17/23 20:00 Room Air* 0 21 Intake/Output Intake and Output 12/18/23 07:00 Intake Total 1260 ml Balance 1260 ml Intake Oral 1260 ml # Voids 3 General Appearance: Alert, Oriented X3, Cooperative, mild distress HEENT: Atraumatic, Other (Legally blind) Lungs: Clear to auscultation, Normal air movement Cardiovascular: Normal S1, Normal S2 Musculoskeletal: Normal sensory function, Normal motor function Neuro: Normal gait, Normal speech Psych/Mental Status: Mental status NL, Mood NL Medications Current Medications Medications Dose Ordered Sig/Tawnya Route Start Time Stop Time Status Last Admin Dose Admin Atorvastatin Calcium 20 mg HS PO 12/14/23 22:00 12/17/23 21:33 20 MG Ceftriaxone Sodium 50 ml @ 100 mls/hr DAILY@09 IV 12/15/23 09:00 12/18/23 10:30 100 MLS/HR Diagnostic Test (Pha) 1 strip ACHS 12/14/23 22:00 12/18/23 11:30 1 STRIP Insulin Human Regular ACHS SC 12/14/23 22:00 12/18/23 12:24 8 UNITS Dextrose 50 ml UD PRN IV 12/14/23 22:00 Acetaminophen/ Hydrocodone Bitart 1 tab Q4HP PRN PO 12/14/23 22:00 12/16/23 12:38 1 TAB Ondansetron HCl 4 mg Q4HP PRN IV 12/14/23 22:00 12/17/23 18:08 4 MG Acetaminophen 650 mg Q6HP PRN PO 12/14/23 22:00 12/18/23 10:28 650 MG Morphine Sulfate 2 mg Q8HPRN PRN IV 12/14/23 22:00 Hydralazine HCl 10 mg Q6HPRN PRN IV 12/14/23 22:45 12/18/23 06:34 10 MG Metoprolol Succinate 25 mg DAILY PO 12/17/23 10:00 12/18/23 10:28 25 MG Sacubitril/ Valsartan 0.5 tab BID PO 12/16/23 22:00 12/18/23 10:29 0.5 TAB Metoclopramide HCl 5 mg ACHS PO 12/16/23 17:00 12/18/23 11:25 5 MG Calcitriol 0.5 mcg DAILY PO 12/17/23 10:00 12/18/23 10:29 0.5 MCG Pantoprazole Sodium 20 mg BID IV 12/18/23 10:00 12/18/23 10:27 20 MG Laboratory Results Laboratory Tests 12/18/23 04:22 Chemistry Test 12/18/23 04:22 Calcium Level 8.7 mg/dL (8.7-10.4) Urinalysis Test 12/14/23 20:09 Urine Color Light-brown (Yellow) Urine Clarity Ex.turbid (Clear) Urine pH 6.5 (5.0-9.0) Urine Specific [place] 1.024 (1.001-1.035) Urine Protein 3+ (Negative) H Urine Ketones 1+ (Negative) H Urine Blood 2+ /uL (Negative) H Urine Nitrite Negative (Negative) Urine Bilirubin Negative (Negative) Urine Urobilinogen Normal mg/dL (Negative) Urine Leukocyte Esterase 3+ /uL (Negative) Urine RBC 12 /hpf (0 - 4) Urine WBC 1223 /hpf (0 - 5) Urine WBC Clumps Present /hpf (None Seen) Urine Squamous Epithelial Cells Few /hpf (<5) Urine Bacteria Few /hpf (None Seen) H Urine Mucus Few (None Seen) Urine Glucose 4+ mg/dL (Normal) H Microbiology Microbiology Date/Time Source Procedure Growth Status 12/16/23 12:05 Blood Blood Culture - Preliminary NO GROWTH AFTER 48 HOURS OF INCUBATION. Resulted 12/14/23 20:09 Voided Urine Urine Culture - Final Escherichia coli Complete Labs and/or images reviewed: Labs reviewed by me, Image(s) reviewed by me Assessment/Plan Assessment/Plan -covering for KRISTAL Bartlett complicated cystitis: E coli continue Rocephin -CKD stage 5 , patient getting dialysis, Nephrology consult by Dr. Rasheed appreciated -diabetes mellitus -primary hypertension -acute on chronic systolic heart failure with ejection fraction 25% cardiology consult by Dr. Garcia appreciated -probable diabetic gastroparesis Awaiting AV fistula placement on Wednesday Time Spent 65 minutes Patient is full code Advanced care planning time 20 minutes Plan discussed with: Patient Date of Service: Dec 18, 2023 Billing Provider: YOSI EVANGELISTA MD Common Visit Codes: [id number] CARE 30-74 MIN YOSI EVANGELISTA MD Dec 18, 2023 12:33
[2023-12-19] VITALS (9 sets, daily range): BP systolic 137–183; BP diastolic 60–86; PULSE 68–78; RESP 18–20; TEMP 97.7–98.9; O2SAT 6–98
--- NOTE | 2023-12-19 10:29 | DVHPN2 ---
Progress Note Date Seen: Dec 19, 2023 Medical Necessity Reason Pt with a Central, PICC or Fol: No Subjective Patient reports: No new complaints Other Systems: Patient seen and examined by myself today in follow-up Objective vital signs Vital Sign Date Time Temp Pulse Resp B/P (MAP) Pulse Ox O2 Delivery O2 Flow Rate FiO2 12/19/23 09:15 76 152/80 12/19/23 09:00 98.4 20 98 98.4 12/18/23 20:00 Room Air* 0 21 Total Intake and Output 12/18/23 12/18/23 12/19/23 15:00 23:00 07:00 Intake Total 50 ml 400 ml 400 ml Output Total 600 ml Balance 50 ml 400 ml -200 ml medications Current Medications Medications Dose Ordered Sig/Tawnya Route Start Time Stop Time Status Last Admin Dose Admin Atorvastatin Calcium 20 mg HS PO 12/14/23 22:00 12/18/23 21:49 20 MG Ceftriaxone Sodium 50 ml @ 100 mls/hr DAILY@09 IV 12/15/23 09:00 12/19/23 09:14 100 MLS/HR Diagnostic Test (Pha) 1 strip ACHS 12/14/23 22:00 12/19/23 05:29 1 STRIP Insulin Human Regular ACHS SC 12/14/23 22:00 12/18/23 22:07 8 UNITS Dextrose 50 ml UD PRN IV 12/14/23 22:00 Acetaminophen/ Hydrocodone Bitart 1 tab Q4HP PRN PO 12/14/23 22:00 12/16/23 12:38 1 TAB Ondansetron HCl 4 mg Q4HP PRN IV 12/14/23 22:00 12/19/23 09:14 4 MG Acetaminophen 650 mg Q6HP PRN PO 12/14/23 22:00 12/19/23 09:15 650 MG Morphine Sulfate 2 mg Q8HPRN PRN IV 12/14/23 22:00 Hydralazine HCl 10 mg Q6HPRN PRN IV 12/14/23 22:45 12/18/23 06:34 10 MG Metoprolol Succinate 25 mg DAILY PO 12/17/23 10:00 12/19/23 09:15 25 MG Sacubitril/ Valsartan 0.5 tab BID PO 12/16/23 22:00 12/19/23 09:15 0.5 TAB Metoclopramide HCl 5 mg ACHS PO 12/16/23 17:00 12/19/23 05:28 5 MG Calcitriol 0.5 mcg DAILY PO 12/17/23 10:00 12/19/23 09:15 0.5 MCG Pantoprazole Sodium 20 mg BID IV 12/18/23 10:00 12/19/23 09:14 20 MG Examination: LUNGS:Normal, CVS:Normal, MSK:Normal laboratory and microbiology Laboratory Tests 12/18/23 04:22 Test 12/18/23 04:22 Range/Units Serum Glucose 187 H 74-106 mg/dL Microbiology Date/Time Source Procedure Growth Status 12/16/23 12:05 Blood Blood Culture - Preliminary NO GROWTH AFTER 48 HOURS OF INCUBATION. Resulted 12/14/23 20:09 Voided Urine Urine Culture - Final Escherichia coli Complete Problem List/Assessment/Plan Problem List/Assessment/Plan Chronic Kidney Disease stage 5 now ESRD requiring hemodialysis CKD5- clinic Hypertensive emergency Diabetic nephropathy Nephrotic range proteinuria Congestive heart failure reduced ejection fraction EF less than 25 Hyperphosphatemia Secondary hyperparathyroidism Vitamin-D deficiency Recommendations Hemodialysis tomorrow Epogen with hemodialysis Fluid restriction Renal diet Renvela t.i.d. with meals Calcitriol 0.25 mcg q.day Ergocalciferol 5,000 units p.o. q.week chair time with [facility] Cardiology on board We will continue supportive care Plan discussed with: Patient MADELAINE PAREKH MD Dec 19, 2023 10:29
--- NOTE | 2023-12-19 10:39 | DVHPN2 ---
Reviewed: Care Plan, H&P, Labs, Medications Changes from previous H/P or p: No Changes General: Per HPI Objective Vitals Vital Signs Date Time Temp Pulse Resp B/P (MAP) Pulse Ox O2 Delivery O2 Flow Rate FiO2 12/19/23 09:15 76 152/80 12/19/23 09:00 98.4 20 98 98.4 12/18/23 20:00 Room Air* 0 21 Intake/Output Intake and Output 12/19/23 07:00 Intake Total 850 ml Output Total 600 ml Balance 250 ml Intake Oral 800 ml IV Total 50 ml Output Urine Total 600 ml # Voids 1 General Appearance: Alert, Oriented X3, Cooperative, mild distress HEENT: Atraumatic, Other (Legally blind) Lungs: Clear to auscultation, Normal air movement Cardiovascular: Normal S1, Normal S2 Musculoskeletal: Normal sensory function, Normal motor function Neuro: Normal gait, Normal speech Psych/Mental Status: Mental status NL, Mood NL Medications Current Medications Medications Dose Ordered Sig/Tawnya Route Start Time Stop Time Status Last Admin Dose Admin Atorvastatin Calcium 20 mg HS PO 12/14/23 22:00 12/18/23 21:49 20 MG Ceftriaxone Sodium 50 ml @ 100 mls/hr DAILY@09 IV 12/15/23 09:00 12/19/23 09:14 100 MLS/HR Diagnostic Test (Pha) 1 strip ACHS 12/14/23 22:00 12/19/23 05:29 1 STRIP Insulin Human Regular ACHS SC 12/14/23 22:00 12/18/23 22:07 8 UNITS Dextrose 50 ml UD PRN IV 12/14/23 22:00 Acetaminophen/ Hydrocodone Bitart 1 tab Q4HP PRN PO 12/14/23 22:00 12/16/23 12:38 1 TAB Ondansetron HCl 4 mg Q4HP PRN IV 12/14/23 22:00 12/19/23 09:14 4 MG Acetaminophen 650 mg Q6HP PRN PO 12/14/23 22:00 12/19/23 09:15 650 MG Morphine Sulfate 2 mg Q8HPRN PRN IV 12/14/23 22:00 Hydralazine HCl 10 mg Q6HPRN PRN IV 12/14/23 22:45 12/18/23 06:34 10 MG Metoprolol Succinate 25 mg DAILY PO 12/17/23 10:00 12/19/23 09:15 25 MG Sacubitril/ Valsartan 0.5 tab BID PO 12/16/23 22:00 12/19/23 09:15 0.5 TAB Metoclopramide HCl 5 mg ACHS PO 12/16/23 17:00 12/19/23 05:28 5 MG Pantoprazole Sodium 20 mg BID IV 12/18/23 10:00 12/19/23 09:14 20 MG Ergocalciferol 50,000 unit Q7D PO 12/19/23 10:15 Calcitriol 0.25 mcg DAILY PO 12/20/23 10:00 Sevelamer HCl 800 mg TIDWM PO 12/19/23 12:00 Laboratory Results Laboratory Tests 12/18/23 04:22 Urinalysis Test 12/14/23 20:09 Urine Color Light-brown (Yellow) Urine Clarity Ex.turbid (Clear) Urine pH 6.5 (5.0-9.0) Urine Specific [place] 1.024 (1.001-1.035) Urine Protein 3+ (Negative) H Urine Ketones 1+ (Negative) H Urine Blood 2+ /uL (Negative) H Urine Nitrite Negative (Negative) Urine Bilirubin Negative (Negative) Urine Urobilinogen Normal mg/dL (Negative) Urine Leukocyte Esterase 3+ /uL (Negative) Urine RBC 12 /hpf (0 - 4) Urine WBC 1223 /hpf (0 - 5) Urine WBC Clumps Present /hpf (None Seen) Urine Squamous Epithelial Cells Few /hpf (<5) Urine Bacteria Few /hpf (None Seen) H Urine Mucus Few (None Seen) Urine Glucose 4+ mg/dL (Normal) H Microbiology Microbiology Date/Time Source Procedure Growth Status 12/16/23 12:05 Blood Blood Culture - Preliminary NO GROWTH AFTER 48 HOURS OF INCUBATION. Resulted 12/14/23 20:09 Voided Urine Urine Culture - Final Escherichia coli Complete Labs and/or images reviewed: Labs reviewed by me, Image(s) reviewed by me Assessment/Plan Assessment/Plan -covering for KRISTAL Bartlett complicated cystitis: E coli continue Rocephin -CKD stage 5 , patient getting dialysis, Nephrology consult by Dr. Rasheed appreciated -diabetes mellitus -primary hypertension -acute on chronic systolic heart failure with ejection fraction 25% cardiology consult by Dr. Garcia appreciated -probable diabetic gastroparesis Awaiting AV fistula placement on Wednesday Time Spent 45 minutes Patient is full code Continue Current management Plan discussed with: Patient My Orders Orders - YOSI EVANGELISTA MD Procedure Category Date Status Time Code Status CODE 12/18/23 Transmitted 12:33 Date of Service: Dec 19, 2023 Billing Provider: YOSI EVANGELISTA MD Common Visit Codes: [id number] INP/OBS CARE(HIGH) YOSI EVANGELISTA MD Dec 19, 2023 10:39
[2023-12-19] MEDS: SEVELAMER 800 MG TAB PO SCH (12:25)
[2023-12-19] MEDS: ERGOCALCIFEROL 50,000 UNIT(1.25MG) CAP PO SCH (12:29)
[2023-12-20] VITALS (8 sets, daily range): BP systolic 135–164; BP diastolic 52–84; PULSE 74–98; RESP 16–18; TEMP 97.6–98.2; O2SAT 94–99
[2023-12-20 08:47] LABS: Hepatitis B Surface Antigen Negative (Negative)
[2023-12-20 09:08] LABS: Hepatitis A Ab IgM Negative
[2023-12-20 09:09] LABS: Hepatitis B Core IgM Negative; Hepatitis C Antibody Negative (Negative)
[2023-12-20] MEDS: CALCITRIOL 0.25 MCG CAP PO SCH (10:00)
--- NOTE | 2023-12-20 11:14 | DVHPN2 ---
Progress Note - Dictate Date Seen: Dec 20, 2023 Medical Necessity Reason Pt with a Central, PICC or Fol: No vital signs Vital Sign Date Time Temp Pulse Resp B/P (MAP) Pulse Ox O2 Delivery O2 Flow Rate FiO2 12/20/23 10:04 164/81 12/20/23 09:10 98.2 74 18 99 98.2 12/19/23 20:00 Room Air* 0 21 Total Intake and Output 12/19/23 12/19/23 12/20/23 15:00 23:00 07:00 Intake Total 50 ml 700 ml 0 ml Output Total 1050 ml Balance 50 ml -350 ml 0 ml medications Current Medications Medications Dose Ordered Sig/Tawnya Route Start Time Stop Time Status Last Admin Dose Admin Atorvastatin Calcium 20 mg HS PO 12/14/23 22:00 12/19/23 21:47 20 MG Ceftriaxone Sodium 50 ml @ 100 mls/hr DAILY@09 IV 12/15/23 09:00 12/20/23 10:04 100 MLS/HR Diagnostic Test (Pha) 1 strip ACHS 12/14/23 22:00 12/20/23 05:33 1 STRIP Insulin Human Regular ACHS SC 12/14/23 22:00 12/20/23 05:41 8 UNITS Dextrose 50 ml UD PRN IV 12/14/23 22:00 Acetaminophen/ Hydrocodone Bitart 1 tab Q4HP PRN PO 12/14/23 22:00 12/16/23 12:38 1 TAB Ondansetron HCl 4 mg Q4HP PRN IV 12/14/23 22:00 12/19/23 09:14 4 MG Acetaminophen 650 mg Q6HP PRN PO 12/14/23 22:00 12/19/23 21:47 650 MG Morphine Sulfate 2 mg Q8HPRN PRN IV 12/14/23 22:00 Hydralazine HCl 10 mg Q6HPRN PRN IV 12/14/23 22:45 12/20/23 10:04 10 MG Metoprolol Succinate 25 mg DAILY PO 12/17/23 10:00 12/19/23 09:15 25 MG Sacubitril/ Valsartan 0.5 tab BID PO 12/16/23 22:00 12/19/23 21:47 0.5 TAB Metoclopramide HCl 5 mg ACHS PO 12/16/23 17:00 12/20/23 05:42 5 MG Pantoprazole Sodium 20 mg BID IV 12/18/23 10:00 12/20/23 10:04 20 MG Ergocalciferol 50,000 unit Q7D PO 12/19/23 10:15 12/19/23 12:29 50,000 UNIT Calcitriol 0.25 mcg DAILY PO 12/20/23 10:00 Sevelamer HCl 800 mg TIDWM PO 12/19/23 12:00 12/19/23 17:10 800 MG objective LUNGS:Normal, CVS:Normal, MSK:Normal laboratory and microbiology Laboratory Tests 12/18/23 04:22 Test 12/18/23 04:22 Range/Units Serum Glucose 187 H 74-106 mg/dL Assessment/Plan Chronic Kidney Disease stage 5 now ESRD requiring hemodialysis CKD5- clinic Hypertensive emergency Diabetic nephropathy Nephrotic range proteinuria Congestive heart failure reduced ejection fraction EF less than 25 Hyperphosphatemia Secondary hyperparathyroidism Vitamin-D deficiency Recommendations Hemodialysis tunnel HD catheter BP meds labs Epogen with hemodialysis Fluid restriction Renal diet Renvela t.i.d. with meals Calcitriol 0.25 mcg q.day Ergocalciferol 5,000 units p.o. q.week chair time with [facility] Cardiology on board Plan discussed with: Patient MYAH MAHAJAN MD Dec 20, 2023 11:14
--- NOTE | 2023-12-20 13:26 | DVHPN2 ---
Subjective Patient continues to report having nausea and vomiting. Reviewed: Care Plan, H&P, Labs, Medications Changes from previous H/P or p: No Changes General: Per HPI Objective Vitals Vital Signs Date Time Temp Pulse Resp B/P (MAP) Pulse Ox O2 Delivery O2 Flow Rate FiO2 12/20/23 10:04 164/81 12/20/23 09:10 98.2 74 18 99 98.2 12/19/23 20:00 Room Air* 0 21 Intake/Output Intake and Output 12/20/23 07:00 Intake Total 750 ml Output Total 1050 ml Balance -300 ml Intake Oral 700 ml IV Total 50 ml Output Urine Total 1050 ml # Voids 3 General Appearance: Alert, Oriented X3, Cooperative, mild distress HEENT: Atraumatic, PERRLA, Other (Legally blind) Lungs: Clear to auscultation, Normal air movement Cardiovascular: Normal S1, Normal S2 Musculoskeletal: Normal sensory function, Normal motor function Neuro: Normal gait, Normal speech Psych/Mental Status: Mental status NL, Mood NL Medications Current Medications Medications Dose Ordered Sig/Tawnya Route Start Time Stop Time Status Last Admin Dose Admin Atorvastatin Calcium 20 mg HS PO 12/14/23 22:00 12/19/23 21:47 20 MG Ceftriaxone Sodium 50 ml @ 100 mls/hr DAILY@ IV 12/15/23 09:00 12/20/23 10:04 100 MLS/HR Acetaminophen/ Hydrocodone Bitart 1 tab Q4HP PRN PO 12/14/23 22:00 12/16/23 12:38 1 TAB Ondansetron HCl 4 mg Q4HP PRN IV 12/14/23 22:00 12/19/23 09:14 4 MG Acetaminophen 650 mg Q6HP PRN PO 12/14/23 22:00 12/19/23 21:47 650 MG Morphine Sulfate 2 mg Q8HPRN PRN IV 12/14/23 22:00 Hydralazine HCl 10 mg Q6HPRN PRN IV 12/14/23 22:45 12/20/23 10:04 10 MG Metoprolol Succinate 25 mg DAILY PO 12/17/23 10:00 12/19/23 09:15 25 MG Sacubitril/ Valsartan 0.5 tab BID PO 12/16/23 22:00 12/19/23 21:47 0.5 TAB Metoclopramide HCl 5 mg ACHS PO 12/16/23 17:00 12/20/23 05:42 5 MG Pantoprazole Sodium 20 mg BID IV 12/18/23 10:00 12/20/23 10:04 20 MG Ergocalciferol 50,000 unit Q7D PO 12/19/23 10:15 12/19/23 12:29 50,000 UNIT Calcitriol 0.25 mcg DAILY PO 12/20/23 10:00 Sevelamer HCl 800 mg TIDWM PO 12/19/23 12:00 12/19/23 17:10 800 MG Diagnostic Test (Pha) 1 strip ACHS 12/20/23 17:00 UNV Insulin Human Regular HS SC 12/20/23 22:00 UNV Insulin Human Regular AC SC 12/20/23 17:00 UNV Dextrose 50 ml UD PRN IV 12/20/23 13:30 UNV Laboratory Results Laboratory Tests 12/18/23 04:22 Urinalysis Test 12/14/23 20:09 Urine Color Light-brown (Yellow) Urine Clarity Ex.turbid (Clear) Urine pH 6.5 (5.0-9.0) Urine Specific [place] 1.024 (1.001-1.035) Urine Protein 3+ (Negative) H Urine Ketones 1+ (Negative) H Urine Blood 2+ /uL (Negative) H Urine Nitrite Negative (Negative) Urine Bilirubin Negative (Negative) Urine Urobilinogen Normal mg/dL (Negative) Urine Leukocyte Esterase 3+ /uL (Negative) Urine RBC 12 /hpf (0 - 4) Urine WBC 1223 /hpf (0 - 5) Urine WBC Clumps Present /hpf (None Seen) Urine Squamous Epithelial Cells Few /hpf (<5) Urine Bacteria Few /hpf (None Seen) H Urine Mucus Few (None Seen) Urine Glucose 4+ mg/dL (Normal) H Microbiology Microbiology Date/Time Source Procedure Growth Status 12/16/23 12:05 Blood Blood Culture - Preliminary NO GROWTH AFTER 72 HOURS OF INCUBATION. Resulted 12/14/23 20:09 Voided Urine Urine Culture - Final Escherichia coli Complete Labs and/or images reviewed: Labs reviewed by me, Image(s) reviewed by me Assessment/Plan Assessment/Plan Impression: -complicated cystitis: E coli -CKD stage 4/five -diabetes mellitus -primary hypertension -acute on chronic systolic heart failure with ejection fraction 25% -probable diabetic gastroparesis Plan: -events: Patient to OR for HD fistula today -continue p.o. Reglan a.c./HS for probable gastroparesis -IV antibiotic therapy: Rocephin -urine culture: E coli -change antihypertensives. Continue Toprol and Entresto -regular insulin sliding scale -repeat labs in a.m. -social service consultation for hemodialysis chair time Total time spent with patient discussing and formulating plan of care: 35 minutes. This medical document was created using an electronic medical record system with [employer] dictation system. Although this document has been carefully reviewed, there may still be some phonetic and typographical errors. These areas are purely typographical due to imperfections of the software programs, and do not reflect any compromise in the patient's medical care. Plan discussed with: Patient, Other (RN) My Orders Orders - DIONNE MCHUGH NP Procedure Category Date Status Time Glucose Blood PHA 12/20/23 Logged (Accu-Chek Comfort 17:00 Insulin R (Human) PHA 12/20/23 Logged (Insulin R) 22:00 Insulin R (Human) PHA 12/20/23 Logged (Insulin R) 17:00 Dextrose 50% Syringe PHA 12/20/23 Logged 13:30 Basic Metabolic Panel LAB 12/21/23 Verified 04:00 Complete Blood Count LAB 12/21/23 Verified 04:00 Date of Service: Dec 20, 2023 Billing Provider: DIONNE MCHUGH NP Common Visit Codes: [id number] INP/OBS CARE(HIGH) DIONNE MCHUGH NP Dec 20, 2023 13:26
[2023-12-20] MEDS ORDERED: DEXTROSE (50%) 50ML SYRG IV PRN ×2 (13:30→23:45)
--- NOTE | 2023-12-20 13:53 | DVHPN2 ---
Progress Note - Dictate Date Seen: Dec 20, 2023 Medical Necessity Reason Pt with a Central, PICC or Fol: No Subjective PT WITH ESRD WOULD REQUIRE HD DIALYSIS ACCESS PENDING NOW WITH UTI/ E COLI The patient denies any chest pain. No history of cough. No history of fever. No history of dizziness or syncope. History of pedal edema. Review of rest of systems are otherwise currently negative. 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 vital signs Vital Sign Date Time Temp Pulse Resp B/P (MAP) Pulse Ox O2 Delivery O2 Flow Rate FiO2 12/20/23 10:04 164/81 12/20/23 09:10 98.2 74 18 99 98.2 12/19/23 20:00 Room Air* 0 21 Total Intake and Output 12/19/23 12/19/23 12/20/23 15:00 23:00 07:00 Intake Total 50 ml 700 ml 0 ml Output Total 1050 ml Balance 50 ml -350 ml 0 ml medications Current Medications Medications Dose Ordered Sig/Tawnya Route Start Time Stop Time Status Last Admin Dose Admin Atorvastatin Calcium 20 mg HS PO 12/14/23 22:00 12/19/23 21:47 20 MG Ceftriaxone Sodium 50 ml @ 100 mls/hr DAILY@09 IV 12/15/23 09:00 12/20/23 10:04 100 MLS/HR Acetaminophen/ Hydrocodone Bitart 1 tab Q4HP PRN PO 12/14/23 22:00 12/16/23 12:38 1 TAB Ondansetron HCl 4 mg Q4HP PRN IV 12/14/23 22:00 12/19/23 09:14 4 MG Acetaminophen 650 mg Q6HP PRN PO 12/14/23 22:00 12/19/23 21:47 650 MG Morphine Sulfate 2 mg Q8HPRN PRN IV 12/14/23 22:00 Hydralazine HCl 10 mg Q6HPRN PRN IV 12/14/23 22:45 12/20/23 10:04 10 MG Metoprolol Succinate 25 mg DAILY PO 12/17/23 10:00 12/19/23 09:15 25 MG Sacubitril/ Valsartan 0.5 tab BID PO 12/16/23 22:00 12/19/23 21:47 0.5 TAB Metoclopramide HCl 5 mg ACHS PO 12/16/23 17:00 12/20/23 05:42 5 MG Pantoprazole Sodium 20 mg BID IV 12/18/23 10:00 12/20/23 10:04 20 MG Ergocalciferol 50,000 unit Q7D PO 12/19/23 10:15 12/19/23 12:29 50,000 UNIT Calcitriol 0.25 mcg DAILY PO 12/20/23 10:00 Sevelamer HCl 800 mg TIDWM PO 12/19/23 12:00 12/19/23 17:10 800 MG Diagnostic Test (Pha) 1 strip ACHS 12/20/23 17:00 UNV Insulin Human Regular HS SC 12/20/23 22:00 UNV Insulin Human Regular AC SC 12/20/23 17:00 UNV Dextrose 50 ml UD PRN IV 12/20/23 13:30 UNV objective GENERAL: The patient is awake, alert. VITAL SIGNS: Temperature of 98.1, pulse 74 per minute, blood pressure 165/75. SHEENT: Unremarkable except for decreased vision more so on the left eye. There is pedal edema 1+. LUNGS: Reveal bilateral scattered rales. CARDIOVASCULAR: S1, S2 is regular. There are no murmurs. ABDOMEN: Abdomen is soft. There is no organomegaly. NEUROLOGIC: Nonfocal. MUSCULOSKELETAL: Normal. laboratory and microbiology Laboratory Tests 12/18/23 04:22 Test 12/18/23 04:22 Range/Units Serum Glucose 187 H 74-106 mg/dL Problem List PT WITH HF rEF CHRONIC DCM NL CORONARIES SCHEDULED FOR AICD UTI ESRD ANEMIA Assessment/Plan ABX VASCULAR ACCESS DEFER AICD FOR A LATER DATE Plan discussed with: Patient WADE CHAVARRIA MD Dec 20, 2023 13:53
--- NOTE | 2023-12-20 13:56 | DVHPN2 ---
Progress Note - Dictate Medical Necessity Reason Pt with a Central, PICC or Fol: No Subjective PT WITH ESRD WOULD REQUIRE HD DIALYSIS ACCESS PENDING NOW WITH UTI/ E COLI The patient denies any chest pain. No history of cough. No history of fever. No history of dizziness or syncope. History of pedal edema. Review of rest of systems are otherwise currently negative. 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 vital signs Vital Sign Date Time Temp Pulse Resp B/P (MAP) Pulse Ox O2 Delivery O2 Flow Rate FiO2 12/20/23 10:04 164/81 12/20/23 09:10 98.2 74 18 99 98.2 12/19/23 20:00 Room Air* 0 21 Total Intake and Output 12/19/23 12/19/23 12/20/23 15:00 23:00 07:00 Intake Total 50 ml 700 ml 0 ml Output Total 1050 ml Balance 50 ml -350 ml 0 ml medications Current Medications Medications Dose Ordered Sig/Tawnya Route Start Time Stop Time Status Last Admin Dose Admin Atorvastatin Calcium 20 mg HS PO 12/14/23 22:00 12/19/23 21:47 20 MG Ceftriaxone Sodium 50 ml @ 100 mls/hr DAILY@09 IV 12/15/23 09:00 12/20/23 10:04 100 MLS/HR Acetaminophen/ Hydrocodone Bitart 1 tab Q4HP PRN PO 12/14/23 22:00 12/16/23 12:38 1 TAB Ondansetron HCl 4 mg Q4HP PRN IV 12/14/23 22:00 12/19/23 09:14 4 MG Acetaminophen 650 mg Q6HP PRN PO 12/14/23 22:00 12/19/23 21:47 650 MG Morphine Sulfate 2 mg Q8HPRN PRN IV 12/14/23 22:00 Hydralazine HCl 10 mg Q6HPRN PRN IV 12/14/23 22:45 12/20/23 10:04 10 MG Metoprolol Succinate 25 mg DAILY PO 12/17/23 10:00 12/19/23 09:15 25 MG Sacubitril/ Valsartan 0.5 tab BID PO 12/16/23 22:00 12/19/23 21:47 0.5 TAB Metoclopramide HCl 5 mg ACHS PO 12/16/23 17:00 12/20/23 05:42 5 MG Pantoprazole Sodium 20 mg BID IV 12/18/23 10:00 12/20/23 10:04 20 MG Ergocalciferol 50,000 unit Q7D PO 12/19/23 10:15 12/19/23 12:29 50,000 UNIT Calcitriol 0.25 mcg DAILY PO 12/20/23 10:00 Sevelamer HCl 800 mg TIDWM PO 12/19/23 12:00 12/19/23 17:10 800 MG Diagnostic Test (Pha) 1 strip ACHS 12/20/23 17:00 UNV Insulin Human Regular HS SC 12/20/23 22:00 UNV Insulin Human Regular AC SC 12/20/23 17:00 UNV Dextrose 50 ml UD PRN IV 12/20/23 13:30 UNV objective GENERAL: The patient is awake, alert. VITAL SIGNS: Temperature of 98.1, pulse 74 per minute, blood pressure 165/75. SHEENT: Unremarkable except for decreased vision more so on the left eye. There is pedal edema 1+. LUNGS: Reveal bilateral scattered rales. CARDIOVASCULAR: S1, S2 is regular. There are no murmurs. ABDOMEN: Abdomen is soft. There is no organomegaly. NEUROLOGIC: Nonfocal. MUSCULOSKELETAL: Normal. laboratory and microbiology Laboratory Tests 12/18/23 04:22 Test 12/18/23 04:22 Range/Units Serum Glucose 187 H 74-106 mg/dL Problem List PT WITH HFrEF CHRONIC DCM NL CORONARIES SCHEDULED FOR AICD UTI ESRD ANEMIA GASTROPARESIS N/V vs UREMIA Assessment/Plan ABX VASCULAR ACCESS DEFER AICD FOR A LATER DATE PT APPEARS UREMIC BUT NO ACIDOSIS CONSIDER DIALYSIS S/P TUNNEL CATHETER Plan discussed with: Patient WADE CHAVARRIA MD Dec 20, 2023 13:56
[2023-12-20] MEDS: HEPARIN SODIUM (PORCINE) 5000 UNITS/ML 1ML VIAL ONE (13:57)
--- NOTE | 2023-12-20 14:49 | POSTOP ---
Post-Operative Note Post-Operative Note Preop Diagnosis End-stage renal disease Postop Diagnosis: Same Operation performed Left brachiocephalic arteriovenous fistula creation. Specimen None Anesthesia: Regional Anesthesiologist: Regional Blood Loss(fluid mgmt) 10 mL Surgeon Reji Sorensen MD Date 12/20/23 Time 14:48 REJI SORENSEN Jr., MD Dec 20, 2023 14:49
--- NOTE | 2023-12-20 14:52 | DVHOP2 ---
Operative Report - 2 Report Details Date: 12/20/23 Preop Diagnosis: End-stage renal disease Postop Diagnosis: Same Surgeon: Reji Sorensen MD Anesthesiologist: Regional Anesthesia: Regional Consent: The patient was informed of the risks and benefits of the procedure. These include but are not limited to complications of anesthesia, postoperative infection, incomplete relief of symptoms, recurrence of symptoms, damage to blood vessels, nerves and tendons, deep venous thrombosis, pulmonary embolism and possible need for repeat surgery in the future. Estimated Blood Loss: 10 mL Name of Procedure Performed Left brachiocephalic arteriovenous fistula creation. Procedure Details Procedure Details: Patient was identified in the preop hold area she was consented and preopped by myself she was brought back to the operating room placed the operating table in supine position after adequate induction of anesthesia antibiotics and time-out left arm was prepped and draped in normal surgical fashion a transverse incision was made in the antecubital fossa dissection was taken down to the cephalic vein which was dissected out and found to be adequate size for fistula creation. It was divided from the basilic vein with 2-0 silk sutures. The brachial artery was then identified and proximally and distally controlled 3000 units of heparin was given. At this point in time the cephalic vein was then dilated to 3.5 mm and flushed with heparinized saline. The brachial artery was then proximally and distally controlled with vessel loops the arteriotomy was made extended with the Ibrahim scissors and at this point in time the artery was healthy it was then prepared and the cephalic vein was then anastomosed to the brachial artery in end-to-side fashion. At completion of the anastomosis the flow was restored in the cephalic vein as well as the brachial artery proximally and distally. This was confirmed by Doppler signals as well. The wound was then irrigated out and then closure was begun with 2-0 Vicryl sutures followed by skin closure with 4-0 Monocryl subcuticular suture followed by Dermabond and sterile dressing. Patient tolerated procedure well was taken to PACU in stable condition. Specimen: None Condition Stable Disposition pacu REJI SORENSEN Jr., MD Dec 20, 2023 14:52
[2023-12-20] MEDS ORDERED: fentaNYL CITRATE 100 MCG/2 ML VL IV PRN (15:00)
[2023-12-20] MEDS ORDERED: FLUMAZENIL 0.1 MG/ML INJ 10ML MDV IV PRN (15:00)
[2023-12-20] MEDS ORDERED: ePHEDrine SULFATE 50 MG/ML AMP IV PRN (15:00)
[2023-12-20] MEDS ORDERED: ONDANSETRON HCL 4 MG/2 ML VIAL IV PRN (15:00)
[2023-12-20] MEDS ORDERED: HYDROmorphone HCL 2 MG/ML VL/or syr IV PRN (15:00)
[2023-12-20] MEDS ORDERED: NALOXONE HCL 0.4 MG/ML VIAL IV PRN (15:00)
[2023-12-20] MEDS: BUPIVACAINE 0.25% INJ 50ML VIAL ONE (15:09)
[2023-12-20] MEDS: HEPARIN 1,000 UNITS/ml 1ML VIAL ONE (15:09)
[2023-12-20] MEDS: LIDOCAINE 1% (LOCAL ANESTH.) PF 5ml SDV ONE (15:09)
[2023-12-20] MEDS: hydrALAZINE HCL 20 MG/ML VL IV PRN (15:20)
[2023-12-20] MEDS: ACCU-CHEK COMFORT CURVE STRIP VI SCH (17:00)
[2023-12-20] MEDS: InsuLIN REG 1unit/0.01ml Soln (100units/ml) SC SCH ×2 (18:18→22:01)
[2023-12-20] MEDS ORDERED: INSLANTI SC (22:04)
[2023-12-21] VITALS (7 sets, daily range): BP systolic 133–184; BP diastolic 62–78; PULSE 68–87; RESP 17–18; TEMP 97.6–98.9; O2SAT 95–96
[2023-12-21] MEDS: ACCU-CHEK COMFORT CURVE STRIP VI SCH
[2023-12-21] MEDS: InsuLIN REG 1unit/0.01ml Soln (100units/ml) SC SCH (01:33)
[2023-12-21 04:45] LABS: Basophils # (auto) 0 10 ^3/uL (0-0.2); Basophils % (auto) 0.3 % (0.0-2.0); Eosinophils # (auto) 0 10 ^3/uL (0-0.8); Hematocrit 26.5 % (36.0-46.0); Hemoglobin 8.9 g/dL (12.2-16.2); Lymphocytes % (auto) 9.6 % (10.0-50.0); Mean Corpuscular Hemoglobin 29.9 pg (28.0-32.0); Mean Corpuscular Hgb Conc. 33.6 g/dL (32.0-36.0); Monocytes # (auto) 0.7 10 ^3/uL (0-1.3); Monocytes % (auto) 7.1 % (0.0-12.0); Neutrophils # (auto) 8.7 10 ^3/uL (1.6-8.6); Platelet Count (auto) 142 10^3/uL (140-450); Red Blood Cells 2.98 10^6/uL (4.0-5.20); Red Cell Distribution Width 14.4 % (11.8-14.3); White Blood Cell 10.5 10^3/uL (4.4-10.8)
[2023-12-21 04:56] LABS: Chloride 105 mmol/L (98-107); Potassium 4.4 mmol/L (3.5-5.1)
[2023-12-21 04:57] LABS: Anion Gap 6 (5-15); Calcium 8.7 mg/dL (8.7-10.4); Carbon Dioxide 24 mmol/L (20-31)
[2023-12-21 05:02] LABS: BUN/Creatinine Ratio 12.7 (10.0-20.0); Blood Urea Nitrogen 55 mg/dL (9-23); Glucose 182 mg/dL (74-106)
[2023-12-21 05:03] LABS: Sodium 135 mmol/L (136-145)
[2023-12-21] MEDS ORDERED: SODIUM CHL 0.9% 1000 ML BAG XX ONE (09:15)
--- NOTE | 2023-12-21 09:15 | DVHPN2 ---
Progress Note - Dictate Date Seen: Dec 21, 2023 Medical Necessity Reason Pt with a Central, PICC or Fol: Yes The following are medically ne: Central Line vital signs Vital Sign Date Time Temp Pulse Resp B/P (MAP) Pulse Ox O2 Delivery O2 Flow Rate FiO2 12/21/23 08:40 98.9 85 18 150/62 (91) 95 98.9 12/20/23 20:00 Room Air* 0 21 Total Intake and Output 12/20/23 12/20/23 12/21/23 14:59 22:59 06:59 Intake Total 10 ml 490 ml 350 ml Balance 10 ml 490 ml 350 ml medications Current Medications Medications Dose Ordered Sig/Tawnya Route Start Time Stop Time Status Last Admin Dose Admin Atorvastatin Calcium 20 mg HS PO 12/14/23 22:00 12/20/23 21:48 20 MG Ceftriaxone Sodium 50 ml @ 100 mls/hr DAILY@09 IV 12/15/23 09:00 12/20/23 10:04 100 MLS/HR Acetaminophen/ Hydrocodone Bitart 1 tab Q4HP PRN PO 12/14/23 22:00 12/16/23 12:38 1 TAB Ondansetron HCl 4 mg Q4HP PRN IV 12/14/23 22:00 12/19/23 09:14 4 MG Acetaminophen 650 mg Q6HP PRN PO 12/14/23 22:00 12/19/23 21:47 650 MG Morphine Sulfate 2 mg Q8HPRN PRN IV 12/14/23 22:00 Hydralazine HCl 10 mg Q6HPRN PRN IV 12/14/23 22:45 12/20/23 10:04 10 MG Metoprolol Succinate 25 mg DAILY PO 12/17/23 10:00 12/19/23 09:15 25 MG Sacubitril/ Valsartan 0.5 tab BID PO 12/16/23 22:00 12/20/23 21:59 0.5 TAB Metoclopramide HCl 5 mg ACHS PO 12/16/23 17:00 12/21/23 06:32 5 MG Pantoprazole Sodium 20 mg BID IV 12/18/23 10:00 12/20/23 21:48 20 MG Ergocalciferol 50,000 unit Q7D PO 12/19/23 10:15 12/19/23 12:29 50,000 UNIT Calcitriol 0.25 mcg DAILY PO 12/20/23 10:00 Sevelamer HCl 800 mg TIDWM PO 12/19/23 12:00 12/20/23 18:03 800 MG Diagnostic Test (Pha) 1 strip IQ4HR 12/21/23 00:00 12/21/23 04:28 1 STRIP Insulin Human Regular IQ4HR SC 12/21/23 00:00 12/21/23 04:28 3 UNITS Dextrose 50 ml UD PRN IV 12/20/23 23:45 objective LUNGS:Normal, CVS:Normal, MSK:Normal laboratory and microbiology Laboratory Tests 12/21/23 04:22 Test 12/21/23 04:22 Range/Units Serum Glucose 182 H 74-106 mg/dL Assessment/Plan Chronic Kidney Disease stage 5 now ESRD requiring hemodialysis CKD5- clinic Hypertensive emergency Diabetic nephropathy Nephrotic range proteinuria Congestive heart failure reduced ejection fraction EF less than 25 Hyperphosphatemia Secondary hyperparathyroidism Vitamin-D deficiency Hemodialysis today tunnel HD catheter s/p AVF placement 12/20/23 BP meds Epogen with hemodialysis Fluid restriction Renal diet Renvela t.i.d. with meals Calcitriol 0.25 mcg q.day Ergocalciferol 5,000 units p.o. q.week chair time with DCD Cardiology on board Plan discussed with: Patient MYAH MAHAJAN MD Dec 21, 2023 09:15
[2023-12-21] MEDS ORDERED: CIPR500T4 PO (14:03)
[2023-12-21] MEDS ORDERED: SACU1TAB PO (14:03)
[2023-12-21] MEDS ORDERED: METO-6 PO (14:03)
[2023-12-21] MEDS ORDERED: SEVE800T7 PO (14:03)
--- NOTE | 2023-12-21 14:15 | DVHDS2 ---
Discharge Summary Date of Admission Dec 14, 2023 at 21:56 Date of Discharge: Dec 21, 2023 Admitting Diagnosis Acute cystitis Labs/Diagnostic Data: Laboratory Results Test 12/21/23 12:37 12/21/23 04:22 12/17/23 05:39 12/16/23 12:05 POC Glucose 211 mg/dl (70-106) White Blood Count 10.5 10^3/uL (4.4-10.8) Red Blood Count 2.98 10^6/uL (4.0-5.20) Hemoglobin 8.9 g/dL (12.2-16.2) Hematocrit 26.5 % (36.0-46.0) Mean Corpuscular Volume 89.0 fL (80.0-100.0) Mean Corpuscular Hemoglobin 29.9 pg (28.0-32.0) Mean Corpuscular Hemoglobin Concent 33.6 g/dL (32.0-36.0) Red Cell Distribution Width 14.4 % (11.8-14.3) Platelet Count 142 10^3/uL (140-450) Mean Platelet Volume 9.4 fL (6.9-10.8) Neutrophils (%) (Auto) 83.0 % (37.0-80.0) Lymphocytes (%) (Auto) 9.6 % (10.0-50.0) Monocytes (%) (Auto) 7.1 % (0.0-12.0) Eosinophils (%) (Auto) 0.0 % (0.0-7.0) Basophils (%) (Auto) 0.3 % (0.0-2.0) Neutrophils # (Auto) 8.7 10 ^3/uL (1.6-8.6) Lymphocytes # (Auto) 1.0 10 ^3/uL (0.4-5.4) Monocytes # (Auto) 0.7 10 ^3/uL (0-1.3) Eosinophils # (Auto) 0 10 ^3/uL (0-0.8) Basophils # (Auto) 0 10 ^3/uL (0-0.2) Nucleated Red Blood Cells 0.0 % Sodium Level 135 mmol/L (136-145) Potassium Level 4.4 mmol/L (3.5-5.1) Chloride Level 105 mmol/L (98-107) Carbon Dioxide Level 24 mmol/L (20-31) Anion Gap 6 (5-15) Blood Urea Nitrogen 55 mg/dL (9-23) Creatinine 4.32 mg/dL (0.550-1.02) Glomerular Filtration Rate Calc 11 mL/min (>90) BUN/Creatinine Ratio 12.7 (10.0-20.0) Serum Glucose 182 mg/dL (74-106) Calcium Level 8.7 mg/dL (8.7-10.4) Phosphorus Level 5.2 mg/dL (2.4-5.1) Magnesium Level 1.8 mg/dL (1.6-2.6) Vitamin D 25-Hydroxy 17.1 ng/mL (30.0-100) Parathyroid Hormone (Intact) 745.9 pg/mL (18.4-80.1) Prothrombin Time 10.5 sec (9.3-11.8) Prothrombin Time INR 0.99 (0.9-1.15) Activated Partial Thromboplast Time 24.8 SEC (24.5-34.5) Test 12/16/23 05:26 12/14/23 22:14 12/14/23 20:09 12/14/23 19:11 Hemoglobin A1c 7.3 % A1C (<5.7) Hepatitis A IgM Antibody Negative Hepatitis B Surface Antigen Negative (Negative) Hepatitis B Core IgM Antibody Negative Hepatitis C Antibody Negative (Negative) Troponin I High Sensitivity 19 ng/L (</=34) Urine Color Light-brown (Yellow) Urine Clarity Ex.turbid (Clear) Urine pH 6.5 (5.0-9.0) Urine Specific [place] 1.024 (1.001-1.035) Urine Protein 3+ (Negative) Urine Ketones 1+ (Negative) Urine Blood 2+ /uL (Negative) Urine Nitrite Negative (Negative) Urine Bilirubin Negative (Negative) Urine Urobilinogen Normal mg/dL (Negative) Urine Leukocyte Esterase 3+ /uL (Negative) Urine RBC 12 /hpf (0 - 4) Urine WBC 1223 /hpf (0 - 5) Urine WBC Clumps Present /hpf (None Seen) Urine Squamous Epithelial Cells Few /hpf (<5) Urine Bacteria Few /hpf (None Seen) Urine Mucus Few (None Seen) Urine Glucose 4+ mg/dL (Normal) Total Bilirubin 0.6 mg/dL (0.2-1.0) Aspartate Amino Transferase (AST) 13 U/L (13-40) Alanine Aminotransferase (ALT) 20 U/L (7-40) Alkaline Phosphatase 176 U/L (46-116) B-Type Natriuretic Peptide 1312.58 pg/mL (0-100) Total Protein 7.1 g/dL (5.7-8.2) Albumin 4.4 g/dL (3.2-4.8) Lipase 32 U/L (12-53) Other Laboratory Tests 12/21/23 04:22 Brief Hx & Hospital Course: History of Present Illness 53-year-old female presents for evaluation of nausea and vomiting. She reports a three day history of onset of symptoms. She also reports lower abdominal pain. She reports having a history of end-stage renal disease and is scheduled for an AV fistula for dialysis. Patient's blood pressure was also noted to be high in the 200s. She denies headache or dizziness. Denies chest pain or shortness for breath. Course of hospitalization: Patient was started on goal-directed medical treatment for noted in his decrease in ejection fraction to 25%. Patient was blood pressure normalized. Nephrology consultation was obtained. Patient had tunneled cath placed, as well as her scheduled hemodialysis fistula which was placed yesterday. Patient was found to be positive for E coli in the urine which was treated with Rocephin. The patient also had persistent nausea and vomiting, for which she states was an issue prior to coming in the hospital for the past several months. The patient was started on p.o. Reglan before meals and at night for possible diabetic gastroparesis. The patient states that she was able to tolerate normal meals without any more nausea and vomiting. The patient has had hemodialysis inpatient, and will be discharged today after obtaining hemodialysis chair time as an outpatient. The patient will be continued on her heart failure regimen, oral antibiotic therapy with ciprofloxacin 500 mg twice a day for the next three days. She was instructed to follow up with her PCP in next 2-3 weeks. All questions answered. Physical exam General: Alert and Oriented x3. No acute distress. Well-nourished. Eyes: EOMI. Anicteric. HENT: Moist mucous membranes. Lungs: Clear to auscultation bilaterally. No accessory muscle use. Cardiovascular: Regular rate and rhythm. No murmur. No JVD. Abdomen: Soft, non-tender and non-distended. No palpable masses. Extremities: No edema. Non-tender. Skin: No rashes or lesions. Warm. Neurologic: No focal neurological deficits. CN II-XII grossly intact, but not individually tested. Psychiatric: Cooperative. Appropriate mood and affect. Total time spent with patient discussing and formulating plan of care: 35 minutes. This medical document was created using an electronic medical record system with [employer] dictation system. Although this document has been carefully reviewed, there may still be some phonetic and typographical errors. These areas are purely typographical due to imperfections of the software programs, and do not reflect any compromise in the patient's medical care. Consults/Reason for consult Cardiology: Decompensated heart failure, hypertensive crisis Nephrology: ESRD with initiation of hemodialysis Condition at Discharge: Fair Final Diagnosis/Problems List Complicated Cystitis with E Coli Secondary Diagnosis: -complicated cystitis: E coli -CKD stage 5 -diabetes mellitus -primary hypertension -acute on chronic systolic heart failure with ejection fraction 25% -probable diabetic gastroparesis Discharge Disposition: Home Discharge Instruct/Medications Diet: Regular, Consistent carbohydrate, Cardiac 2g Na,low cholest Activity: No Restrictions, As Tolerated Follow Up/Referral: PCP in 1-2 weeks Hemodialysis chair time as established Medications: Ciprofloxacin 500 mg p.o. twice a day x3 days Renagel 800 mg p.o. before each meal Reglan 5 mg p.o. before each 36 Discharge Statement: "Patient was advised to return to the ER or call 911 if any headaches, dizziness, shortness of breath, chest pain, abdominal pain, bleeding, fevers, or worsening of medical condition. Patient was counseled about treatment plan, medications, possible side effects, patientverbalized understanding. All questions were answered to the best of my ability. This discharge took greater then 30 minutes in planning, reviewing documentation, counseling the patient, and discussing with other team members." ASSESSMENT ASSESSMENT Assessment Complicated Cystitis with E Coli Date of Service: Dec 21, 2023 Billing Provider: DIONNE MCHUGH NP Common Visit Codes: 13666-DIF/OBS DISCH DAY >30min DIONNE MCHUGH NP Dec 21, 2023 14:15
[2023-12-21] MEDS: EPOETIN ALFA-EPBX 10,000 UNIT/1ML VIAL SC ONE (21:08)
== END 2023-12-21 22:35 | disposition home or self-care (01) | DRG 264 ==
LOC: ER 18:50 → OVERFLOW 21:56 → EAST 22:06 → WEST WING 12-19 17:50
PROVIDERS: ADMIT Nurse Practitioner; ATTEND Nurse Practitioner Acute Care
PROC: 0JH63XZ Insertion of Tunneled Vascular Access Device into Chest Subcutaneous Tissue and Fascia, Percutaneous Approach (ICD-10-PCS; 2023-12-17)
PROC: 02HV33Z Insertion of Infusion Device into Superior Vena Cava, Percutaneous Approach (ICD-10-PCS; 2023-12-17)
PROC: B5181ZA Fluoroscopy of Superior Vena Cava using Low Osmolar Contrast, Guidance (ICD-10-PCS; 2023-12-17)
PROC: B548ZZA Ultrasonography of Superior Vena Cava, Guidance (ICD-10-PCS; 2023-12-17)
PROC: 5A1D70Z Performance of Urinary Filtration, Intermittent, Less than 6 Hours Per Day (ICD-10-PCS; 2023-12-17)
PROC: 03180ZD Bypass Left Brachial Artery to Upper Arm Vein, Open Approach (ICD-10-PCS; principal; 2023-12-20 13:38)
PROC: 5A1D70Z Performance of Urinary Filtration, Intermittent, Less than 6 Hours Per Day (ICD-10-PCS; 2023-12-21)
DX: I13.2 Hypertensive heart and chronic kidney disease with heart failure and with stage 5 chronic kidney disease, or end stage renal disease (principal); I50.23 Acute on chronic systolic (congestive) heart failure; N18.6 End stage renal disease; N30.01 Acute cystitis with hematuria; I16.1 Hypertensive emergency; N17.9 Acute kidney failure, unspecified; N25.81 Secondary hyperparathyroidism of renal origin; D63.1 Anemia in chronic kidney disease; E11.22 Type 2 diabetes mellitus with diabetic chronic kidney disease; I25.10 Atherosclerotic heart disease of native coronary artery without angina pectoris; E11.43 Type 2 diabetes mellitus with diabetic autonomic (poly)neuropathy; K31.84 Gastroparesis; K21.9 Gastro-esophageal reflux disease without esophagitis; E78.5 Hyperlipidemia, unspecified; J45.909 Unspecified asthma, uncomplicated; E55.9 Vitamin D deficiency, unspecified; Z99.2 Dependence on renal dialysis; Z88.3 Allergy status to other anti-infective agents; Z83.3 Family history of diabetes mellitus; Z90.710 Acquired absence of both cervix and uterus; Z82.49 Family history of ischemic heart disease and other diseases of the circulatory system
CPT/HCPCS: 36415; 36558; 71045; 71046; 74176; 77001; 80048; 80053; 80074; 81001; 82306; 82962; 83036; 83690; 83735; 83880; 83970; 84100; 84484; 85025; 85610; 85730; 86850; 86900; 86901; 87040; 87086; 87088; 87186; 90935; 99152; 99291; C1894; G0378; J1642; J1815; J2250; J2405; J2470; J3490

== ENCOUNTER → 2024-03-07 | Outpatient (CLI) | payer MEDICARE, MEDICAID ==
[~2024-03-07] MED LIST changes: +CIPR500T4 PO; +FAMO20TA10 PO; +FURO1TAB33 PO; +INSLANTI SC; +METO-6 PO; +METO25TA93 PO; +NIFE90TA75 PO; +OMEP20TA PO; +SACU1TAB PO; +SEVE800T7 PO; +VERI2.5T PO
[2024-03-07 12:50] VITALS: BP 189/89; PULSE 73; RESP 16; O2SAT 97
[2024-03-07 13:03] VITALS: BP 187/87; PULSE 70; RESP 16; O2SAT 97
--- NOTE | 2024-03-07 13:08 | DVH ---
EXAM: XY CHEST TWO VIEWS ROUTINE CLINICAL HISTORY: Pain COMPARISON: XY CHEST TWO VIEWS ROUTINE on DOS: 12/14/23, XY CHEST TWO VIEWS ROUTINE on DOS: 12/02/23 TECHNIQUE: Frontal and lateral view of the chest was obtained FINDINGS: Lines and Tubes: Left central venous catheter tip projects over the cavoatrial junction. Lungs: No focal consolidation. Pleura: No effusion. No pneumothorax. Cardiomediastinal contours: Unremarkable Bones: No acute osseous abnormality. IMPRESSION: No acute cardiopulmonary disease.
== END | disposition home or self-care (01) ==
LOC: Rad HDHVI 12:33
PROVIDERS: ATTEND Internal Medicine Cardiovascular Disease
DX: Z01.818 Encounter for other preprocedural examination (principal); I50.1 Left ventricular failure, unspecified; I42.0 Dilated cardiomyopathy
CPT/HCPCS: 71046; 93005; G0463

== ENCOUNTER → 2024-03-08 | Outpatient (CLI) | payer MEDICARE, MEDICAID ==
[~2024-03-08] MED LIST changes: -CARV12.544 PO; -CEPH250C PO; -CHOL20007 PO; -CIPR500T4 PO; -ERGO1CAP23 PO; -FER325T PO; -FLUT1SPR5 EACHNOSTRI; -HYDR25TA87 PO; -INSLANTI SC; -ISOS1TAB28 PO; -METO-6 PO; -NIFE1TAB31 PO; -PANT40T PO; -RIME75TA PO; -VERI2.5T PO
--- NOTE | 2024-03-09 14:26 | DVHHP ---
ADMIT DATE: 03/08/2024 HISTORY OF PRESENT ILLNESS: The patient is 53 years old with history of end-stage renal disease, on hemodialysis and history of diabetes with diabetic neuropathy, vasculopathy, nephropathy, now presents with signs and symptom complex of diminished left ventricular ejection fraction, EF less than 30%. The patient has intraventricular conduction delay, marked bradycardia as well and therefore she will require pacing intermittently, especially of the RV. Because of above presentation, it is felt that with her low ejection fraction, the patient should undergo AICD implantation. Risks and benefits were explained to the patient. Furthermore, the patient has catheter on the left side while she is getting hemodialysis and has a fistula on the left side as well, and because of the presentation, I believe right-sided approach would be the only choice she has. I have asked her in detail whether she had ever had any instrumentation on the right side, she has denied any instrumentation on the right side for her dialysis or any kind of catheter placement. Therefore, the patient will require AICD implantation via the right subclavian approach. Risks and benefits were explained to the patient. REVIEW OF SYSTEMS: The patient denies any history of myocardial infarction, cardiac arrest. Denies any history of melena, hematochezia, hematemesis, hemoptysis or hematuria. Denies any history of any rheumatologic disorder. Denies any history of any trauma recently, fever, chills, recent travel outside, nor any infectious etiology. Denies any history of CVA. No movement disorder. PHYSICAL EXAMINATION: VITAL SIGNS: Blood pressure is 134/76, pulse of 70, O2 saturation 98% on room air. HEENT: Pupils are reactive. Sclerae anicteric. Funduscopic exam shows some AV nicking. No papilledema noted. Oral mucosa moist. Posterior pharynx without any exudate. NECK: No JVD appreciated. Carotid pulses are 2+ symmetrical. Thyroid is within normal limits. No nuchal rigidity. PULMONARY: Clear to auscultation in all lung yates. CARDIOVASCULAR: Regular rate without S3, without S4. PMI is diffuse, laterally displaced. ABDOMEN: Obese. Unable to appreciate an organomegaly. SKIN: Unremarkable. EXTREMITIES: 1+ pulses bilaterally, 1+ edema as well. ASSESSMENT AND PLAN: Thus, the patient with end-stage renal disease, on hemodialysis; now with dilated cardiomyopathy, depressed left ventricular ejection fraction, now to undergo Bi-V AICD implantation. Further recommendations after risks and benefits were explained to the patient. Jose Yuan MD SA/APRIL TID: [id number] RECEIPT: [id number]
== END | disposition home or self-care (01) ==
LOC: Rad HDHVI 13:13
PROVIDERS: ATTEND Internal Medicine Cardiovascular Disease
DX: I11.0 Hypertensive heart disease with heart failure (principal); I50.23 Acute on chronic systolic (congestive) heart failure
CPT/HCPCS: 93306

== ENCOUNTER 2024-03-09 08:15 | Day surgery (SDC) | payer MEDICARE, MEDICAID ==
[2024-03-07 15:45] LABS: Basophils # (auto) 0.1 10 ^3/uL (0-0.2); Basophils % (auto) 1.4 % (0.0-2.0); Eosinophils # (auto) 0.1 10 ^3/uL (0-0.8); Eosinophils % (auto) 1.8 % (0.0-7.0); Hematocrit 41.6 % (36.0-46.0); Hemoglobin 13.8 g/dL (12.2-16.2); Lymphocytes # (auto) 1.2 10 ^3/uL (0.4-5.4); Lymphocytes % (auto) 15.8 % (10.0-50.0); Mean Corpuscular Hemoglobin 30.6 pg (28.0-32.0); Mean Corpuscular Hgb Conc. 33.2 g/dL (32.0-36.0); Mean Corpuscular Volume 92.2 fL (80.0-100.0); Monocytes # (auto) 0.4 10 ^3/uL (0-1.3); Monocytes % (auto) 5.8 % (0.0-12.0); Neutrophils # (auto) 5.5 10 ^3/uL (1.6-8.6); Neutrophils % (auto) 75.2 % (37.0-80.0); Platelet Count (auto) 178 10^3/uL (140-450); Red Blood Cells 4.51 10^6/uL (4.0-5.20); White Blood Cell 7.3 10^3/uL (4.4-10.8)
[2024-03-07 16:05] LABS: INR 0.95 (0.9-1.15); Partial Thromboplastin Time 28.1 SEC (24.5-34.5); Prothrombin Time 10.1 sec (9.3-11.8)
[2024-03-07 16:12] LABS: Chloride 107 mmol/L (98-107); Sodium 142 mmol/L (136-145)
[2024-03-07 16:13] LABS: Anion Gap 8 (5-15); Carbon Dioxide 27 mmol/L (20-31)
[2024-03-07 16:14] LABS: Calcium 9.6 mg/dL (8.7-10.4)
[2024-03-07 16:19] LABS: BUN/Creatinine Ratio 9.1 (10.0-20.0)
[2024-03-07 16:24] LABS: Blood Urea Nitrogen 28 mg/dL (9-23); Glucose 129 mg/dL (74-106)
[~2024-03-09] VITALS: Ht 157.5 cm; Wt 70.8 kg
[2024-03-09] VITALS (7 sets, daily range): BP systolic 124–190; BP diastolic 61–76; PULSE 60–67; RESP 12–15; O2SAT 90–96
[2024-03-09] MEDS ORDERED: VANCOMYCIN HCL 1000 MG VL ONE (11:52)
[2024-03-09] MEDS ORDERED: fentaNYL CITRATE 100 MCG/2 ML VL ONE (11:52)
[2024-03-09] MEDS ORDERED: VANCOMYCIN 1GM/250ML KIT 250 ML IV ONE (11:53)
[2024-03-09] MEDS ORDERED: MIDAZOLAM HCL 2MG/2ML 2ml VIAL (1mg/ml) ONE (11:53)
[2024-03-09] MEDS ORDERED: LIDOCAINE 2%HCL (LOCAL ANESTH.) INJ 20ML MDV ONE (11:53)
--- NOTE | 2024-03-09 14:01 | DVH ---
CHEST RADIOGRAPH Indication: S/P PACEMAKER Technique: Portable upright AP view of the chest was performed. COMPARISON: XY CHEST XRAY 1 VIEW on DOS: 12/17/23, XY CHEST PORTABLE on DOS: 05/20/23, XY CHEST PORTABL E on DOS: 12/18/22, XY CHEST PORTABLE on DOS: 12/10/22, XY CHEST PORTABLE on DOS: 06/23/22 FINDINGS: No pneumothorax, pulmonary edema, or consolidative infiltrates. Left chest tunnel dialysis catheter i s re-identified. There is a new right chest AICD. The heart is enlarged. IMPRESSION: 1. Interval postoperative changes of right chest AICD placement, without pneumothorax or other compli cation. 2. Cardiomegaly.
--- NOTE | 2024-03-09 14:35 | DVHDS ---
DATE OF DISCHARGE: 03/09/2024 DISCHARGE DIAGNOSES: * Dilated cardiomyopathy. * End-stage renal disease. * Status post biventricular automatic implantable cardioverter defibrillator implantation via the right subclavian route. HOSPITAL COURSE: The patient is clinically stable. There were no complications. Chest x-ray was negative. The patient now being discharged home. Follow up with me in 1 week. Stable at the time of discharge. ACTIVITY: As instructed. DIET: Will be 2 g sodium diet. The patient at high risk for bleeding because she is a dialysis patient. Therefore, I instructed her to avoid any nonsteroidal or any heparin therapy during the next 24 hours if she requires dialysis. Follow up with me as stated above. Diet as stated above. Jose Yuan MD SA/APRIL TID: [id number] RECEIPT: [id number]
--- NOTE | 2024-03-09 15:02 | DVHOP ---
DATE OF SURGERY: 03/09/2024 INDICATIONS: History of a dilated cardiomyopathy, depressed left ventricular ejection fraction, end-stage renal disease on hemodialysis. The patient is now scheduled to undergo AICD Bi-V implantation from the right side. I have explained to the patient putting a right side Bi-V would be difficult to do at times and the chance is around 70%. PROCEDURE PERFORMED: * Bi-V AICD implantation. * Venography. * Conscious sedation. DESCRIPTION OF PROCEDURE: The patient was prepped and draped in a sterile condition. Xylocaine 1% was used to anesthetize the right subclavicular region. Using a Cook needle, the left subclavian vein was engaged after venography. Using a #10 blade, linear incision was made using blunt dissection and electrocautery, pocket was then dissected out. Using a 10.5-Somali peel-away sheath and coronary sinus guide catheter, we were able to get into the coronary sinus. Coronary sinus lead then appropriately positioned. We had to use a Supercore wire because of the tortuosity anatomy to get the catheter into the coronary sinus. Then, the coronary sinus lead was then deployed into the appropriate position. Threshold parameters obtained, lead was secured to the chest wall using 0 Ethibond. Similarly, using a second 10.5-Somali sheath, the right ventricular active fixation shock lead then appropriately positioned. Threshold parameters were obtained, lead was secured to the chest wall using 0 Ethibond. Using a 7-Somali peel-away sheath, right atrial active fixation lead then appropriately positioned. Threshold parameters obtained, lead was secured to the chest wall using 0 Ethibond. Generator was implanted. Pocket was then irrigated using vancomycin saline solution. Pocket was closed using 3-0 biofilament, 3-0 Monoderm subcutaneous sutures followed by 3-0 Monoderm subcuticular sutures. Because the patient has thin skin, sterile surgical vidya should be used to reinforce the skin until the wound heals. There were no complications. The patient tolerated the procedure well. RESULTS: The patient had a Biotronik MRI-compatible Bi-V AICD, Rivacor 7 HF-T QP, model #110087, serial #[id number]. LV lead is Sentus ProMRI, model #402226, serial #[id number]. RV lead is Pamira S65, it is a single coil lead, model #771125, serial #[id number]. Atrial lead is Solia S45, model #677476, serial #[id number]. Threshold parameters, atrium, P-wave amplitude of 2.7 millivolts, threshold of 2.7 volts at 0.4 milliseconds pulse duration, pacing impedance of 400 ohms. Right ventricular lead, R-wave amplitude of 15.0 millivolts, threshold of 0.7 volts at 0.4 milliseconds pulse duration, pacing impedance of 520 ohms, shock impedance of 70 ohms. Left ventricular lead, R-wave amplitude of 8.4 millivolts, threshold of 0.8 volts at 0.4 milliseconds pulse duration, pacing impedance of 620 ohms. CONCLUSION: The patient has successful implantation of Biotronik MRI-compatible Bi-V AICD. Jose Yuan MD SA/ARV/AMI TID: [id number] RECEIPT: [id number]
--- NOTE | 2024-03-11 10:13 | ECG ---
[facility] Test Date: 2024-03-09 Test Time: 13:46:51 Pat Name: ELLIOTT RODRIGUEZ Department: Room: Gender: F Machine Burrer: JOHN : 1970 Requested By: WADE CHAVARRIA Order Number: [id number] Reading MD: Measurements Intervals [place] Rate: 64 P: 31 ID: [id number] QRS: 217 QRSD: 148 T: 57 QT: 494 QTc: 509 Interpretive Statements Normal sinus rhythm Right superior axis deviation Nonspecific intraventricular block Please click the below link to view image of tracing.
== END 2024-03-09 16:10 | disposition home or self-care (01) ==
LOC: CATH 08:15
PROVIDERS: ATTEND Internal Medicine Cardiovascular Disease
DX: I42.0 Dilated cardiomyopathy (principal); I50.21 Acute systolic (congestive) heart failure; R79.1 Abnormal coagulation profile; I21.9 Acute myocardial infarction, unspecified; N18.6 End stage renal disease; I25.5 Ischemic cardiomyopathy; Z95.810 Presence of automatic (implantable) cardiac defibrillator; Z99.2 Dependence on renal dialysis
CPT/HCPCS: 33225; 33249; 36415; 71045; 80048; 85025; 85610; 85730; 93005; C1769; C1882; C1887; C1894; J2250; J3010; J3370; 99152

== ENCOUNTER → 2024-03-10 | Outpatient (CLI) | payer MEDICARE, MEDICAID ==
--- NOTE | 2024-03-10 12:52 | DVH ---
EXAM: XY CHEST TWO VIEWS ROUTINE CLINICAL HISTORY: POST OP SOB COMPARISON: XY CHEST TWO VIEWS ROUTINE on DOS: 03/07/24, XY CHEST TWO VIEWS ROUTINE on DOS: 12/14/23, X Y CHEST TWO VIEWS ROUTINE on DOS: 12/02/23 TECHNIQUE: Frontal and lateral view of the chest was obtained FINDINGS: Lines and Tubes: Cardiac pacemaker projects over the right chest wall. Left central venous catheter tip projects over the cavoatrial junction. Lungs: No focal consolidation. Pleura: No effusion. No pneumothorax. Cardiomediastinal contours: Mild cardiomegaly. Bones: No acute osseous abnormality. IMPRESSION: No acute cardiopulmonary disease. Mild cardiomegaly.
== END | disposition home or self-care (01) ==
LOC: Rad HDHVI 08:59
PROVIDERS: ATTEND Internal Medicine Cardiovascular Disease
DX: I51.7 Cardiomegaly (principal); R06.02 Shortness of breath; Z95.0 Presence of cardiac pacemaker
CPT/HCPCS: 71046

== ENCOUNTER → 2024-04-11 | Outpatient (CLI) | payer MEDICARE, MEDICAID | END | disposition home or self-care (01) | LOC: Rad HDHVI 11:17 | PROVIDERS: ATTEND Internal Medicine Cardiovascular Disease | DX: I10 Essential (primary) hypertension (principal); I42.1 Obstructive hypertrophic cardiomyopathy | CPT/HCPCS: 93306 ==

== ENCOUNTER → 2024-05-16 | Outpatient (CLI) | payer MEDICARE, MEDICAID ==
[2024-05-16 14:41] LABS: Basophils # (auto) 0.1 10 ^3/uL (0-0.2); Basophils % (auto) 0.9 % (0.0-2.0); Eosinophils # (auto) 0.2 10 ^3/uL (0-0.8); Eosinophils % (auto) 2.8 % (0.0-7.0); Hematocrit 36.3 % (36.0-46.0); Hemoglobin 11.6 g/dL (12.2-16.2); Lymphocytes # (auto) 2.1 10 ^3/uL (0.4-5.4); Lymphocytes % (auto) 29.1 % (10.0-50.0); Mean Corpuscular Hemoglobin 27.2 pg (28.0-32.0); Mean Corpuscular Volume 85.1 fL (80.0-100.0); Monocytes # (auto) 0.4 10 ^3/uL (0-1.3); Neutrophils # (auto) 4.4 10 ^3/uL (1.6-8.6); Neutrophils % (auto) 61.2 % (37.0-80.0); Platelet Count (auto) 148 10^3/uL (140-450); Red Blood Cells 4.26 10^6/uL (4.0-5.20); Red Cell Distribution Width 15.6 % (11.8-14.3); White Blood Cell 7.3 10^3/uL (4.4-10.8)
[2024-05-16 14:48] LABS: Alanine Aminotransferase 26 U/L (7-40); Albumin 4.3 g/dL (3.2-4.8); Anion Gap 11 (5-15); Aspartate Aminotransferase 16 U/L (13-40); BUN/Creatinine Ratio 15.5 (10.0-20.0); Bilirubin, Total 0.3 mg/dL (0.2-1.0); Calcium 9.5 mg/dL (8.7-10.4); Carbon Dioxide 22 mmol/L (20-31); Chloride 106 mmol/L (98-107); Glucose 98 mg/dL (74-106); Sodium 139 mmol/L (136-145); Total Protein 7.2 g/dL (5.7-8.2)
[2024-05-16 14:49] LABS: INR 0.94 (0.9-1.15); Partial Thromboplastin Time 27.1 SEC (24.5-34.5)
[2024-05-16 14:57] LABS: Alkaline Phosphatase 251 U/L (46-116); Potassium 5.4 mmol/L (3.5-5.1)
[2024-05-16 14:58] LABS: Blood Urea Nitrogen 83 mg/dL (9-23)
[2024-05-16 15:09] LABS: Erythrocyte Sedimentation Rate 20 mm/hr (0-20)
== END | disposition home or self-care (01) ==
LOC: LAB 13:39
PROVIDERS: ATTEND Internal Medicine
DX: Z01.812 Encounter for preprocedural laboratory examination (principal); E11.9 Type 2 diabetes mellitus without complications; Z79.899 Other long term (current) drug therapy; I50.9 Heart failure, unspecified
CPT/HCPCS: 36415; 80053; 83036; 84443; 85025; 85610; 85652; 85730

== ENCOUNTER 2024-09-12 14:19 | Outpatient (CLI) | payer MEDICARE, MEDICAID ==
[2024-09-12 14:36] LABS: Hematocrit 35.5 % (36.0-46.0); Hemoglobin 11.9 g/dL (12.2-16.2); Mean Corpuscular Hemoglobin 30.8 pg (28.0-32.0); Mean Corpuscular Volume 92.1 fL (80.0-100.0); Nucleated Red Blood Cells % 0.1 %
[2024-09-12 14:49] LABS: INR 0.97 (0.9-1.15); Partial Thromboplastin Time 26.2 SEC (24.5-34.5); Prothrombin Time 10.3 sec (9.3-11.8)
[2024-09-12 15:20] LABS: Alanine Aminotransferase 14 U/L (7-40); Albumin 4.3 g/dL (3.2-4.8); Anion Gap 10 (5-15); BUN/Creatinine Ratio 9.2 (10.0-20.0); Bilirubin, Total 0.3 mg/dL (0.2-1.0); Calcium 9.0 mg/dL (8.7-10.4); Carbon Dioxide 23 mmol/L (20-31); Chloride 106 mmol/L (98-107); Sodium 139 mmol/L (136-145); Total Protein 6.9 g/dL (5.7-8.2)
[2024-09-12 15:21] LABS: Alkaline Phosphatase 278 U/L (46-116); Blood Urea Nitrogen 47 mg/dL (9-23); Glucose 275 mg/dL (74-106); Potassium 5.4 mmol/L (3.5-5.1)
== END 2024-09-12 17:00 | disposition home or self-care (01) ==
LOC: LAB 14:19
PROVIDERS: ATTEND Surgery Vascular Surgery
DX: I13.2 Hypertensive heart and chronic kidney disease with heart failure and with stage 5 chronic kidney disease, or end stage renal disease (principal); N18.5 Chronic kidney disease, stage 5; I50.9 Heart failure, unspecified
CPT/HCPCS: 36415; 80053; 85025; 85610; 85730

== ENCOUNTER 2024-10-30 10:09 | Outpatient (CLI) | payer MEDICARE, MEDICAID ==
[~2024-10-30] VITALS: Ht 154.9 cm; Wt 68.0 kg
[2024-10-30] MEDS ORDERED: ADENOSINE 90 MG/30 ML INJ IV ONE (10:41)
[2024-10-30] MEDS ORDERED: ADENOSINE 57 MG in GIVE UN-DILUTED 0 ML IV ONE (11:15)
[2024-10-30] MEDS: ONDANSETRON HCL 4 MG/2 ML VIAL IV ONE (11:37)
[2024-10-30] MEDS: ONDANSETRON HCL 4 MG/2 ML VIAL ONE (11:40)
== END 2024-10-30 17:00 | disposition home or self-care (01) ==
LOC: Rad HDHVI 10:09
PROVIDERS: ATTEND Internal Medicine Cardiovascular Disease
DX: I44.0 Atrioventricular block, first degree (principal); R07.89 Other chest pain; I11.0 Hypertensive heart disease with heart failure; I50.9 Heart failure, unspecified; R42 Dizziness and giddiness; R06.02 Shortness of breath; E11.42 Type 2 diabetes mellitus with diabetic polyneuropathy; I31.39 Other pericardial effusion (noninflammatory); E78.00 Pure hypercholesterolemia, unspecified; F17.210 Nicotine dependence, cigarettes, uncomplicated; Z82.49 Family history of ischemic heart disease and other diseases of the circulatory system; Z95.0 Presence of cardiac pacemaker
CPT/HCPCS: 78452; 93017; A9500; J0153; J2405

== ENCOUNTER 2024-12-24 19:13 | Inpatient (IN) | payer MEDICARE, MEDICAID ==
[~2024-12-24] VITALS: Ht 154.9 cm; Wt 74.4 kg
--- NOTE | 2024-12-24 20:22 | ED.PDOC ---
History of Present Illness HPI Comments 54-year-old female who came to ER for hypertension. Patient does have history of hypertension, diabetes, end-stage renal disease on dialysis every Wednesday. Patient is blind. Currently being treated for urinary tract infection and ear infection. Complaining of bilateral flank pains, chills and fever. Seen earlier by urgent care, noted that her blood pressure and blood sugar was high. Patient is sent to the ER for evaluation and management. Was 213/91 mm Hg. Patient states she did not take her metoprolol this morning. Blood sugar was 265 REVIEW OF SYSTEMS: General: No fever, no chills, or fatigue HEENT: No sore throat, no earache, no congestion, no neck pain. Cardiac: No chest pain. No palpitations. Lungs: No shortness of breath, no cough. GI: No nausea, no vomiting, no diarrhea, no constipation, no abdominal pain : No dysuria, frequency, or urgency. No hematuria. Musculoskeletal: No joint pain , no joint swelling, no extremity edema. Skin: No rash, no itching. Neuro: No headache, no dizziness, no weakness EXAM: General: Awake, alert and oriented. No acute distress. Skin: Skin in warm, dry and intact. Appropriate color for ethnicity. HEENT: The head is normocephalic and atraumatic. Conjunctivae are clear without exudates or hemorrhage. Sclera is non-icteric. EOM are intact. No signs of nystagmus. Eyelids are normal in appearance without swelling or lesions. Oral mucosa is pink and moist Neck: The neck is supple with normal range of motion. No JVD. Cardiac: Heart rate and rhythm are normal. No murmurs, gallops, or rubs are au scultated. Respiratory: No signs of respiratory distress. Lung sounds are clear in all lobes bilaterally without rales, rhonchi, or wheezes. Abdominal: Abdomen is soft, non-tender without distention. Bowel sounds are present and normoactive in all four quadrants. Extremities: Upper and lower extremities are atraumatic in appearance without deformity or edema. Neurological: The patient is awake, alert and oriented to person, place, and time with normal speech. Speech is clear. There is no facial asymmetry. Psychiatric: Appropriate mood and affect. Good judgement and insight Chief Complaint: Flank Pain Time Seen by MD: 20:21 Primary Care Provider: KIERA Reviewed Notes: Nurses Notes Allergies: Coded Allergies: Sulfa Antibiotics (Verified Allergy, Intermediate, RASH, 03/07/24) Sulfamethoxazole w/Trimethoprim (Verified Allergy, Intermediate, RASH, 03/07/24) Home Meds Active Scripts Sevelamer Hydrochloride (Renagel) 800 Mg Tab, 800 MG PO TIDWM for 30 Days, #90 TAB 2 Refills Prov:DIONNE MCHUGH [employer] EXECUTIVE 12/21/23 Sacubitril-Valsartan (Entresto 24-26 mg) 1 Tab Tab, 0.5 TAB PO BID for 30 Days, #30 TAB 2 Refills Prov:DIONNE MCHUGH [employer] EXECUTIVE 12/21/23 Reported Medications Omeprazole (Gnp Omeprazole) 20 Mg Tab, 1 TAB PO BID for GERD, #90 TAB 1 Refill 03/07/24 Sacubitril-Valsartan (Entresto 24-26 mg) 1 Tab Tab, 1 TAB PO BID, TAB 03/07/24 Furosemide (Lasix) 20 Mg Tb, 1 TAB PO DAILY for EDEMA, #90 TAB 1 Refill 03/07/24 Sodium Bicarbonate (Sodium Bicarbonate) 650 Mg Tab, 650 MG PO DAILY for CKD, TAB 03/07/24 Metoprolol Succinate (Metoprolol Succinate Er) 25 Mg Tab, 75 MG PO BID for HTN for 30 Days, MG 03/07/24 Sucralfate (CARAFATE) 1 Gm Tab, 1 GM PO BID for GERD, TAB 03/07/24 Nifedipine (Nifedipine Er) 90 Mg Tab, 1 TAB PO BID for HTN, #30 TAB 5 Refills 03/07/24 Famotidine (PEPCID TABLET) 20 Mg Tb, 1 TAB PO DAILY for GERD, #60 TAB 5 Refills 03/07/24 Furosemide (Furosemide) 20 Mg Tab, 20 MG PO DAILY, TAB 05/21/23 Atorvastatin Calcium (ATORVASTATIN CALCIUM) 20 Mg Tab, 1 TAB PO DAILY for HIGH CHOLESTEROL 03/14/19 Mode of Arrival: Ambulatory Past Medical History PAST MEDICAL HISTORY: Anemia, Asthma, CAD, CHF, DM, ESRD, GERD, High Lipids, HTN Past Medical History (Other): Blind Surgical History: , Hysterectomy Surgical History (Other): Dialysis Wednesday SUSTAINABILITY DIRECTOR History: No Pertinent SUSTAINABILITY DIRECTOR History Family History Family History: Reviewed,noncontributory to illness, Family hx of DM, Family hx of heart otto Social History Smoker: Non-Smoker Alcohol: Denies ETOH Use Drugs: Denies Drug Use Lives In: Home Was a procedure done? Was a procedure done?: No Differential Dx Considerations may include: Urinary tract infection, hypertensive urgency, hyperglycemia X-Ray, Labs, Meds, VS Vital Signs Date Time Temp Pulse Resp B/P (MAP) Pulse Ox O2 Delivery O2 Flow Rate FiO2 12/24/24 22:46 97.9 70 16 225/93 (137) 97 97.9 12/24/24 22:41 97.9 12/24/24 20:38 230/86 12/24/24 20:29 98.4 73 16 230/86 (134) 98 98.4 12/24/24 19:16 97.9 78 17 213/91 95 97.9 Lab Test 12/24/24 22:06 Range/Units White Blood Count 5.1 4.4-10.8 10^3/uL Red Blood Count 3.27 L 4.0-5.20 10^6/uL Hemoglobin 10.3 L 12.2-16.2 g/dL Hematocrit 30.3 L 36.0-46.0 % Mean Corpuscular Volume 92.6 80.0-100.0 fL Mean Corpuscular Hemoglobin 31.4 28.0-32.0 pg Mean Corpuscular Hemoglobin Concent 33.9 32.0-36.0 g/dL Red Cell Distribution Width 13.2 11.8-14.3 % Platelet Count 192 140-450 10^3/uL Mean Platelet Volume 8.2 6.9-10.8 fL Neutrophils (%) (Auto) 53.8 37.0-80.0 % Lymphocytes (%) (Auto) 34.6 10.0-50.0 % Monocytes (%) (Auto) 7.0 0.0-12.0 % Eosinophils (%) (Auto) 3.7 0.0-7.0 % Basophils (%) (Auto) 0.9 0.0-2.0 % Neutrophils # (Auto) 2.7 1.6-8.6 10 ^3/uL Lymphocytes # (Auto) 1.8 0.4-5.4 10 ^3/uL Monocytes # (Auto) 0.4 0-1.3 10 ^3/uL Eosinophils # (Auto) 0.2 0-0.8 10 ^3/uL Basophils # (Auto) 0 0-0.2 10 ^3/uL Nucleated Red Blood Cells 0.3 % Sodium Level 144 136-145 mmol/L Potassium Level 4.4 3.5-5.1 mmol/L Chloride Level 104 98-107 mmol/L Carbon Dioxide Level 29 20-31 mmol/L Anion Gap 11 5-15 Blood Urea Nitrogen 28 H 9-23 mg/dL Creatinine 3.66 H 0.550-1.02 mg/dL Glomerular Filtration Rate Calc 14 >90 mL/min BUN/Creatinine Ratio 7.7 L 10.0-20.0 Serum Glucose 163 H 74-106 mg/dL Calcium Level 9.5 8.7-10.4 mg/dL Troponin I High Sensitivity 11 </=34 ng/L Thyroid Stimulating Hormone (TSH) 2.07 0.55-4.78 uIU/mL Current Medications Medications (Trade) Dose Ordered Sig/Tawnya Route Start Time Stop Time Status Last Admin Clonidine HCl (Catapres Tablet) 0.1 mg ONCE ONCE PO 12/24/24 19:30 12/24/24 19:31 DC 12/24/24 20:38 Acetaminophen (Tylenol Tablet Or Capsule) 1,000 mg ONCE ONCE PO 12/24/24 21:45 12/24/24 21:46 DC 12/24/24 22:41 Ketorolac Tromethamine (Toradol Injection) 30 mg ONCE ONCE IM 12/24/24 21:45 12/24/24 21:46 DC 12/24/24 22:41 Labetalol HCl (Labetalol HCl) 10 mg ONCE ONCE IV 12/24/24 22:45 12/24/24 22:46 DC 12/24/24 23:46 Sodium Chloride 500 ml @ 500 mls/hr Q1H ONCE IV 12/24/24 22:45 12/24/24 23:44 DC 12/24/24 23:46 Time of 1ST Reevaluation: 20:16 Reevaluation 1ST: Unchanged Patient Education/Counseling: Need For Follow Up Family Education/Counseling: No Family Present SEPSIS Sepsis Screen Date sepsis recognized/suspect: Dec 24, 2024 Time Sepsis recognized/suspect: 1917 Recent Procedure: No On Antibiotic Therapy: No Respiratory Rate >20: No Heart Rate >90: No Temp<36 C (96.8 F) or >38.3 C: No SBP <90 or MAP <65 mmHG: No New Acute Mental Status Change: No Is the patient on CPAP, BIPAP,: No Physician Orders Saline Lock (12/24/24 22:44) Electrocardigram (12/24/24 22:45) Vital Signs Date Time Temp Pulse Resp B/P (MAP) Pulse Ox O2 Delivery O2 Flow Rate FiO2 12/24/24 22:46 97.9 70 16 225/93 (137) 97 97.9 12/24/24 22:41 97.9 12/24/24 20:38 230/86 12/24/24 20:29 98.4 73 16 230/86 (134) 98 98.4 12/24/24 19:16 97.9 78 17 213/91 95 97.9 Laboratory Tests Test 12/24/24 22:06 White Blood Count 5.1 10^3/uL (4.4-10.8) Medications Medications Dose Ordered Sig/Tawnya Route Start Time Stop Time Status Last Admin Dose Admin Acetaminophen 1,000 mg ONCE ONCE PO 12/24/24 21:45 12/24/24 21:46 DC 12/24/24 22:41 Clonidine HCl 0.1 mg ONCE ONCE PO 12/24/24 19:30 12/24/24 19:31 DC 12/24/24 20:38 Ketorolac Tromethamine 30 mg ONCE ONCE IM 12/24/24 21:45 12/24/24 21:46 DC 12/24/24 22:41 Labetalol HCl 10 mg ONCE ONCE IV 12/24/24 22:45 12/24/24 22:46 DC 12/24/24 23:46 Sodium Chloride 500 ml @ 500 mls/hr Q1H ONCE IV 12/24/24 22:45 12/24/24 23:44 DC 12/24/24 23:46 Departure 1 Departure Time of Disposition: 22:46 Impression: Primary Impression: Hypertensive urgency Additional Impressions: DOMINIC (acute kidney injury) Hyperglycemia Disposition: ADMITTED INPATIENT Condition: Stable Comments MDM: Patient admitted to hospitalist service for further treatment, evaluation and monitoring. Extensive evaluation was performed in attempt to identify or rule out: (See differential diagnosis section) The following tests were ordered, and results were reviewed by me and discussed with patient: (See diagnostic results section) Addressed an acute or chronic illness that poses a threat to life or bodily function: Hypertensive urgency Decision regarding hospitalization or escalation of hospital level of care: Risk and benefits of admission for further treatment of patient's condition was considered. Due to patient's current clinical condition, high risk of decline and poor outcome if discharged and need for further inpatient management and monitoring, patient will be admitted to the hospital. Critical Care Note Critical Care Time?: No Stability Stability form required: No Heart Score Heart Score: Heart Score Response (Comments) Value History N/A 0 EKG N/A 0 Age N/A 0 Risk Factors N/A 0 Troponin N/A 0 Total 0 I personally scribed for SANAZ RUTHERFORD MD ([email or web address]) on 12/24/24 at 20:22. Electronically submitted by Brooks Brennan ([employer]). I personally scribed for SANAZ RUTHERFORD MD ([email or web address]) on 12/24/24 at 21:41. Electronically submitted by Brooks Brennan ([employer]). SANAZ RUTHERFORD MD Dec 24, 2024 20:22
[2024-12-24 22:28] LABS: Chloride 104 mmol/L (98-107); Hematocrit 30.3 % (36.0-46.0); Hemoglobin 10.3 g/dL (12.2-16.2); Mean Corpuscular Hemoglobin 31.4 pg (28.0-32.0); Mean Corpuscular Volume 92.6 fL (80.0-100.0); Nucleated Red Blood Cells % 0.3 %; Potassium 4.4 mmol/L (3.5-5.1); Sodium 144 mmol/L (136-145)
[2024-12-24 22:29] LABS: Anion Gap 11 (5-15); Carbon Dioxide 29 mmol/L (20-31)
[2024-12-24 22:30] LABS: Calcium 9.5 mg/dL (8.7-10.4)
[2024-12-24 22:35] LABS: BUN/Creatinine Ratio 7.7 (10.0-20.0)
[2024-12-24 22:40] LABS: Blood Urea Nitrogen 28 mg/dL (9-23); Glucose 163 mg/dL (74-106)
[2024-12-24] MEDS: ACETAMINOPHEN 500 MG TAB or CAP PO ONE (22:41)
[2024-12-24] MEDS: KETOROLAC TROMETH 30 MG/ML 1ML VIAL IM ONE (22:41)
[2024-12-24] MEDS ORDERED: MORPHINE SULFATE INJ 2 MG/ml SYRG IV PRN (23:30)
[2024-12-24] MEDS ORDERED: NITROGLYCERIN 0.4 MG SL TAB SL PRN (23:30)
--- NOTE | 2024-12-24 23:37 | DVHHPRES ---
History of Present Illness Resident Creating Document: LAMONT RIVERS RESIDENT History of Present Illness This is a 54-year-old female with past medical history of hypertension, type 2 diabetes mellitus, ESRD on hemodialysis 3 times a week, blindness in the right eye, status post prosthesis in the left eye due to bilateral retinal detachment presented to the ED with a chief complaint of bilateral flank pain, elevated BP, head and neck pain since 4:00 p.m. prior to this visit. The patient stated that she went to urgent care for headache and neck pain and found out elevated blood pressure systolic more than 220 that prompted this visit. She is compliant with the dialysis 3 times a week Wednesday ,Wednesday and . She also mentioned bilateral flank pain which was colicky in nature 5/10 radiates to the groin and associated with urgency, dysuria and frequency. She denies fever, chills, shortness of breath, chest pain, dizziness, nausea, vomiting or any altered bowel habit. PCP: Dr. Lauren Past Medical History Hypertension, type 2 diabetes mellitus, ESRD on hemodialysis, bilateral retinal detachment Past Surgical History Denies any surgical history Family History Family history significant for hypertension and heart disease Past Social History Lives with family Nonsmoker, nonalcoholic and never tried any drugs Review of Systems Constitutional: No: Fever, Chills, Sweats, Weakness, Malaise, Other Eyes: No: Pain, Vision change, Conjunctivae inflammation, Eyelid inflammation, Other, Redness ENT: No: Ear pain, Ear discharge, Nose pain, Nose discharge, Nose congestion, Mouth pain, Mouth swelling, Throat pain, Throat swelling, Other Respiratory: No: Cough, Dry, Shortness of breath, SOB with excertion, Wheezing, Hemoptysis, Pleuritic Pain, Sputum, Wheezing, Other Cardiovascular: No: Chest Pain, Palpitations, Orthopnea, Paroxysmal Noc. Dyspnea, Edema, Lt Headedness, Other Gastrointestinal: Abdominal Pain; No: Nausea, Vomiting, Diarrhea, Constipation, Melena, Hematochezia, Other Genitourinary: Dysuria, Frequency; No Incontinence, No Hematuria, No Retention, No Other Musculoskeletal: neck pain Skin: No: Rash, Lesions, Jaundice, Bruising, Other Neurological: No: Weakness, Numbness, Incoordination, Change in speech, Confusion, Seizures, Other Allergies: Coded Allergies: Sulfa Antibiotics (Verified Allergy, Intermediate, RASH, 03/07/24) Sulfamethoxazole w/Trimethoprim (Verified Allergy, Intermediate, RASH, 03/07/24) Medications Current Medications Medications Dose Ordered Sig/Tawnya Route Start Time Stop Time Status Last Admin Dose Admin Nitroglycerin 0.4 mg Q5MINP PRN SL 12/24/24 23:30 Morphine Sulfate 2 mg Q30M PRN IV 12/24/24 23:30 Exam Vital Signs Vital Signs Date Time Temp Pulse Resp B/P (MAP) Pulse Ox O2 Delivery O2 Flow Rate FiO2 12/24/24 22:46 97.9 70 16 225/93 (137) 97 97.9 Exam Physical examination: General Appearance: Alert, Oriented X3, Cooperative, No acute distress HEENT: Atraumatic, PERRLA, EOMI, Mucous membrane moist/pink Respiratory: Clear to auscultation, Normal air movement Cardiovascular: Regular rate, Normal S1, Normal S2, No murmurs, no chest wall t enderness Abdominal: Normal bowel sounds, Soft, Rt flank tenderness+, No hepatospenomegaly, No masses Extremities: Edema +, No clubbing, No cyanosis, Normal pulses, No tenderness/swelling Skin: No rashes, No breakdown, No significant lesion Neuro: Normal gait, Normal speech, Strength at 5/5 X4 ext, Normal tone, Sensation intact, Cranial nerves 3-12 NL, Reflexes 2+ Psych/Mental Status: Mental status NL, Mood NL Labs/Xrays Labs Test 12/24/24 22:06 Range/Units White Blood Count 5.1 4.4-10.8 10^3/uL Red Blood Count 3.27 L 4.0-5.20 10^6/uL Hemoglobin 10.3 L 12.2-16.2 g/dL Hematocrit 30.3 L 36.0-46.0 % Mean Corpuscular Volume 92.6 80.0-100.0 fL Mean Corpuscular Hemoglobin 31.4 28.0-32.0 pg Mean Corpuscular Hemoglobin Concent 33.9 32.0-36.0 g/dL Red Cell Distribution Width 13.2 11.8-14.3 % Platelet Count 192 140-450 10^3/uL Mean Platelet Volume 8.2 6.9-10.8 fL Neutrophils (%) (Auto) 53.8 37.0-80.0 % Lymphocytes (%) (Auto) 34.6 10.0-50.0 % Monocytes (%) (Auto) 7.0 0.0-12.0 % Eosinophils (%) (Auto) 3.7 0.0-7.0 % Basophils (%) (Auto) 0.9 0.0-2.0 % Neutrophils # (Auto) 2.7 1.6-8.6 10 ^3/uL Lymphocytes # (Auto) 1.8 0.4-5.4 10 ^3/uL Monocytes # (Auto) 0.4 0-1.3 10 ^3/uL Eosinophils # (Auto) 0.2 0-0.8 10 ^3/uL Basophils # (Auto) 0 0-0.2 10 ^3/uL Nucleated Red Blood Cells 0.3 % Sodium Level 144 136-145 mmol/L Potassium Level 4.4 3.5-5.1 mmol/L Chloride Level 104 98-107 mmol/L Carbon Dioxide Level 29 20-31 mmol/L Anion Gap 11 5-15 Blood Urea Nitrogen 28 H 9-23 mg/dL Creatinine 3.66 H 0.550-1.02 mg/dL Glomerular Filtration Rate Calc 14 >90 mL/min BUN/Creatinine Ratio 7.7 L 10.0-20.0 Serum Glucose 163 H 74-106 mg/dL Calcium Level 9.5 8.7-10.4 mg/dL SEPSIS Sepsis Screen Date sepsis recognized/suspect: Dec 24, 2024 Time Sepsis recognized/suspect: 1917 Recent Procedure: No On Antibiotic Therapy: No Respiratory Rate >20: No Heart Rate >90: No Temp<36 C (96.8 F) or >38.3 C: No SBP <90 or MAP <65 mmHG: No New Acute Mental Status Change: No Is the patient on CPAP, BIPAP,: No Physician Orders Saline Lock (12/24/24 22:44) Sodium Chloride 0.9% (12/24/24 22:45) Electrocardigram (12/24/24 22:45) Admit (12/24/24 23:30) Nitroglycerin Sublingual (Ntrostat Subli (12/24/24 23:30) Morphine Sulfate Injection (12/24/24 23:30) Oxygen By Nasal Cannula (12/24/24 23:30) Stat Ekg For Chest Pain (12/24/24 23:30) Notify Of Changes From Base (12/24/24 23:30) Sales Exhibitor For 24 Hours (12/24/24 23:30) Emergency Dysrhythmia Protocol (12/24/24 23:30) Rhythm Strips Once Every Shift (12/24/24 23:30) Code Status (12/24/24 23:30) Renal Standard(2gna,3gk,Lopho) (12/25/24 Breakfast) Admit (12/24/24 23:36) Vital Signs Date Time Temp Pulse Resp B/P (MAP) Pulse Ox O2 Delivery O2 Flow Rate FiO2 12/24/24 22:46 97.9 70 16 225/93 (137) 97 97.9 12/24/24 22:41 97.9 12/24/24 20:38 230/86 12/24/24 20:29 98.4 73 16 230/86 (134) 98 98.4 12/24/24 19:16 97.9 78 17 213/91 95 97.9 Laboratory Tests Test 12/24/24 22:06 White Blood Count 5.1 10^3/uL (4.4-10.8) Medications Medications Dose Ordered Sig/Tawnya Route Start Time Stop Time Status Last Admin Dose Admin Acetaminophen 1,000 mg ONCE ONCE PO 12/24/24 21:45 12/24/24 21:46 DC 12/24/24 22:41 1,000 MG Clonidine HCl 0.1 mg ONCE ONCE PO 12/24/24 19:30 12/24/24 19:31 DC 12/24/24 20:38 0.1 MG Ketorolac Tromethamine 30 mg ONCE ONCE IM 12/24/24 21:45 12/24/24 21:46 DC 12/24/24 22:41 30 MG Assessment/Plan Assessment/Plan Assessment and plan: # Hypertensive emergency # Hypertensive heart disease with chronic diastolic heart failure - Initial blood pressure was 230/86 - Was given IV labetalol 10 mg once - Resumed home medications nifedipine ER 90 mg daily and metoprolol succinate 75 mg daily - IV hydralazine 10 mg q.6 PRN for SBP more than 170 - CT head without contrast demonstrated normal study - chest x-ray revealed normal study # ESRD on hemodialysis - Recent BUN /creatinine 28/3.66 - Consulted nephrology # PUD prophylaxis - Pepcid 20 mg p.o. daily # DVT prophylaxis - heparin 5000 units q.12h Goal of care and code status discussed with the patient for more than 23 minutes full code Plan discussed with Dr. Davey Plan discussed with: Patient, Daughter, Other (RN) My Orders Orders - LAMONT RIVERS Procedure Category Date Status Time Admit ADMIT 12/24/24 Transmitted 23:30 Nitroglycerin PHA 12/24/24 In Process Sublingual (Ntrostat 23:30 Morphine Sulfate PHA 12/24/24 In Process Injection 23:30 Oxygen By Nasal RT 12/24/24 Transmitted Cannula 23:30 Stat Ekg For Chest BANNER 12/24/24 In Process Pain 23:30 Notify Md Of Changes BANNER 12/24/24 In Process From Base 23:30 Sales Exhibitor For BANNER 12/24/24 In Process 24 Hours 23:30 Emergency Dysrhythmia BANNER 12/24/24 In Process Protocol 23:30 Rhythm Strips Once BANNER 12/24/24 In Process Every Shift 23:30 Code Status CODE 12/24/24 Transmitted 23:30 Renal DIET 12/25/24 Transmitted Standard(2gna,3gk,Lopho) Breakfast Admit ADMIT 12/24/24 Transmitted 23:36 Date of Service: Dec 25, 2024 Billing Provider: SIMIN DAVEY MD Common Visit Codes: 71499-[id number] INP/OBS CARE (HIGH) Secondary Visit Codes: [id number] CARE PLAN 30 MINUTES LAMONT RIVERS Dec 24, 2024 23:37
[2024-12-24] MEDS: SODIUM CHLORIDE 0.9% 500 ML IV ONE (23:46)
[2024-12-24] MEDS: LABETALOL HCL 20 MG/4 ML VL IV ONE (23:46)
--- NOTE | 2024-12-25 00:33 | DVH ---
MEDICAL RECORDS NUMBER: [id number] PROCEDURE: CT HEAD WITHOUT CONTRAST Date: 12/25/2024 12:00 AM HISTORY: Hypertensive emergency TECHNIQUE: Contiguous axial images were acquired from the skull base through to the vertex. CONTRAST: None COMPARISON: CT HEAD WITHOUT CONTRAST on DOS: 07/29/22, CT BRAIN on DOS: 06/26/22, CT HEAD WITHOUT CONTRAST on DOS: 06/23/22, CT BRAIN on DOS: 06/17/22, CT BRAIN on DOS: 06/14/22 RADIATION DOSE INFORMATION: Automated exposure control dose reduction techniques were used. FINDINGS: Ventricles: The ventricular system is normal in size and position. Masses: No mass effect is seen. Hemorrhage: No blood products are identified. Skull: The calvarium is intact. Sinuses: The paranasal sinuses are clear. Mastoids: No fluid is seen in the mastoid air cells. Left orbital prosthesis is noted IMPRESSION: 1. No acute process is identified.
--- NOTE | 2024-12-25 00:35 | DVH ---
MEDICAL RECORDS NUMBER: [id number] PROCEDURE: XY CHEST PORTABLE DATE: 12/25/2024 12:00 AM HISTORY: Hypertensive emergency Views:1 COMPARISON: XY CHEST PORTABLE on DOS: 03/09/24, XY CHEST XRAY 1 VIEW on DOS: 12/17/23, XY CHEST PORTABLE on DOS: 05/20/23, XY CHEST PORTABLE on DOS: 12/18/22, XY CHEST PORTABLE on DOS: 12/10/22 FINDINGS/IMPRESSION: Lungs: The lungs are clear. Mediastinum: Mediastinal structures appear unremarkable.A RIGHT-sided pacing device is noted. No pneumothorax is seen. Skeletal: The skeletal structures appear unremarkable.
[2024-12-25] MEDS: METOPROLOL SUCCINATE XL 50 MG TAB PO ONE (01:47)
[2024-12-25] MEDS: hydrALAZINE HCL 20 MG/ML VL IV PRN (04:08)
--- NOTE | 2024-12-25 05:30 | DVH ---
MEDICAL RECORDS NUMBER: [id number] PROCEDURE: CT CT AB PEL WO CON-NO ORAL OR IV DATE: 12/25/2024 12:00 AM HISTORY: Bilateral flank pain TECHNIQUE: CT of the abdomen and pelvis is performed without IV contrast. CONTRAST: none Oral Contrast: No oral contrast was utilized. COMPARISON: CT CT AB PEL WO CON-NO ORAL OR IV on DOS: 12/14/23, CT CT AB PEL WO CON-NO ORAL OR IV on DOS: 12/17/22, CT CT AB PEL WO CON-NO ORAL OR IV on DOS: 12/09/22, [facility] on DOS: 07/23/21 RADIATION DOSE INFORMATION: Automated exposure control dose reduction techniques were used. FINDINGS: Lung bases: Minor scarring is seen in the lung bases. Mediastinum: Small pericardial effusion is noted. Liver: The liver is normal in size. There is no focal liver lesion. Biliary ducts: There is no evidence of intrahepatic or extrahepatic biliary ductal dilatation. Gallbladder: No abnormality is seen of the gallbladder. Spleen: The spleen is normal in size without focal lesion. Stomach: The stomach appears unremarkable. Pancreas: The pancreas is unremarkable. Adrenal glands: The adrenal glands are unremarkable. Kidneys: The kidneys are normal in size and are symmetric. There is no evidence of hydronephrosis. No focal renal lesion is noted. Aorta and IVC: The aorta and IVC are patent and are normal in size. Mesenteric vessels: Major mesenteric vessels appear to be intact. Bowel: The visualized portions of the small and large bowel are normal in caliber. 2.5 cm hernia is seen near the umbilicus containing only fat. No bowel involvement is seen. Appendix: The appendix is unremarkable. Pelvis:Pelvic structures appear unremarkable. Lymph nodes: There is no evidence of lymphadenopathy. Osseous structures: The osseous structures are intact. No lytic or blastic osseous lesion is noted. Free fluid/free air: None IMPRESSION: 1. No acute abnormality of the abdomen or pelvis. 2. Small pericardial effusion. 3. Small umbilical hernia containing only fat.
[2024-12-25 06:25] LABS: Urine Protein, UAD 3+ (Negative)
[2024-12-25 07:39] VITALS: PULSE 68; O2SAT 95
[2024-12-25 09:22] LABS: Hematocrit 28.4 % (36.0-46.0); Hemoglobin 9.6 g/dL (12.2-16.2); Mean Corpuscular Hemoglobin 31.5 pg (28.0-32.0); Mean Corpuscular Volume 93.1 fL (80.0-100.0); Nucleated Red Blood Cells % 0.1 %
[2024-12-25 09:36] LABS: Alanine Aminotransferase 24 U/L (7-40); Albumin 3.9 g/dL (3.2-4.8); Anion Gap 13 (5-15); BUN/Creatinine Ratio 9.2 (10.0-20.0); Calcium 9.1 mg/dL (8.7-10.4); Carbon Dioxide 24 mmol/L (20-31); Chloride 106 mmol/L (98-107); Magnesium 2.0 mg/dL (1.6-2.6); Potassium 3.9 mmol/L (3.5-5.1); Sodium 143 mmol/L (136-145); Total Protein 6.5 g/dL (5.7-8.2)
[2024-12-25 09:43] LABS: Alkaline Phosphatase 178 U/L (46-116); Bilirubin, Total 0.3 mg/dL (0.2-1.0); Blood Urea Nitrogen 33 mg/dL (9-23); Glucose 157 mg/dL (74-106)
--- NOTE | 2024-12-25 10:17 | DVHINCON2 ---
Date of service: Dec 25, 2024 Referring Physician Hospitalist Reason for Consultation End-stage renal disease History of Present Illness 54-year-old female past medical history of hypertension diabetes end- stage renal disease on hemodialysis Wednesday and Saturdays patient reports she went to urgent Care due to a recent sinus infection and upon evaluation was noted to have systolic blood pressure greater than 200 she was sent to the ER for this reason. Nephrology is consulted for chronic kidney disease management. Patient received medical therapy in the ER and patient's systolic blood pressure is improved she reports also resolution of her previously noted headache Allergies: Coded Allergies: Sulfa Antibiotics (Verified Allergy, Intermediate, RASH, 03/07/24) Sulfamethoxazole w/Trimethoprim (Verified Allergy, Intermediate, RASH, 03/07/24) Home Meds Active Scripts Sevelamer Hydrochloride (Renagel) 800 Mg Tab, 800 MG PO TIDWM for 30 Days, #90 TAB 2 Refills Prov:DIONNE MCHUGH [employer] 12/21/23 Sacubitril-Valsartan (Entresto 24-26 mg) 1 Tab Tab, 0.5 TAB PO BID for 30 Days, #30 TAB 2 Refills Prov:DIONNE MCHUGH [employer] 12/21/23 Reported Medications Omeprazole (Gnp Omeprazole) 20 Mg Tab, 1 TAB PO BID for GERD, #90 TAB 1 Refill 03/07/24 Sacubitril-Valsartan (Entresto 24-26 mg) 1 Tab Tab, 1 TAB PO BID, TAB 03/07/24 Furosemide (Lasix) 20 Mg Tb, 1 TAB PO DAILY for EDEMA, #90 TAB 1 Refill 03/07/24 Sodium Bicarbonate (Sodium Bicarbonate) 650 Mg Tab, 650 MG PO DAILY for CKD, TAB 03/07/24 Metoprolol Succinate (Metoprolol Succinate Er) 25 Mg Tab, 75 MG PO BID for HTN for 30 Days, MG 03/07/24 Sucralfate (CARAFATE) 1 Gm Tab, 1 GM PO BID for GERD, TAB 03/07/24 Nifedipine (Nifedipine Er) 90 Mg Tab, 1 TAB PO BID for HTN, #30 TAB 5 Refills 03/07/24 Famotidine (PEPCID TABLET) 20 Mg Tb, 1 TAB PO DAILY for GERD, #60 TAB 5 Refills 03/07/24 Furosemide (Furosemide) 20 Mg Tab, 20 MG PO DAILY, TAB 05/21/23 Atorvastatin Calcium (ATORVASTATIN CALCIUM) 20 Mg Tab, 1 TAB PO DAILY for HIGH CHOLESTEROL 03/14/19 Current Medications Current Medications Medications (Trade) Dose Ordered Sig/Tawnya Route PRN Reason Start Time Stop Time Status Last Admin Nitroglycerin (Ntrostat Sublingual) 0.4 mg Q5MINP PRN SL FOR CHEST PAIN 12/24/24 23:30 12/25/24 08:36 DC Morphine Sulfate 2 mg Q30M PRN IV FOR CHEST PAIN 12/24/24 23:30 12/25/24 08:36 DC Nifedipine (Procardia Xl (Time-Release)) 90 mg DAILY PO 12/25/24 10:00 Metoprolol Succinate (Toprol Xl) 75 mg DAILY PO 12/25/24 10:00 Hydralazine HCl (Apresoline Injection) 10 mg Q6HP PRN IV SBP>170 12/25/24 01:30 12/25/24 04:08 Famotidine (Pepcid Tablet) 20 mg DAILY PO 12/25/24 10:00 Heparin Sodium (Porcine) 5,000 units Q12HR SC 12/25/24 10:00 Sevelamer HCl (Renagel) 800 mg TIDWM PO 12/25/24 12:00 Furosemide (Lasix Injection) 40 mg DAILY IV 12/25/24 10:00 Family History: Diabetes mellitus G8 MOTHER G8 FATHER G8 BROTHER G8 SISTER FH: heart attack G8 MOTHER G8 FATHER Hypertension G8 MOTHER Review of Systems Headache H&P Exam Vital Signs/I&O Vital Sign Date Time Temp Pulse Resp B/P (MAP) Pulse Ox O2 Delivery O2 Flow Rate FiO2 12/25/24 07:47 97.7 68 16 151/64 (93) 95 97.7 12/25/24 07:39 Room Air* 0 21 Physical Exam Middle-aged female Blind No peripheral edema abdomen is soft No murmurs No crackles Labs/Diagnostic Data Labs/Diagnostic Data Laboratory Tests Test 12/25/24 09:04 12/25/24 03:40 12/24/24 22:06 Range/Units White Blood Count 4.8 5.1 4.4-10.8 10^3/uL Red Blood Count 3.05 L 3.27 L 4.0-5.20 10^6/uL Hemoglobin 9.6 L 10.3 L 12.2-16.2 g/dL Hematocrit 28.4 L 30.3 L 36.0-46.0 % Mean Corpuscular Volume 93.1 92.6 80.0-100.0 fL Mean Corpuscular Hemoglobin 31.5 31.4 28.0-32.0 pg Mean Corpuscular Hemoglobin Concent 33.8 33.9 32.0-36.0 g/dL Red Cell Distribution Width 13.5 13.2 11.8-14.3 % Platelet Count 164 192 140-450 10^3/uL Mean Platelet Volume 8.0 8.2 6.9-10.8 fL Neutrophils (%) (Auto) 60.3 53.8 37.0-80.0 % Lymphocytes (%) (Auto) 28.7 34.6 10.0-50.0 % Monocytes (%) (Auto) 6.5 7.0 0.0-12.0 % Eosinophils (%) (Auto) 3.5 3.7 0.0-7.0 % Basophils (%) (Auto) 1.0 0.9 0.0-2.0 % Neutrophils # (Auto) 2.9 2.7 1.6-8.6 10 ^3/uL Lymphocytes # (Auto) 1.4 1.8 0.4-5.4 10 ^3/uL Monocytes # (Auto) 0.3 0.4 0-1.3 10 ^3/uL Eosinophils # (Auto) 0.2 0.2 0-0.8 10 ^3/uL Basophils # (Auto) 0 0 0-0.2 10 ^3/uL Nucleated Red Blood Cells 0.1 0.3 % Sodium Level 143 144 136-145 mmol/L Potassium Level 3.9 4.4 3.5-5.1 mmol/L Chloride Level 106 104 98-107 mmol/L Carbon Dioxide Level 24 29 20-31 mmol/L Anion Gap 13 11 5-15 Blood Urea Nitrogen 33 H 28 H 9-23 mg/dL Creatinine 3.58 H 3.66 H 0.550-1.02 mg/dL Glomerular Filtration Rate Calc 14 14 >90 mL/min BUN/Creatinine Ratio 9.2 L 7.7 L 10.0-20.0 Serum Glucose 157 H 163 H 74-106 mg/dL Calcium Level 9.1 9.5 8.7-10.4 mg/dL Phosphorus Level 4.5 2.4-5.1 mg/dL Magnesium Level 2.0 1.6-2.6 mg/dL Total Bilirubin 0.3 0.2-1.0 mg/dL Aspartate Amino Transferase (AST) 15 13-40 U/L Alanine Aminotransferase (ALT) 24 7-40 U/L Alkaline Phosphatase 178 H 46-116 U/L B-Type Natriuretic Peptide 381.12 0-100 pg/mL Total Protein 6.5 5.7-8.2 g/dL Albumin 3.9 3.2-4.8 g/dL Urine Color Light-yellow Yellow Urine Clarity Clear Clear Urine pH 8.0 5.0-9.0 Urine Specific [place] 1.010 1.001-1.035 Urine Protein 3+ H Negative Urine Ketones Negative Negative Urine Blood Negative Negative /uL Urine Nitrite Negative Negative Urine Bilirubin Negative Negative Urine Urobilinogen Normal Negative mg/dL Urine Leukocyte Esterase Negative Negative /uL Urine RBC 5 0 - 4 /hpf Urine Microscopic WBC < 1 0-5 /HPF Urine Squamous Epithelial Cells Few <5 /hpf Urine Bacteria None seen None Seen /hpf Urine Glucose 3+ H Normal mg/dL Troponin I High Sensitivity 11 </=34 ng/L Thyroid Stimulating Hormone (TSH) 2.07 0.55-4.78 uIU/mL Assessment 54-year-old female past medical history of end-stage renal disease on hemodialysis presents to the hospital with hypertensive emergency in the setting of noted headache End-stage renal disease Clinically appears stable recommend dialysis tomorrow as per outpatient schedule. If patient is discharged today then recommend she returned to dialysis unit Hypertension with hypertensive emergency now resolving Patient resumed on nifedipine and metoprolol p.o., reports residual urinary output agree with Lasix today Low-salt renal diet Anemia due to chronic kidney disease recommend Epogen 3 times a week Rest of care as per primary medical team Plan discussed with: Patient MYAH MAHAJAN MD Dec 25, 2024 10:17
[2024-12-25] MEDS: FAMOTIDINE 20 MG TAB PO SCH (10:26)
[2024-12-25] MEDS: METOPROLOL SUCCINATE XL 50 MG TAB PO SCH (10:26)
[2024-12-25] MEDS: FUROSEMIDE 40 MG/4 ML VIAL IV SCH (10:27)
[2024-12-25] MEDS: HEPARIN SODIUM (PORCINE) 5000 UNITS/ML 1ML VIAL SC SCH (10:27)
--- NOTE | 2024-12-25 12:41 | DVHPNRES ---
Progress Note Date Seen: Dec 25, 2024 Resident Creating Document: FELICITY RUBY RESDIENT Medical Necessity Reason Pt with a Central, PICC or Fol: No Subjective Review of Systems This is a 54-year-old lady with past medical history of heart failure with improved ejection fraction, status post pacemaker, hypertension, diabetes, ESRD (on dialysis Wednesday/Wednesday/), retinal detachment (with left-sided blindness), dyslipidemia came to the hospital due to bilateral flank pain. Patient was referred from urgent care due to high blood pressure (220s). She also reports of generalized body pain, urgency, and chills. Home meds: Atorvastatin, Lasix 40 mg thiamine sevelamer, clonidine, Lokelma, atorvastatin, Entresto, nifedipine, and metoprolol. Social history: Patient use cane for mobility. Lives at home. Patient seen and examined at bedside. Patient is feeling better since admission. But still complained of generalized body pain and urgency. Objective vital signs Vital Sign Date Time Temp Pulse Resp B/P (MAP) Pulse Ox O2 Delivery O2 Flow Rate FiO2 12/25/24 10:27 107/58 12/25/24 10:26 70 12/25/24 10:20 16 92 12/25/24 07:47 97.7 97.7 12/25/24 07:39 Room Air* 0 21 medications Current Medications Medications Dose Ordered Sig/Tawnya Route Start Time Stop Time Status Last Admin Dose Admin Nifedipine 90 mg DAILY PO 12/25/24 10:00 12/25/24 10:24 90 MG Metoprolol Succinate 75 mg DAILY PO 12/25/24 10:00 12/25/24 10:26 75 MG Hydralazine HCl 10 mg Q6HP PRN IV 12/25/24 01:30 12/25/24 04:08 10 MG Famotidine 20 mg DAILY PO 12/25/24 10:00 12/25/24 10:26 20 MG Heparin Sodium (Porcine) 5,000 units Q12HR SC 12/25/24 10:00 12/25/24 10:27 5,000 UNITS Sevelamer HCl 800 mg TIDWM PO 12/25/24 12:00 Furosemide 40 mg DAILY IV 12/25/24 10:00 12/25/24 10:27 40 MG Epoetin Sylvester-epbx 10,000 unit TUTHSA@2100 [place] 12/26/24 21:00 Examination General Appearance: Alert, Oriented X3, Cooperative, No acute distress HEENT: Atraumatic, PERRLA, EOMI, Mucous membrane moist/pink Respiratory: Clear to auscultation, Normal air movement Cardiovascular: Regular rate, Normal S1, Normal S2, No murmurs, no chest wall tenderness Abdominal: Bilateral mild flank pain with mild suprapubic tenderness Extremities: No clubbing, No cyanosis, No edema, Normal pulses, No tenderness/swelling Skin: No rashes, No breakdown, No significant lesion Neuro: Normal gait, Normal speech, Strength at 5/5 X4 ext, Normal tone, Sensation intact, Cranial nerves 3-12 NL, Reflexes 2+ Psych/Mental Status: Mental status NL, Mood NL laboratory and microbiology Laboratory Tests 12/25/24 09:04 Test 12/25/24 09:04 Range/Units Serum Glucose 157 H 74-106 mg/dL Labs and/or images reviewed: Labs reviewed by me, Image(s) reviewed by me Problem List/Assessment/Plan Problem List/Assessment/Plan Hypertensive emergency, due to medication nonadherence ESRD, on maintenance dialysis (Wednesday/Wednesday/) Volume overload, due to above Possible acute on chronic systolic heart failure Hypertension Diabetes type 2 History of retinal detachment, with blindness Dyslipidemia Moderate anemia, due to ESRD Secondary hyperparathyroidism, due to ESRD Small pericardial effusion * CT scan shows, small pericardial effusion and small umbilical hernia containing only fat Plan/recommendation: * Nifedipine 90 mg daily, metoprolol, and Lasix * Consulted cardiology * Consulted nephrology, planned for dialysis on 12/26 * Continue home meds, atorvastatin, sevelamer * Epogen DIET: Renal diet DVT PROPHYLAXIS: On heparin GI PROPHYLAXIS:: Famotidine CODE STATUS: Goal of care discussed for more than 18 minutes, full code DISPOSITION: Med/surge Patient's status and plan discussed with the patient. Case discussed with Dr. Moreira. Plan discussed with: Patient, Other (RN) My Orders My Orders Orders - FELICITY RUBY Procedure Category Date Status Time Sevelamer (Renagel) PHA 12/25/24 In Process 12:00 Furosemide Injection PHA 12/25/24 In Process (Lasix Injection) 10:00 *Consult Dr. Garcia CONS 12/25/24 Transmitted [place] 09:25 Date of Service: Dec 25, 2024 Billing Provider: CLARISA JAMISON MD Common Visit Codes: [id number] INP/OBS CARE(HIGH) FELICITY RUBY Dec 25, 2024 12:41 CLARISA JAMISON MD Dec 26, 2024 16:11
[2024-12-25] MEDS: SEVELAMER 800 MG TAB PO SCH (13:25)
--- NOTE | 2024-12-25 13:36 | DVHPN2 ---
Progress Note - Dictate Date Seen: Dec 24, 2024 Medical Necessity Reason Pt with a Central, PICC or Fol: No Subjective PT WITH HFrEF CHRONIC DCM NL CORONARIES S/P AICD UTI ESRD ANEMIA GASTROPARESIS N/V vs UREMIA vital signs Vital Sign Date Time Temp Pulse Resp B/P (MAP) Pulse Ox O2 Delivery O2 Flow Rate FiO2 12/25/24 10:27 107/58 12/25/24 10:26 70 12/25/24 10:20 16 92 12/25/24 07:47 97.7 97.7 12/25/24 07:39 Room Air* 0 21 medications Current Medications Medications Dose Ordered Sig/Tawnya Route Start Time Stop Time Status Last Admin Dose Admin Nifedipine 90 mg DAILY PO 12/25/24 10:00 12/25/24 10:24 90 MG Metoprolol Succinate 75 mg DAILY PO 12/25/24 10:00 12/25/24 10:26 75 MG Hydralazine HCl 10 mg Q6HP PRN IV 12/25/24 01:30 12/25/24 04:08 10 MG Famotidine 20 mg DAILY PO 12/25/24 10:00 12/25/24 10:26 20 MG Heparin Sodium (Porcine) 5,000 units Q12HR SC 12/25/24 10:00 12/25/24 10:27 5,000 UNITS Sevelamer HCl 800 mg TIDWM PO 12/25/24 12:00 12/25/24 13:25 800 MG Furosemide 40 mg DAILY IV 12/25/24 10:00 12/25/24 10:27 40 MG Epoetin Sylvester-epbx 10,000 unit TUTHSA@2100 [place] 12/26/24 21:00 objective GENERAL: The patient is awake, alert. VITAL SIGNS: Temperature of 98.1, pulse 74 per minute, blood pressure 165/75. SHEENT: Unremarkable except for decreased vision more so on the left eye. There is pedal edema 1+. LUNGS: Reveal bilateral scattered rales. CARDIOVASCULAR: S1, S2 is regular. There are no murmurs. ABDOMEN: Abdomen is soft. There is no organomegaly. NEUROLOGIC: Nonfocal. MUSCULOSKELETAL: Normal. laboratory and microbiology Laboratory Tests 12/25/24 09:04 Test 12/25/24 09:04 Range/Units Serum Glucose 157 H 74-106 mg/dL Problem List HFrEF CHRONIC DCM NL CORONARIES S/P AICD UTI ESRD ANEMIA GASTROPARESIS N/V vs UREMIA Assessment/Plan PT WITH ACCELERATED BP DIALYSIS SECONDARY HYPERPARATHYROIDISM EF HAS IMPROVED SO NIFEDIPINE WOULD BE ACCEPTABLE Plan discussed with: Patient Critical Care Time(min): 35 WADE CHAVARRIA MD Dec 25, 2024 13:36
[2024-12-25 13:38] LABS: Hepatitis B Surface Antigen Negative (Negative); Hepatitis C Antibody Negative (Negative)
[2024-12-25 19:55] VITALS: PULSE 71; RESP 15; O2SAT 93
[2024-12-25 22:25] VITALS: PULSE 68; RESP 16; O2SAT 97
[2024-12-26 01:00] VITALS: BP 131/57; PULSE 74; RESP 18; TEMP 97.1; O2SAT 94
[2024-12-26 05:00] VITALS: BP 145/71; PULSE 72; RESP 18; TEMP 97.2; O2SAT 95
[2024-12-26] MEDS ORDERED: DEXTROSE (50%) 50ML SYRG IV PRN (05:30)
[2024-12-26] MEDS: InsuLIN REG 1unit/0.01ml Soln (100units/ml) SC SCH (06:27)
[2024-12-26] MEDS: ACCU-CHEK COMFORT CURVE STRIP VI SCH (06:33)
[2024-12-26 06:44] LABS: Anion Gap 14 (5-15); Calcium 9.1 mg/dL (8.7-10.4); Carbon Dioxide 23 mmol/L (20-31); Chloride 104 mmol/L (98-107); Potassium 4.3 mmol/L (3.5-5.1); Sodium 141 mmol/L (136-145)
[2024-12-26 06:47] LABS: Hematocrit 29.8 % (36.0-46.0); Hemoglobin 10.4 g/dL (12.2-16.2); Mean Corpuscular Hemoglobin 32.0 pg (28.0-32.0); Mean Corpuscular Volume 92.1 fL (80.0-100.0); Nucleated Red Blood Cells % 0.0 %
[2024-12-26 06:49] LABS: Iron 71.0 ug/dL (50-170)
[2024-12-26 06:50] LABS: BUN/Creatinine Ratio 9.2 (10.0-20.0)
[2024-12-26 06:52] LABS: Blood Urea Nitrogen 40 mg/dL (9-23); Glucose 153 mg/dL (74-106); Total Iron Binding Capacity 260.0 ug/dL (250-425)
[2024-12-26] MEDS ORDERED: SODIUM CHL 0.9% 1000 ML BAG XX ONE (07:00)
[2024-12-26] MEDS ORDERED: ACETAMINOPHEN 325 MG TAB PO PRN (07:30)
[2024-12-26 08:00] VITALS: PULSE 74; RESP 16; O2SAT 98
[2024-12-26 08:12] LABS: Alanine Aminotransferase 19 U/L (7-40); Albumin 4.1 g/dL (3.2-4.8); Total Protein 6.8 g/dL (5.7-8.2)
[2024-12-26 08:13] LABS: Bilirubin, Total 0.4 mg/dL (0.2-1.0)
[2024-12-26 08:16] LABS: Alkaline Phosphatase 177 U/L (46-116); Bilirubin, Direct < 0.1 mg/dL (<0.3)
[2024-12-26 08:51] VITALS: BP 145/77; PULSE 74; RESP 16; TEMP 98.3; O2SAT 98
--- NOTE | 2024-12-26 09:38 | DVHDSRES ---
Discharge Summary Date of Admission Resident Creating Document: FELICITY RUBY RESDIENT Dec 24, 2024 at 23:30 Date of Discharge: Dec 26, 2024 Labs/Diagnostic Data: Laboratory Results Test 12/26/24 06:18 12/26/24 05:55 12/25/24 09:04 12/25/24 03:40 POC Glucose 171 mg/dl (70-106) White Blood Count 4.6 10^3/uL (4.4-10.8) Red Blood Count 3.23 10^6/uL (4.0-5.20) Hemoglobin 10.4 g/dL (12.2-16.2) Hematocrit 29.8 % (36.0-46.0) Mean Corpuscular Volume 92.1 fL (80.0-100.0) Mean Corpuscular Hemoglobin 32.0 pg (28.0-32.0) Mean Corpuscular Hemoglobin Concent 34.8 g/dL (32.0-36.0) Red Cell Distribution Width 13.7 % (11.8-14.3) Platelet Count 175 10^3/uL (140-450) Mean Platelet Volume 8.1 fL (6.9-10.8) Neutrophils (%) (Auto) 61.6 % (37.0-80.0) Lymphocytes (%) (Auto) 28.1 % (10.0-50.0) Monocytes (%) (Auto) 5.5 % (0.0-12.0) Eosinophils (%) (Auto) 3.9 % (0.0-7.0) Basophils (%) (Auto) 0.9 % (0.0-2.0) Neutrophils # (Auto) 2.8 10 ^3/uL (1.6-8.6) Lymphocytes # (Auto) 1.3 10 ^3/uL (0.4-5.4) Monocytes # (Auto) 0.3 10 ^3/uL (0-1.3) Eosinophils # (Auto) 0.2 10 ^3/uL (0-0.8) Basophils # (Auto) 0 10 ^3/uL (0-0.2) Nucleated Red Blood Cells 0.0 % Sodium Level 141 mmol/L (136-145) Potassium Level 4.3 mmol/L (3.5-5.1) Chloride Level 104 mmol/L (98-107) Carbon Dioxide Level 23 mmol/L (20-31) Anion Gap 14 (5-15) Blood Urea Nitrogen 40 mg/dL (9-23) Creatinine 4.34 mg/dL (0.550-1.02) Glomerular Filtration Rate Calc 11 mL/min (>90) BUN/Creatinine Ratio 9.2 (10.0-20.0) Serum Glucose 153 mg/dL (74-106) Calcium Level 9.1 mg/dL (8.7-10.4) Iron Level 71 ug/dL (50-170) Total Iron Binding Capacity 260 ug/dL (250-425) Percent Iron Saturation 27.3 % (15-50) Ferritin 377.2 ng/mL (10-291) Total Bilirubin 0.4 mg/dL (0.2-1.0) Direct Bilirubin < 0.1 mg/dL (<0.3) Aspartate Amino Transferase (AST) 15 U/L (13-40) Alanine Aminotransferase (ALT) 19 U/L (7-40) Alkaline Phosphatase 177 U/L (46-116) Total Protein 6.8 g/dL (5.7-8.2) Albumin 4.1 g/dL (3.2-4.8) Phosphorus Level 4.5 mg/dL (2.4-5.1) Magnesium Level 2.0 mg/dL (1.6-2.6) B-Type Natriuretic Peptide 381.12 pg/mL (0-100) Vitamin D 25-Hydroxy 48.3 ng/mL (30.0-100) Parathyroid Hormone (Intact) 578.1 pg/mL (18.4-80.1) Hepatitis A IgM Antibody Negative Hepatitis B Surface Antigen Negative (Negative) Hepatitis B Core IgM Antibody Negative (Negative) Hepatitis C Antibody Negative (Negative) Urine Color Light-yellow (Yellow) Urine Clarity Clear (Clear) Urine pH 8.0 (5.0-9.0) Urine Specific [place] 1.010 (1.001-1.035) Urine Protein 3+ (Negative) Urine Ketones Negative (Negative) Urine Blood Negative /uL (Negative) Urine Nitrite Negative (Negative) Urine Bilirubin Negative (Negative) Urine Urobilinogen Normal mg/dL (Negative) Urine Leukocyte Esterase Negative /uL (Negative) Urine RBC 5 /hpf (0 - 4) Urine Microscopic WBC < 1 /HPF (0-5) Urine Squamous Epithelial Cells Few /hpf (<5) Urine Bacteria None seen /hpf (None Seen) Urine Glucose 3+ mg/dL (Normal) Test 12/24/24 22:06 Troponin I High Sensitivity 11 ng/L (</=34) Thyroid Stimulating Hormone (TSH) 2.07 uIU/mL (0.55-4.78) Other Laboratory Tests 12/26/24 05:55 Brief Hx & Hospital Course: HISTORY OF PRESENT ILLNESS: This is a 54-year-old lady with past medical history of heart failure with improved ejection fraction, status post pacemaker, hypertension, diabetes, ESRD (on dialysis Wednesday/Wednesday/), retinal detachment (with left-sided blindness), dyslipidemia came to the hospital due to bilateral flank pain. Patient was referred from urgent care due to high blood pressure (220s). She also reports of generalized body pain, urgency, and chills. Home meds: Atorvastatin, Lasix 40 mg thiamine sevelamer, clonidine, Lokelma, atorvastatin, Entresto, nifedipine, and metoprolol. Social history: Patient use cane for mobility. Lives at home. HOSPITAL COURSE: Patient was admitted in hospital due to hypertensive emergency due to medication nonadherence. Patient was given IV hydralazine, and resume home medication including nifedipine, metoprolol, and furosemide. Kidney function has also worsened, consulted nephrology, plan for dialysis. Home medication, sevelamer with continued during hospital admission. Cardiology consulted, recommended medical management. On 11/25, patient was feeling better since admission. Blood pressure was controlled. Patient was discharged home, recommended to follow up with the PCP, Cardiology, Nephrology (to get dialysis), and continue home medicine. The patient was also consulted for medication adherence. FINAL DIAGNOSIS: Hypertensive emergency, due to medication nonadherence ESRD, on maintenance dialysis (Wednesday/Wednesday/) Volume overload, due to above Possible acute on chronic systolic heart failure/dilated cardiomyopathy Hypertension Diabetes type 2 History of retinal detachment, with blindness Dyslipidemia Moderate anemia, due to ESRD Secondary hyperparathyroidism, due to ESRD Small pericardial effusion Ruled out UTI Gastroparesis, due to diabetes type 2 Ruled out DOMINIC Condition at Discharge: Good Final Diagnosis/Problems List Hypertensive emergency, due to medication nonadherence ESRD, on maintenance dialysis (Wednesday/Wednesday/) Volume overload, due to above Possible acute on chronic systolic heart failure/dilated cardiomyopathy Hypertension Diabetes type 2 History of retinal detachment, with blindness Dyslipidemia Moderate anemia, due to ESRD Secondary hyperparathyroidism, due to ESRD Small pericardial effusion Ruled out UTI Gastroparesis, due to diabetes type 2 Ruled out DOMINIC Discharge Disposition: Home Discharge Instruct/Medications Diet: Renal Activity: No Restrictions, As Tolerated Follow Up/Referral: Follow up with the PCP within 1 week of the discharge. Follow up with the Cardiology on outpatient basis. Medications: Continue home meds Scheduled Atorvastatin Calcium (Atorvastatin Calcium), 1 TAB PO DAILY, (Reported) Famotidine (Pepcid Tablet), 1 TAB PO DAILY, (Reported) Furosemide (Furosemide), 20 MG PO DAILY, (Reported) Furosemide (Lasix), 1 TAB PO DAILY, (Reported) Metoprolol Succinate (Metoprolol Succinate Er), 75 MG PO BID, (Reported) Nifedipine (Nifedipine Er), 1 TAB PO BID, (Reported) Omeprazole (Gnp Omeprazole), 1 TAB PO BID, (Reported) Sacubitril-Valsartan (Entresto 24-26 mg), 0.5 TAB PO BID Sacubitril-Valsartan (Entresto 24-26 mg), 1 TAB PO BID, (Reported) Sevelamer Hydrochloride (Renagel), 800 MG PO TIDWM Sodium Bicarbonate (Sodium Bicarbonate), 650 MG PO DAILY, (Reported) Sucralfate (Carafate), 1 GM PO BID, (Reported) Discharge Statement: "Patient was advised to return to the ER or call 911 if any headaches, dizziness, shortness of breath, chest pain, abdominal pain, bleeding, fevers, or worsening of medical condition. Patient was counseled about treatment plan, medications, possible side effects, patientverbalized understanding. All questions were answered to the best of my ability. This discharge took greater then 30 minutes in planning, reviewing documentation, counseling the patient, and discussing with other team members." Date of Service: Dec 26, 2024 Billing Provider: CLARISA JAMISON MD Common Visit Codes: [id number] DISCH DAY >30min HELENGAGANSUKIFELICITY TAPIA RESDIENT Dec 26, 2024 09:38 CLARISA JAMISON MD Dec 26, 2024 15:46
[2024-12-26 09:53] VITALS: PULSE 74
[2024-12-26 10:18] VITALS: BP 145/77; PULSE 74; RESP 16; TEMP 98.3; O2SAT 98
--- NOTE | 2024-12-26 11:13 | DVHPN2 ---
Progress Note Date Seen: Dec 26, 2024 Medical Necessity Reason Pt with a Central, PICC or Fol: No Objective vital signs Vital Sign Date Time Temp Pulse Resp B/P (MAP) Pulse Ox O2 Delivery O2 Flow Rate FiO2 12/26/24 10:18 98.3 74 16 98 12/26/24 08:51 145/77 (99) 12/25/24 22:25 Room Air* 0 21 Total Intake and Output 12/25/24 12/25/24 12/26/24 15:00 23:00 07:00 Intake Total 1000 ml Balance 1000 ml medications Current Medications Medications Dose Ordered Sig/Tawnya Route Start Time Stop Time Status Last Admin Dose Admin Nifedipine 90 mg DAILY PO 12/25/24 10:00 12/25/24 10:24 90 MG Metoprolol Succinate 75 mg DAILY PO 12/25/24 10:00 12/25/24 10:26 75 MG Hydralazine HCl 10 mg Q6HP PRN IV 12/25/24 01:30 12/25/24 04:08 10 MG Famotidine 20 mg DAILY PO 12/25/24 10:00 12/26/24 09:57 20 MG Heparin Sodium (Porcine) 5,000 units Q12HR SC 12/25/24 10:00 12/26/24 10:02 5,000 UNITS Sevelamer HCl 800 mg TIDWM PO 12/25/24 12:00 12/26/24 08:09 800 MG Furosemide 40 mg DAILY IV 12/25/24 10:00 12/25/24 10:27 40 MG Epoetin Sylvester-epbx 10,000 unit TUTHSA@2100 PR 12/26/24 21:00 Diagnostic Test (Pha) 1 strip ACHS 12/26/24 07:00 12/26/24 06:33 1 STRIP Insulin Human Regular ACHS SC 12/26/24 07:00 12/26/24 06:27 3 UNITS Dextrose 50 ml UD PRN IV 12/26/24 05:30 Acetaminophen 650 mg Q4HP PRN PO 12/26/24 07:30 Examination: GENERAL:Normal, CVS:Normal, SKIN:Normal laboratory and microbiology Laboratory Tests 12/26/24 05:55 Test 12/26/24 05:55 Range/Units Serum Glucose 153 H 74-106 mg/dL Problem List/Assessment/Plan Problem List/Assessment/Plan 54-year-old female past medical history of end-stage renal disease on hemodialysis presents to the hospital with hypertensive emergency in the setting of noted headache End-stage renal disease HD today Hypertension with hypertensive emergency now resolved nifedipine and metoprolol p.o., continue lasix Low-salt renal diet Anemia due to chronic kidney disease recommend Epogen 3 times a week can be dc after dialysis Rest of care as per primary medical team Plan discussed with: Patient MYAH MAHAJAN MD Dec 26, 2024 11:12
[2024-12-26] MEDS ORDERED: EPOETIN ALFA-EPBX 10,000 UNIT/1ML VIAL SC SCH (21:00)
== END 2024-12-26 11:09 | disposition home or self-care (01) | DRG 291 ==
LOC: ER 19:13 → OVERFLOW 23:30 → TELE-CENTR 12-25 22:04
PROVIDERS: ADMIT Student in an Organized Health Care Education/Training Program; ATTEND Student in an Organized Health Care Education/Training Program
DX: I13.2 Hypertensive heart and chronic kidney disease with heart failure and with stage 5 chronic kidney disease, or end stage renal disease (principal); I50.43 Acute on chronic combined systolic (congestive) and diastolic (congestive) heart failure; N18.6 End stage renal disease; D63.1 Anemia in chronic kidney disease; Z99.2 Dependence on renal dialysis; I16.1 Hypertensive emergency; E11.65 Type 2 diabetes mellitus with hyperglycemia; J45.909 Unspecified asthma, uncomplicated; N25.81 Secondary hyperparathyroidism of renal origin; H33.23 Serous retinal detachment, bilateral; I42.0 Dilated cardiomyopathy; K31.84 Gastroparesis; E11.43 Type 2 diabetes mellitus with diabetic autonomic (poly)neuropathy; E11.22 Type 2 diabetes mellitus with diabetic chronic kidney disease; E78.5 Hyperlipidemia, unspecified; E87.70 Fluid overload, unspecified; K42.9 Umbilical hernia without obstruction or gangrene; K21.9 Gastro-esophageal reflux disease without esophagitis; H54.40 Blindness, one eye, unspecified eye; I25.10 Atherosclerotic heart disease of native coronary artery without angina pectoris; Z82.49 Family history of ischemic heart disease and other diseases of the circulatory system; Z83.3 Family history of diabetes mellitus; Z90.710 Acquired absence of both cervix and uterus; Z95.810 Presence of automatic (implantable) cardiac defibrillator; Z88.2 Allergy status to sulfonamides; Z79.899 Other long term (current) drug therapy; Z91.148 Patient's other noncompliance with medication regimen for other reason
CPT/HCPCS: 36415; 70450; 71045; 74176; 80048; 80053; 80074; 80076; 81001; 82306; 82728; 82962; 83540; 83550; 83735; 83880; 83970; 84100; 84443; 84484; 85025; 96372; 96374; G0378; J1815; J1885

== ENCOUNTER → 2025-01-25 | Outpatient (CLI) | payer MEDICARE, MEDICAID | END | disposition home or self-care (01) | LOC: Rad HDHVI 13:20 | PROVIDERS: ATTEND Internal Medicine Cardiovascular Disease | DX: I34.0 Nonrheumatic mitral (valve) insufficiency (principal); I51.7 Cardiomegaly; I50.42 Chronic combined systolic (congestive) and diastolic (congestive) heart failure; E78.5 Hyperlipidemia, unspecified | CPT/HCPCS: 93306 ==

== ENCOUNTER 2025-02-05 14:23 | Outpatient (CLI) | payer MEDICARE, MEDICAID | END 2025-02-05 17:00 | disposition home or self-care (01) | LOC: LAB 14:23 | PROVIDERS: ATTEND Internal Medicine | DX: E11.69 Type 2 diabetes mellitus with other specified complication (principal); E21.1 Secondary hyperparathyroidism, not elsewhere classified; D63.8 Anemia in other chronic diseases classified elsewhere | CPT/HCPCS: 36415; 82306; 82607; 83036; 84443; 85652 ==